=== PATIENT | female | born 1955 | race American Indian/Alaskan Native ===

== ENCOUNTER 2020-10-15 21:09 | Inpatient (IN) | payer MEDICARE ==
[2020-10-15 23:53] LABS: Basophils % (Auto) 0.3 % (0.0-1.8); Eosinophils # (Auto) 0.1 K/mm3 (0.0-0.4); Eosinophils % (Auto) 0.5 % (0.0-4.3); Hematocrit 43.4 % (30.3-42.9); Hemoglobin 13.6 gm/dl (10.1-14.3); Lymphocytes # (Auto) 0.8 K/mm3 (1.2-5.4); Lymphocytes % (Auto) 6.7 % (13.4-35.0); Mean Corpuscular HGB Conc 31 % (30-34); Mean Corpuscular Volume 89 fl (79-97); Monocytes # (Auto) 0.4 K/mm3 (0.0-0.8); Monocytes % (Auto) 3.9 % (0.0-7.3); Platelet Count 312 K/mm3 (140-440); Red Blood Count 4.85 M/mm3 (3.65-5.03); Red Cell Distribution Width 19.4 % (13.2-15.2)
[2020-10-16 00:43] LABS: Albumin 3.9 g/dL (3.9-5); Calcium 10.2 mg/dL (8.4-10.2)
[2020-10-16] MEDS ORDERED: HYDROmorphone 1 MG/1 ML INJ IV ONE ×2 (02:12→14:11)
--- NOTE | 2020-10-16 02:15 | Emergency Department Report ---
HPI - General Chief Complaint: Abdominal Pain Time Seen by Provider: 10/16/20 01:52 - HPI HPI: This is a 65-year-old -Cypriot female who presents to the emergency department with a complaint of generalized abdominal pain, nausea and vomiting, diarrhea, and a loss of smell. Overall the patient says that the abdominal pain has been going on for the past 3 weeks. The nausea, vomiting and diarrhea has been going on for the past few days, and she lost her smell about 2 days ago. Patient says that the abdominal pain is currently 8 out of 10 in intensity. It worsens with any type of movement or palpation. No known alleviating factors. Patient denies any sick contacts at home but says that her has been working with someone recently who came down with KAROLYN. No recent travel. She has not taken anything for symptoms prior to presentation. She has a past medical history of diabetes, hypertension, paroxysmal atrial fibrillation, AICD in situ, and end-stage renal disease on hemodialysis on Friday/Friday/Friday. Patient says that she has not had dialysis for about 1 week secondary to her current symptoms. Her designer is a Dr. Pelaez. ED Past Medical Hx - Past Medical History Hx Hypertension: Yes (ADMITTED WITH HYPERTENSIVE EMERGENCY) Hx Heart Attack/AMI: No Hx Congestive Heart Failure: No Hx Diabetes: Yes Hx Renal Disease: Yes (Dialysis: M-W-F) Hx Asthma: No Hx COPD: No Hx Tuberculosis: Yes Hx HIV: No Additional medical history: Possible atrial fib. Hernia right Inguinal - Surgical History Hx Pacemaker: Yes Hx Internal Defibrillator: Yes Hx Cholecystectomy: Yes Hx Appendectomy: Yes Additional Surgical History: Hysterectomy - Social History Smoking Status: Never Smoker Substance Use Type: None - Medications Home Medications: Home Medications Medication Instructions Recorded Confirmed Last Taken Type Ergocalciferol (Vitamin D2) 50,000 unit PO DAILY 09/25/20 10/16/20 Unknown History [Drisdol] HYDROcodone/APAP 5-325 [[place] 1 each PO Q6HR PRN 09/25/20 10/16/20 Unknown History 5-325 mg TAB] Sevelamer Carbonate [Renvela] 1,600 mg PO TID 09/25/20 10/16/20 Unknown History busPIRone [Buspar] 10 mg PO Q8HR 09/25/20 10/16/20 Unknown History Citalopram [Celexa] 20 mg PO QDAY #30 tab 09/28/20 10/16/20 Unknown Rx Furosemide [Lasix TAB] 80 mg PO QDAY #30 tablet 09/28/20 10/16/20 Unknown Rx carvediloL [Coreg] 25 mg PO BID #60 tablet 09/28/20 10/16/20 Unknown Rx cloNIDine [Catapres] 0.3 mg PO Q8HR #270 tablet 09/28/20 10/16/20 Unknown Rx dilTIAZem CD [Cardizem CD] 360 mg PO QDAY #60 capsule 09/28/20 10/16/20 Unknown Rx ALPRAZolam [Xanax TAB] 0.25 mg PO BID PRN 10/16/20 10/16/20 Unknown History Acetaminophen [Tylenol] 500 mg PO Q6HR 10/16/20 10/16/20 Unknown History Folic Acid/Vit B Complex and C 0.8 mg PO QDAY 10/16/20 10/16/20 Unknown History [Renal Vitamin Tablet] Pantoprazole [Protonix] 40 mg PO QDAY 10/16/20 10/16/20 Unknown History clonazePAM [ Klonopin] 0.5 mg PO BID PRN 10/16/20 10/16/20 Unknown History hydrALAZINE [Apresoline TAB] 25 mg PO QID 10/16/20 10/16/20 Unknown History traMADoL [Ultram] 50 mg PO Q6HR PRN 10/16/20 10/16/20 Unknown History ED Review of Systems ROS: Stated complaint: ABDOMINAL PAIN Other details as noted in HPI Comment: All other systems reviewed and negative Constitutional: denies: chills, fever Eyes: denies: eye pain, vision change ENT: denies: ear pain, throat pain Respiratory: denies: cough, shortness of breath Cardiovascular: denies: chest pain, palpitations Gastrointestinal: abdominal pain, nausea, vomiting, diarrhea Genitourinary: denies: dysuria, discharge Musculoskeletal: denies: back pain, arthralgia Skin: denies: rash, lesions Neurological: denies: headache, weakness Physical Exam - Physical Exam Vital Signs: Vital Signs 10/15/20 23:03 Temperature 98.3 F Pulse Rate 116 H Respiratory 18 Rate Blood Pressure 239/160 O2 Sat by Pulse 96 Oximetry Physical Exam: GENERAL: The patient is well-developed well-nourished. HENT: Normocephalic. Atraumatic. Patient has moist mucous membranes. EYES: Extraocular motions are intact. NECK: Supple. Trachea is midline. CHEST/LUNGS: Clear to auscultation. There is no respiratory distress noted. HEART/CARDIOVASCULAR: Regular. There is mild tachycardia. ABDOMEN: Abdomen is soft. There is generalized abdominal tenderness to palpation. No guarding. Patient has normal bowel sounds. SKIN: Skin is warm and dry. NEURO: The patient is awake, alert, and oriented. The patient is cooperative. Normal speech. MUSCULOSKELETAL: There is no tenderness or deformity. There is no limitation range of motion. ED Course Vital Signs 10/15/20 23:03 Temperature 98.3 F Pulse Rate 116 H Respiratory 18 Rate Blood Pressure 239/160 O2 Sat by Pulse 96 Oximetry - Reevaluation(s) Reevaluation #1: 10/16/20 05:48 Lab Results 10/15/20 10/15/20 Range/Units 23:09 23:09 WBC 11.3 H (4.5-11.0) K/mm3 RBC 4.85 (3.65-5.03) M/mm3 Hgb 13.6 (10.1-14.3) gm/dl Hct 43.4 H (30.3-42.9) % MCV 89 (79-97) fl MCH 28 (28-32) pg MCHC 31 (30-34) % RDW 19.4 H (13.2-15.2) % Plt Count 312 (140-440) K/mm3 Lymph % (Auto) 6.7 L (13.4-35.0) % [place] % (Auto) 3.9 (0.0-7.3) % Eos % (Auto) 0.5 (0.0-4.3) % Baso % (Auto) 0.3 (0.0-1.8) % Lymph # (Auto) 0.8 L (1.2-5.4) K/mm3 [place] # (Auto) 0.4 (0.0-0.8) K/mm3 Eos # (Auto) 0.1 (0.0-0.4) K/mm3 Baso # (Auto) 0.0 (0.0-0.1) K/mm3 Seg Neutrophils % 88.6 H (40.0-70.0) % Seg Neutrophils # 10.0 H (1.8-7.7) K/mm3 Sodium 138 (137-145) mmol/L Potassium 5.7 H (3.6-5.0) mmol/L Chloride 96.1 L (98-107) mmol/L Carbon Dioxide 17 L (22-30) mmol/L Anion Gap 31 mmol/L BUN 72 H (7-17) mg/dL Creatinine 12.5 H (0.6-1.2) mg/dL Estimated GFR 4 ml/min BUN/Creatinine Ratio 6 % Glucose 115 H (65-100) mg/dL Calcium 10.2 (8.4-10.2) mg/dL Total Bilirubin 0.60 (0.1-1.2) mg/dL AST 21 (5-40) units/L ALT 10 (7-56) units/L Alkaline Phosphatase 95 (35-129) units/L Total Protein 6.9 (6.3-8.2) g/dL Albumin 3.9 (3.9-5) g/dL Albumin/Globulin Ratio 1.3 % Reevaluation #2: 10/16/20 05:48 Vital Signs 10/15/20 10/16/20 23:03 04:46 Temperature 98.3 F Pulse Rate 116 H 118 H Respiratory 18 20 Rate Blood Pressure 239/160 227/140 O2 Sat by Pulse 96 Oximetry - Consultations Consultation #1: 10/16/20 05:57 I spoke to the general surgeon on-call, Dr. Portillo, regarding the CT findings of possible internal hernia with mesenteric stranding and "swirl of the central mesenteric vasculature." Dr. Portillo has asked for a lactic acid level and will see the patient as a consult. ED Medical Decision Making - Lab Data Result diagrams: 10/17/20 08:13 10/17/20 08:13 - Radiology Data Radiology results: report reviewed ABDOMEN 2 VIEW(S) with PA chest INDICATION / CLINICAL INFORMATION: Abd pain, HTN, PUI. COMPARISON: Chest radiograph 09/27/[address] abdomen pelvis 09/25/2020 FINDINGS: CHEST: Stable position of left chest AICD. Stable cardiomegaly. The lungs are clear. No pleural effusion. No pneumothorax. TUBES / LINES: Femoral approach central venous catheter with tip terminating over the region of the right atrium. BOWEL GAS PATTERN: No significant abnormality. FREE AIR / EXTRALUMINAL GAS: None seen. ADDITIONAL FINDINGS: A probable endovascular occlusive device is seen in the left midabdomen. There is a 9 mm calcification projecting over the left lower quadrant, not clearly seen on prior CT abdomen pelvis. IMPRESSION: 1. There is a 9 mm calcification projecting over the left lower quadrant, not clearly seen on prior CT abdomen pelvis and indeterminate. No renal or ureteral stone was seen on prior CT, though recommend correlation for left flank pain. Otherwise no acute abnormality identified. CT ABDOMEN AND PELVIS WITHOUT CONTRAST INDICATION / CLINICAL INFORMATION: Abd pain. TECHNIQUE: Axial CT images were obtained through the abdomen and pelvis without IV contrast. All CT scans at this location are performed using CT dose r eduction for ALARA by means of automated exposure control. COMPARISON: CT abdomen pelvis 09/25/2020 and abdominal radiograph same day FINDINGS: LOWER CHEST: Cardiomegaly. Cardiac leads are seen. Small pericardial effusion. LIVER: No significant abnormality. GALLBLADDER: Absent. BILE DUCTS: Prominence of the common bile duct is unchanged and likely secondary to postcholecystectomy state. PANCREAS: No significant abnormality. SPLEEN: No significant abnormality. ADRENALS: No significant abnormality. KIDNEYS AND URETERS: There is a possible 3.4 cm nodular lesion in the right upper pole, incompletely characterized on noncontrast examination. Additional renal cysts. Both kidneys are atrophic. Ther e is no hydronephrosis or nephrolithiasis. Left perinephric stranding/collection is slightly decreased from prior examination, currently measuring up to 5.0 x 4.4 cm, previously 5.6 x 4.9 cm. Embolization coil material in the region of the left renal artery. STOMACH and SMALL BOWEL: There is a swirled appearance of the central mesenteric vasculature which is new compared with the prior examination. There is adjacent mesenteric stranding and a mildly prominent loop of small bowel in the right mid abdomen with associated wall thickening. There is no evidence of bowel obstruction. COLON: No significant abnormality. The previously described left lower quadrant calcification seen on plain radiograph is adjacent to the distal descending/proximal sigmoid colon and indeterminate in etiology. APPENDIX: Not definitively seen. PERITONEUM: Small free fluid. No free air. No fluid collection. LYMPH NODES: No significant adenopathy. AORTA and ARTERIES: No significant abnormality. IVC and VEINS: Right femoral approach central venous catheter with tip terminating in the right atrium. URINARY BLADDER: No significant abnormality. REPRODUCTIVE ORGANS: Prior hysterectomy. ADDITIONAL FINDINGS: None. SKELETAL SYSTEM: No significant abnormality. IMPRESSION: 1. New swirling of the central mesenteric vasculature with associated mesenteric stranding and a prominent loop of small bowel in the right mid abdomen with associated wall thickening. Findings raise concern for an internal hernia. 2. Interval development of small ascites. 3. Left perinephric collection/stranding is slightly decreased in size from prior examination. 4. Possible right upper pole renal mass, incompletely characterized on noncontrast examination. A renal ultrasound could provide further characterization. 5. Additional incidental findings as above. - Medical Decision Making This patient presents with the complaint of abdominal pain, nausea with vomiting, diarrhea, and some recent anosmia. Given the recent anosmia, as well as the fact that we are in a pandemic, the patient has been made a PUI. Chest x-ray does not show any pneumonia, pleural effusions, or any other acute process. Abdominal x-ray shows nonspecific nonobstructive bowel gas. Patient's labs shows hyperkalemia with a potassium of 5.7 and renal insufficiency consistent with her end-stage renal disease. The patient presents with extremely elevated blood pressure. So far she has been given 2 doses of IV labetalol, IV analgesia, and the blood pressure has come down to about 204/109. The patient will receive a dose of hydralazine to try to get it down further. CT scan of the abdomen and and pelvis without contrast shows concerns for an internal hernia regarding the central mesentery. No signs of SBO. I spoke with general surgery who has requested a lactic acid level and will see the patient as a consult. The patient has been given some Kayexalate for the hyperkalemia with a potassium of 5.7. The designer on-call has been consulted to evaluate the patient for dialysis. The overnight hospitalist has been contacted and has accepted the patient for admission and to bridge admission orders under his name, but he may pass this admission off to the incoming hospitalist team this morning. The patient was placed in patient isolation and droplet precautions immediately upon arrival to the main emergency department. I wore full PPE gear including a surgical hat, goggles, N95 mask, surgical mask, gown, and double gloves for every encounter. Critical Care Time: Yes Critical care time in (mins) excluding proc time.: 35 Critical care attestation.: If time is entered above; I have spent that time in minutes in the direct care of this critically ill patient, excluding procedure time. Critical care time was spent on this patient in doing her initial evaluation, multiple reevaluations, ordering interpretation of labs and imaging, IV antihypertensive medication given for her hypertensive emergency, IV analgesia, discussion with the general surgeon on-call, and discussion with the hospital service. Critical Care Time: 35 minutes ED Disposition Clinical Impression: Internal hernia, Hypertensive emergency, ESRD needing dialysis, Non-compliance, Hyperkalemia Abdominal pain Qualifiers: Abdominal location: generalized Qualified Code(s): R10.84 - Generalized abdomin al pain Disposition: OP ADMIT IP TO THIS HOSP Is pt being admited?: Yes Condition: Serious Time of Disposition: 05:47
--- NOTE | 2020-10-16 03:22 | XRay Report ---
ABDOMEN 2 VIEW(S) with PA chest INDICATION / CLINICAL INFORMATION: Abd pain, HTN, PUI. COMPARISON: Chest radiograph 09/27/[address] abdomen pelvis 09/25/2020 FINDINGS: CHEST: Stable position of left chest AICD. Stable cardiomegaly. The lungs are clear. No pleural effus ion. No pneumothorax. TUBES / LINES: Femoral approach central venous catheter with tip terminating over the region of the r ight atrium. BOWEL GAS PATTERN: No significant abnormality. FREE AIR / EXTRALUMINAL GAS: None seen. ADDITIONAL FINDINGS: A probable endovascular occlusive device is seen in the left midabdomen. There i s a 9 mm calcification projecting over the left lower quadrant, not clearly seen on prior CT abdomen pelvis. IMPRESSION: 1. There is a 9 mm calcification projecting over the left lower quadrant, not clearly seen on prior C T abdomen pelvis and indeterminate. No renal or ureteral stone was seen on prior CT, though recommend correlation for left flank pain. Otherwise no acute abnormality identified. Signer Name: Lina Hernandez MD Signed: 10/16/2020 3:18 AM Workstation Name: [id number]
[2020-10-16] MEDS ORDERED: HYDROmorphone 1 MG/1 ML INJ ONE ×2 (04:15→14:12)
[2020-10-16] MEDS ORDERED: hydrALAZINE 20 MG/1 ML INJ IV ONE (05:22)
--- NOTE | 2020-10-16 05:35 | Cat Scan Report ---
CT ABDOMEN AND PELVIS WITHOUT CONTRAST INDICATION / CLINICAL INFORMATION: Abd pain. TECHNIQUE: Axial CT images were obtained through the abdomen and pelvis without IV contrast. All CT scans at [facility] location are performed using CT dose reduction for ALARA by means of automated exposure control. COMPARISON: CT abdomen pelvis 09/25/2020 and abdominal radiograph same day FINDINGS: LOWER CHEST: Cardiomegaly. Cardiac leads are seen. Small pericardial effusion. LIVER: No significant abnormality. GALLBLADDER: Absent. BILE DUCTS: Prominence of the common bile duct is unchanged and likely secondary to postcholecystecto my state. PANCREAS: No significant abnormality. SPLEEN: No significant abnormality. ADRENALS: No significant abnormality. KIDNEYS AND URETERS: There is a possible 3.4 cm nodular lesion in the right upper pole, incompletely characterized on noncontrast examination. Additional renal cysts. Both kidneys are atrophic. There is no hydronephrosis or nephrolithiasis. Left perinephric stranding/collection is slightly decreased fr om prior examination, currently measuring up to 5.0 x 4.4 cm, previously 5.6 x 4.9 cm. Embolization c oil material in the region of the left renal artery. STOMACH and SMALL BOWEL: There is a swirled appearance of the central mesenteric vasculature which is new compared with the prior examination. There is adjacent mesenteric stranding and a mildly promine nt loop of small bowel in the right mid abdomen with associated wall thickening. There is no evidence of bowel obstruction. COLON: No significant abnormality. The previously described left lower quadrant calcification seen on plain radiograph is adjacent to the distal descending/proximal sigmoid colon and indeterminate in et iology. APPENDIX: Not definitively seen. PERITONEUM: Small free fluid. No free air. No fluid collection. LYMPH NODES: No significant adenopathy. AORTA and ARTERIES: No significant abnormality. IVC and VEINS: Right femoral approach central venous catheter with tip terminating in the right atriu m. URINARY BLADDER: No significant abnormality. REPRODUCTIVE ORGANS: Prior hysterectomy. ADDITIONAL FINDINGS: None. SKELETAL SYSTEM: No significant abnormality. IMPRESSION: 1. New swirling of the central mesenteric vasculature with associated mesenteric stranding and a prom inent loop of small bowel in the right mid abdomen with associated wall thickening. Findings raise co ncern for an internal hernia. 2. Interval development of small ascites. 3. Left perinephric collection/stranding is slightly decreased in size from prior examination. 4. Possible right upper pole renal mass, incompletely characterized on noncontrast examination. A gilma al ultrasound could provide further characterization. 5. Additional incidental findings as above. Signer Name: Lina Hernandez MD Signed: 10/16/2020 5:31 AM Workstation Name: [id number]
[2020-10-16] MEDS ORDERED: SODIUM POLYSTYRENE 15 GM/60 ML ORAL LIQD PO ONE (05:44)
[2020-10-16] MEDS ORDERED: clonazePAM 0.5 MG TAB PO PRN (08:24)
[2020-10-16] MEDS ORDERED: ACETAMINOPHEN 325 MG TAB PO PRN (08:32)
[2020-10-16] MEDS ORDERED: ONDANSETRON 4 MG/2 ML INJ IV PRN ×2 (08:32→18:17)
[2020-10-16] MEDS ORDERED: D5W/0.45% NACL 1,000 ML IV SCH (09:00)
[2020-10-16] MEDS: carvediloL 25 MG TAB PO SCH ×2 (09:07→21:31)
[2020-10-16] MEDS: cloNIDine 0.1 MG TAB PO SCH ×3 (09:07→21:31)
[2020-10-16] MEDS: hydrALAZINE 25 MG TAB PO SCH ×3 (09:08→21:30)
[2020-10-16] MEDS ORDERED: SODIUM CHLORIDE 0.9% 100 ML IV PRN (09:10)
[2020-10-16] MEDS: dilTIAZem CD 180 MG CAP PO SCH (09:25)
[2020-10-16] MEDS ORDERED: PANTOPRAZOLE 40 MG TAB PO SCH (10:00)
[2020-10-16] MEDS ORDERED: FOLIC ACID PO SCH (10:00)
[2020-10-16] MEDS ORDERED: VIT B COMPLEX AND C PO SCH (10:00)
[2020-10-16] MEDS: CITALOPRAM 20 MG TAB PO SCH (10:19)
[2020-10-16] MEDS: FOLIC ACID/VIT B COMP W-C 1 MG (RENAL CAPS) PO SCH (10:19)
[2020-10-16] MEDS: FUROSEMIDE 40 MG TAB PO SCH (10:19)
--- NOTE | 2020-10-16 11:01 | History and Physical Report ---
History of Present Illness Date of examination: 10/16/20 Date of admission: 10/16/20 06:04 Chief complaint: Diffuse abdominal pain for 3 weeks Nausea vomiting and diarrhea for few days Loss of smell , fever and chills and body aches for the past 2 to 3 days History of present illness: Patient is a 65-year-old -[place] female with history of end-stage renal disease on hemodialysis Friday and Friday, hypertension, paroxysmal atrial fibrillation, type 2 diabetes and status post AICD placement, presents to the ED with complaints of generalized abdominal pain for the past 3 weeks. Pain is constant and progressive. Also complains of nausea, vomiting and diarrhea for the past few days and for the past couple of days she has lost smell and has been having fever and chills and associated with body aches and generalized weakness. She denies any chest pain or shortness of breath or cough. CT of the abdomen and pelvis showed internal hernia with mesenteric stranding and questionable right upper pole renal mass. General surgery was consulted. Patient is being admitted for further evaluation of her abdominal pain. Apparently patient's was exposed to someone who was positive for Covid 19 virus Past History Past Medical History: atrial fib, diabetes, GERD, hypertension Past Surgical History: appendectomy, cholecystectomy, hysterectomy Social history: no significant social history Family history: hypertension (And her mother who is and her brother also has hypertension) Medications and Allergies Allergies Allergy/AdvReac Type Severity Reaction Status Date / Time No Known Allergies Allergy Unverified 09/04/13 07:18 Home Medications Medication Instructions Recorded Confirmed Last Taken Type Ergocalciferol (Vitamin D2) 50,000 unit PO DAILY 09/25/20 10/16/20 Unknown History [Drisdol] HYDROcodone/APAP 5-325 [[place] 1 each PO Q6HR PRN 09/25/20 10/16/20 Unknown History 5-325 mg TAB] Sevelamer Carbonate [Renvela] 1,600 mg PO TID 09/25/20 10/16/20 Unknown History busPIRone [Buspar] 10 mg PO Q8HR 09/25/20 10/16/20 Unknown History Citalopram [Celexa] 20 mg PO QDAY #30 tab 09/28/20 10/16/20 Unknown Rx Furosemide [Lasix TAB] 80 mg PO QDAY #30 tablet 09/28/20 10/16/20 Unknown Rx carvediloL [Coreg] 25 mg PO BID #60 tablet 09/28/20 10/16/20 Unknown Rx cloNIDine [Catapres] 0.3 mg PO Q8HR #270 tablet 09/28/20 10/16/20 Unknown Rx dilTIAZem CD [Cardizem CD] 360 mg PO QDAY #60 capsule 09/28/20 10/16/20 Unknown Rx ALPRAZolam [Xanax TAB] 0.25 mg PO BID PRN 10/16/20 10/16/20 Unknown History Acetaminophen [Tylenol] 500 mg PO Q6HR 10/16/20 10/16/20 Unknown History Folic Acid/Vit B Complex and C 0.8 mg PO QDAY 10/16/20 10/16/20 Unknown History [Renal Vitamin Tablet] Pantoprazole [Protonix] 40 mg PO QDAY 10/16/20 10/16/20 Unknown History clonazePAM [ Klonopin] 0.5 mg PO BID PRN 10/16/20 10/16/20 Unknown History hydrALAZINE [Apresoline TAB] 25 mg PO QID 10/16/20 10/16/20 Unknown History traMADoL [Ultram] 50 mg PO Q6HR PRN 10/16/20 10/16/20 Unknown History Active Meds: Active Medications Acetaminophen (Tylenol) 650 mg PO Q4H PRN PRN Reason: Pain MILD(1-3)/Fever >100.5/SAUCEDO Alprazolam (Xanax) 0.25 mg PO BID PRN PRN Reason: Anxiety Buspirone HCl (Buspar) 10 mg PO Q8HR [facility] Carvedilol (Coreg) 25 mg PO BID [facility] Last Admin: 10/16/20 09:07 Dose: 25 mg Documented by: Citalopram Hydrobromide (Celexa) 20 mg PO QDAY [facility] Last Admin: 10/16/20 10:19 Dose: 20 mg Documented by: Clonazepam (Klonopin) 0.5 mg PO BID PRN PRN Reason: Anxiety UNRELIEVED XANAX Clonidine HCl (Catapres) 0.3 mg PO Q8HR [facility] Last Admin: 10/16/20 09:07 Dose: 0.3 mg Documented by: Diltiazem HCl (Cardizem Cd) 360 mg PO QDAY [facility] Last Admin: 10/16/20 09:25 Dose: 360 mg Documented by: Ergocalciferol (Vitamin D2) 50,000 unit PO Mo@1000 [facility] Furosemide (Lasix) 80 mg PO QDAY [facility] Last Admin: 10/16/20 10:19 Dose: Not Given Documented by: Hydralazine HCl (Apresoline) 25 mg PO QID [facility] Last Admin: 10/16/20 09:08 Dose: 25 mg Documented by: Dextrose/Sodium Chloride (D5/0.45ns) 1,000 mls @ 50 mls/hr IV DIRECT [facility] Last Admin: 10/16/20 10:22 Dose: 50 mls/hr Documented by: Sodium Chloride (Nacl 0.9%) 100 mls @ 999 mls/hr IV BRENNA PRN PRN Reason: Hypotension Morphine Sulfate (Morphine) 2 mg IV Q4H PRN PRN Reason: Pain, Moderate (4-6) Multivit/Ca Carb/B Cmplx/FA/Prenat (Renal Caps) 1 cap PO QDAY [facility] Last Admin: 10/16/20 10:19 Dose: 1 cap Documented by: Ondansetron HCl (Zofran) 4 mg IV Q8H PRN PRN Reason: Nausea And Vomiting Pantoprazole Sodium (Protonix) 40 mg PO QDAY [facility] Last Admin: 10/16/20 10:19 Dose: 40 mg Documented by: Sevelamer Carbonate (Renvela) 1,600 mg PO TIDWM [facility] Sodium Chloride (Sodium Chloride Flush Syringe 10 Ml) 10 ml IV BID [facility] Last Admin: 10/16/20 10:21 Dose: 10 ml Documented by: Sodium Chloride (Sodium Chloride Flush Syringe 10 Ml) 10 ml IV PRN PRN PRN Reason: LINE FLUSH Review of Systems Constitutional: fever, chills, weakness, malaise, no weight loss Ears, nose, mouth and throat: no ear pain, no nasal congestion, no dysphagia, no sore throat, no headache Breasts: deferred Cardiovascular: high blood pressure, no chest pain, no palpitations, no edema, no syncope, no shortness of breath Respiratory: no cough, no shortness of breath Gastrointestinal: abdominal pain, nausea, vomiting, diarrhea, no BRBPR, no [place] Menstruation: postmenopausal Rectal: no pain Musculoskeletal: no neck stiffness, no low back pain Integumentary: no rash Neurological: no seizures, no syncope, no vertigo, no headaches Psychiatric: no anxiety, no depression Endocrine: no excessive thirst, no polydipsia Exam - Constitutional Vitals: Temp Pulse Resp BP Pulse Ox 98.9 F 107 H 20 222/147 100 10/16/20 09:00 10/16/20 09:25 10/16/20 09:00 10/16/20 09:25 10/16/20 09:00 General appearance: Present: mild distress, well-nourished - EENT Eyes: Present: PERRL, EOM intact ENT: hearing intact, clear oral mucosa - Respiratory Respiratory effort: normal Respiratory: bilateral: CTA, negative: rales, rhonchi - Cardiovascular Rhythm: regular Heart Sounds: Present: S1 & S2 - Extremities Extremities: No edema - Abdominal General gastrointestinal: Present: soft, tender (Diffusely tender, no rigidity), non-distended. Absent: hepatomegaly, splenomegaly Female genitourinary: Present: deferred - Rectal Rectal Exam: deferred - Integumentary Integumentary: Present: clear, warm, dry - Musculoskeletal Musculoskeletal: strength equal bilaterally - Psychiatric Psychiatric: appropriate mood/affect - Neurologic Neurologic: no focal deficits, moves all extremities HEART Score - HEART Score History: Moderately suspicious EKG: Normal Age: 45-65 Risk factors: 1-2 risk factors - Critical Actions Critical Actions: 0-3 pts:0.9-1.7%risk of adverse cardiac event.Candidate for discharge Results - Labs CBC & Chem 7: 10/15/20 23:09 10/15/20 23:09 Labs: Abnormal lab results 10/15/20 10/15/20 Range/Units 23:09 23:09 WBC 11.3 H (4.5-11.0) K/mm3 Hct 43.4 H (30.3-42.9) % RDW 19.4 H (13.2-15.2) % Lymph % (Auto) 6.7 L (13.4-35.0) % Lymph # (Auto) 0.8 L (1.2-5.4) K/mm3 Seg Neutrophils % 88.6 H (40.0-70.0) % Seg Neutrophils # 10.0 H (1.8-7.7) K/mm3 Potassium 5.7 H (3.6-5.0) mmol/L Chloride 96.1 L (98-107) mmol/L Carbon Dioxide 17 L (22-30) mmol/L BUN 72 H (7-17) mg/dL Creatinine 12.5 H (0.6-1.2) mg/dL Glucose 115 H (65-100) mg/dL Assessment and Plan - Patient Problems (1) Abdominal pain Current Visit: Yes Status: Acute Qualifiers: Abdominal location: generalized Qualified Code(s): R10.84 - Generalized abdominal pain Plan to address problem: Patient is in mild distress from abdominal pain Diffusely tender but no guarding or rigidity CT of the abdomen and pelvis results reviewed General surgery has been consulted N.p.o. IV fluids Pain control (2) Hypertensive emergency Current Visit: Yes Status: Acute Plan to address problem: Patient was severely hypertensive with a BP systolic of 222/147 Likely secondary to volume overload Patient is on multiple medications We will add IV Lopressor as needed Discussed with nephrology Dr. Carlin and patient will be taken to hemodialysis as soon as possible (3) Hyperkalemia Current Visit: Yes Status: Acute Plan to address problem: Secondary to patient not having had dialysis for the past 1 week Patient to undergo hemodialysis as soon as possible (4) Internal hernia Current Visit: Yes Status: Acute Plan to address problem: CT of the abdomen and pelvis results reviewed which shows internal hernia of the small bowel with mesenteric stranding General surgery consulted Evaluation pending N.p.o. Pain control with IV morphine Consider renal ultrasound when the patient is more stable as CT of the abdomen shows questionable mass in the right upper pole of the kidney (5) ESRD needing dialysis Current Visit: Yes Status: Chronic Plan to address problem: Nephrology consulted Continue management per nephrology recommendations Patient states that she missed hemodialysis for the past 1 week
[2020-10-16] MEDS ORDERED: METOPROLOL TARTRATE 5 MG/5 ML INJ IV PRN (11:22)
[2020-10-16] MEDS ORDERED: cloNIDine TTS 0.3 MG/24 HR PATCH TD SCH (11:29)
[2020-10-16] MEDS ORDERED: ACETAMINOPHEN 500 MG TAB PO SCH (12:00)
--- NOTE | 2020-10-16 12:32 | Consultation ---
History of Present Illness - Reason for Consult Consult date: 10/16/20 end stage renal disease - History of Present Illness This is a 65 year-old woman with ESRD who presents for abdominal pain. Patient usually dialyzes MWF at [facility], follows with Dr. Pelaez. Last HD one week ago, has been unable to get to HD due to abdominal pain. Denies any recent issues with HD itself, including dizziness, lightheadedness, cramping, chest pain on HD. Currently, patient denies any issues including dyspnea, edema, access issues, headaches. Does continue to complain of severe abdominal pain, nausea/vomiting, diarrhea. Also with generalized weakness. Past History Past Medical History: atrial fib, diabetes, GERD, hypertension Past Surgical History: appendectomy, cholecystectomy, hysterectomy Social history: no significant social history Family history: hypertension (And her mother who is and her brother also has hypertension) Medications and Allergies Allergies Allergy/AdvReac Type Severity Reaction Status Date / Time No Known Allergies Allergy Unverified 09/04/13 07:18 Home Medications Medication Instructions Recorded Confirmed Last Taken Type Ergocalciferol (Vitamin D2) 50,000 unit PO DAILY 09/25/20 10/16/20 Unknown History [Drisdol] HYDROcodone/APAP 5-325 [[place] 1 each PO Q6HR PRN 09/25/20 10/16/20 Unknown History 5-325 mg TAB] Sevelamer Carbonate [Renvela] 1,600 mg PO TID 09/25/20 10/16/20 Unknown History busPIRone [Buspar] 10 mg PO Q8HR 09/25/20 10/16/20 Unknown History Citalopram [Celexa] 20 mg PO QDAY #30 tab 09/28/20 10/16/20 Unknown Rx Furosemide [Lasix TAB] 80 mg PO QDAY #30 tablet 09/28/20 10/16/20 Unknown Rx carvediloL [Coreg] 25 mg PO BID #60 tablet 09/28/20 10/16/20 Unknown Rx cloNIDine [Catapres] 0.3 mg PO Q8HR #270 tablet 09/28/20 10/16/20 Unknown Rx dilTIAZem CD [Cardizem CD] 360 mg PO QDAY #60 capsule 09/28/20 10/16/20 Unknown Rx ALPRAZolam [Xanax TAB] 0.25 mg PO BID PRN 10/16/20 10/16/20 Unknown History Acetaminophen [Tylenol] 500 mg PO Q6HR 10/16/20 10/16/20 Unknown History Folic Acid/Vit B Complex and C 0.8 mg PO QDAY 10/16/20 10/16/20 Unknown History [Renal Vitamin Tablet] Pantoprazole [Protonix] 40 mg PO QDAY 10/16/20 10/16/20 Unknown History clonazePAM [ Klonopin] 0.5 mg PO BID PRN 10/16/20 10/16/20 Unknown History hydrALAZINE [Apresoline TAB] 25 mg PO QID 10/16/20 10/16/20 Unknown History traMADoL [Ultram] 50 mg PO Q6HR PRN 10/16/20 10/16/20 Unknown History Active Meds: Active Medications Acetaminophen (Tylenol) 650 mg PO Q4H PRN PRN Reason: Pain MILD(1-3)/Fever >100.5/SAUCEDO Alprazolam (Xanax) 0.25 mg PO BID PRN PRN Reason: Anxiety Buspirone HCl (Buspar) 10 mg PO Q8HR [facility] Carvedilol (Coreg) 25 mg PO BID [facility] Last Admin: 10/16/20 09:07 Dose: 25 mg Documented by: Citalopram Hydrobromide (Celexa) 20 mg PO QDAY [facility] Last Admin: 10/16/20 10:19 Dose: 20 mg Documented by: Clonazepam (Klonopin) 0.5 mg PO BID PRN PRN Reason: Anxiety UNRELIEVED XANAX Clonidine HCl (Catapres) 0.3 mg PO Q8HR [facility] Last Admin: 10/16/20 09:07 Dose: 0.3 mg Documented by: Diltiazem HCl (Cardizem Cd) 360 mg PO QDAY [facility] Last Admin: 10/16/20 09:25 Dose: 360 mg Documented by: Ergocalciferol (Vitamin D2) 50,000 unit PO Mo@1000 [facility] Furosemide (Lasix) 80 mg PO QDAY [facility] Last Admin: 10/16/20 10:19 Dose: Not Given Documented by: Hydralazine HCl (Apresoline) 25 mg PO QID [facility] Last Admin: 10/16/20 09:08 Dose: 25 mg Documented by: Dextrose/Sodium Chloride (D5/0.45ns) 1,000 mls @ 50 mls/hr IV DIRECT [facility] Last Admin: 10/16/20 10:22 Dose: 50 mls/hr Documented by: Sodium Chloride (Nacl 0.9%) 100 mls @ 999 mls/hr IV BRENNA PRN PRN Reason: Hypotension Metoprolol Tartrate (Metoprolol) 5 mg IV Q6HR PRN PRN Reason: Hypertension Morphine Sulfate (Morphine) 2 mg IV Q4H PRN PRN Reason: Pain, Moderate (4-6) Multivit/Ca Carb/B Cmplx/FA/Prenat (Renal Caps) 1 cap PO QDAY [facility] Last Admin: 10/16/20 10:19 Dose: 1 cap Documented by: Ondansetron HCl (Zofran) 4 mg IV Q8H PRN PRN Reason: Nausea And Vomiting Pantoprazole Sodium (Protonix) 40 mg PO QDAY [facility] Last Admin: 10/16/20 10:19 Dose: 40 mg Documented by: Sevelamer Carbonate (Renvela) 1,600 mg PO TIDWM [facility] Sodium Chloride (Sodium Chloride Flush Syringe 10 Ml) 10 ml IV BID [facility] Last Admin: 10/16/20 10:21 Dose: 10 ml Documented by: Sodium Chloride (Sodium Chloride Flush Syringe 10 Ml) 10 ml IV PRN PRN PRN Reason: LINE FLUSH Review of Systems All systems: negative (as per HPI) Exam - Vital Signs Vital signs: Vital Signs Temp Pulse Resp BP Pulse Ox 98.3 F 116 H 18 239/160 96 10/15/20 23:03 10/15/20 23:03 10/15/20 23:03 10/15/20 23:03 10/15/20 23:03 - Physical Exam Narrative exam: Constitutional: mild acute distress due to pain Head: NC/AT Neck: supple Lungs: clear to auscultation CV: RRR, no M/R/G Abdomen: soft, non-tender, bowel sounds present Back: nontender Extremities: no edema, pulses WNL Skin: intact Neuro: no focal deficits, alert and oriented x4 Results - Lab Results 10/15/20 23:09 10/15/20 23:09 Most recent lab results Calcium 10.2 mg/dL (8.4-10.2) 10/15/20 23:09 Assessment and Plan This is a 65 year old woman who presents with abdominal pain. # ESRD: HD today for hyperkalemia, acidosis, volume, continue HD MWF or prn thereafter - daily labs - renally dose meds - avoid nephrotoxins - renal diet # Anemia: last hemoglobin 13.6, no indication for ESAs with HD # Hyperkalemia: K 5.7, HD today # Acidosis # HTN: UF as tolerated. BP high since admission, HD today with UF, titrate meds thereafter # Secondary Hyperparathyroidism: continue home binders as needed # Abdominal Pain: reviewed CT abd/pelvis, awaiting surgery input, pain control per primary. Agree with further imaging for concern of mass on right upper kidney, consider urology input
[2020-10-16] MEDS: ERGOCALCIFEROL (VIT D2) 50,000 UNIT CAP PO SCH (16:34)
[2020-10-16] MEDS: SEVELAMER CARBONATE 800 MG TAB PO SCH (16:35)
[2020-10-16] MEDS: busPIRone 5 MG TAB PO SCH ×2 (16:35→21:30)
--- NOTE | 2020-10-16 16:42 | Consultation ---
History of Present Illness Consult date: 10/16/20 Reason for consult: abdominal pain Chief complaint: Abdominal pain - History of present illness History of present illness: Patient seen x2 today and examined. Patient is a 65-year-old female with past medical history of end-stage renal disease, hypertension who presented to the emergency room with complaints of severe worsening abdominal pain. The patient is an extremely poor historian. The first time I saw her today was during dialysis which she was receiving in her room. Prior to my arrival, per the patient's nurse and the audiovisual aids technician, the patient was calm and cooperative. At the time of my interview, the patient was combative, uncooperative. Patient was fighting to get out of bed and elope. Yanet suarez was called. Return to patient's room after dialysis after which she had gotten pain medication. The patient continued to be uncooperative and did not provide any history. She complained of abdominal pain in the epigastric and mid abdominal area that radiated to bilateral quadrants. She stated that she was not hungry. No nausea or vomiting. She gave me permission to talk to her . I spoke with the patient's spouse Mr. Puckett who explained that the patient has had i ntermittent upper abdominal pain for many years. The patient was told that she had a hiatal hernia which they felt was the cause of her pain. He states that she has a poor appetite and does not eat very much. Because of this, she often does not take her medications and can become altered, combative. Patient has been afebrile. No nausea or vomiting noted by nursing. She completed all but 9 minutes of her dialysis treatment today. Past History Past Medical History: atrial fib, diabetes, GERD, hypertension Past Surgical History: appendectomy, cholecystectomy, hysterectomy, Other (AICD, dialysis catheter) Social history: no significant social history Family history: hypertension (And her mother who is and her brother also has hypertension) Medications and Allergies Allergies Allergy/AdvReac Type Severity Reaction Status Date / Time No Known Allergies Allergy Unverified 09/04/13 07:18 Home Medications Medication Instructions Recorded Confirmed Last Taken Type Ergocalciferol (Vitamin D2) 50,000 unit PO DAILY 09/25/20 10/16/20 Unknown History [Drisdol] HYDROcodone/APAP 5-325 [Allen 1 each PO Q6HR PRN 09/25/20 10/16/20 Unknown History 5-325 mg TAB] Sevelamer Carbonate [Renvela] 1,600 mg PO TID 09/25/20 10/16/20 Unknown History busPIRone [Buspar] 10 mg PO Q8HR 09/25/20 10/16/20 Unknown History Citalopram [Celexa] 20 mg PO QDAY #30 tab 09/28/20 10/16/20 Unknown Rx Furosemide [Lasix TAB] 80 mg PO QDAY #30 tablet 09/28/20 10/16/20 Unknown Rx carvediloL [Coreg] 25 mg PO BID #60 tablet 09/28/20 10/16/20 Unknown Rx cloNIDine [Catapres] 0.3 mg PO Q8HR #270 tablet 09/28/20 10/16/20 Unknown Rx dilTIAZem CD [Cardizem CD] 360 mg PO QDAY #60 capsule 09/28/20 10/16/20 Unknown Rx ALPRAZolam [Xanax TAB] 0.25 mg PO BID PRN 10/16/20 10/16/20 Unknown History Acetaminophen [Tylenol] 500 mg PO Q6HR 10/16/20 10/16/20 Unknown History Folic Acid/Vit B Complex and C 0.8 mg PO QDAY 10/16/20 10/16/20 Unknown History [Renal Vitamin Tablet] Pantoprazole [Protonix] 40 mg PO QDAY 10/16/20 10/16/20 Unknown History clonazePAM [ Klonopin] 0.5 mg PO BID PRN 10/16/20 10/16/20 Unknown History hydrALAZINE [Apresoline TAB] 25 mg PO QID 10/16/20 10/16/20 Unknown History traMADoL [Ultram] 50 mg PO Q6HR PRN 10/16/20 10/16/20 Unknown History Active Meds: Active Medications Acetaminophen (Tylenol) 650 mg PO Q4H PRN PRN Reason: Pain MILD(1-3)/Fever >100.5/SAUCEDO Alprazolam (Xanax) 0.25 mg PO BID PRN PRN Reason: Anxiety Buspirone HCl (Buspar) 10 mg PO Q8HR [facility] Carvedilol (Coreg) 25 mg PO BID [facility] Last Admin: 10/16/20 09:07 Dose: 25 mg Documented by: Citalopram Hydrobromide (Celexa) 20 mg PO QDAY [facility] Last Admin: 10/16/20 10:19 Dose: 20 mg Documented by: Clonazepam (Klonopin) 0.5 mg PO BID PRN PRN Reason: Anxiety UNRELIEVED XANAX Clonidine HCl (Catapres) 0.3 mg PO Q8HR [facility] Last Admin: 10/16/20 09:07 Dose: 0.3 mg Documented by: Diltiazem HCl (Cardizem Cd) 360 mg PO QDAY [facility] Last Admin: 10/16/20 09:25 Dose: 360 mg Documented by: Ergocalciferol (Vitamin D2) 50,000 unit PO Mo@1000 SUSU Furosemide (Lasix) 80 mg PO QDAY [facility] Last Admin: 10/16/20 10:19 Dose: Not Given Documented by: Hydralazine HCl (Apresoline) 25 mg PO QID [facility] Last Admin: 10/16/20 09:08 Dose: 25 mg Documented by: Dextrose/Sodium Chloride (D5/0.45ns) 1,000 mls @ 50 mls/hr IV DIRECT [facility] Last Admin: 10/16/20 10:22 Dose: 50 mls/hr Documented by: Sodium Chloride (Nacl 0.9%) 100 mls @ 999 mls/hr IV BRENNA PRN PRN Reason: Hypotension Metoprolol Tartrate (Metoprolol) 5 mg IV Q6HR PRN PRN Reason: Hypertension Morphine Sulfate (Morphine) 2 mg IV Q4H PRN PRN Reason: Pain, Moderate (4-6) Multivit/Ca Carb/B Cmplx/FA/Prenat (Renal Caps) 1 cap PO QDAY [facility] Last Admin: 10/16/20 10:19 Dose: 1 cap Documented by: Ondansetron HCl (Zofran) 4 mg IV Q8H PRN PRN Reason: Nausea And Vomiting Pantoprazole Sodium (Protonix) 40 mg PO QDAY [facility] Last Admin: 10/16/20 10:19 Dose: 40 mg Documented by: Sevelamer Carbonate (Renvela) 1,600 mg PO TIDWM [facility] Sodium Chloride (Sodium Chloride Flush Syringe 10 Ml) 10 ml IV BID [facility] Last Admin: 10/16/20 10:21 Dose: 10 ml Documented by: Sodium Chloride (Sodium Chloride Flush Syringe 10 Ml) 10 ml IV PRN PRN PRN Reason: LINE FLUSH Exam Vital Signs Temp Pulse Resp BP Pulse Ox 98.3 F 116 H 18 239/160 96 10/15/20 23:03 10/15/20 23:03 10/15/20 23:03 10/15/20 23:03 10/15/20 23:03 Narrative exam: Gen.: Awake, alert, oriented to person and place. Appears confused. Extremely combative and uncooperative with exam. In distress due to pain. ENT: Trachea midline. No lymphadenopathy. No scleral icterus or conjunctival pallor CV: S1, S2 present Respiratory: No audible wheezes Abdomen: Soft, nondistended, tender in the epigastrium but unable to get an adequate exam due to the patient's combativeness. Extremities: No clubbing, cyanosis, edema Results - Labs 10/15/20 23:09 10/15/20 23:09 Abnormal lab results 10/15/20 10/15/20 Range/Units 23:09 23:09 WBC 11.3 H (4.5-11.0) K/mm3 Hct 43.4 H (30.3-42.9) % RDW 19.4 H (13.2-15.2) % Lymph % (Auto) 6.7 L (13.4-35.0) % Lymph # (Auto) 0.8 L (1.2-5.4) K/mm3 Seg Neutrophils % 88.6 H (40.0-70.0) % Seg Neutrophils # 10.0 H (1.8-7.7) K/mm3 Potassium 5.7 H (3.6-5.0) mmol/L Chloride 96.1 L (98-107) mmol/L Carbon Dioxide 17 L (22-30) mmol/L BUN 72 H (7-17) mg/dL Creatinine 12.5 H (0.6-1.2) mg/dL Glucose 115 H (65-100) mg/dL Diabetes panel 10/15/20 Range/Units 23:09 Sodium 138 (137-145) mmol/L Potassium 5.7 H (3.6-5.0) mmol/L Chloride 96.1 L (98-107) mmol/L Carbon Dioxide 17 L (22-30) mmol/L BUN 72 H (7-17) mg/dL Creatinine 12.5 H (0.6-1.2) mg/dL Glucose 115 H (65-100) mg/dL Calcium 10.2 (8.4-10.2) mg/dL AST 21 (5-40) units/L ALT 10 (7-56) units/L Alkaline Phosphatase 95 (35-129) units/L Total Protein 6.9 (6.3-8.2) g/dL Albumin 3.9 (3.9-5) g/dL Calcium panel 10/15/20 Range/Units 23:09 Calcium 10.2 (8.4-10.2) mg/dL Albumin 3.9 (3.9-5) g/dL Pituitary panel 10/15/20 Range/Units 23:09 Sodium 138 (137-145) mmol/L Potassium 5.7 H (3.6-5.0) mmol/L Chloride 96.1 L (98-107) mmol/L Carbon Dioxide 17 L (22-30) mmol/L BUN 72 H (7-17) mg/dL Creatinine 12.5 H (0.6-1.2) mg/dL Glucose 115 H (65-100) mg/dL Calcium 10.2 (8.4-10.2) mg/dL Adrenal panel 10/15/20 Range/Units 23:09 Sodium 138 (137-145) mmol/L Potassium 5.7 H (3.6-5.0) mmol/L Chloride 96.1 L (98-107) mmol/L Carbon Dioxide 17 L (22-30) mmol/L BUN 72 H (7-17) mg/dL Creatinine 12.5 H (0.6-1.2) mg/dL Glucose 115 H (65-100) mg/dL Calcium 10.2 (8.4-10.2) mg/dL Total Bilirubin 0.60 (0.1-1.2) mg/dL AST 21 (5-40) units/L ALT 10 (7-56) units/L Alkaline Phosphatase 95 (35-129) units/L Total Protein 6.9 (6.3-8.2) g/dL Albumin 3.9 (3.9-5) g/dL - Imaging Abdominal x-ray: report reviewed, image reviewed CT scan - abdomen: report reviewed, image reviewed CT scan - pelvis: report reviewed, image reviewed Assessment and Plan 65 yo F with 1. severe abdominal pain, possible internal hernia 2. ESRD on HD 3. Hypertensive urgency Plan: 1. NPO 2. IVF - gentle 3. abx 4. sp HD today 5. Patient is an extremely poor historian and not cooperative with exam. Ct scan A/P findings concerning for internal hernia, mesenteric stranding, and thickening of bowel loop involved. She is unable to sit still in the bed and complains of severe abdominal pain, concerning for peritonitis. Recommend OR for diagnostic laparoscopy, possible exlap, possible bowel resection. Pt unable to give consent due to altered mental status. I discussed all risks, benefits, alternatives to surgery with patient's spouse Mr. Puckett and indication for surgery explained. All questions answered and consent obtained. Thank you for this consultation. Please call with any questions or concerns. Evaluation and treatment of this patient was during the time of the national and state emergency arising from COVID19 coronavirus pandemic. Treatment and procedures performed meet the current and available best practice and guidelines for patient during the COVID pandemic.
[2020-10-16] MEDS ORDERED: propofoL 200 MG/20 ML VIAL IV ONE (16:54)
[2020-10-16] MEDS ORDERED: ROCURONIUM 50 MG/5 ML INJ IV ONE (16:54)
[2020-10-16] MEDS ORDERED: ONDANSETRON 4 MG/2 ML INJ ONE (16:54)
[2020-10-16] MEDS ORDERED: LIDOCAINE MPF (2%) 20 MG/1 ML VIAL 5 ML ONE (16:54)
[2020-10-16] MEDS ORDERED: fentaNYL 100 MCG/2 ML INJ ONE (16:54)
[2020-10-16] MEDS ORDERED: MIDAZOLAM 2 MG/2 ML INJ ONE (16:55)
[2020-10-16] MEDS ORDERED: BUPIVACAINE/PF (0.25%) 2.5 MG/ML 30 ML VIAL INFILTRATI ONE (17:02)
[2020-10-16] MEDS ORDERED: LIDOCAINE (1%) 10 MG/1 ML VIAL 20 ML MDV ONE (17:02)
[2020-10-16] MEDS ORDERED: SUCCINYLCHOLINE CHLORIDE 200 MG/10 ML INJ MDV ONE (17:04)
[2020-10-16] MEDS ORDERED: ceFAZolin 1 GM VIAL ONE (17:47)
[2020-10-16] MEDS ORDERED: SODIUM CHLORIDE 0.9% 100 ML ONE (17:51)
[2020-10-16] MEDS ORDERED: PHENYLEPHRINE 10 MG/1 ML INJ SDV ONE (17:51)
[2020-10-16] MEDS ORDERED: NEOSTIGMINE 10MG/10 ML INJ MDV ONE (18:00)
[2020-10-16] MEDS ORDERED: GLYCOPYRROLATE 0.4 MG/2 ML INJ ONE (18:00)
[2020-10-16] MEDS ORDERED: SODIUM CHLORIDE 0.9% IRR 1,500 ML BOTTLE IR ONE ×2 (18:00→18:19)
--- NOTE | 2020-10-16 18:15 | Anesthesia Consultation ---
Anesthesia Consult and Med Hx Date of service: 10/16/20 - Airway Anesthetic Teeth Evaluation: Poor (lower), Edentulous (lower) ROM Head & Neck: Adequate Mental/Hyoid Distance: Adequate Mallampati Class: Class III Intubation Access Assessment: Possibly Difficult - Pulmonary Exam CTA: Yes - Cardiac Exam Cardiac Exam: RRR - Pre-Operative Health Status ASA Pre-Surgery Classification: ASA4, Emergency Proposed Anesthetic Plan: General - Pulmonary Hx Respiratory Symptoms: No (COVID neg this admission) - Cardiovascular System Hx Hypertension: Yes (hypertensive emergency on admission; BP remains poorly controlled) Hx Pacemaker: Yes (indication unclear) Hx Internal Defibrillator: Yes (indication unclear) 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 Now scheduled for diagnostic laparoscopy. Received HD today as well as multiple PO antihypertensives. BP remains elevated. Patient uncooperative on floor and required soft restraints. She is alert and oriented but does not provide details of medical history. Her was contacted and was also unable to provide additional details. gave anesthesia consent.
[2020-10-16] MEDS ORDERED: HYDROmorphone 1 MG/1 ML INJ IV PRN (18:17)
[2020-10-16] MEDS ORDERED: BUPIVACAINE-EPINEPHRINE/PF 0.5%-1:200,000 (30 ML) VIAL INFILTRATI ONE (18:17)
--- NOTE | 2020-10-16 18:17 | Anesthesia Day of Surgery ---
Anesthesia Day of Surgery - Day of Surgery Patient Examined: Yes Patient H&P Reviewed: Yes Patient is NPO: Yes Beta Blockers: Yes (carvedilol given today)
[2020-10-16] MEDS ORDERED: LIDOCAINE (1%) 10 MG/1 ML VIAL 20 ML MDV IR ONE (18:19)
--- NOTE | 2020-10-16 19:04 | Post Operative Note ---
Pre-op diagnosis: abdominal pain, possible internal hernia Post-op diagnosis: other (abdominal pain, adhesions) Findings: 1. Diffuse adhesions from the omentum, small bowel, stomach, and liver to the anterior abominal wall. 2. Tiny umbilical hernia containing fat 3. Small bowel nondistended 4. No internal hernia Procedure: Diagnostic laparoscopy, lysis of adhesions Anesthesia: MORRIS Surgeon: TENZIN CONRAD Toll Ticket Clerk: SERGE KHAN Estimated blood loss: minimal Pathology: none Condition: stable Disposition: PACU
[2020-10-16] MEDS ORDERED: SODIUM CHLORIDE 0.9% 1000 ML 1,000 ML ONE (19:10)
--- NOTE | 2020-10-16 19:36 | Operative Report ---
Operative Report Operative Report: Pre-op diagnosis: abdominal pain, possible internal hernia Post-op diagnosis: other (abdominal pain, adhesions) Findings: 1. Diffuse adhesions from the omentum, small bowel, stomach, and liver to the anterior abdominal wall. 2. Tiny umbilical hernia containing fat 3. Small bowel nondistended 4. No internal hernia Procedure: Diagnostic laparoscopy, lysis of adhesions Anesthesia: MORRIS Surgeon: TENZIN CONRAD Finance Controller: ESRGE KHAN Estimated blood loss: minimal Pathology: none Condition: stable Disposition: PACU HPI and indication: 65-year-old female presented to the emergency room with epigastric abdominal pain, nausea, vomiting, diarrhea. Work-up in the emergency room showed a slight leukocytosis of 11. CT scan abdomen and pelvis without contrast showed swirling of the mesentery in the upper abdomen with associated thickened bowel loops concerning for internal hernia. The patient was extremely agitated and complained of severe pain. Due to her mental status, a accurate physical exam could not be performed. Therefore it was recommended that the patient undergo a diagnostic laparoscopy to further evaluate the small bowel. All risk, benefits, alternatives to surgery were discussed with the patient's Mr. Puckett over the telephone and questions answered. Consent obtained for diagnostic laparoscopy, possible exploratory laparotomy, possible small bowel resection. Procedure in detail: The patient was identified in the preoperative area, taken back to operating room and placed on operating room table in supine position. After anesthesia was induced the abdomen was prepped and draped in usual sterile fashion a timeout performed. Local anesthetic was infiltrated to skin at the intended incision site. A judie incision was made in the left upper quadrant at Scott's point through which a Veress needle was inserted. The Veress needle position was confirmed using saline drop test and the abdomen insufflated to 15 mmHg without incident. This judie incision was then slightly extended and the Veress needle removed. A 5 mm Optiview trocar was placed through this incision under direct visualization. The abdomen is inspected there was no underlying injury to any of the abdominal structures. Upon examination there were diffuse adhesions from the omentum, small bowel, stomach and liver to the anterior abdominal wall. This is consistent with the patient's previous surgical history of open cholecystectomy, open appendectomy and open hysterectomy. An additional left lower quadrant 5 mm trocar was placed under direct visualization. Lysis of adhesions was undertaken using a combination of blunt dissection, sharp dissection with EndoShears, and harmonic scalpel. There was a small loop of bowel that was adhesed directly to the anterior abdominal wall in the midline at the umbilicus which was very carefully dissected using EndoShears. Once this loop of bowel was freed, it was inspected and no injury was seen. A tiny umbilical hernia containing fat was encountered. An additional 5 mm supraumbilical trocar was then placed under direct visualization. Once lysis of adhesions was complete, the small bowel was ran from the terminal ileum to the ligament of Treitz. There were some interloop adhesions but no evidence of small bowel obstruction, bowel thickening or edema, or internal hernia. There was no free fluid in the abdomen. Mesentery was not twisted. At this point it was decided to end the operation. The abdomen was desufflated and all trocars removed under direct visualization. The skin was once again anesthetized with local anesthetic and the incisions closed using 4-0 Monocryl subcuticular stitches and skin glue. At the end of the case, all sponge, instrument, sharp counts were correct x2. The patient was awoken from anesthesia extubated and taken to PACU in stable condition.
--- NOTE | 2020-10-16 20:01 | Post Anesthesia Evaluation ---
- Post Anesthesia Evaluation Patient Participated: Yes Airway Patent: Yes Stable Respiratory Function: Yes Nausea/Vomiting: No Temp > 96.8F: Yes Pain Manageable: Yes Adequeate Hydration: Yes Anesthesia Complications: No Other Comments: Remained hypertensive in PACU though somewhat improved compared to preop. Mentation at baseline. OK for transfer back to floor.
[2020-10-16] MEDS: PANTOPRAZOLE 40 MG INJ IV SCH (21:30)
[2020-10-17] MEDS: ALPRAZolam 0.25 MG TAB PO PRN ×2 (01:00→14:15)
[2020-10-17] MEDS: busPIRone 5 MG TAB PO SCH ×3 (06:35→22:12)
[2020-10-17] MEDS: cloNIDine 0.1 MG TAB PO SCH ×3 (06:35→22:13)
[2020-10-17] MEDS: MORPHINE 2 MG/1 ML INJ IV PRN ×2 (08:16→19:50)
[2020-10-17 09:01] LABS: Hemoglobin 10.2 gm/dl (10.1-14.3); Mean Corpuscular HGB Conc 33 % (30-34); Mean Corpuscular Volume 88 fl (79-97); Red Blood Count 3.54 M/mm3 (3.65-5.03)
[2020-10-17 09:05] LABS: Albumin 2.8 g/dL (3.9-5); Calcium 9.1 mg/dL (8.4-10.2)
--- NOTE | 2020-10-17 09:22 | Progress Note ---
Assessment and Plan 65 yo F s/p Diagnostic laparoscopy, lysis of adhesions, POD 1 Pt stable. Plan: 1. adv diet as lance 2. prn pain control 3. Obtain duplex ultrasound of the abdominal aorta to evaluate mesenteric vessels -patient's postprandial mid abdominal pain may be secondary to intermittent mesenteric ischemia. If abnormal, recommend consultation to vascular surgery. 4. Findings of diagnostic laparoscopy discussed with patient. No obvious bowel obstruction or bowel ischemia identified. 5. Recommend follow-up with primary care physician after discharge No further surgical intervention at this time. Thank you for this consultation. Please call with any questions or concerns. Evaluation and treatment of this patient was during the time of the national and state emergency arising from COVID19 coronavirus pandemic. Treatment and procedures performed meet the current and available best practice and guidelines for patient during the COVID pandemic. Subjective Date of service: 10/17/20 Narrative: Patient seen and examined. She states that she is still having mid abdominal pain near her umbilicus which is moderately improved since yesterday. She states that the pain is different than her presurgical pain. She is feeling hungry without nausea or vomiting. She is afebrile. She has tolerated clear liquids. Patient states that she has been having ongoing mid abdominal pain for some time. She has been in and out of different hospitals for this pain. Most recently she was admitted to [facility] in August and states that she un derwent a work-up and was not given any follow-up information. She states that her pain is most severe after eating. She states that she has avoided eating for 1 to 2 weeks at a time secondary to the pain. Objective Vital Signs - 12hr 10/16/20 10/16/20 10/17/20 21:36 22:17 00:03 Temperature 98 F Pulse Rate 92 H 101 H Pulse Rate [ Right Brachial] Respiratory 24 Rate Blood Pressure 203/126 191/113 O2 Sat by Pulse 95 98 100 Oximetry 10/17/20 10/17/20 10/17/20 00:48 03:45 04:55 Temperature 98.6 F Pulse Rate 101 H 87 Pulse Rate [ 101 H Right Brachial] Respiratory 24 21 Rate Blood Pressure 191/113 O2 Sat by Pulse 100 100 Oximetry 10/17/20 06:35 Temperature Pulse Rate 87 Pulse Rate [ Right Brachial] Respiratory Rate Blood Pressure 184/106 O2 Sat by Pulse Oximetry - General physical appearance Narrative Exam: Gen.: Awake, alert, oriented 3. No apparent distress ENT: Trachea midline. No lymphadenopathy. No scleral icterus or conjunctival pallor CV: S1, S2 present Respiratory: No audible wheezes Abdomen: Soft, nondistended, nontender. Incisions clean, dry, intact. Left lower quadrant incision with gauze in place, dressing is clean and dry. No rebound, rigidity, guarding Extremities: No clubbing, cyanosis, edema - Labs 10/17/20 08:13 10/17/20 08:13 Diabetes panel 10/17/20 Range/Units 08:13 Sodium 139 (137-145) mmol/L Potassium 5.1 H (3.6-5.0) mmol/L Chloride 99.5 (98-107) mmol/L Carbon Dioxide 24 D (22-30) mmol/L BUN 42 H (7-17) mg/dL Creatinine 8.6 H (0.6-1.2) mg/dL Glucose 90 (65-100) mg/dL Calcium 9.1 (8.4-10.2) mg/dL AST 24 (5-40) units/L ALT 5 L (7-56) units/L Alkaline Phosphatase 65 (35-129) units/L Total Protein 5.8 L (6.3-8.2) g/dL Albumin 2.8 L (3.9-5) g/dL Calcium panel 10/17/20 Range/Units 08:13 Calcium 9.1 (8.4-10.2) mg/dL Albumin 2.8 L (3.9-5) g/dL Pituitary panel 10/17/20 Range/Units 08:13 Sodium 139 (137-145) mmol/L Potassium 5.1 H (3.6-5.0) mmol/L Chloride 99.5 (98-107) mmol/L Carbon Dioxide 24 D (22-30) mmol/L BUN 42 H (7-17) mg/dL Creatinine 8.6 H (0.6-1.2) mg/dL Glucose 90 (65-100) mg/dL Calcium 9.1 (8.4-10.2) mg/dL Adrenal panel 10/17/20 Range/Units 08:13 Sodium 139 (137-145) mmol/L Potassium 5.1 H (3.6-5.0) mmol/L Chloride 99.5 (98-107) mmol/L Carbon Dioxide 24 D (22-30) mmol/L BUN 42 H (7-17) mg/dL Creatinine 8.6 H (0.6-1.2) mg/dL Glucose 90 (65-100) mg/dL Calcium 9.1 (8.4-10.2) mg/dL Total Bilirubin 0.50 (0.1-1.2) mg/dL AST 24 (5-40) units/L ALT 5 L (7-56) units/L Alkaline Phosphatase 65 (35-129) units/L Total Protein 5.8 L (6.3-8.2) g/dL Albumin 2.8 L (3.9-5) g/dL
[2020-10-17] MEDS ORDERED: hydrALAZINE 20 MG/1 ML INJ IV PRN (09:32)
[2020-10-17 09:55] LABS: Platelet Count 187 K/mm3 (140-440)
[2020-10-17 09:56] LABS: Basophils % (Auto) 0.5 % (0.0-1.8); Eosinophils % (Auto) 0.6 % (0.0-4.3); Lymphocytes # (Auto) 0.8 K/mm3 (1.2-5.4); Lymphocytes % (Auto) 8.1 % (13.4-35.0); Monocytes % (Auto) 9.1 % (0.0-7.3)
[2020-10-17 09:57] LABS: Basophils # (Auto) 0.1 K/mm3 (0.0-0.1); Eosinophils # (Auto) 0.1 K/mm3 (0.0-0.4); Monocytes # (Auto) 0.9 K/mm3 (0.0-0.8)
[2020-10-17] MEDS: CITALOPRAM 20 MG TAB PO SCH (10:46)
[2020-10-17] MEDS: SEVELAMER CARBONATE 800 MG TAB PO SCH ×4 (10:46→17:01)
[2020-10-17] MEDS: carvediloL 25 MG TAB PO SCH ×2 (10:46→22:13)
[2020-10-17] MEDS: PANTOPRAZOLE 40 MG INJ IV SCH ×2 (10:46→22:12)
[2020-10-17] MEDS: FUROSEMIDE 40 MG TAB PO SCH (10:46)
[2020-10-17] MEDS: FOLIC ACID/VIT B COMP W-C 1 MG (RENAL CAPS) PO SCH (10:46)
[2020-10-17] MEDS: hydrALAZINE 25 MG TAB PO SCH ×4 (10:47→22:12)
[2020-10-17] MEDS: HYDROcodone/ACETAMINOPHEN 5-325 MG TAB PO PRN (10:57)
--- NOTE | 2020-10-17 15:14 | Progress Note ---
Assessment and Plan Assessment and plan: Patient is a 65-year-old -[place]ish female with history of end-stage renal disease on hemodialysis Friday and Friday, hypertension, paroxysmal atrial fibrillation, type 2 diabetes and status post AICD placement, presents to the ED with complaints of generalized abdominal pain for the past 3 weeks. Pain is constant and progressive. Also complains of nausea, vomiting and diarrhea for the past few days and for the past couple of days she has lost smell and has been having fever and chills and associated with body aches and generalized weakness. She denies any chest pain or shortness of breath or cough. CT of the abdomen and pelvis showed internal hernia with mesenteric stranding and questionable right upper pole renal mass. General surgery was consulted. Patient is being admitted for further evaluation of her abdominal pain. Apparently patient's was exposed to someone who was positive for Covid 19 virus Diffuse abdominal pain for 3 weeks Nausea vomiting and diarrhea for few days Loss of smell , fever and chills and body aches for the past 2 to 3 days History of present illness: Etiology of patient's pain was not an internal hernia as suggested by CT scan A /P. Pain possibly from adhesions vs other etiology such as mesenteric ischemia. There are calcifications at the takeoff of the celiac artery and SMA on CT without contrast. Recommend CTA abd/pelvis if ok with nephro to evaluate abdominal vasculature. Patient is s/p Diagnostic laparoscopy, lysis of adhesions, POD 1 1. Diffuse adhesions from the omentum, small bowel, stomach, and liver to the anterior abominal wall. 2. Tiny umbilical hernia containing fat 3. Small bowel nondistended 4. No internal hernia (1) Abdominal pain Current Visit: Yes Status: Acute Qualifiers: Abdominal location: generalized Qualified Code(s): R10.84 - Generalized abdominal pain Plan to address problem: Continue supportive care. Status post Laparscopy lysis of adhesion (2) Hypertensive emergency Current Visit: Yes Status: Acute Plan to address problem: Patient was severely hypertensive with a BP systolic of 222/147 Likely secondary to volume overload Patient is on multiple medications We will add IV Lopressor as needed Discussed with nephrology Dr. Carlin and patient will be taken to hemodialysis as soon as possible (3) Hyperkalemia Current Visit: Yes Status: Acute Plan to address problem: Secondary to patient not having had dialysis for the past 1 week Patient to undergo hemodialysis as soon as possible (4) Internal hernia Current Visit: Yes Status: Acute Plan to address problem: CT of the abdomen and pelvis results reviewed which shows internal hernia of the small bowel with mesenteric stranding General surgery consulted Evaluation pending N.p.o. Pain control with IV morphine Consider renal ultrasound when the patient is more stable as CT of the abdomen shows questionable mass in the right upper pole of the kidney (5) ESRD needing dialysis Current Visit: Yes Status: Chronic Plan to address problem: Nephrology consulted Continue management per nephrology recommendations Patient states that she missed hemodialysis for the past 1 week History Interval history: Patient seen and examined, no new complaints, no BM yet. Hospitalist Physical - Physical exam Narrative exam: General appearance: Present: calm well-nourished - EENT Eyes: Present: PERRL, EOM intact ENT: hearing intact, clear oral mucosa - Respiratory Respiratory effort: normal Respiratory: bilateral: CTA, negative: rales, rhonchi - Cardiovascular Rhythm: regular Heart Sounds: Present: S1 & S2 - Extremities Extremities: No edema - Abdominal General gastrointestinal: Present: soft, tender AT SURGICAL SITE,OTHERWISE CLEAN AND INTACT non-distended. Absent: hepatomegaly, splenomegaly Female genitourinary: Present: deferred - Rectal Rectal Exam: deferred - Integumentary Integumentary: Present: clear, warm, dry - Musculoskeletal Musculoskeletal: strength equal bilaterally - Psychiatric Psychiatric: appropriate mood/affect - Neurologic Neurologic: no focal deficits, moves all extremities - Constitutional Vitals: Temp Pulse Resp BP Pulse Ox 98.6 F 79 21 158/87 97 10/17/20 04:55 10/17/20 14:14 10/17/20 04:55 10/17/20 14:14 10/17/20 10:00 General appearance: Present: mild distress, well-nourished HEART Score - HEART Score EKG: Normal Age: 45-65 Risk factors: 1-2 risk factors - Critical Actions Critical Actions: 0-3 pts:0.9-1.7%risk of adverse cardiac event.Candidate for discharge Results - Labs CBC & Chem 7: 10/17/20 08:13 10/17/20 08:13 Labs: Laboratory Last Values WBC 10.4 K/mm3 (4.5-11.0) 10/17/20 08:13 RBC 3.54 M/mm3 (3.65-5.03) L 12/08/20 08:13 Hgb 10.2 gm/dl (10.1-14.3) D 10/17/20 08:13 Hct 31.0 % (30.3-42.9) D 10/17/20 08:13 MCV 88 fl (79-97) 10/17/20 08:13 MCH 29 pg (28-32) 10/17/20 08:13 MCHC 33 % (30-34) 10/17/20 08:13 RDW 19.0 % (13.2-15.2) H 10/17/20 08:13 Plt Count 187 K/mm3 (140-440) 10/17/20 08:13 Lymph % (Auto) 8.1 % (13.4-35.0) L 10/17/20 08:13 [place] % (Auto) 9.1 % (0.0-7.3) H 10/17/20 08:13 Eos % (Auto) 0.6 % (0.0-4.3) 10/17/20 08:13 Baso % (Auto) 0.5 % (0.0-1.8) 10/17/20 08:13 Lymph # (Auto) 0.8 K/mm3 (1.2-5.4) L 10/17/20 08:13 [place] # (Auto) 0.9 K/mm3 (0.0-0.8) H 10/17/20 08:13 Eos # (Auto) 0.1 K/mm3 (0.0-0.4) 10/17/20 08:13 Baso # (Auto) 0.1 K/mm3 (0.0-0.1) 10/17/20 08:13 Seg Neutrophils % 81.7 % (40.0-70.0) H 10/17/20 08:13 Seg Neutrophils # 8.5 K/mm3 (1.8-7.7) H 10/17/20 08:13 Sodium 139 mmol/L (137-145) 10/17/20 08:13 Potassium 5.1 mmol/L (3.6-5.0) H 10/17/20 08:13 Chloride 99.5 mmol/L (98-107) 10/17/20 08:13 Carbon Dioxide 24 mmol/L (22-30) D 10/17/20 08:13 Anion Gap 21 mmol/L 10/17/20 08:13 BUN 42 mg/dL (7-17) H 10/17/20 08:13 Creatinine 8.6 mg/dL (0.6-1.2) H 10/17/20 08:13 Estimated GFR 6 ml/min 10/17/20 08:13 BUN/Creatinine Ratio 5 % 10/17/20 08:13 Glucose 90 mg/dL (65-100) 10/17/20 08:13 POC Glucose 103 mg/dL (70-105) 10/16/20 19:26 Lactic Acid 1.70 mmol/L (0.7-2.0) 10/16/20 08:09 Calcium 9.1 mg/dL (8.4-10.2) 10/17/20 08:13 Total Bilirubin 0.50 mg/dL (0.1-1.2) 10/17/20 08:13 AST 24 units/L (5-40) 10/17/20 08:13 ALT 5 units/L (7-56) L 10/17/20 08:13 Alkaline Phosphatase 65 units/L (35-129) 10/17/20 08:13 Total Protein 5.8 g/dL (6.3-8.2) L 10/17/20 08:13 Albumin 2.8 g/dL (3.9-5) L 10/17/20 08:13 Albumin/Globulin Ratio 0.9 % 10/17/20 08:13 Coronavirus (PCR) Negative (Negative) 10/16/20 Unknown Moran/IV: IV Catheter Type [Left INT / Saline Lock External Jugular] Active Medications - Current Medications Current Medications: Generic Name Dose Route Start Last Admin Trade Name Freq PRN Reason Stop Dose Admin Acetaminophen 650 mg 10/16/20 08:32 Tylenol PO Q4H PRN Pain MILD(1-3)/Fever >100.5/SAUCEDO Hydrocodone Bitart/Acetaminophen 1 each 10/17/20 09:23 10/17/20 10:57 [place] 5/325 PO 1 each Q4H PRN Administration Pain, Moderate (4-6) Alprazolam 0.25 mg 10/16/20 08:24 10/17/20 14:15 Xanax PO 0.25 mg BID PRN Administration Anxiety Buspirone HCl 10 mg 10/16/20 14:00 10/17/20 14:15 Buspar PO 10 mg Q8HR SUSU Administration Carvedilol 25 mg 10/16/20 10:00 10/17/20 10:46 Coreg PO 25 mg BID SUSU Administration Citalopram Hydrobromide 20 mg 10/16/20 10:00 10/17/20 10:46 Celexa PO 20 mg QDAY SUSU Administration Clonazepam 0.5 mg 10/16/20 08:24 Klonopin PO BID PRN Anxiety UNRELIEVED XANAX Clonidine HCl 0.3 mg 10/16/20 09:00 10/17/20 14:14 Catapres PO 0.3 mg Q8HR SUSU Administration Diltiazem HCl 360 mg 10/16/20 10:00 10/16/20 09:25 Cardizem Cd PO 360 mg QDAY SUSU Administration Ergocalciferol 50,000 unit 10/16/20 10:00 10/16/20 16:34 Vitamin D2 PO Not Given Mo@1000 SUSU Furosemide 80 mg 10/16/20 10:00 10/17/20 10:46 Lasix PO 80 mg QDAY SUSU Administration Hydralazine HCl 10 mg 10/17/20 09:32 Apresoline IV Q4HR PRN Hypertension Hydralazine HCl 50 mg 10/17/20 10:00 10/17/20 14:15 Apresoline PO 50 mg QID SUSU Administration Sodium Chloride 100 mls @ 999 mls/hr 10/16/20 09:10 Nacl 0.9% IV BRENNA PRN Hypotension Metoprolol Tartrate 5 mg 10/16/20 11:22 10/17/20 00:48 Metoprolol IV 5 mg Q6HR PRN Administration Hypertension Morphine Sulfate 2 mg 10/16/20 08:23 10/17/20 08:16 Morphine IV 2 mg Q4H PRN Administration Pain , Severe (7-10) Multivit/Ca Carb/B Cmplx/FA/Prenat 1 cap 10/16/20 10:00 10/17/20 10:46 Renal Caps PO 1 cap QDAY SUSU Administration Ondansetron HCl 4 mg 10/16/20 08:32 Zofran IV Q8H PRN Nausea And Vomiting Pantoprazole Sodium 40 mg 10/16/20 22:00 10/17/20 10:46 Protonix IV 40 mg BID SUSU Administration Sevelamer Carbonate 1,600 mg 10/16/20 12:00 10/17/20 14:15 Renvela PO 1,600 mg TIDWM SUSU Administration Sodium Chloride 10 ml 10/16/20 10:00 10/17/20 10:46 Sodium Chloride Flush Syringe 10 Ml IV 10 ml BID SUSU Administration Sodium Chloride 10 ml 10/16/20 08:32 Sodium Chloride Flush Syringe 10 Ml IV PRN PRN LINE FLUSH Nutrition/Malnutrition Assess - Dietary Evaluation Nutrition/Malnutrition Findings: Nutrition Notes Start: 10/17/20 12:06 Freq: Status: Active Protocol: Document 10/17/20 14:49 AT (Rec: 10/17/20 14:51 AT [id number]) Co-Sign 10/17/20 14:49 LP Nutrition Notes Initial or Follow up Brief Note Current Diagnosis CKD (stage V CKD),Diabetes, Hypertension Other Pertinent Diagnosis Anemia, on HD, GERD Current Diet Renal Subjective/Other Information Consult for MST Score 3. Unable to reach patient. RN states that pt was NPO. Nutrition Intervention Follow-Up By: 10/18/20 Additional Comments F/U for assessment
--- NOTE | 2020-10-17 15:52 | Progress Note ---
Assessment and Plan This is a 65 year old woman who presents with abdominal pain. # ESRD: HD yesterday for hyperkalemia, acidosis, volume, will continue HD MWF or prn thereafter, no indication for HD today based on labs, volume - daily labs - renally dose meds - avoid nephrotoxins - renal diet # Anemia: last hemoglobin 10.2, no indication for ESAs with HD # Hyperkalemia: K 5.1, s/p HD # Acidosis: HD as above # HTN: UF as tolerated. BP improved since admission # Secondary Hyperparathyroidism: continue home binders as needed # Abdominal Pain: reviewed CT abd/pelvis, surgery input and s/p procedure Subjective Date of service: 10/17/20 Interval history: Had diagnostic laparotomy yesterday per surgery. No issues with HD per patient. Continues to have mild abdominal pain. Objective - Exam Narrative Exam: Constitutional: mild acute distress Head: NC/AT Neck: supple Lungs: clear to auscultation CV: RRR, no M/R/G Abdomen: soft, non-tender, bowel sounds present Back: nontender Extremities: no edema, pulses WNL Skin: intact Neuro: no focal deficits, alert and oriented x4 but tangential conversations - Vital Signs Vital signs: Vital Signs - 12hr 10/17/20 10/17/20 10/17/20 04:55 06:35 10:00 Temperature 98.6 F Pulse Rate 87 87 Respiratory 21 Rate Blood Pressure 184/106 O2 Sat by Pulse 100 97 Oximetry 10/17/20 10/17/20 10:47 14:14 Temperature Pulse Rate 92 H 79 Respiratory Rate Blood Pressure 104/55 158/87 O2 Sat by Pulse Oximetry - Lab 10/17/20 08:13 10/17/20 08:13 Most recent lab results Calcium 9.1 mg/dL (8.4-10.2) 10/17/20 08:13 Medications & Allergies - Medications Allergies/Adverse Reactions: Allergies No Known Allergies Allergy (Unverified 09/04/13 07:18) Home Medications: Home Medications Medication Instructions Recorded Confirmed Last Taken Type Ergocalciferol (Vitamin D2) 50,000 unit PO DAILY 09/25/20 10/16/20 Unknown H istory [Drisdol] HYDROcodone/APAP 5-325 [[place] 1 each PO Q6HR PRN 09/25/20 10/16/20 Unknown History 5-325 mg TAB] Sevelamer Carbonate [Renvela] 1,600 mg PO TID 09/25/20 10/16/20 Unknown History busPIRone [Buspar] 10 mg PO Q8HR 09/25/20 10/16/20 Unknown History Citalopram [Celexa] 20 mg PO QDAY #30 tab 09/28/20 10/16/20 Unknown Rx Furosemide [Lasix TAB] 80 mg PO QDAY #30 tablet 09/28/20 10/16/20 Unknown Rx carvediloL [Coreg] 25 mg PO BID #60 tablet 09/28/20 10/16/20 Unknown Rx cloNIDine [Catapres] 0.3 mg PO Q8HR #270 tablet 09/28/20 10/16/20 Unknown Rx dilTIAZem CD [Cardizem CD] 360 mg PO QDAY #60 capsule 09/28/20 10/16/20 Unknown Rx ALPRAZolam [Xanax TAB] 0.25 mg PO BID PRN 10/16/20 10/16/20 Unknown History Acetaminophen [Tylenol] 500 mg PO Q6HR 10/16/20 10/16/20 Unknown History Folic Acid/Vit B Complex and C 0.8 mg PO QDAY 10/16/20 10/16/20 Unknown History [Renal Vitamin Tablet] Pantoprazole [Protonix] 40 mg PO QDAY 10/16/20 10/16/20 Unknown History clonazePAM [ Klonopin] 0.5 mg PO BID PRN 10/16/20 10/16/20 Unknown History hydrALAZINE [Apresoline TAB] 25 mg PO QID 10/16/20 10/16/20 Unknown History traMADoL [Ultram] 50 mg PO Q6HR PRN 10/16/20 10/16/20 Unknown History Active Medications: Generic Name Dose Route Start Last Admin Trade Name Freq PRN Reason Stop Dose Admin Acetaminophen 650 mg 10/16/20 08:32 Tylenol PO Q4H PRN Pain MILD(1-3)/Fever >100.5/SAUCEDO Hydrocodone Bitart/Acetaminophen 1 each 10/17/20 09:23 10/17/20 10:57 [place] 5/325 PO 1 each Q4H PRN Administration Pain, Moderate (4-6) Alprazolam 0.25 mg 10/16/20 08:24 10/17/20 14:15 Xanax PO 0.25 mg BID PRN Administration Anxiety Buspirone HCl 10 mg 10/16/20 14:00 10/17/20 14:15 Buspar PO 10 mg Q8HR SUSU Administration Carvedilol 25 mg 10/16/20 10:00 10/17/20 10:46 Coreg PO 25 mg BID SUSU Administration Citalopram Hydrobromide 20 mg 10/16/20 10:00 10/17/20 10:46 Celexa PO 20 mg QDAY SUSU Administration Clonazepam 0.5 mg 10/16/20 08:24 Klonopin PO BID PRN Anxiety UNRELIEVED XANAX Clonidine HCl 0.3 mg 10/16/20 09:00 10/17/20 14:14 Catapres PO 0.3 mg Q8HR SUSU Administration Diltiazem HCl 360 mg 10/16/20 10:00 10/16/20 09:25 Cardizem Cd PO 360 mg QDAY SUSU Administration Ergocalciferol 50,000 unit 10/16/20 10:00 10/16/20 16:34 Vitamin D2 PO Not Given Mo@1000 SUSU Furosemide 80 mg 10/16/20 10:00 10/17/20 10:46 Lasix PO 80 mg QDAY SUSU Administration Hydralazine HCl 10 mg 10/17/20 09:32 Apresoline IV Q4HR PRN Hypertension Hydralazine HCl 50 mg 10/17/20 10:00 10/17/20 14:15 Apresoline PO 50 mg QID SUSU Administration Sodium Chloride 100 mls @ 999 mls/hr 10/16/20 09:10 Nacl 0.9% IV BRENNA PRN Hypotension Metoprolol Tartrate 5 mg 10/16/20 11:22 10/17/20 00:48 Metoprolol IV 5 mg Q6HR PRN Administration Hypertension Morphine Sulfate 2 mg 10/16/20 08:23 10/17/20 08:16 Morphine IV 2 mg Q4H PRN Administration Pain , Severe (7-10) Multivit/Ca Carb/B Cmplx/FA/Prenat 1 cap 10/16/20 10:00 10/17/20 10:46 Renal Caps PO 1 cap QDAY SUSU Administration Ondansetron HCl 4 mg 10/16/20 08:32 Zofran IV Q8H PRN Nausea And Vomiting Pantoprazole Sodium 40 mg 10/16/20 22:00 10/17/20 10:46 Protonix IV 40 mg BID SUSU Administration Sevelamer Carbonate 1,600 mg 10/16/20 12:00 10/17/20 14:15 Renvela PO 1,600 mg TIDWM SUSU Administration Sodium Chloride 10 ml 10/16/20 10:00 10/17/20 10:46 Sodium Chloride Flush Syringe 10 Ml IV 10 ml BID SUSU Administration Sodium Chloride 10 ml 10/16/20 08:32 Sodium Chloride Flush Syringe 10 Ml IV PRN PRN LINE FLUSH
[2020-10-17] MEDS: dilTIAZem CD 180 MG CAP PO SCH (17:29)
[2020-10-18] MEDS: MORPHINE 2 MG/1 ML INJ IV PRN ×4 (03:57→21:50)
[2020-10-18] MEDS: cloNIDine 0.1 MG TAB PO SCH ×3 (05:28→21:49)
[2020-10-18] MEDS: busPIRone 5 MG TAB PO SCH ×3 (05:28→22:11)
[2020-10-18] MEDS: SEVELAMER CARBONATE 800 MG TAB PO SCH ×3 (08:19→17:55)
--- NOTE | 2020-10-18 11:47 | Progress Note ---
Assessment and Plan This is a 65 year old woman who presents with abdominal pain. # ESRD: HD 10/16 for hyperkalemia, acidosis, volume, will continue HD MWF or prn thereafter, due for HD today - daily labs - renally dose meds - avoid nephrotoxins - renal diet # Anemia: last hemoglobin 10.2, no indication for ESAs with HD # Hyperkalemia: K 5.1 last, improved from admission # Acidosis: HD as above # HTN: UF as tolerated. BP now stable # Secondary Hyperparathyroidism: continue home binders as needed # Abdominal Pain: reviewed CT abd/pelvis, surgery input and s/p procedure Subjective Date of service: 10/18/20 Interval history: Seen upon starting HD. No issues with HD per patient. Continues to have mild abdominal pain. Objective - Exam Narrative Exam: Constitutional: mild acute distress Head: NC/AT Neck: supple Lungs: clear to auscultation CV: RRR, no M/R/G Abdomen: soft, non-tender, bowel sounds present Back: nontender Extremities: no edema, pulses WNL Skin: intact Neuro: no focal deficits, alert and oriented x4 but tangential conversations - Vital Signs Vital signs: Vital Signs - 12hr 10/18/20 10/18/20 10/18/20 02:34 03:44 09:20 Temperature 98.6 F 98.6 F Pulse Rate 81 69 Pulse Rate [ 87 Right Brachial] Respiratory 20 18 18 Rate Blood Pressure 147/87 145/91 O2 Sat by Pulse 98 95 Oximetry 10/18/20 10/18/20 10/18/20 09:23 09:30 09:45 Temperature Pulse Rate 68 68 68 Pulse Rate [ Right Brachial] Respiratory Rate Blood Pressure 140/90 142/87 141/87 O2 Sat by Pulse Oximetry 10/18/20 10/18/20 10/18/20 10:00 10:15 10:30 Temperature Pulse Rate 76 68 74 Pulse Rate [ Right Brachial] Respiratory Rate Blood Pressure 116/75 131/71 121/80 O2 Sat by Pulse Oximetry 10/18/20 10:45 Temperature Pulse Rate 75 Pulse Rate [ Right Brachial] Respiratory Rate Blood Pressure 130/86 O2 Sat by Pulse Oximetry - Lab 10/17/20 08:13 10/17/20 08:13 Most recent lab results Calcium 9.1 mg/dL (8.4-10.2) 10/17/20 08:13 Medications & Allergies - Medications Allergies/Adverse Reactions: Allergies No Known Allergies Allergy (Unverified 09/04/13 07:18) Home Medications: Home Medications Medication Instructions Recorded Confirmed Last Taken Type Ergocalciferol (Vitamin D2) 50,000 unit PO DAILY 09/25/20 10/16/20 Unknown History [Drisdol] HYDROcodone/APAP 5-325 [[place] 1 each PO Q6HR PRN 09/25/20 10/16/20 Unknown History 5-325 mg TAB] Sevelamer Carbonate [Renvela] 1,600 mg PO TID 09/25/20 10/16/20 Unknown History busPIRone [Buspar] 10 mg PO Q8HR 09/25/20 10/16/20 Unknown History Citalopram [Celexa] 20 mg PO QDAY #30 tab 09/28/20 10/16/20 Unknown Rx Furosemide [Lasix TAB] 80 mg PO QDAY #30 tablet 09/28/20 10/16/20 Unknown Rx carvediloL [Coreg] 25 mg PO BID #60 tablet 09/28/20 10/16/20 Unknown Rx cloNIDine [Catapres] 0.3 mg PO Q8HR #270 tablet 09/28/20 10/16/20 Unknown Rx dilTIAZem CD [Cardizem CD] 360 mg PO QDAY #60 capsule 09/28/20 10/16/20 Unknown Rx ALPRAZolam [Xanax TAB] 0.25 mg PO BID PRN 10/16/20 10/16/20 Unknown History Acetaminophen [Tylenol] 500 mg PO Q6HR 10/16/20 10/16/20 Unknown History Folic Acid/Vit B Complex and C 0.8 mg PO QDAY 10/16/20 10/16/20 Unknown History [Renal Vitamin Tablet] Pantoprazole [Protonix] 40 mg PO QDAY 10/16/20 10/16/20 Unknown History clonazePAM [ Klonopin] 0.5 mg PO BID PRN 10/16/20 10/16/20 Unknown History hydrALAZINE [Apresoline TAB] 25 mg PO QID 10/16/20 10/16/20 Unknown History traMADoL [Ultram] 50 mg PO Q6HR PRN 10/16/20 10/16/20 Unknown History Active Medications: Generic Name Dose Route Start Last Admin Trade Name Freq PRN Reason Stop Dose Admin Acetaminophen 650 mg 10/16/20 08:32 Tylenol PO Q4H PRN Pain MILD(1-3)/Fever >100.5/SAUCEDO Hydrocodone Bitart/Acetaminophen 1 each 10/17/20 09:23 10/17/20 10:57 [place] 5/325 PO 1 each Q4H PRN Administration Pain, Moderate (4-6) Alprazolam 0.25 mg 10/16/20 08:24 10/17/20 14:15 Xanax PO 0.25 mg BID PRN Administration Anxiety Buspirone HCl 10 mg 10/16/20 14:00 10/18/20 05:28 Buspar PO 10 mg Q8HR SUSU Administration Carvedilol 25 mg 10/16/20 10:00 10/17/20 22:13 Coreg PO 25 mg BID SUSU Administration Citalopram Hydrobromide 20 mg 10/16/20 10:00 10/17/20 10:46 Celexa PO 20 mg QDAY SUSU Administration Clonazepam 0.5 mg 10/16/20 08:24 Klonopin PO BID PRN Anxiety UNRELIEVED XANAX Clonidine HCl 0.3 mg 10/16/20 09:00 10/18/20 05:28 Catapres PO 0.3 mg Q8HR SUSU Administration Diltiazem HCl 360 mg 10/16/20 10:00 10/17/20 17:29 Cardizem Cd PO 360 mg QDAY SUSU Administration Ergocalciferol 50,000 unit 10/16/20 10:00 10/16/20 16:34 Vitamin D2 PO Not Given Mo@1000 SUSU Furosemide 80 mg 10/16/20 10:00 10/17/20 10:46 Lasix PO 80 mg QDAY SUSU Administration Hydralazine HCl 10 mg 10/17/20 09:32 Apresoline IV Q4HR PRN Hypertension Hydralazine HCl 50 mg 10/17/20 10:00 10/17/20 22:12 Apresoline PO 50 mg QID SUSU Administration Sodium Chloride 100 mls @ 999 mls/hr 10/16/20 09:10 Nacl 0.9% IV BRENNA PRN Hypotension Metoprolol Tartrate 5 mg 10/16/20 11:22 10/17/20 00:48 Metoprolol IV 5 mg Q6HR PRN Administration Hypertension Morphine Sulfate 2 mg 10/16/20 08:23 10/18/20 08:19 Morphine IV 2 mg Q4H PRN Administration Pain , Severe (7-10) Multivit/Ca Carb/B Cmplx/FA/Prenat 1 cap 10/16/20 10:00 10/17/20 10:46 Renal Caps PO 1 cap QDAY SUSU Administration Ondansetron HCl 4 mg 10/16/20 08:32 Zofran IV Q8H PRN Nausea And Vomiting Pantoprazole Sodium 40 mg 10/16/20 22:00 10/17/20 22:12 Protonix IV 10/18/20 12:00 40 mg BID SUSU Administration Pantoprazole Sodium 40 mg 10/18/20 16:30 Protonix PO BIDAC SUSU Sevelamer Carbonate 1,600 mg 10/16/20 12:00 10/18/20 08:19 Renvela PO 1,600 mg TIDWM SUSU Administration Sodium Chloride 10 ml 10/16/20 10:00 10/17/20 22:12 Sodium Chloride Flush Syringe 10 Ml IV 10 ml BID SUSU Administration Sodium Chloride 10 ml 10/16/20 08:32 Sodium Chloride Flush Syringe 10 Ml IV PRN PRN LINE FLUSH
[2020-10-18] MEDS: dilTIAZem CD 180 MG CAP PO SCH (12:37)
[2020-10-18] MEDS: hydrALAZINE 25 MG TAB PO SCH ×4 (12:37→21:49)
[2020-10-18] MEDS: CITALOPRAM 20 MG TAB PO SCH (12:38)
[2020-10-18] MEDS: carvediloL 25 MG TAB PO SCH ×2 (12:38→21:49)
[2020-10-18] MEDS: FUROSEMIDE 40 MG TAB PO SCH (12:38)
[2020-10-18] MEDS: FOLIC ACID/VIT B COMP W-C 1 MG (RENAL CAPS) PO SCH (12:39)
[2020-10-18] MEDS: PANTOPRAZOLE 40 MG INJ IV SCH (12:39)
--- NOTE | 2020-10-18 15:28 | Progress Note ---
Assessment and Plan Assessment and plan: Patient is a 65-year-old -[place] female with history of end-stage renal disease on hemodialysis Friday and Friday, hypertension, paroxysmal atrial fibrillation, type 2 diabetes and status post AICD placement, presents to the ED with complaints of generalized abdominal pain for the past 3 weeks. Pain is constant and progressive. Also complains of nausea, vomiting and diarrhea for the past few days and for the past couple of days she has lost smell and has been having fever and chills and associated with body aches and generalized weakness. She denies any chest pain or shortness of breath or cough. CT of the abdomen and pelvis showed internal hernia with mesenteric stranding and questionable right upper pole renal mass. General surgery was consulted. Patient is being admitted for further evaluation of her abdominal pain. Apparently patient's was exposed to someone who was positive for Covid 19 virus Diffuse abdominal pain for 3 weeks Nausea vomiting and diarrhea for few days Loss of smell , fever and chills and body aches for the past 2 to 3 days History of present illness: Etiology of patient's pain was not an internal hernia as suggested by CT scan A /P. Pain possibly from adhesions vs other etiology such as mesenteric ischemia. There are calcifications at the takeoff of the celiac artery and SMA on CT without contrast. Recommend CTA abd/pelvis if ok with nephro to evaluate abdominal vasculature. Patient is s/p Diagnostic laparoscopy, lysis of adhesions, POD 1 1. Diffuse adhesions from the omentum, small bowel, stomach, and liver to the anterior abominal wall. 2. Tiny umbilical hernia containing fat 3. Small bowel nondistended 4. No internal hernia 10/18: Patient continues to have abdominal pain. Awaiting Doppler of the abdomen. Will obtain vascular consultation to evaluate for any ischemic mesentery. We will also continue to monitor and evaluate pain. Anticipate discharge in a.m. if no further intervention if pain is improving. Kayexalate given for hyperkalemia (1) Abdominal pain Current Visit: Yes Status: Acute Qualifiers: Abdominal location: generalized Qualified Code(s): R10.84 - Generalized abdominal pain Plan to address problem: Continue supportive care. Status post Laparscopy lysis of adhesion (2) Hypertensive emergency Current Visit: Yes Status: Acute Plan to address problem: Patient was severely hypertensive with a BP systolic of 222/147 Likely secondary to volume overload Patient is on multiple medications We will add IV Lopressor as needed Discussed with nephrology Dr. Carlni and patient will be taken to hemodialysis as soon as possible (3) Hyperkalemia Current Visit: Yes Status: Acute Plan to address problem: Secondary to patient not having had dialysis for the past 1 week Patient to undergo hemodialysis as soon as possible (4) Internal hernia Current Visit: Yes Status: Acute Plan to address problem: CT of the abdomen and pelvis results reviewed which shows internal hernia of the small bowel with mesenteric stranding General surgery consulted Evaluation pending N.p.o. Pain control with IV morphine Consider renal ultrasound when the patient is more stable as CT of the abdomen shows questionable mass in the right upper pole of the kidney (5) ESRD needing dialysis Current Visit: Yes Status: Chronic Plan to address problem: Nephrology consulted Continue management per nephrology recommendations Patient states that she missed hemodialysis for the past 1 week History Interval history: Patient seen and examined, still complains of a 7 out of 10 abdominal pain that is constant. Hospitalist Physical - Physical exam Narrative exam: General appearance: Present: calm well-nourished - EENT Eyes: Present: PERRL, EOM intact ENT: hearing intact, clear oral mucosa - Respiratory Respiratory effort: normal Respiratory: bilateral: CTA, negative: rales, rhonchi - Cardiovascular Rhythm: regular Heart Sounds: Present: S1 & S2 - Extremities Extremities: No edema - Abdominal General gastrointestinal: Present: soft, tender AT SURGICAL SITE,OTHERWISE CLEAN AND INTACT non-distended. Absent: hepatomegaly, splenomegaly Female genitourinary: Present: deferred - Rectal Rectal Exam: deferred - Integumentary Integumentary: Present: clear, warm, dry - Musculoskeletal Musculoskeletal: strength equal bilaterally - Psychiatric Psychiatric: appropriate mood/affect - Neurologic Neurologic: no focal deficits, moves all extremities - Constitutional Vitals: Temp Pulse Resp BP Pulse Ox 98.2 F 76 20 145/90 97 10/18/20 12:05 10/18/20 14:54 10/18/20 12:05 10/18/20 14:54 10/18/20 10:00 General appearance: Present: mild distress, well-nourished HEART Score - HEART Score EKG: Normal Age: 45-65 Risk factors: 1-2 risk factors - Critical Actions Critical Actions: 0-3 pts:0.9-1.7%risk of adverse cardiac event.Candidate for discharge Results - Labs CBC & Chem 7: 10/17/20 08:13 10/17/20 08:13 Labs: Laboratory Last Values WBC 10.4 K/mm3 (4.5-11.0) 10/17/20 08:13 RBC 3.54 M/mm3 (3.65-5.03) L 10/17/20 08:13 Hgb 10.2 gm/dl (10.1-14.3) D 10/17/20 08:13 Hct 31.0 % (30.3-42.9) D 10/17/20 08:13 MCV 88 fl (79-97) 10/17/20 08:13 MCH 29 pg (28-32) 10/17/20 08:13 MCHC 33 % (30-34) 10/17/20 08:13 RDW 19.0 % (13.2-15.2) H 10/17/20 08:13 Plt Count 187 K/mm3 (140-440) 10/17/20 08:13 Lymph % (Auto) 8.1 % (13.4-35.0) L 10/17/20 08:13 [place] % (Auto) 9.1 % (0.0-7.3) H 10/17/20 08:13 Eos % (Auto) 0.6 % (0.0-4.3) 10/17/20 08:13 Baso % (Auto) 0.5 % (0.0-1.8) 10/17/20 08:13 Lymph # (Auto) 0.8 K/mm3 (1.2-5.4) L 10/17/20 08:13 [place] # (Auto) 0.9 K/mm3 (0.0-0.8) H 10/17/20 08:13 Eos # (Auto) 0.1 K/mm3 (0.0-0.4) 10/17/20 08:13 Baso # (Auto) 0.1 K/mm3 (0.0-0.1) 10/17/20 08:13 Seg Neutrophils % 81.7 % (40.0-70.0) H 10/17/20 08:13 Seg Neutrophils # 8.5 K/mm3 (1.8-7.7) H 10/17/20 08:13 Sodium 139 mmol/L (137-145) 10/17/20 08:13 Potassium 5.1 mmol/L (3.6-5.0) H 10/17/20 08:13 Chloride 99.5 mmol/L (98-107) 10/17/20 08:13 Carbon Dioxide 24 mmol/L (22-30) D 10/17/20 08:13 Anion Gap 21 mmol/L 10/17/20 08:13 BUN 42 mg/dL (7-17) H 10/17/20 08:13 Creatinine 8.6 mg/dL (0.6-1.2) H 10/17/20 08:13 Estimated GFR 6 ml/min 10/17/20 08:13 BUN/Creatinine Ratio 5 % 10/17/20 08:13 Glucose 90 mg/dL (65-100) 10/17/20 08:13 POC Glucose 103 mg/dL (70-105) 10/16/20 19:26 Lactic Acid 1.70 mmol/L (0.7-2.0) 10/16/20 08:09 Calcium 9.1 mg/dL (8.4-10.2) 10/17/20 08:13 Total Bilirubin 0.50 mg/dL (0.1-1.2) 10/17/20 08:13 AST 24 units/L (5-40) 10/17/20 08:13 ALT 5 units/L (7-56) L 10/17/20 08:13 Alkaline Phosphatase 65 units/L (35-129) 10/17/20 08:13 Total Protein 5.8 g/dL (6.3-8.2) L 10/17/20 08:13 Albumin 2.8 g/dL (3.9-5) L 10/17/20 08:13 Albumin/Globulin Ratio 0.9 % 10/17/20 08:13 Coronavirus (PCR) Negative (Negative) 10/16/20 Unknown [place]/IV: Voiding Method Toilet IV Catheter Type [Left INT / Saline Lock External Jugular] Active Medications - Current Medications Current Medications: Generic Name Dose Route Start Last Admin Trade Name Freq PRN Reason Stop Dose Admin Acetaminophen 650 mg 10/16/20 08:32 Tylenol PO Q4H PRN Pain MILD(1-3)/Fever >100.5/SAUCEDO Hydrocodone Bitart/Acetaminophen 1 each 10/17/20 09:23 10/17/20 10:57 [place] 5/325 PO 1 each Q4H PRN Administration Pain, Moderate (4-6) Alprazolam 0.25 mg 10/16/20 08:24 10/17/20 14:15 Xanax PO 0.25 mg BID PRN Administration Anxiety Buspirone HCl 10 mg 10/16/20 14:00 10/18/20 14:51 Buspar PO 10 mg Q8HR SUSU Administration Carvedilol 25 mg 10/16/20 10:00 10/18/20 12:38 Coreg PO Not Given BID SUSU Citalopram Hydrobromide 20 mg 10/16/20 10:00 10/18/20 12:38 Celexa PO 20 mg QDAY SUSU Administration Clonazepam 0.5 mg 10/16/20 08:24 Klonopin PO BID PRN Anxiety UNRELIEVED XANAX Clonidine HCl 0.3 mg 10/16/20 09:00 10/18/20 14:52 Catapres PO 0.3 mg Q8HR SUSU Administration Diltiazem HCl 360 mg 10/16/20 10:00 10/18/20 12:37 Cardizem Cd PO Not Given QDAY SUSU Ergocalciferol 50,000 unit 10/16/20 10:00 10/16/20 16:34 Vitamin D2 PO Not Given Mo@1000 [facility] Furosemide 80 mg 10/16/20 10:00 10/18/20 12:38 Lasix PO Not Given QDAY SUSU Hydralazine HCl 10 mg 10/17/20 09:32 Apresoline IV Q4HR PRN Hypertension Hydralazine HCl 50 mg 10/17/20 10:00 10/18/20 14:54 Apresoline PO 50 mg QID SUSU Administration Sodium Chloride 100 mls @ 999 mls/hr 10/16/20 09:10 Nacl 0.9% IV BRENNA PRN Hypotension Metoprolol Tartrate 5 mg 10/16/20 11:22 10/17/20 00:48 Metoprolol IV 5 mg Q6HR PRN Administration Hypertension Morphine Sulfate 2 mg 10/16/20 08:23 10/18/20 12:19 Morphine IV 2 mg Q4H PRN Administration Pain , Severe (7-10) Multivit/Ca Carb/B Cmplx/FA/Prenat 1 cap 10/16/20 10:00 10/18/20 12:39 Renal Caps PO Not Given QDAY SUSU Ondansetron HCl 4 mg 10/16/20 08:32 Zofran IV Q8H PRN Nausea And Vomiting Pantoprazole Sodium 40 mg 10/18/20 16:30 Protonix PO BIDAC SUSU Sevelamer Carbonate 1,600 mg 10/16/20 12:00 10/18/20 12:39 Renvela PO 1,600 mg TIDWM SUSU Administration Sodium Chloride 10 ml 10/16/20 10:00 10/18/20 12:40 Sodium Chloride Flush Syringe 10 Ml IV 10 ml BID SUSU Administration Sodium Chloride 10 ml 10/16/20 08:32 Sodium Chloride Flush Syringe 10 Ml IV PRN PRN LINE FLUSH Nutrition/Malnutrition Assess - Dietary Evaluation Nutrition/Malnutrition Findings: Nutrition Notes Start: 10/17/20 12:06 Freq: Status: Active Protocol: Document 10/18/20 12:03 AT (Rec: 10/18/20 12:11 AT [id number]) Co-Sign 10/18/20 12:03 LM Nutrition Notes Initial or Follow up Assessment Current Diagnosis CKD (stage V CKD),Diabetes, Hypertension Other Pertinent Diagnosis Anemia, on HD, GERD Current Diet Renal Labs/Tests K 5.1 BUN 42 Cr 8.6 Pertinent Medications Lasix Coreg Vit D2 MVM: Folic Acid/B complex Protonix NS at 100 mL/hr Height 5 ft 9 in Weight 76.2 kg [place] Body Weight (kg) 65.90 BMI 24.7 Subjective/Other Information Follow-up for assessment. Pt at HD. Spoke with RN, pt is changing to Renal at lunch but has been on Clear Liquids s/p laparoscopy. RN unsure of intakes. Burn Absent Trauma Absent Current % PO Negligible Minimum of two criteria No #1 Nutrition Diagnosis Inadequate energy intake Etiology s/p laparoscopy As Evidenced by Signs and Symptoms NPO then advanced to Clear Liquids Is patient on ventilator? No Is Patient Ambulatory and/or Out of Bed Yes REE-([facility]-ambulatory/OOB) [ 1789.294 [id number]] Calculation Used for Recommendations [facility] Additional Notes PRO needs: >91g (>1.2g/kg) Fluid needs: 1 mL/kcal Nutrition Intervention Change Diet Order: Continue Renal Goal #1 Meet at least 75% of estimated energy and protein needs Anticipated Discharge Needs: Renal Follow-Up By: 10/20/20 Additional Comments F/U for PO intakes and labs
[2020-10-18] MEDS: PANTOPRAZOLE 40 MG TAB PO SCH (17:55)
--- NOTE | 2020-10-18 18:07 | Vascular Lab Report ---
Ultrasound of the aorta and the celiac artery/SMA. INDICATION: Abdominal pain. FINDINGS: The abdominal aorta contains mild atherosclerotic calcification but is grossly patent measu ring 2.7 x 2.3 cm. The mid abdominal aorta measures 2.2 cm in diameter. The infrarenal abdominal aort a was not well identified from overlying bowel gas. Both the celiac and SMA are patent. Proximal celiac artery velocity measures about 159 cm/s (peak sys tolic velocity) in the SMA artery peak systolic velocity is borderline elevated at 183 cm/s. IMPRESSION: Mild atherosclerotic disease of the abdominal aorta, as above. Grossly patent celiac bret ry and SMA intra-abdominal vessels.. Signer Name: Panda Rangel MD Signed: 10/18/2020 6:03 PM Workstation Name: [id number]
[2020-10-19] MEDS: ALPRAZolam 0.25 MG TAB PO PRN (00:46)
[2020-10-19] MEDS: HYDROcodone/ACETAMINOPHEN 5-325 MG TAB PO PRN ×2 (00:46→23:15)
[2020-10-19] MEDS: MORPHINE 2 MG/1 ML INJ IV PRN ×4 (06:00→19:13)
[2020-10-19] MEDS: cloNIDine 0.1 MG TAB PO SCH ×3 (06:45→23:40)
[2020-10-19] MEDS: busPIRone 5 MG TAB PO SCH ×3 (06:45→23:15)
[2020-10-19] MEDS: SEVELAMER CARBONATE 800 MG TAB PO SCH ×3 (08:07→17:03)
[2020-10-19] MEDS: PANTOPRAZOLE 40 MG TAB PO SCH ×2 (08:07→17:02)
[2020-10-19] MEDS: hydrALAZINE 25 MG TAB PO SCH ×4 (10:22→23:41)
[2020-10-19] MEDS: FOLIC ACID/VIT B COMP W-C 1 MG (RENAL CAPS) PO SCH (10:22)
[2020-10-19] MEDS: FUROSEMIDE 40 MG TAB PO SCH (10:22)
[2020-10-19] MEDS: carvediloL 25 MG TAB PO SCH ×2 (10:22→23:41)
[2020-10-19] MEDS: CITALOPRAM 20 MG TAB PO SCH (10:23)
[2020-10-19] MEDS: dilTIAZem CD 180 MG CAP PO SCH (10:24)
[2020-10-19 10:40] LABS: Basophils % (Auto) 0.3 % (0.0-1.8); Eosinophils # (Auto) 0.2 K/mm3 (0.0-0.4); Eosinophils % (Auto) 4.9 % (0.0-4.3); Hematocrit 28.9 % (30.3-42.9); Hemoglobin 9.2 gm/dl (10.1-14.3); Lymphocytes # (Auto) 0.6 K/mm3 (1.2-5.4); Lymphocytes % (Auto) 13.3 % (13.4-35.0); Mean Corpuscular HGB Conc 32 % (30-34); Mean Corpuscular Volume 89 fl (79-97); Monocytes # (Auto) 0.6 K/mm3 (0.0-0.8); Monocytes % (Auto) 13.8 % (0.0-7.3); Platelet Count 215 K/mm3 (140-440); Red Blood Count 3.25 M/mm3 (3.65-5.03); Red Cell Distribution Width 18.2 % (13.2-15.2)
[2020-10-19 10:56] LABS: Calcium 8.8 mg/dL (8.4-10.2)
--- NOTE | 2020-10-19 11:02 | Progress Note ---
Assessment and Plan Patient with history of abdominal pain. CT scan of her abdomen and pelvis without contrast and her aortoiliac ultrasound were reviewed. Her mesenteric vessels appear to be patent to the extent that they were imaged however, the patient needs a CTA of her abdomen and pelvis for evaluation of her vasculature. This was ordered stat yesterday however, has not yet been performed. Subjective Date of service: 10/19/20 Principal diagnosis: Abdominal pain Interval history: Patient seen and examined. Patient initially presented complaining of mid abdominal pain. She states that overnight last night, this pain has moved to her left flank only and is remained there. Patient has a prior history of lower back pain radiating to the abdomen predominantly on the right side. Patient is n.p.o. awaiting a CTA of the abdomen and pelvis. Objective - Constitutional Vitals: Vital Signs - 12hr 10/19/20 10/19/20 10/19/20 02:00 06:04 08:29 Temperature 98.7 F Pulse Rate 82 Pulse Rate [ 86 Right Brachial] Respiratory 18 20 Rate Blood Pressure 143/77 O2 Sat by Pulse 98 96 95 Oximetry 10/19/20 10/19/20 10:22 10:24 Temperature Pulse Rate 82 82 Pulse Rate [ Right Brachial] Respiratory Rate Blood Pressure 143/77 143/77 O2 Sat by Pulse Oximetry General appearance: Present: no acute distress - EENT Eyes: EOM intact ENT: hearing intact - Neck Neck: supple, normal ROM - Respiratory Respiratory effort: normal - Breasts Breasts: deferred - Gastrointestinal General gastrointestinal: Present: non-tender, non-distended Rectal Exam: deferred - Psychiatric Psychiatric: appropriate mood/affect, cooperative - Labs CBC & Chem 7: 10/19/20 10:10 10/19/20 10:10 Labs: Abnormal lab results 10/19/20 10/19/20 Range/Units 10:10 10:10 RBC 3.25 L (3.65-5.03) M/mm3 Hgb 9.2 L (10.1-14.3) gm/dl Hct 28.9 L (30.3-42.9) % RDW 18.2 H (13.2-15.2) % Lymph % (Auto) 13.3 L (13.4-35.0) % [place] % (Auto) 13.8 H (0.0-7.3) % Eos % (Auto) 4.9 H (0.0-4.3) % Lymph # (Auto) 0.6 L (1.2-5.4) K/mm3 Sodium 136 L (137-145) mmol/L BUN 39 H (7-17) mg/dL Medications & Allergies - Medications Allergies/Adverse Reactions: Allergies No Known Allergies Allergy (Unverified 09/04/13 07:18) Home Medications: Home Medications Medication Instructions Recorded Confirmed Last Taken Type Ergocalciferol (Vitamin D2) 50,000 unit PO DAILY 09/25/20 10/16/20 Unknown History [Drisdol] HYDROcodone/APAP 5-325 [[place] 1 each PO Q6HR PRN 09/25/20 10/16/20 Unknown History 5-325 mg TAB] Sevelamer Carbonate [Renvela] 1,600 mg PO TID 09/25/20 10/16/20 Unknown History busPIRone [Buspar] 10 mg PO Q8HR 09/25/20 10/16/20 Unknown History Citalopram [Celexa] 20 mg PO QDAY #30 tab 09/28/20 10/16/20 Unknown Rx Furosemide [Lasix TAB] 80 mg PO QDAY #30 tablet 09/28/20 10/16/20 Unknown Rx carvediloL [Coreg] 25 mg PO BID #60 tablet 09/28/20 10/16/20 Unknown Rx cloNIDine [Catapres] 0.3 mg PO Q8HR #270 tablet 09/28/20 10/16/20 Unknown Rx dilTIAZem CD [Cardizem CD] 360 mg PO QDAY #60 capsule 09/28/20 10/16/20 Unknown Rx ALPRAZolam [Xanax TAB] 0.25 mg PO BID PRN 10/16/20 10/16/20 Unknown History Acetaminophen [Tylenol] 500 mg PO Q6HR 10/16/20 10/16/20 Unknown History Folic Acid/Vit B Complex and C 0.8 mg PO QDAY 10/16/20 10/16/20 Unknown History [Renal Vitamin Tablet] Pantoprazole [Protonix] 40 mg PO QDAY 10/16/20 10/16/20 Unknown History clonazePAM [ Klonopin] 0.5 mg PO BID PRN 10/16/20 10/16/20 Unknown History hydrALAZINE [Apresoline TAB] 25 mg PO QID 10/16/20 10/16/20 Unknown History traMADoL [Ultram] 50 mg PO Q6HR PRN 10/16/20 10/16/20 Unknown History Active Medications: Generic Name Dose Route Start Last Admin Trade Name Freq PRN Reason Stop Dose Admin Acetaminophen 650 mg 10/16/20 08:32 Tylenol PO Q4H PRN Pain MILD(1-3)/Fever >100.5/SAUCEDO Hydrocodone Bitart/Acetaminophen 1 each 10/17/20 09:23 10/19/20 00:46 [place] 5/325 PO 1 each Q4H PRN Administration Pain, Moderate (4-6) Alprazolam 0.25 mg 10/16/20 08:24 10/19/20 00:46 Xanax PO 0.25 mg BID PRN Administration Anxiety Buspirone HCl 10 mg 10/16/20 14:00 10/19/20 06:45 Buspar PO 10 mg Q8HR SUSU Administration Carvedilol 25 mg 10/16/20 10:00 10/19/20 10:22 Coreg PO 25 mg BID SUSU Administration Citalopram Hydrobromide 20 mg 10/16/20 10:00 10/19/20 10:23 Celexa PO 20 mg QDAY SUSU Administration Clonazepam 0.5 mg 10/16/20 08:24 Klonopin PO BID PRN Anxiety UNRELIEVED XANAX Clonidine HCl 0.3 mg 10/16/20 09:00 10/19/20 06:45 Catapres PO 0.3 mg Q8HR SUSU Administration Diltiazem HCl 360 mg 10/16/20 10:00 10/19/20 10:24 Cardizem Cd PO 360 mg QDAY SUSU Administration Ergocalciferol 50,000 unit 10/16/20 10:00 10/16/20 16:34 Vitamin D2 PO Not Given Mo@1000 SUSU Furosemide 80 mg 10/16/20 10:00 10/19/20 10:22 Lasix PO 80 mg QDAY SUSU Administration Hydralazine HCl 10 mg 10/17/20 09:32 Apresoline IV Q4HR PRN Hypertension Hydralazine HCl 50 mg 10/17/20 10:00 10/19/20 10:22 Apresoline PO 50 mg QID SUSU Administration Sodium Chloride 100 mls @ 999 mls/hr 10/16/20 09:10 Nacl 0.9% IV BRENNA PRN Hypotension Metoprolol Tartrate 5 mg 10/16/20 11:22 10/17/20 00:48 Metoprolol IV 5 mg Q6HR PRN Administration Hypertension Morphine Sulfate 2 mg 10/16/20 08:23 10/19/20 10:31 Morphine IV 2 mg Q4H PRN Administration Pain , Severe (7-10) Multivit/Ca Carb/B Cmplx/FA/Prenat 1 cap 10/16/20 10:00 10/19/20 10:22 Renal Caps PO 1 cap QDAY USSU Administration Ondansetron HCl 4 mg 10/16/20 08:32 Zofran IV Q8H PRN Nausea And Vomiting Pantoprazole Sodium 40 mg 10/18/20 16:30 10/19/20 08:07 Protonix PO 40 mg BIDAC SUSU Administration Sevelamer Carbonate 1,600 mg 10/16/20 12:00 10/19/20 08:07 Renvela PO 1,600 mg TIDWM SUSU Administration Sodium Chloride 10 ml 10/16/20 10:00 10/18/20 22:13 Sodium Chloride Flush Syringe 10 Ml IV 10 ml BID SUSU Administration Sodium Chloride 10 ml 10/16/20 08:32 Sodium Chloride Flush Syringe 10 Ml IV PRN PRN LINE FLUSH HEART Score - HEART Score EKG: Normal Age: 45-65 Risk factors: 1-2 risk factors - Critical Actions Critical Actions: 0-3 pts:0.9-1.7%risk of adverse cardiac event.Candidate for discharge
--- NOTE | 2020-10-19 12:13 | Progress Note ---
Assessment and Plan This is a 65 year old woman who presents with abdominal pain. # ESRD: urgent HD 10/16 for hyperkalemia, acidosis, volume, will continue HD MWF or prn thereafter, due for HD tomorrow, no issues with last treatment, no indication for HD today - daily labs - renally dose meds - avoid nephrotoxins - renal diet # Anemia: last hemoglobin 10.2->9.2, restart ESAs with HD prn # Hyperkalemia: improved # Acidosis: improved # HTN: UF as tolerated. BP now stable # Secondary Hyperparathyroidism: continue home binders as needed # Abdominal Pain: reviewed CT abd/pelvis, surgery input and s/p procedure; appreciate vascular recs, awaiting CT angio Subjective Date of service: 10/19/20 Principal diagnosis: Abdominal pain Interval history: Continues to have mild abdominal pain. No issues with HD yesterday, did not worsen abdominal pain Objective - Exam Narrative Exam: Constitutional: mild acute distress Head: NC/AT Neck: supple Lungs: clear to auscultation CV: RRR, no M/R/G Abdomen: soft, non-tender, bowel sounds present Back: nontender Extremities: no edema, pulses WNL Skin: intact Neuro: no focal deficits, alert and oriented x4 but tangential conversations - Vital Signs Vital signs: Vital Signs - 12hr 10/19/20 10/19/20 10/19/20 02:00 06:04 08:29 Temperature 98.7 F Pulse Rate 82 Pulse Rate [ 86 Right Brachial] Respiratory 18 20 Rate Blood Pressure 143/77 O2 Sat by Pulse 98 96 95 Oximetry 10/19/20 10/19/20 10:22 10:24 Temperature Pulse Rate 82 82 Pulse Rate [ Right Brachial] Respiratory Rate Blood Pressure 143/77 143/77 O2 Sat by Pulse Oximetry - Lab 10/19/20 10:10 10/19/20 10:10 Most recent lab results Calcium 8.8 mg/dL (8.4-10.2) 10/19/20 10:10 Medications & Allergies - Medications Allergies/Adverse Reactions: Allergies No Known Allergies Allergy (Unverified 09/04/13 07:18) Home Medications: Home Medications Medication Instructions Recorded Confirmed Last Taken Type Ergocalciferol (Vitamin D2) 50,000 unit PO DAILY 09/25/20 10/16/20 Unknown History [Drisdol] HYDROcodone/APAP 5-325 [[place] 1 each PO Q6HR PRN 09/25/20 10/16/20 Unknown History 5-325 mg TAB] Sevelamer Carbonate [Renvela] 1,600 mg PO TID 09/25/20 10/16/20 Unknown History busPIRone [Buspar] 10 mg PO Q8HR 09/25/20 10/16/20 Unknown History Citalopram [Celexa] 20 mg PO QDAY #30 tab 09/28/20 10/16/20 Unknown Rx Furosemide [Lasix TAB] 80 mg PO QDAY #30 tablet 09/28/20 10/16/20 Unknown Rx carvediloL [Coreg] 25 mg PO BID #60 tablet 09/28/20 10/16/20 Unknown Rx cloNIDine [Catapres] 0.3 mg PO Q8HR #270 tablet 09/28/20 10/16/20 Unknown Rx dilTIAZem CD [Cardizem CD] 360 mg PO QDAY #60 capsule 09/28/20 10/16/20 Unknown Rx ALPRAZolam [Xanax TAB] 0.25 mg PO BID PRN 10/16/20 10/16/20 Unknown History Acetaminophen [Tylenol] 500 mg PO Q6HR 10/16/20 10/16/20 Unknown History Folic Acid/Vit B Complex and C 0.8 mg PO QDAY 10/16/20 10/16/20 Unknown History [Renal Vitamin Tablet] Pantoprazole [Protonix] 40 mg PO QDAY 10/16/20 10/16/20 Unknown History clonazePAM [ Klonopin] 0.5 mg PO BID PRN 10/16/20 10/16/20 Unknown History hydrALAZINE [Apresoline TAB] 25 mg PO QID 10/16/20 10/16/20 Unknown History traMADoL [Ultram] 50 mg PO Q6HR PRN 10/16/20 10/16/20 Unknown History Active Medications: Generic Name Dose Route Start Last Admin Trade Name Freq PRN Reason Stop Dose Admin Acetaminophen 650 mg 10/16/20 08:32 Tylenol PO Q4H PRN Pain MILD(1-3)/Fever >100.5/SAUCEDO Hydrocodone Bitart/Acetaminophen 1 each 10/17/20 09:23 10/19/20 00:46 [place] 5/325 PO 1 each Q4H PRN Administration Pain, Moderate (4-6) Alprazolam 0.25 mg 10/16/20 08:24 10/19/20 00:46 Xanax PO 0.25 mg BID PRN Administration Anxiety Buspirone HCl 10 mg 10/16/20 14:00 10/19/20 06:45 Buspar PO 10 mg Q8HR SUSU Administration Carvedilol 25 mg 10/16/20 10:00 10/19/20 10:22 Coreg PO 25 mg BID SUSU Administration Citalopram Hydrobromide 20 mg 10/16/20 10:00 10/19/20 10:23 Celexa PO 20 mg QDAY SUSU Administration Clonazepam 0.5 mg 10/16/20 08:24 Klonopin PO BID PRN Anxiety UNRELIEVED XANAX Clonidine HCl 0.3 mg 10/16/20 09:00 10/19/20 06:45 Catapres PO 0.3 mg Q8HR SUSU Administration Diltiazem HCl 360 mg 10/16/20 10:00 10/19/20 10:24 Cardizem Cd PO 360 mg QDAY SUSU Administration Ergocalciferol 50,000 unit 10/16/20 10:00 10/16/20 16:34 Vitamin D2 PO Not Given Mo@1000 SUSU Furosemide 80 mg 10/16/20 10:00 10/19/20 10:22 Lasix PO 80 mg QDAY SUSU Administration Hydralazine HCl 10 mg 10/17/20 09:32 Apresoline IV Q4HR PRN Hypertension Hydralazine HCl 50 mg 10/17/20 10:00 10/19/20 10:22 Apresoline PO 50 mg QID SUSU Administration Sodium Chloride 100 mls @ 999 mls/hr 10/16/20 09:10 Nacl 0.9% IV BRENNA PRN Hypotension Metoprolol Tartrate 5 mg 10/16/20 11:22 10/17/20 00:48 Metoprolol IV 5 mg Q6HR PRN Administration Hypertension Morphine Sulfate 2 mg 10/16/20 08:23 10/19/20 10:31 Morphine IV 2 mg Q4H PRN Administration Pain , Severe (7-10) Multivit/Ca Carb/B Cmplx/FA/Prenat 1 cap 10/16/20 10:00 10/19/20 10:22 Renal Caps PO 1 cap QDAY SUSU Administration Ondansetron HCl 4 mg 10/16/20 08:32 Zofran IV Q8H PRN Nausea And Vomiting Pantoprazole Sodium 40 mg 10/18/20 16:30 10/19/20 08:07 Protonix PO 40 mg BIDAC SUSU Administration Sevelamer Carbonate 1,600 mg 10/16/20 12:00 10/19/20 08:07 Renvela PO 1,600 mg TIDWM SUSU Administration Sodium Chloride 10 ml 10/16/20 10:00 10/18/20 22:13 Sodium Chloride Flush Syringe 10 Ml IV 10 ml BID SUSU Administration Sodium Chloride 10 ml 10/16/20 08:32 Sodium Chloride Flush Syringe 10 Ml IV PRN PRN LINE FLUSH
--- NOTE | 2020-10-19 13:50 | Progress Note ---
Assessment and Plan Assessment and plan: Patient is a 65-year-old -Romanian female with history of end-stage renal disease on hemodialysis Friday and Friday, hypertension, paroxysmal atrial fibrillation, type 2 diabetes and status post AICD placement, presents to the ED with complaints of generalized abdominal pain for the past 3 weeks. Pain is constant and progressive. Also complains of nausea, vomiting and diarrhea for the past few days and for the past couple of days she has lost smell and has been having fever and chills and associated with body aches and generalized weakness. She denies any chest pain or shortness of breath or cough. CT of the abdomen and pelvis showed internal hernia with mesenteric stranding and questionable right upper pole renal mass. General surgery was consulted. Patient is being admitted for further evaluation of her abdominal pain. Apparently patient's was exposed to someone who was positive for Covid 19 virus Diffuse abdominal pain for 3 weeks Nausea vomiting and diarrhea for few days Loss of smell , fever and chills and body aches for the past 2 to 3 days History of present illness: Etiology of patient's pain was not an internal hernia as suggested by CT scan A /P. Pain possibly from adhesions vs other etiology such as mesenteric ischemia. There are calcifications at the takeoff of the celiac artery and SMA on CT without contrast. Recommend CTA abd/pelvis if ok with nephro to evaluate abdominal vasculature. Patient is s/p Diagnostic laparoscopy, lysis of adhesions, POD 1 1. Diffuse adhesions from the omentum, small bowel, stomach, and liver to the anterior abominal wall. 2. Tiny umbilical hernia containing fat 3. Small bowel nondistended 4. No internal hernia 10/18: Patient continues to have abdominal pain. Awaiting Doppler of the abdomen. Will obtain vascular consultation to evaluate for any ischemic mesentery. We will also continue to monitor and evaluate pain. Anticipate discharge in a.m. if no further intervention if pain is improving. Kayexalate given for hyperkalemia 10/19: AWAITING CT abd, US shows no significant thrombosis, Vascular input noted. R-evaluate in am, still on pain control (1) Abdominal pain Current Visit: Yes Status: Acute Qualifiers: Abdominal location: generalized Qualified Code(s): R10.84 - Generalized abdominal pain Plan to address problem: Continue supportive care. Status post Laparscopy lysis of adhesion (2) Hypertensive emergency Current Visit: Yes Status: Acute Plan to address problem: Patient was severely hypertensive with a BP systolic of 222/147 Likely secondary to volume overload Patient is on multiple medications We will add IV Lopressor as needed Discussed with nephrology Dr. Carlin and patient will be taken to hemodialysis as soon as possible (3) Hyperkalemia Current Visit: Yes Status: Acute Plan to address problem: Secondary to patient not having had dialysis for the past 1 week Patient to undergo hemodialysis as soon as possible (4) Internal hernia Current Visit: Yes Status: Acute Plan to address problem: CT of the abdomen and pelvis results reviewed which shows internal hernia of the small bowel with mesenteric stranding General surgery consulted Evaluation pending N.p.o. Pain control with IV morphine Consider renal ultrasound when the patient is more stable as CT of the abdomen shows questionable mass in the right upper pole of the kidney (5) ESRD needing dialysis Current Visit: Yes Status: Chronic Plan to address problem: Nephrology consulted Continue management per nephrology recommendations Patient states that she missed hemodialysis for the past 1 week History Interval history: Patient seen and examined, still complains of a 6 out of 10 abdominal pain that is constant. Hospitalist Physical - Physical exam Narrative exam: General appearance: Present: calm well-nourished - EENT Eyes: Present: PERRL, EOM intact ENT: hearing intact, clear oral mucosa - Respiratory Respiratory effort: normal Respiratory: bilateral: CTA, negative: rales, rhonchi - Cardiovascular Rhythm: regular Heart Sounds: Present: S1 & S2 - Extremities Extremities: No edema - Abdominal General gastrointestinal: Present: soft, tender AT SURGICAL SITE,OTHERWISE CLEAN AND INTACT non-distended. Absent: hepatomegaly, splenomegaly Female genitourinary: Present: deferred - Rectal Rectal Exam: deferred - Integumentary Integumentary: Present: clear, warm, dry - Musculoskeletal Musculoskeletal: strength equal bilaterally - Psychiatric Psychiatric: appropriate mood/affect - Neurologic Neurologic: no focal deficits, moves all extremities - Constitutional Vitals: Temp Pulse Resp BP Pulse Ox 98.7 F 82 20 143/77 95 10/19/20 06:04 10/19/20 10:24 10/19/20 06:04 10/19/20 10:24 10/19/20 08:29 General appearance: Present: no acute distress HEART Score - HEART Score EKG: Normal Age: 45-65 Risk factors: 1-2 risk factors - Critical Actions Critical Actions: 0-3 pts:0.9-1.7%risk of adverse cardiac event.Candidate for discharge Results - Labs CBC & Chem 7: 10/19/20 10:10 10/19/20 10:10 Labs: Laboratory Last Values WBC 4.7 K/mm3 (4.5-11.0) 10/19/20 10:10 RBC 3.25 M/mm3 (3.65-5.03) L 10/19/20 10:10 Hgb 9.2 gm/dl (10.1-14.3) L 10/19/20 10:10 Hct 28.9 % (30.3-42.9) L 10/19/20 10:10 MCV 89 fl (79-97) 10/19/20 10:10 MCH 28 pg (28-32) 10/19/20 10:10 MCHC 32 % (30-34) 10/19/20 10:10 RDW 18.2 % (13.2-15.2) H 10/19/20 10:10 Plt Count 215 K/mm3 (140-440) 10/19/20 10:10 Lymph % (Auto) 13.3 % (13.4-35.0) L 10/19/20 10:10 [place] % (Auto) 13.8 % (0.0-7.3) H 10/19/20 10:10 Eos % (Auto) 4.9 % (0.0-4.3) H 10/19/20 10:10 Baso % (Auto) 0.3 % (0.0-1.8) 10/19/20 10:10 Lymph # (Auto) 0.6 K/mm3 (1.2-5.4) L 10/19/20 10:10 [place] # (Auto) 0.6 K/mm3 (0.0-0.8) 10/19/20 10:10 Eos # (Auto) 0.2 K/mm3 (0.0-0.4) 10/19/20 10:10 Baso # (Auto) 0.0 K/mm3 (0.0-0.1) 10/19/20 10:10 Seg Neutrophils % 67.7 % (40.0-70.0) 10/19/20 10:10 Seg Neutrophils # 3.2 K/mm3 (1.8-7.7) 10/19/20 10:10 Sodium 136 mmol/L (137-145) L 10/19/20 10:10 Potassium 4.3 mmol/L (3.6-5.0) 10/19/20 10:10 Chloride 98.7 mmol/L (98-107) 10/19/20 10:10 Carbon Dioxide 25 mmol/L (22-30) 10/19/20 10:10 Anion Gap 17 mmol/L 10/19/20 10:10 BUN 39 mg/dL (7-17) H 10/19/20 10:10 Creatinine 8.4 mg/dL (0.6-1.2) H 10/19/20 10:10 Estimated GFR 6 ml/min 10/19/20 10:10 BUN/Creatinine Ratio 5 % 10/19/20 10:10 Glucose 88 mg/dL (65-100) 10/19/20 10:10 POC Glucose 103 mg/dL (70-105) 10/16/20 19:26 Lactic Acid 1.70 mmol/L (0.7-2.0) 10/16/20 08:09 Calcium 8.8 mg/dL (8.4-10.2) 10/19/20 10:10 Total Bilirubin 0.50 mg/dL (0.1-1.2) 10/17/20 08:13 AST 24 units/L (5-40) 10/17/20 08:13 ALT 5 units/L (7-56) L 10/17/20 08:13 Alkaline Phosphatase 65 units/L (35-129) 10/17/20 08:13 Total Protein 5.8 g/dL (6.3-8.2) L 10/17/20 08:13 Albumin 2.8 g/dL (3.9-5) L 10/17/20 08:13 Albumin/Globulin Ratio 0.9 % 10/17/20 08:13 Coronavirus (PCR) Negative (Negative) 10/16/20 Unknown Moran/IV: Voiding Method Toilet IV Catheter Type [Left INT / Saline Lock External Jugular] Active Medications - Current Medications Current Medications: Generic Name Dose Route Start Last Admin Trade Name Freq PRN Reason Stop Dose Admin Acetaminophen 650 mg 10/16/20 08:32 Tylenol PO Q4H PRN Pain MILD(1-3)/Fever >100.5/SAUCEDO Hydrocodone Bitart/Acetaminophen 1 each 10/17/20 09:23 10/19/20 00:46 [place] 5/325 PO 1 each Q4H PRN Administration Pain, Moderate (4-6) Alprazolam 0.25 mg 10/16/20 08:24 10/19/20 00:46 Xanax PO 0.25 mg BID PRN Administration Anxiety Buspirone HCl 10 mg 10/16/20 14:00 10/19/20 06:45 Buspar PO 10 mg Q8HR SUSU Administration Carvedilol 25 mg 10/16/20 10:00 10/19/20 10:22 Coreg PO 25 mg BID SUSU Administration Citalopram Hydrobromide 20 mg 10/16/20 10:00 10/19/20 10:23 Celexa PO 20 mg QDAY SUSU Administration Clonazepam 0.5 mg 10/16/20 08:24 Klonopin PO BID PRN Anxiety UNRELIEVED XANAX Clonidine HCl 0.3 mg 10/16/20 09:00 10/19/20 06:45 Catapres PO 0.3 mg Q8HR SUSU Administration Diltiazem HCl 360 mg 10/16/20 10:00 10/19/20 10:24 Cardizem Cd PO 360 mg QDAY SUSU Administration Ergocalciferol 50,000 unit 10/16/20 10:00 10/16/20 16:34 Vitamin D2 PO Not Given Mo@1000 SUSU Furosemide 80 mg 10/16/20 10:00 10/19/20 10:22 Lasix PO 80 mg QDAY SUSU Administration Hydralazine HCl 10 mg 10/17/20 09:32 Apresoline IV Q4HR PRN Hypertension Hydralazine HCl 50 mg 10/17/20 10:00 10/19/20 10:22 Apresoline PO 50 mg QID SUSU Administration Sodium Chloride 100 mls @ 999 mls/hr 10/16/20 09:10 Nacl 0.9% IV BRENNA PRN Hypotension Metoprolol Tartrate 5 mg 10/16/20 11:22 10/17/20 00:48 Metoprolol IV 5 mg Q6HR PRN Administration Hypertension Morphine Sulfate 2 mg 10/16/20 08:23 10/19/20 10:31 Morphine IV 2 mg Q4H PRN Administration Pain , Severe (7-10) Multivit/Ca Carb/B Cmplx/FA/Prenat 1 cap 10/16/20 10:00 10/19/20 10:22 Renal Caps PO 1 cap QDAY SUSU Administration Ondansetron HCl 4 mg 10/16/20 08:32 Zofran IV Q8H PRN Nausea And Vomiting Pantoprazole Sodium 40 mg 10/18/20 16:30 10/19/20 08:07 Protonix PO 40 mg BIDAC SUSU Administration Sevelamer Carbonate 1,600 mg 10/16/20 12:00 10/19/20 08:07 Renvela PO 1,600 mg TIDWM SUSU Administration Sodium Chloride 10 ml 10/16/20 10:00 10/18/20 22:13 Sodium Chloride Flush Syringe 10 Ml IV 10 ml BID SUSU Administration Sodium Chloride 10 ml 10/16/20 08:32 Sodium Chloride Flush Syringe 10 Ml IV PRN PRN LINE FLUSH Nutrition/Malnutrition Assess - Dietary Evaluation Nutrition/Malnutrition Findings: Nutrition Notes Start: 10/17/20 12:06 Freq: Status: Active Protocol: Document 10/18/20 12:03 AT (Rec: 10/18/20 12:11 AT [id number]) Co-Sign 10/18/20 12:03 LM Nutrition Notes Initial or Follow up Assessment Current Diagnosis CKD (stage V CKD),Diabetes, Hypertension Other Pertinent Diagnosis Anemia, on HD, GERD Current Diet Renal Labs/Tests K 5.1 BUN 42 Cr 8.6 Pertinent Medications Lasix Coreg Vit D2 MVM: Folic Acid/B complex Protonix NS at 100 mL/hr Height 5 ft 9 in Weight 76.2 kg [place] Body Weight (kg) 65.90 BMI 24.7 Subjective/Other Information Follow-up for assessment. Pt at HD. Spoke with RN, pt is changing to Renal at lunch but has been on Clear Liquids s/p laparoscopy. RN unsure of intakes. Burn Absent Trauma Absent Current % PO Negligible Minimum of two criteria No #1 Nutrition Diagnosis Inadequate energy intake Etiology s/p laparoscopy As Evidenced by Signs and Symptoms NPO then advanced to Clear Liquids Is patient on ventilator? No Is Patient Ambulatory and/or Out of Bed Yes REE-([place] or-ambulatory/OOB) [ 1789.294 NUTR.MSJOOB] Calculation Used for Recommendations Alanna Patrick Additional Notes PRO needs: >91g (>1.2g/kg) Fluid needs: 1 mL/kcal Nutrition Intervention Change Diet Order: Continue Renal Goal #1 Meet at least 75% of estimated energy and protein needs Anticipated Discharge Needs: Renal Follow-Up By: 10/20/20 Additional Comments F/U for PO intakes and labs
[2020-10-20] MEDS: cloNIDine 0.1 MG TAB PO SCH ×3 (06:10→22:22)
[2020-10-20] MEDS: HYDROcodone/ACETAMINOPHEN 5-325 MG TAB PO PRN ×4 (06:15→22:23)
[2020-10-20] MEDS: busPIRone 5 MG TAB PO SCH ×3 (06:15→22:21)
[2020-10-20] MEDS: carvediloL 25 MG TAB PO SCH ×2 (09:33→22:22)
[2020-10-20] MEDS: SEVELAMER CARBONATE 800 MG TAB PO SCH ×3 (09:33→16:56)
[2020-10-20] MEDS: hydrALAZINE 25 MG TAB PO SCH ×4 (09:33→22:21)
[2020-10-20] MEDS: PANTOPRAZOLE 40 MG TAB PO SCH ×2 (10:09→16:56)
--- NOTE | 2020-10-20 13:26 | Progress Note ---
Assessment and Plan Assessment and plan: Patient is a 65-year-old -Welsh female with history of end-stage renal disease on hemodialysis Friday and Friday, hypertension, paroxysmal atrial fibrillation, type 2 diabetes and status post AICD placement, presents to the ED with complaints of generalized abdominal pain for the past 3 weeks. Pain is constant and progressive. Also complains of nausea, vomiting and diarrhea for the past few days and for the past couple of days she has lost smell and has been having fever and chills and associated with body aches and generalized weakness. She denies any chest pain or shortness of breath or cough. CT of the abdomen and pelvis showed internal hernia with mesenteric stranding and questionable right upper pole renal mass. General surgery was consulted. Patient is being admitted for further evaluation of her abdominal pain. Apparently patient's was exposed to someone who was positive for Covid 19 virus Diffuse abdominal pain for 3 weeks Nausea vomiting and diarrhea for few days Loss of smell , fever and chills and body aches for the past 2 to 3 days History of present illness: Etiology of patient's pain was not an internal hernia as suggested by CT scan A /P. Pain possibly from adhesions vs other etiology such as mesenteric ischemia. There are calcifications at the takeoff of the celiac artery and SMA on CT without contrast. Recommend CTA abd/pelvis if ok with nephro to evaluate abdominal vasculature. Patient is s/p Diagnostic laparoscopy, lysis of adhesions, POD 1 1. Diffuse adhesions from the omentum, small bowel, stomach, and liver to the anterior abominal wall. 2. Tiny umbilical hernia containing fat 3. Small bowel nondistended 4. No internal hernia 10/18: Patient continues to have abdominal pain. Awaiting Doppler of the abdomen. Will obtain vascular consultation to evaluate for any ischemic mesentery. We will also continue to monitor and evaluate pain. Anticipate discharge in a.m. if no further intervention if pain is improving. Kayexalate given for hyperkalemia 10/19: AWAITING CT abd, US shows no significant thrombosis, Vascular input noted. R-evaluate in am, still on pain control 10/20: Patient clinically stable, still awaiting imaging study to further evaluate abdominal pain that has persisted despite lysis adhesion. Unfortunately unable to obtain prior to dialysis today and will plan for Friday. continue judicious pain control (1) Abdominal pain Current Visit: Yes Status: Acute Qualifiers: Abdominal location: generalized Qualified Code(s): R10.84 - Generalized abdominal pain Plan to address problem: Continue supportive care. Status post Laparscopy lysis of adhesion (2) Hypertensive emergency Current Visit: Yes Status: Acute Plan to address problem: Patient was severely hypertensive with a BP systolic of 222/147 Likely secondary to volume overload Patient is on multiple medications We will add IV Lopressor as needed Discussed with nephrology Dr. Carlin and patient will be taken to hemodialysis as soon as possible (3) Hyperkalemia Current Visit: Yes Status: Acute Plan to address problem: Secondary to patient not having had dialysis for the past 1 week Patient to undergo hemodialysis as soon as possible (4) Internal hernia Current Visit: Yes Status: Acute Plan to address problem: CT of the abdomen and pelvis results reviewed which shows internal hernia of the small bowel with mesenteric stranding General surgery consulted Evaluation pending N.p.o. Pain control with IV morphine Consider renal ultrasound when the patient is more stable as CT of the abdomen shows questionable mass in the right upper pole of the kidney (5) ESRD needing dialysis Current Visit: Yes Status: Chronic Plan to address problem: Nephrology consulted Continue management per nephrology recommendations Patient states that she missed hemodialysis for the past 1 week History Interval history: Patient seen and examined, abdominal pain improving, Hospitalist Physical - Physical exam Narrative exam: General appearance: Present: calm well-nourished - EENT Eyes: Present: PERRL, EOM intact ENT: hearing intact, clear oral mucosa - Respiratory Respiratory effort: normal Respiratory: bilateral: CTA, negative: rales, rhonchi - Cardiovascular Rhythm: regular Heart Sounds: Present: S1 & S2 - Extremities Extremities: No edema - Abdominal General gastrointestinal: Present: soft, tender AT SURGICAL SITE,OTHERWISE CLEAN AND INTACT non-distended. Absent: hepatomegaly, splenomegaly Female genitourinary: Present: deferred - Rectal Rectal Exam: deferred - Integumentary Integumentary: Present: clear, warm, dry - Musculoskeletal Musculoskeletal: strength equal bilaterally - Psychiatric Psychiatric: appropriate mood/affect - Neurologic Neurologic: no focal deficits, moves all extremities - Constitutional Vitals: Temp Pulse Resp BP Pulse Ox 98.2 F 98 H 18 110/63 99 10/20/20 10:00 10/20/20 12:30 10/20/20 10:00 10/20/20 12:30 10/20/20 05:38 General appearance: Present: no acute distress HEART Score - HEART Score EKG: Normal Age: 45-65 Risk factors: 1-2 risk factors - Critical Actions Critical Actions: 0-3 pts:0.9-1.7%risk of adverse cardiac event.Candidate for discharge Results - Labs CBC & Chem 7: 10/19/20 10:10 10/19/20 10:10 Labs: Laboratory Last Values WBC 4.7 K/mm3 (4.5-11.0) 10/19/20 10:10 RBC 3.25 M/mm3 (3.65-5.03) L 10/19/20 10:10 Hgb 9.2 gm/dl (10.1-14.3) L 10/19/20 10:10 Hct 28.9 % (30.3-42.9) L 10/19/20 10:10 MCV 89 fl (79-97) 10/19/20 10:10 MCH 28 pg (28-32) 10/19/20 10:10 MCHC 32 % (30-34) 10/19/20 10:10 RDW 18.2 % (13.2-15.2) H 10/19/20 10:10 Plt Count 215 K/mm3 (140-440) 10/19/20 10:10 Lymph % (Auto) 13.3 % (13.4-35.0) L 10/19/20 10:10 [place] % (Auto) 13.8 % (0.0-7.3) H 10/19/20 10:10 Eos % (Auto) 4.9 % (0.0-4.3) H 10/19/20 10:10 Baso % (Auto) 0.3 % (0.0-1.8) 10/19/20 10:10 Lymph # (Auto) 0.6 K/mm3 (1.2-5.4) L 10/19/20 10:10 [place] # (Auto) 0.6 K/mm3 (0.0-0.8) 10/19/20 10:10 Eos # (Auto) 0.2 K/mm3 (0.0-0.4) 10/19/20 10:10 Baso # (Auto) 0.0 K/mm3 (0.0-0.1) 10/19/20 10:10 Seg Neutrophils % 67.7 % (40.0-70.0) 10/19/20 10:10 Seg Neutrophils # 3.2 K/mm3 (1.8-7.7) 10/19/20 10:10 Sodium 136 mmol/L (137-145) L 10/19/20 10:10 Potassium 4.3 mmol/L (3.6-5.0) 10/19/20 10:10 Chloride 98.7 mmol/L (98-107) 10/19/20 10:10 Carbon Dioxide 25 mmol/L (22-30) 10/19/20 10:10 Anion Gap 17 mmol/L 10/19/20 10:10 BUN 39 mg/dL (7-17) H 10/19/20 10:10 Creatinine 8.4 mg/dL (0.6-1.2) H 10/19/20 10:10 Estimated GFR 6 ml/min 10/19/20 10:10 BUN/Creatinine Ratio 5 % 10/19/20 10:10 Glucose 88 mg/dL (65-100) 10/19/20 10:10 POC Glucose 103 mg/dL (70-105) 10/16/20 19:26 Lactic Acid 1.70 mmol/L (0.7-2.0) 10/16/20 08:09 Calcium 8.8 mg/dL (8.4-10.2) 10/19/20 10:10 Total Bilirubin 0.50 mg/dL (0.1-1.2) 10/17/20 08:13 AST 24 units/L (5-40) 10/17/20 08:13 ALT 5 units/L (7-56) L 10/17/20 08:13 Alkaline Phosphatase 65 units/L (35-129) 10/17/20 08:13 Total Protein 5.8 g/dL (6.3-8.2) L 10/17/20 08:13 Albumin 2.8 g/dL (3.9-5) L 10/17/20 08:13 Albumin/Globulin Ratio 0.9 % 10/17/20 08:13 Coronavirus (PCR) Negative (Negative) 10/16/20 Unknown [place]/IV: Voiding Method Toilet IV Catheter Type [Left INT / Saline Lock External Jugular] Active Medications - Current Medications Current Medications: Generic Name Dose Route Start Last Admin Trade Name Freq PRN Reason Stop Dose Admin Acetaminophen 650 mg 10/16/20 08:32 Tylenol PO Q4H PRN Pain MILD(1-3)/Fever >100.5/SAUCEDO Hydrocodone Bitart/Acetaminophen 1 each 10/17/20 09:23 10/20/20 10:20 [place] 5/325 PO 1 each Q4H PRN Administration Pain, Moderate (4-6) Alprazolam 0.25 mg 10/16/20 08:24 10/19/20 00:46 Xanax PO 0.25 mg BID PRN Administration Anxiety Buspirone HCl 10 mg 10/16/20 14:00 10/20/20 06:15 Buspar PO 10 mg Q8HR SUSU Administration Carvedilol 25 mg 10/16/20 10:00 10/20/20 09:33 Coreg PO Not Given BID SUSU Citalopram Hydrobromide 20 mg 10/16/20 10:00 10/19/20 10:23 Celexa PO 20 mg QDAY SUSU Administration Clonazepam 0.5 mg 10/16/20 08:24 Klonopin PO BID PRN Anxiety UNRELIEVED XANAX Clonidine HCl 0.3 mg 10/16/20 09:00 10/20/20 06:10 Catapres PO 0.3 mg Q8HR SUSU Administration Diltiazem HCl 360 mg 10/16/20 10:00 10/19/20 10:24 Cardizem Cd PO 360 mg QDAY SUSU Administration Ergocalciferol 50,000 unit 10/16/20 10:00 10/16/20 16:34 Vitamin D2 PO Not Given Mo@1000 SUSU Furosemide 80 mg 10/16/20 10:00 10/19/20 10:22 Lasix PO 80 mg QDAY SUSU Administration Hydralazine HCl 10 mg 10/17/20 09:32 Apresoline IV Q4HR PRN Hypertension Hydralazine HCl 50 mg 10/17/20 10:00 10/20/20 09:33 Apresoline PO Not Given QID SUSU Sodium Chloride 100 mls @ 999 mls/hr 10/16/20 09:10 Nacl 0.9% IV BRENNA PRN Hypotension Metoprolol Tartrate 5 mg 10/16/20 11:22 10/17/20 00:48 Metoprolol IV 5 mg Q6HR PRN Administration Hypertension Morphine Sulfate 2 mg 10/16/20 08:23 10/19/20 19:13 Morphine IV 2 mg Q4H PRN Administration Pain , Severe (7-10) Multivit/Ca Carb/B Cmplx/FA/Prenat 1 cap 10/16/20 10:00 10/19/20 10:22 Renal Caps PO 1 cap QDAY SUSU Administration Ondansetron HCl 4 mg 10/16/20 08:32 Zofran IV Q8H PRN Nausea And Vomiting Pantoprazole Sodium 40 mg 10/18/20 16:30 10/20/20 10:09 Protonix PO Not Given BIDAC SUSU Sevelamer Carbonate 1,600 mg 10/16/20 12:00 10/20/20 12:36 Renvela PO Not Given TIDWM SUSU Sodium Chloride 10 ml 10/16/20 10:00 10/20/20 09:33 Sodium Chloride Flush Syringe 10 Ml IV Not Given BID SUSU Sodium Chloride 10 ml 10/16/20 08:32 Sodium Chloride Flush Syringe 10 Ml IV PRN PRN LINE FLUSH Nutrition/Malnutrition Assess - Dietary Evaluation Nutrition/Malnutrition Findings: Nutrition Notes Start: 10/17/20 12:06 Freq: Status: Active Protocol: Document 10/18/20 12:03 AT (Rec: 10/18/20 12:11 AT [email or web address]) Co-Sign 10/18/20 12:03 LM Nutrition Notes Initial or Follow up Assessment Current Diagnosis CKD (stage V CKD),Diabetes, Hypertension Other Pertinent Diagnosis Anemia, on HD, GERD Current Diet Renal Labs/Tests K 5.1 BUN 42 Cr 8.6 Pertinent Medications Lasix Coreg Vit D2 MVM: Folic Acid/B complex Protonix NS at 100 mL/hr Height 5 ft 9 in Weight 76.2 kg [place] Body Weight (kg) 65.90 BMI 24.7 Subjective/Other Information Follow-up for assessment. Pt at HD. Spoke with RN, pt is changing to Renal at lunch but has been on Clear Liquids s/p laparoscopy. RN unsure of intakes. Burn Absent Trauma Absent Current % PO Negligible Minimum of two criteria No #1 Nutrition Diagnosis Inadequate energy intake Etiology s/p laparoscopy As Evidenced by Signs and Symptoms NPO then advanced to Clear Liquids Is patient on ventilator? No Is Patient Ambulatory and/or Out of Bed Yes REE-([facility]-ambulatory/OOB) [ 1789.294 NUTR.MSJOOB] Calculation Used for Recommendations [facility] Additional Notes PRO needs: >91g (>1.2g/kg) Fluid needs: 1 mL/kcal Nutrition Intervention Change Diet Order: Continue Renal Goal #1 Meet at least 75% of estimated energy and protein needs Anticipated Discharge Needs: Renal Follow-Up By: 10/20/20 Additional Comments F/U for PO intakes and labs
--- NOTE | 2020-10-20 13:53 | Progress Note ---
Assessment and Plan Assessment and plan: Patient is a 65-year-old -Filipino female with history of end-stage renal disease on hemodialysis Friday and Friday, hypertension, paroxysmal atrial fibrillation, type 2 diabetes and status post AICD placement, presents to the ED with complaints of generalized abdominal pain for the past 3 weeks. Pain is constant and progressive. Also complains of nausea, vomiting and diarrhea for the past few days and for the past couple of days she has lost smell and has been having fever and chills and associated with body aches and generalized weakness. She denies any chest pain or shortness of breath or cough. CT of the abdomen and pelvis showed internal hernia with mesenteric stranding and questionable right upper pole renal mass. General surgery was consulted. Patient is being admitted for further evaluation of her abdominal pain. Apparently patient's was exposed to someone who was positive for Covid 19 virus Diffuse abdominal pain for 3 weeks Nausea vomiting and diarrhea for few days Loss of smell , fever and chills and body aches for the past 2 to 3 days History of present illness: Etiology of patient's pain was not an internal hernia as suggested by CT scan A /P. Pain possibly from adhesions vs other etiology such as mesenteric ischemia. There are calcifications at the takeoff of the celiac artery and SMA on CT without contrast. Recommend CTA abd/pelvis if ok with nephro to evaluate abdominal vasculature. Patient is s/p Diagnostic laparoscopy, lysis of adhesions, POD 1 1. Diffuse adhesions from the omentum, small bowel, stomach, and liver to the anterior abominal wall. 2. Tiny umbilical hernia containing fat 3. Small bowel nondistended 4. No internal hernia 10/18: Patient continues to have abdominal pain. Awaiting Doppler of the abdomen. Will obtain vascular consultation to evaluate for any ischemic mesentery. We will also continue to monitor and evaluate pain. Anticipate discharge in a.m. if no further intervention if pain is improving. Kayexalate given for hyperkalemia 10/19: AWAITING CT abd, US shows no significant thrombosis, Vascular input noted. R-evaluate in am, still on pain control 10/20: Patient clinically stable, still awaiting imaging study to further evaluate abdominal pain that has persisted despite lysis adhesion. Unfortunately unable to obtain prior to dialysis today and will plan for Friday. continue judicious pain control (1) Abdominal pain PRESUMED SECONDARY TOP ADHESION, STILL SOME RESIDUAL PAIN Current Visit: Yes Status: Acute Qualifiers: Abdominal location: generalized Qualified Code(s): R10.84 - Generalized abdominal pain Plan to address problem: Continue supportive care. Status post Laparscopy lysis of adhesion (2) Hypertensive emergency Current Visit: Yes Status: Acute Plan to address problem: Patient was severely hypertensive with a BP systolic of 222/147 Likely secondary to volume overload Patient is on multiple medications We will add IV Lopressor as needed Discussed with nephrology Dr. Carlin and patient will be taken to hemodialysis as soon as possible (3) Hyperkalemia Current Visit: Yes Status: Acute Plan to address problem: Secondary to patient not having had dialysis for the past 1 week Patient to undergo hemodialysis as soon as possible (4) NO Internal hernia (5) Anemia of chronic disease (6)ESRD needing dialysis Current Visit: Yes Status: Chronic Plan to address problem: Nephrology consulted Continue management per nephrology recommendations Patient states that she missed hemodialysis for the past 1 week History Interval history: Patient seen and examined, abdominal pain improving, Hospitalist Physical - Physical exam Narrative exam: General appearance: Present: calm well-nourished - EENT Eyes: Present: PERRL, EOM intact ENT: hearing intact, clear oral mucosa - Respiratory Respiratory effort: normal Respiratory: bilateral: CTA, negative: rales, rhonchi - Cardiovascular Rhythm: regular Heart Sounds: Present: S1 & S2 - Extremities Extremities: No edema - Abdominal General gastrointestinal: Present: soft, tender AT SURGICAL SITE,OTHERWISE CL SUZY AND INTACT non-distended. Absent: hepatomegaly, splenomegaly Female genitourinary: Present: deferred - Rectal Rectal Exam: deferred - Integumentary Integumentary: Present: clear, warm, dry - Musculoskeletal Musculoskeletal: strength equal bilaterally - Psychiatric Psychiatric: appropriate mood/affect - Neurologic Neurologic: no focal deficits, moves all extremities - Constitutional Vitals: Temp Pulse Resp BP Pulse Ox 98.2 F 98 H 18 110/63 99 10/20/20 10:00 10/20/20 12:30 10/20/20 10:00 10/20/20 12:30 10/20/20 05:38 General appearance: Present: no acute distress HEART Score - HEART Score EKG: Normal Age: 45-65 Risk factors: 1-2 risk factors - Critical Actions Critical Actions: 0-3 pts:0.9-1.7%risk of adverse cardiac event.Candidate for discharge Results - Labs CBC & Chem 7: 10/19/20 10:10 10/19/20 10:10 Labs: Laboratory Last Values WBC 4.7 K/mm3 (4.5-11.0) 10/19/20 10:10 RBC 3.25 M/mm3 (3.65-5.03) L 10/19/20 10:10 Hgb 9.2 gm/dl (10.1-14.3) L 10/19/20 10:10 Hct 28.9 % (30.3-42.9) L 10/19/20 10:10 MCV 89 fl (79-97) 10/19/20 10:10 MCH 28 pg (28-32) 10/19/20 10:10 MCHC 32 % (30-34) 10/19/20 10:10 RDW 18.2 % (13.2-15.2) H 10/19/20 10:10 Plt Count 215 K/mm3 (140-440) 10/19/20 10:10 Lymph % (Auto) 13.3 % (13.4-35.0) L 10/19/20 10:10 [place] % (Auto) 13.8 % (0.0-7.3) H 10/19/20 10:10 Eos % (Auto) 4.9 % (0.0-4.3) H 10/19/20 10:10 Baso % (Auto) 0.3 % (0.0-1.8) 10/19/20 10:10 Lymph # (Auto) 0.6 K/mm3 (1.2-5.4) L 10/19/20 10:10 [place] # (Auto) 0.6 K/mm3 (0.0-0.8) 10/19/20 10:10 Eos # (Auto) 0.2 K/mm3 (0.0-0.4) 10/19/20 10:10 Baso # (Auto) 0.0 K/mm3 (0.0-0.1) 10/19/20 10:10 Seg Neutrophils % 67.7 % (40.0-70.0) 10/19/20 10:10 Seg Neutrophils # 3.2 K/mm3 (1.8-7.7) 10/19/20 10:10 Sodium 136 mmol/L (137-145) L 10/19/20 10:10 Potassium 4.3 mmol/L (3.6-5.0) 10/19/20 10:10 Chloride 98.7 mmol/L (98-107) 10/19/20 10:10 Carbon Dioxide 25 mmol/L (22-30) 10/19/20 10:10 Anion Gap 17 mmol/L 10/19/20 10:10 BUN 39 mg/dL (7-17) H 10/19/20 10:10 Creatinine 8.4 mg/dL (0.6-1.2) H 10/19/20 10:10 Estimated GFR 6 ml/min 10/19/20 10:10 BUN/Creatinine Ratio 5 % 10/19/20 10:10 Glucose 88 mg/dL (65-100) 10/19/20 10:10 POC Glucose 103 mg/dL (70-105) 10/16/20 19:26 Lactic Acid 1.70 mmol/L (0.7-2.0) 10/16/20 08:09 Calcium 8.8 mg/dL (8.4-10.2) 10/19/20 10:10 Total Bilirubin 0.50 mg/dL (0.1-1.2) 10/17/20 08:13 AST 24 units/L (5-40) 10/17/20 08:13 ALT 5 units/L (7-56) L 10/17/20 08:13 Alkaline Phosphatase 65 units/L (35-129) 10/17/20 08:13 Total Protein 5.8 g/dL (6.3-8.2) L 10/17/20 08:13 Albumin 2.8 g/dL (3.9-5) L 10/17/20 08:13 Albumin/Globulin Ratio 0.9 % 10/17/20 08:13 Coronavirus (PCR) Negative (Negative) 10/16/20 Unknown Moran/IV: Voiding Method Toilet IV Catheter Type [Left INT / Saline Lock External Jugular] Active Medications - Current Medications Current Medications: Generic Name Dose Route Start Last Admin Trade Name Freq PRN Reason Stop Dose Admin Acetaminophen 650 mg 10/16/20 08:32 Tylenol PO Q4H PRN Pain MILD(1-3)/Fever >100.5/SAUCEDO Hydrocodone Bitart/Acetaminophen 1 each 10/17/20 09:23 10/20/20 10:20 [place] 5/325 PO 1 each Q4H PRN Administration Pain, Moderate (4-6) Alprazolam 0.25 mg 10/16/20 08:24 10/19/20 00:46 Xanax PO 0.25 mg BID PRN Administration Anxiety Buspirone HCl 10 mg 10/16/20 14:00 10/20/20 06:15 Buspar PO 10 mg Q8HR SUSU Administration Carvedilol 25 mg 10/16/20 10:00 10/20/20 09:33 Coreg PO Not Given BID SUSU Citalopram Hydrobromide 20 mg 10/16/20 10:00 10/19/20 10:23 Celexa PO 20 mg QDAY SUSU Administration Clonazepam 0.5 mg 10/16/20 08:24 Klonopin PO BID PRN Anxiety UNRELIEVED XANAX Clonidine HCl 0.3 mg 10/16/20 09:00 10/20/20 06:10 Catapres PO 0.3 mg Q8HR SUSU Administration Diltiazem HCl 360 mg 10/16/20 10:00 10/19/20 10:24 Cardizem Cd PO 360 mg QDAY SUSU Administration Ergocalciferol 50,000 unit 10/16/20 10:00 10/16/20 16:34 Vitamin D2 PO Not Given Mo@1000 SUSU Furosemide 80 mg 10/16/20 10:00 10/19/20 10:22 Lasix PO 80 mg QDAY SUSU Administration Hydralazine HCl 10 mg 10/17/20 09:32 Apresoline IV Q4HR PRN Hypertension Hydralazine HCl 50 mg 10/17/20 10:00 10/20/20 09:33 Apresoline PO Not Given QID SUSU Sodium Chloride 100 mls @ 999 mls/hr 10/16/20 09:10 Nacl 0.9% IV BRENNA PRN Hypotension Metoprolol Tartrate 5 mg 10/16/20 11:22 10/17/20 00:48 Metoprolol IV 5 mg Q6HR PRN Administration Hypertension Morphine Sulfate 2 mg 10/16/20 08:23 10/19/20 19:13 Morphine IV 2 mg Q4H PRN Administration Pain , Severe (7-10) Multivit/Ca Carb/B Cmplx/FA/Prenat 1 cap 10/16/20 10:00 10/19/20 10:22 Renal Caps PO 1 cap QDAY SUSU Administration Ondansetron HCl 4 mg 10/16/20 08:32 Zofran IV Q8H PRN Nausea And Vomiting Pantoprazole Sodium 40 mg 10/18/20 16:30 10/20/20 10:09 Protonix PO Not Given BIDAC SUSU Sevelamer Carbonate 1,600 mg 10/16/20 12:00 10/20/20 12:36 Renvela PO Not Given TIDWM SUSU Sodium Chloride 10 ml 10/16/20 10:00 10/20/20 09:33 Sodium Chloride Flush Syringe 10 Ml IV Not Given BID SUSU Sodium Chloride 10 ml 10/16/20 08:32 Sodium Chloride Flush Syringe 10 Ml IV PRN PRN LINE FLUSH Nutrition/Malnutrition Assess - Dietary Evaluation Nutrition/Malnutrition Findings: Nutrition Notes Start: 10/17/20 12:06 Freq: Status: Active Protocol: Document 10/18/20 12:03 AT (Rec: 10/18/20 12:11 AT [id number]) Co-Sign 10/18/20 12:03 LM Nutrition Notes Initial or Follow up Assessment Current Diagnosis CKD (stage V CKD),Diabetes, Hypertension Other Pertinent Diagnosis Anemia, on HD, GERD Current Diet Renal Labs/Tests K 5.1 BUN 42 Cr 8.6 Pertinent Medications Lasix Coreg Vit D2 MVM: Folic Acid/B complex Protonix NS at 100 mL/hr Height 5 ft 9 in Weight 76.2 kg [place] Body Weight (kg) 65.90 BMI 24.7 Subjective/Other Information Follow-up for assessment. Pt at HD. Spoke with RN, pt is changing to Renal at lunch but has been on Clear Liquids s/p laparoscopy. RN unsure of intakes. Burn Absent Trauma Absent Current % PO Negligible Minimum of two criteria No #1 Nutrition Diagnosis Inadequate energy intake Etiology s/p laparoscopy As Evidenced by Signs and Symptoms NPO then advanced to Clear Liquids Is patient on ventilator? No Is Patient Ambulatory and/or Out of Bed Yes REE-([facility]. [facility]-ambulatory/OOB) [ 1789.294 [id number]] Calculation Used for Recommendations [facility] Additional Notes PRO needs: >91g (>1.2g/kg) Fluid needs: 1 mL/kcal Nutrition Intervention Change Diet Order: Continue Renal Goal #1 Meet at least 75% of estimated energy and protein needs Anticipated Discharge Needs: Renal Follow-Up By: 10/20/20 Additional Comments F/U for PO intakes and labs
[2020-10-20] MEDS: dilTIAZem CD 180 MG CAP PO SCH (14:17)
[2020-10-20] MEDS: FOLIC ACID/VIT B COMP W-C 1 MG (RENAL CAPS) PO SCH (14:17)
--- NOTE | 2020-10-20 14:17 | Progress Note ---
Assessment and Plan This is a 65 year old woman who presents with abdominal pain. # ESRD: urgent HD 10/16 for hyperkalemia, acidosis, volume, will continue HD MWF or prn thereafter, due for HD today, seen upon finishing HD with no issues - daily labs - renally dose meds - avoid nephrotoxins - renal diet # Anemia: last hemoglobin 10.2->9.2, restart ESAs with HD prn # Hyperkalemia: improved # Acidosis: improved # HTN: UF as tolerated. BP now stable # Secondary Hyperparathyroidism: continue home binders as needed # Abdominal Pain: reviewed CT abd/pelvis, surgery input and s/p procedure; appreciate vascular recs, awaiting CT angio. From renal perspective, limited benefit to immediate HD post-contrast in ESRD patient; defer to primar y/radiology but ok to have CT angio done earlier Subjective Date of service: 10/20/20 Principal diagnosis: Abdominal pain Interval history: Continues to have abdominal pain. No issues with HD today, did stop one hour early. Denies cramping, dizziness. Seen upon finishing HD. Objective - Exam Narrative Exam: Constitutional: mild acute distress Head: NC/AT Neck: supple Lungs: clear to auscultation CV: RRR, no M/R/G Abdomen: soft, non-tender, bowel sounds present Back: nontender Extremities: no edema, pulses WNL Skin: intact Neuro: no focal deficits, alert and oriented x4 but tangential conversations - Vital Signs Vital signs: Vital Signs - 12hr 10/20/20 10/20/20 10/20/20 05:38 06:10 10:00 Temperature 98.3 F 98.2 F Pulse Rate 66 66 67 Respiratory 20 18 Rate Blood Pressure 139/74 139/74 135/85 O2 Sat by Pulse 99 Oximetry 10/20/20 10/20/20 10/20/20 10:20 10:30 10:45 Temperature Pulse Rate 67 66 68 Respiratory Rate Blood Pressure 135/85 114/88 124/84 O2 Sat by Pulse Oximetry 10/20/20 10/20/20 10/20/20 11:00 11:15 11:30 Temperature Pulse Rate 69 69 71 Respiratory Rate Blood Pressure 124/81 127/87 123/84 O2 Sat by Pulse Oximetry 10/20/20 10/20/20 10/20/20 11:45 12:00 12:15 Temperature Pulse Rate 71 73 100 H Respiratory Rate Blood Pressure 137/87 144/86 115/66 O2 Sat by Pulse Oximetry 10/20/20 10/20/20 10/20/20 12:30 12:45 13:00 Temperature Pulse Rate 98 H 82 79 Respiratory Rate Blood Pressure 110/63 140/92 154/96 O2 Sat by Pulse Oximetry 10/20/20 13:06 Temperature Pulse Rate 78 Respiratory Rate Blood Pressure 160/99 O2 Sat by Pulse Oximetry - Lab 10/19/20 10:10 10/19/20 10:10 Most recent lab results Calcium 8.8 mg/dL (8.4-10.2) 10/19/20 10:10 Medications & Allergies - Medications Allergies/Adverse Reactions: Allergies No Known Allergies Allergy (Unverified 09/04/13 07:18) Home Medications: Home Medications Medication Instructions Recorded Confirmed Last Taken Type Ergocalciferol (Vitamin D2) 50,000 unit PO DAILY 09/25/20 10/16/20 Unknown History [Drisdol] HYDROcodone/APAP 5-325 [[place] 1 each PO Q6HR PRN 09/25/20 10/16/20 Unknown History 5-325 mg TAB] Sevelamer Carbonate [Renvela] 1,600 mg PO TID 09/25/20 10/16/20 Unknown History busPIRone [Buspar] 10 mg PO Q8HR 09/25/20 10/16/20 Unknown History Citalopram [Celexa] 20 mg PO QDAY #30 tab 09/28/20 10/16/20 Unknown Rx Furosemide [Lasix TAB] 80 mg PO QDAY #30 tablet 09/28/20 10/16/20 Unknown Rx carvediloL [Coreg] 25 mg PO BID #60 tablet 09/28/20 10/16/20 Unknown Rx cloNIDine [Catapres] 0.3 mg PO Q8HR #270 tablet 09/28/20 10/16/20 Unknown Rx dilTIAZem CD [Cardizem CD] 360 mg PO QDAY #60 capsule 09/28/20 10/16/20 Unknown Rx ALPRAZolam [Xanax TAB] 0.25 mg PO BID PRN 10/16/20 10/16/20 Unknown History Acetaminophen [Tylenol] 500 mg PO Q6HR 10/16/20 10/16/20 Unknown History Folic Acid/Vit B Complex and C 0.8 mg PO QDAY 10/16/20 10/16/20 Unknown History [Renal Vitamin Tablet] Pantoprazole [Protonix] 40 mg PO QDAY 10/16/20 10/16/20 Unknown History clonazePAM [ Klonopin] 0.5 mg PO BID PRN 10/16/20 10/16/20 Unknown History hydrALAZINE [Apresoline TAB] 25 mg PO QID 10/16/20 10/16/20 Unknown History traMADoL [Ultram] 50 mg PO Q6HR PRN 10/16/20 10/16/20 Unknown History Active Medications: Generic Name Dose Route Start Last Admin Trade Name Freq PRN Reason Stop Dose Admin Acetaminophen 650 mg 10/16/20 08:32 Tylenol PO Q4H PRN Pain MILD(1-3)/Fever >100.5/SAUCEDO Hydrocodone Bitart/Acetaminophen 1 each 10/17/20 09:23 10/20/20 10:20 [place] 5/325 PO 1 each Q4H PRN Administration Pain, Moderate (4-6) Alprazolam 0.25 mg 10/16/20 08:24 10/19/20 00:46 Xanax PO 0.25 mg BID PRN Administration Anxiety Buspirone HCl 10 mg 10/16/20 14:00 10/20/20 06:15 Buspar PO 10 mg Q8HR SUSU Administration Carvedilol 25 mg 10/16/20 10:00 10/20/20 09:33 Coreg PO Not Given BID SUSU Citalopram Hydrobromide 20 mg 10/16/20 10:00 10/19/20 10:23 Celexa PO 20 mg QDAY SUSU Administration Clonazepam 0.5 mg 10/16/20 08:24 Klonopin PO BID PRN Anxiety UNRELIEVED XANAX Clonidine HCl 0.3 mg 10/16/20 09:00 10/20/20 06:10 Catapres PO 0.3 mg Q8HR SUSU Administration Diltiazem HCl 360 mg 10/16/20 10:00 10/19/20 10:24 Cardizem Cd PO 360 mg QDAY SUSU Administration Ergocalciferol 50,000 unit 10/16/20 10:00 10/16/20 16:34 Vitamin D2 PO Not Given Mo@1000 SUSU Furosemide 80 mg 10/16/20 10:00 10/19/20 10:22 Lasix PO 80 mg QDAY SUSU Administration Hydralazine HCl 10 mg 10/17/20 09:32 Apresoline IV Q4HR PRN Hypertension Hydralazine HCl 50 mg 10/17/20 10:00 10/20/20 09:33 Apresoline PO Not Given QID SUSU Sodium Chloride 100 mls @ 999 mls/hr 10/16/20 09:10 Nacl 0.9% IV BRENNA PRN Hypotension Metoprolol Tartrate 5 mg 10/16/20 11:22 10/17/20 00:48 Metoprolol IV 5 mg Q6HR PRN Administration Hypertension Morphine Sulfate 2 mg 10/16/20 08:23 10/19/20 19:13 Morphine IV 2 mg Q4H PRN Administration Pain , Severe (7-10) Multivit/Ca Carb/B Cmplx/FA/Prenat 1 cap 10/16/20 10:00 10/19/20 10:22 Renal Caps PO 1 cap QDAY SUSU Administration Ondansetron HCl 4 mg 10/16/20 08:32 Zofran IV Q8H PRN Nausea And Vomiting Pantoprazole Sodium 40 mg 10/18/20 16:30 10/20/20 10:09 Protonix PO Not Given BIDAC SUSU Sevelamer Carbonate 1,600 mg 10/16/20 12:00 10/20/20 12:36 Renvela PO Not Given TIDWM SUSU Sodium Chloride 10 ml 10/16/20 10:00 10/20/20 09:33 Sodium Chloride Flush Syringe 10 Ml IV Not Given BID SUSU Sodium Chloride 10 ml 10/16/20 08:32 Sodium Chloride Flush Syringe 10 Ml IV PRN PRN LINE FLUSH
[2020-10-20] MEDS: FUROSEMIDE 40 MG TAB PO SCH (14:18)
[2020-10-20] MEDS: CITALOPRAM 20 MG TAB PO SCH (14:18)
[2020-10-20] MEDS: MORPHINE 2 MG/1 ML INJ IV PRN (18:14)
[2020-10-20] MEDS: ALPRAZolam 0.25 MG TAB PO PRN (22:27)
[2020-10-21] MEDS: cloNIDine 0.1 MG TAB PO SCH ×3 (06:18→22:20)
[2020-10-21] MEDS: busPIRone 5 MG TAB PO SCH ×3 (06:18→22:20)
[2020-10-21] MEDS: dilTIAZem CD 180 MG CAP PO SCH (10:11)
[2020-10-21] MEDS: carvediloL 25 MG TAB PO SCH ×2 (10:11→22:20)
[2020-10-21] MEDS: FOLIC ACID/VIT B COMP W-C 1 MG (RENAL CAPS) PO SCH (10:11)
[2020-10-21] MEDS: SEVELAMER CARBONATE 800 MG TAB PO SCH ×3 (10:11→17:07)
[2020-10-21] MEDS: CITALOPRAM 20 MG TAB PO SCH (10:12)
[2020-10-21] MEDS: PANTOPRAZOLE 40 MG TAB PO SCH ×2 (10:12→17:07)
[2020-10-21] MEDS: FUROSEMIDE 40 MG TAB PO SCH (10:12)
[2020-10-21] MEDS: hydrALAZINE 25 MG TAB PO SCH ×4 (10:12→22:20)
[2020-10-21] MEDS: ALPRAZolam 0.25 MG TAB PO PRN ×2 (10:15→22:20)
--- NOTE | 2020-10-21 12:02 | Progress Note ---
Assessment and Plan Assessment and plan: Patient is a 65-year-old -[place] female with history of end-stage renal disease on hemodialysis Friday and Friday, hypertension, paroxysmal atrial fibrillation, type 2 diabetes and status post AICD placement, presents to the ED with complaints of generalized abdominal pain for the past 3 weeks. Pain is constant and progressive. Also complains of nausea, vomiting and diarrhea for the past few days and for the past couple of days she has lost smell and has been having fever and chills and associated with body aches and generalized weakness. She denies any chest pain or shortness of breath or cough. CT of the abdomen and pelvis showed internal hernia with mesenteric stranding and questionable right upper pole renal mass. General surgery was consulted. Patient is being admitted for further evaluation of her abdominal pain. Apparently patient's was exposed to someone who was positive for Covid 19 virus Diffuse abdominal pain for 3 weeks Nausea vomiting and diarrhea for few days Loss of smell , fever and chills and body aches for the past 2 to 3 days History of present illness: Etiology of patient's pain was not an internal hernia as suggested by CT scan A /P. Pain possibly from adhesions vs other etiology such as mesenteric ischemia. There are calcifications at the takeoff of the celiac artery and SMA on CT without contrast. Recommend CTA abd/pelvis if ok with nephro to evaluate abdominal vasculature. Patient is s/p Diagnostic laparoscopy, lysis of adhesions, POD 1 1. Diffuse adhesions from the omentum, small bowel, stomach, and liver to the anterior abominal wall. 2. Tiny umbilical hernia containing fat 3. Small bowel nondistended 4. No internal hernia 10/18: Patient continues to have abdominal pain. Awaiting Doppler of the abdomen. Will obtain vascular consultation to evaluate for any ischemic mesentery. We will also continue to monitor and evaluate pain. Anticipate discharge in a.m. if no further intervention if pain is improving. Kayexalate given for hyperkalemia 10/19: AWAITING CT abd, US shows no significant thrombosis, Vascular input noted. R-evaluate in am, still on pain control 10/20: Patient clinically stable, still awaiting imaging study to further evaluate abdominal pain that has persisted despite lysis adhesion. Unfortunately unable to obtain prior to dialysis today and will plan for Friday. continue judicious pain control 10/21: Continue supportive care. Disposition based on Imaging study from am and pain control (1) Abdominal pain PRESUMED SECONDARY TOP ADHESION, STILL SOME RESIDUAL PAIN Current Visit: Yes Status: Acute Qualifiers: Abdominal location: generalized Qualified Code(s): R10.84 - Generalized abdominal pain Plan to address problem: Continue supportive care. Status post Laparscopy lysis of adhesion (2) Hypertensive emergency Current Visit: Yes Status: Acute Plan to address problem: Patient was severely hypertensive with a BP systolic of 222/147 Likely secondary to volume overload Patient is on multiple medications We will add IV Lopressor as needed Discussed with nephrology Dr. Carlin and patient will be taken to hemodialysis as soon as possible (3) Hyperkalemia Current Visit: Yes Status: Acute Plan to address problem: Secondary to patient not having had dialysis for the past 1 week Patient to undergo hemodialysis as soon as possible (4) NO Internal hernia (5) Anemia of chronic disease (6)ESRD needing dialysis Current Visit: Yes Status: Chronic Plan to address problem: Nephrology consulted Continue management per nephrology recommendations Patient states that she missed hemodialysis for the past 1 week History Interval history: Patient seen and examined, abdominal pain improving, NOW with left flank. Hospitalist Physical - Physical exam Narrative exam: General appearance: Present: calm well-nourished - EENT Eyes: Present: PERRL, EOM intact ENT: hearing intact, clear oral mucosa - Respiratory Respiratory effort: normal Respiratory: bilateral: CTA, negative: rales, rhonchi - Cardiovascular Rhythm: regular Heart Sounds: Present: S1 & S2 - Extremities Extremities: No edema - Abdominal General gastrointestinal: Present: soft, tender AT SURGICAL SITE,OTHERWISE CLEAN AND INTACT non-distended. Absent: hepatomegaly, splenomegaly Female genitourinary: Present: deferred - Rectal Rectal Exam: deferred - Integumentary Integumentary: Present: clear, warm, dry - Musculoskeletal Musculoskeletal: strength equal bilaterally - Psychiatric Psychiatric: appropriate mood/affect - Neurologic Neurologic: no focal deficits, moves all extremities - Constitutional Vitals: Temp Pulse Resp BP Pulse Ox 98.9 F 77 20 157/89 100 10/21/20 06:19 10/21/20 06:19 10/21/20 06:19 10/21/20 06:19 10/21/20 08:52 General appearance: Present: no acute distress HEART Score - HEART Score EKG: Normal Age: 45-65 Risk factors: 1-2 risk factors - Critical Actions Critical Actions: 0-3 pts:0.9-1.7%risk of adverse cardiac event.Candidate for discharge Results - Labs CBC & Chem 7: 10/19/20 10:10 10/19/20 10:10 Labs: Laboratory Last Values WBC 4.7 K/mm3 (4.5-11.0) 10/19/20 10:10 RBC 3.25 M/mm3 (3.65-5.03) L 10/19/20 10:10 Hgb 9.2 gm/dl (10.1-14.3) L 10/19/20 10:10 Hct 28.9 % (30.3-42.9) L 10/19/20 10:10 MCV 89 fl (79-97) 10/19/20 10:10 MCH 28 pg (28-32) 10/19/20 10:10 MCHC 32 % (30-34) 10/19/20 10:10 RDW 18.2 % (13.2-15.2) H 10/19/20 10:10 Plt Count 215 K/mm3 (140-440) 10/19/20 10:10 Lymph % (Auto) 13.3 % (13.4-35.0) L 10/19/20 10:10 [place] % (Auto) 13.8 % (0.0-7.3) H 10/19/20 10:10 Eos % (Auto) 4.9 % (0.0-4.3) H 10/19/20 10:10 Baso % (Auto) 0.3 % (0.0-1.8) 10/19/20 10:10 Lymph # (Auto) 0.6 K/mm3 (1.2-5.4) L 10/19/20 10:10 [place] # (Auto) 0.6 K/mm3 (0.0-0.8) 10/19/20 10:10 Eos # (Auto) 0.2 K/mm3 (0.0-0.4) 10/19/20 10:10 Baso # (Auto) 0.0 K/mm3 (0.0-0.1) 10/19/20 10:10 Seg Neutrophils % 67.7 % (40.0-70.0) 10/19/20 10:10 Seg Neutrophils # 3.2 K/mm3 (1.8-7.7) 10/19/20 10:10 Sodium 136 mmol/L (137-145) L 10/19/20 10:10 Potassium 4.3 mmol/L (3.6-5.0) 10/19/20 10:10 Chloride 98.7 mmol/L (98-107) 10/19/20 10:10 Carbon Dioxide 25 mmol/L (22-30) 10/19/20 10:10 Anion Gap 17 mmol/L 10/19/20 10:10 BUN 39 mg/dL (7-17) H 10/19/20 10:10 Creatinine 8.4 mg/dL (0.6-1.2) H 10/19/20 10:10 Estimated GFR 6 ml/min 10/19/20 10:10 BUN/Creatinine Ratio 5 % 10/19/20 10:10 Glucose 88 mg/dL (65-100) 10/19/20 10:10 POC Glucose 103 mg/dL (70-105) 10/16/20 19:26 Lactic Acid 1.70 mmol/L (0.7-2.0) 10/16/20 08:09 Calcium 8.8 mg/dL (8.4-10.2) 10/19/20 10:10 Total Bilirubin 0.50 mg/dL (0.1-1.2) 10/17/20 08:13 AST 24 units/L (5-40) 10/17/20 08:13 ALT 5 units/L (7-56) L 10/17/20 08:13 Alkaline Phosphatase 65 units/L (35-129) 10/17/20 08:13 Total Protein 5.8 g/dL (6.3-8.2) L 10/17/20 08:13 Albumin 2.8 g/dL (3.9-5) L 10/17/20 08:13 Albumin/Globulin Ratio 0.9 % 10/17/20 08:13 Coronavirus (PCR) Negative (Negative) 10/16/20 Unknown Moran/IV: Voiding Method Toilet IV Catheter Type [Left Upper INT / Saline Lock arm] IV Catheter Type [Left INT / Saline Lock External Jugular] Active Medications - Current Medications Current Medications: Generic Name Dose Route Start Last Admin Trade Name Freq PRN Reason Stop Dose Admin Acetaminophen 650 mg 10/16/20 08:32 Tylenol PO Q4H PRN Pain MILD(1-3)/Fever >100.5/SAUCEDO Hydrocodone Bitart/Acetaminophen 1 each 10/17/20 09:23 10/20/20 22:23 [place] 5/325 PO 1 each Q4H PRN Administration Pain, Moderate (4-6) Alprazolam 0.25 mg 10/16/20 08:24 10/21/20 10:15 Xanax PO 0.25 mg BID PRN Administration Anxiety Buspirone HCl 10 mg 10/16/20 14:00 10/21/20 06:18 Buspar PO 10 mg Q8HR SUSU Administration Carvedilol 25 mg 10/16/20 10:00 10/21/20 10:11 Coreg PO 25 mg BID SUSU Administration Citalopram Hydrobromide 20 mg 10/16/20 10:00 10/21/20 10:12 Celexa PO 20 mg QDAY SUSU Administration Clonazepam 0.5 mg 10/16/20 08:24 Klonopin PO BID PRN Anxiety UNRELIEVED XANAX Clonidine HCl 0.3 mg 10/16/20 09:00 10/21/20 06:18 Catapres PO 0.3 mg Q8HR SUSU Administration Diltiazem HCl 360 mg 10/16/20 10:00 10/21/20 10:11 Cardizem Cd PO 360 mg QDAY SUSU Administration Ergocalciferol 50,000 unit 10/16/20 10:00 10/16/20 16:34 Vitamin D2 PO Not Given Mo@1000 SUSU Furosemide 80 mg 10/16/20 10:00 10/21/20 10:12 Lasix PO 80 mg QDAY SUSU Administration Hydralazine HCl 10 mg 10/17/20 09:32 Apresoline IV Q4HR PRN Hypertension Hydralazine HCl 50 mg 10/17/20 10:00 10/21/20 10:12 Apresoline PO 50 mg QID SUSU Administration Sodium Chloride 100 mls @ 999 mls/hr 10/16/20 09:10 Nacl 0.9% IV BRENNA PRN Hypotension Metoprolol Tartrate 5 mg 10/16/20 11:22 10/17/20 00:48 Metoprolol IV 5 mg Q6HR PRN Administration Hypertension Morphine Sulfate 2 mg 10/16/20 08:23 10/20/20 18:14 Morphine IV 2 mg Q4H PRN Administration Pain , Severe (7-10) Multivit/Ca Carb/B Cmplx/FA/Prenat 1 cap 10/16/20 10:00 10/21/20 10:11 Renal Caps PO 1 cap QDAY SUSU Administration Ondansetron HCl 4 mg 10/16/20 08:32 Zofran IV Q8H PRN Nausea And Vomiting Pantoprazole Sodium 40 mg 10/18/20 16:30 10/21/20 10:12 Protonix PO 40 mg BIDAC SUSU Administration Sevelamer Carbonate 1,600 mg 10/16/20 12:00 10/21/20 10:11 Renvela PO 1,600 mg TIDWM SUSU Administration Sodium Chloride 10 ml 10/16/20 10:00 10/21/20 10:12 Sodium Chloride Flush Syringe 10 Ml IV 10 ml BID SUSU Administration Sodium Chloride 10 ml 10/16/20 08:32 Sodium Chloride Flush Syringe 10 Ml IV PRN PRN LINE FLUSH Nutrition/Malnutrition Assess - Dietary Evaluation Nutrition/Malnutrition Findings: Nutrition Notes Start: 10/17/20 12:06 Freq: Status: Active Protocol: Document 10/20/20 13:49 CW (Rec: 10/20/20 13:54 CW [email or web address]) Co-Sign 10/20/20 13:49 Nutrition Notes Initial or Follow up Assessment Current Diagnosis CKD (stage V CKD),Diabetes, Hypertension Other Pertinent Diagnosis Anemia, on HD, GERD Current Diet Renal Labs/Tests reviewed Pertinent Medications reviewed Height 5 ft 9 in Weight 75.5 kg [place] Body Weight (kg) 65.90 BMI 24.5 Weight Status Appropriate Subjective/Other Information FU for intakes. Pt out of the room for HD. Per RN, pt consuming at least 75% of all meals and has no hx of wt loss . Percent of energy/protein needs met: 87%/63% Burn Absent Trauma Absent Current % PO Negligible Minimum of two criteria No #1 Nutrition Diagnosis Inadequate energy intake As Evidenced by Signs and Symptoms Pt consuming at least 75% renal diet Diagnosis Progress(for reassessment Improved documentation) Is patient on ventilator? No Is Patient Ambulatory and/or Out of Bed Yes REE-(Wise-St. Jeor-ambulatory/OOB) [ 1780.194 [id number]] Calculation Used for Recommendations Alanna Patrick Additional Notes PRO needs: >91g (>1.2g/kg) Fluid needs: 1 mL/kcal Nutrition Intervention Change Diet Order: Continue Renal Add Supplement/Snack (indicate name/kcal [place] daily /protein ) Provides kCal: 425 Provides Protein (gm) 19 Goal #1 Meet at least 75% of estimated energy and protein needs via PO/ONS Anticipated Discharge Needs: Renal Follow-Up By: 10/24/20 Additional Comments FU for PO intakes
[2020-10-21] MEDS: HYDROcodone/ACETAMINOPHEN 5-325 MG TAB PO PRN (12:59)
--- NOTE | 2020-10-21 13:38 | Progress Note ---
Assessment and Plan This is a 65 year old woman who presents with abdominal pain. # ESRD: urgent HD 10/16 for hyperkalemia, acidosis, volume, will continue HD MWF or prn thereafter, had HD yesterday, due next 10/23 or prn - daily labs - renally dose meds - avoid nephrotoxins - renal diet # Anemia: last hemoglobin 10.2->9.2, restart ESAs with HD prn # Hyperkalemia: improved # Acidosis: improved # HTN: UF as tolerated. BP now stable # Secondary Hyperparathyroidism: continue home binders as needed # Abdominal Pain: reviewed CT abd/pelvis, surgery input and s/p procedure; appreciate vascular recs, awaiting CT angio. From renal perspective, limited benefit to immediate HD post-contrast in ESRD patient; defer to primary/radiology but ok to have CT angio done earlier Subjective Date of service: 10/21/20 Principal diagnosis: Abdominal pain Interval history: no acute changes noted, resting Objective - Exam Narrative Exam: Constitutional: mild acute distress Head: NC/AT Neck: supple Lungs: clear to auscultation CV: RRR, no M/R/G Abdomen: soft, non-tender, bowel sounds present Back: nontender Extremities: no edema, pulses WNL Skin: intact Neuro: no focal deficits, alert and oriented x4 but tangential conversations - Vital Signs Vital signs: Vital Signs - 12hr 10/21/20 10/21/20 10/21/20 01:43 06:18 06:19 Temperature 98.9 F Pulse Rate 77 77 Pulse Rate [ 79 Apical] Respiratory 20 20 Rate Blood Pressure 157/89 157/89 O2 Sat by Pulse 98 Oximetry 10/21/20 10/21/20 08:52 11:27 Temperature 99.5 F Pulse Rate 73 Pulse Rate [ Apical] Respiratory 16 Rate Blood Pressure 135/81 O2 Sat by Pulse 100 97 Oximetry - Lab 10/19/20 10:10 10/19/20 10:10 Most recent lab results Calcium 8.8 mg/dL (8.4-10.2) 10/19/20 10:10 Medications & Allergies - Medications Allergies/Adverse Reactions: Allergies No Known Allergies Allergy (Unverified 09/04/13 07:18) Home Medications: Home Medications Medication Instructions Recorded Confirmed Last Taken Type Ergocalciferol (Vitamin D2) 50,000 unit PO DAILY 09/25/20 10/16/20 Unknown History [Drisdol] HYDROcodone/APAP 5-325 [Redig 1 each PO Q6HR PRN 09/25/20 10/16/20 Unknown History 5-325 mg TAB] Sevelamer Carbonate [Renvela] 1,600 mg PO TID 09/25/20 10/16/20 Unknown History busPIRone [Buspar] 10 mg PO Q8HR 09/25/20 10/16/20 Unknown History Citalopram [Celexa] 20 mg PO QDAY #30 tab 09/28/20 10/16/20 Unknown Rx Furosemide [Lasix TAB] 80 mg PO QDAY #30 tablet 09/28/20 10/16/20 Unknown Rx carvediloL [Coreg] 25 mg PO BID #60 tablet 09/28/20 10/16/20 Unknown Rx cloNIDine [Catapres] 0.3 mg PO Q8HR #270 tablet 09/28/20 10/16/20 Unknown Rx dilTIAZem CD [Cardizem CD] 360 mg PO QDAY #60 capsule 09/28/20 10/16/20 Unknown Rx ALPRAZolam [Xanax TAB] 0.25 mg PO BID PRN 10/16/20 10/16/20 Unknown History Acetaminophen [Tylenol] 500 mg PO Q6HR 10/16/20 10/16/20 Unknown History Folic Acid/Vit B Complex and C 0.8 mg PO QDAY 10/16/20 10/16/20 Unknown History [Renal Vitamin Tablet] Pantoprazole [Protonix] 40 mg PO QDAY 10/16/20 10/16/20 Unknown History clonazePAM [ Klonopin] 0.5 mg PO BID PRN 10/16/20 10/16/20 Unknown History hydrALAZINE [Apresoline TAB] 25 mg PO QID 10/16/20 10/16/20 Unknown History traMADoL [Ultram] 50 mg PO Q6HR PRN 10/16/20 10/16/20 Unknown History Active Medications: Generic Name Dose Route Start Last Admin Trade Name Freq PRN Reason Stop Dose Admin Acetaminophen 650 mg 10/16/20 08:32 Tylenol PO Q4H PRN Pain MILD(1-3)/Fever >100.5/SAUCEDO Hydrocodone Bitart/Acetaminophen 1 each 10/17/20 09:23 10/21/20 12:59 Redig 5/325 PO 1 each Q4H PRN Administration Pain, Moderate (4-6) Alprazolam 0.25 mg 10/16/20 08:24 10/21/20 10:15 Xanax PO 0.25 mg BID PRN Administration Anxiety Buspirone HCl 10 mg 10/16/20 14:00 10/21/20 13:00 Buspar PO Not Given Q8HR SUSU Carvedilol 25 mg 10/16/20 10:00 10/21/20 10:11 Coreg PO 25 mg BID SUSU Administration Citalopram Hydrobromide 20 mg 10/16/20 10:00 10/21/20 10:12 Celexa PO 20 mg QDAY SUSU Administration Clonazepam 0.5 mg 10/16/20 08:24 Klonopin PO BID PRN Anxiety UNRELIEVED XANAX Clonidine HCl 0.3 mg 10/16/20 09:00 10/21/20 12:59 Catapres PO 0.3 mg Q8HR SUSU Administration Diltiazem HCl 360 mg 10/16/20 10:00 10/21/20 10:11 Cardizem Cd PO 360 mg QDAY SUSU Administration Ergocalciferol 50,000 unit 10/16/20 10:00 10/16/20 16:34 Vitamin D2 PO Not Given Mo@1000 SUSU Furosemide 80 mg 10/16/20 10:00 10/21/20 10:12 Lasix PO 80 mg QDAY SUSU Administration Hydralazine HCl 10 mg 10/17/20 09:32 Apresoline IV Q4HR PRN Hypertension Hydralazine HCl 50 mg 10/17/20 10:00 10/21/20 13:00 Apresoline PO 50 mg QID SUSU Administration Sodium Chloride 100 mls @ 999 mls/hr 10/16/20 09:10 Nacl 0.9% IV BRENNA PRN Hypotension Metoprolol Tartrate 5 mg 10/16/20 11:22 10/17/20 00:48 Metoprolol IV 5 mg Q6HR PRN Administration Hypertension Morphine Sulfate 2 mg 10/16/20 08:23 10/20/20 18:14 Morphine IV 2 mg Q4H PRN Administration Pain , Severe (7-10) Multivit/Ca Carb/B Cmplx/FA/Prenat 1 cap 12/07/20 10:00 10/21/20 10:11 Renal Caps PO 1 cap QDAY SUSU Administration Ondansetron HCl 4 mg 10/16/20 08:32 Zofran IV Q8H PRN Nausea And Vomiting Pantoprazole Sodium 40 mg 10/18/20 16:30 10/21/20 10:12 Protonix PO 40 mg BIDAC SUSU Administration Sevelamer Carbonate 1,600 mg 10/16/20 12:00 10/21/20 13:00 Renvela PO 1,600 mg TIDWM SUSU Administration Sodium Chloride 10 ml 10/16/20 10:00 10/21/20 10:12 Sodium Chloride Flush Syringe 10 Ml IV 10 ml BID SUSU Administration Sodium Chloride 10 ml 10/16/20 08:32 Sodium Chloride Flush Syringe 10 Ml IV PRN PRN LINE FLUSH
[2020-10-21] MEDS: MORPHINE 2 MG/1 ML INJ IV PRN (19:44)
[2020-10-22] MEDS: busPIRone 5 MG TAB PO SCH ×3 (06:02→21:01)
[2020-10-22] MEDS: cloNIDine 0.1 MG TAB PO SCH ×3 (06:02→21:00)
[2020-10-22] MEDS: SEVELAMER CARBONATE 800 MG TAB PO SCH ×3 (09:29→17:21)
[2020-10-22] MEDS: FOLIC ACID/VIT B COMP W-C 1 MG (RENAL CAPS) PO SCH (09:29)
[2020-10-22] MEDS: hydrALAZINE 25 MG TAB PO SCH ×4 (09:29→21:01)
[2020-10-22] MEDS: CITALOPRAM 20 MG TAB PO SCH (09:30)
[2020-10-22] MEDS: FUROSEMIDE 40 MG TAB PO SCH (09:30)
[2020-10-22] MEDS: carvediloL 25 MG TAB PO SCH ×2 (09:30→21:01)
[2020-10-22] MEDS: PANTOPRAZOLE 40 MG TAB PO SCH ×2 (09:30→17:21)
[2020-10-22] MEDS: ALPRAZolam 0.25 MG TAB PO PRN ×2 (09:35→21:00)
[2020-10-22] MEDS: dilTIAZem CD 180 MG CAP PO SCH (09:35)
--- NOTE | 2020-10-22 12:09 | Progress Note ---
Assessment and Plan Assessment and plan: Patient is a 65-year-old -[place] female with history of end-stage renal disease on hemodialysis Friday and Friday, hypertension, paroxysmal atrial fibrillation, type 2 diabetes and status post AICD placement, presents to the ED with complaints of generalized abdominal pain for the past 3 weeks. Pain is constant and progressive. Also complains of nausea, vomiting and diarrhea for the past few days and for the past couple of days she has lost smell and has been having fever and chills and associated with body aches and generalized weakness. She denies any chest pain or shortness of breath or cough. CT of the abdomen and pelvis showed internal hernia with mesenteric stranding and questionable right upper pole renal mass. General surgery was consulted. Patient is being admitted for further evaluation of her abdominal pain. Apparently patient's was exposed to someone who was positive for Covid 19 virus Diffuse abdominal pain for 3 weeks Nausea vomiting and diarrhea for few days Loss of smell , fever and chills and body aches for the past 2 to 3 days History of present illness: Etiology of patient's pain was not an internal hernia as suggested by CT scan A /P. Pain possibly from adhesions vs other etiology such as mesenteric ischemia. There are calcifications at the takeoff of the celiac artery and SMA on CT without contrast. Recommend CTA abd/pelvis if ok with nephro to evaluate abdominal vasculature. Patient is s/p Diagnostic laparoscopy, lysis of adhesions, POD 1 1. Diffuse adhesions from the omentum, small bowel, stomach, and liver to the anterior abominal wall. 2. Tiny umbilical hernia containing fat 3. Small bowel nondistended 4. No internal hernia 10/18: Patient continues to have abdominal pain. Awaiting Doppler of the abdomen. Will obtain vascular consultation to evaluate for any ischemic mesentery. We will also continue to monitor and evaluate pain. Anticipate discharge in a.m. if no further intervention if pain is improving. Kayexalate given for hyperkalemia 10/19: AWAITING CT abd, US shows no significant thrombosis, Vascular input noted. R-evaluate in am, still on pain control 10/20: Patient clinically stable, still awaiting imaging study to further evaluate abdominal pain that has persisted despite lysis adhesion. Unfortunately unable to obtain prior to dialysis today and will plan for Friday. continue judicious pain control 10/21: Continue supportive care. Disposition based on Imaging study from am and pain control 10/22: Awaiting CT abdomen and pelvis to make further assumptions. Continue current med managment, if no further intervention, will discharge in am. (1) Abdominal pain PRESUMED SECONDARY TOP ADHESION, STILL SOME RESIDUAL PAIN Current Visit: Yes Status: Acute Qualifiers: Abdominal location: generalized Qualified Code(s): R10.84 - Generalized abdominal pain Plan to address problem: Continue supportive care. Status post Laparscopy lysis of adhesion (2) Hypertensive emergency Current Visit: Yes Status: Acute Plan to address problem: Patient was severely hypertensive with a BP systolic of 222/147 Likely secondary to volume overload Patient is on multiple medications We will add IV Lopressor as needed Discussed with nephrology Dr. Carlin and patient will be taken to hemodialysis as soon as possible (3) Hyperkalemia Current Visit: Yes Status: Acute Plan to address problem: Secondary to patient not having had dialysis for the past 1 week Patient to undergo hemodialysis as soon as possible (4) NO Internal hernia (5) Anemia of chronic disease (6)ESRD needing dialysis Current Visit: Yes Status: Chronic Plan to address problem: Nephrology consulted Continue management per nephrology recommendations Patient states that she missed hemodialysis for the past 1 week History Interval history: Patient seen and examined, abdominal pain improving. Hospitalist Physical - Physical exam Narrative exam: General appearance: Present: calm well-nourished - EENT Eyes: Present: PERRL, EOM intact ENT: hearing intact, clear oral mucosa - Respiratory Respiratory effort: normal Respiratory: bilateral: CTA, negative: rales, rhonchi - Cardiovascular Rhythm: regular Heart Sounds: Present: S1 & S2 - Extremities Extremities: No edema - Abdominal General gastrointestinal: Present: soft, tender AT SURGICAL SITE,OTHERWISE CLEAN AND INTACT non-distended. Absent: hepatomegaly, splenomegaly Female genitourinary: Present: deferred - Rectal Rectal Exam: deferred - Integumentary Integumentary: Present: clear, warm, dry - Musculoskeletal Musculoskeletal: strength equal bilaterally - Psychiatric Psychiatric: appropriate mood/affect - Neurologic Neurologic: no focal deficits, moves all extremities - Constitutional Vitals: Temp Pulse Resp BP Pulse Ox 98.8 F 76 18 154/88 100 10/22/20 05:16 10/22/20 05:16 10/22/20 05:16 10/22/20 05:16 10/22/20 08:55 General appearance: Present: no acute distress HEART Score - HEART Score EKG: Normal Age: 45-65 Risk factors: 1-2 risk factors - Critical Actions Critical Actions: 0-3 pts:0.9-1.7%risk of adverse cardiac event.Candidate for discharge Results - Labs CBC & Chem 7: 10/19/20 10:10 10/19/20 10:10 Labs: Laboratory Last Values WBC 4.7 K/mm3 (4.5-11.0) 10/19/20 10:10 RBC 3.25 M/mm3 (3.65-5.03) L 10/19/20 10:10 Hgb 9.2 gm/dl (10.1-14.3) L 10/19/20 10:10 Hct 28.9 % (30.3-42.9) L 10/19/20 10:10 MCV 89 fl (79-97) 10/19/20 10:10 MCH 28 pg (28-32) 10/19/20 10:10 MCHC 32 % (30-34) 10/19/20 10:10 RDW 18.2 % (13.2-15.2) H 10/19/20 10:10 Plt Count 215 K/mm3 (140-440) 10/19/20 10:10 Lymph % (Auto) 13.3 % (13.4-35.0) L 10/19/20 10:10 Hardin % (Auto) 13.8 % (0.0-7.3) H 10/19/20 10:10 Eos % (Auto) 4.9 % (0.0-4.3) H 10/19/20 10:10 Baso % (Auto) 0.3 % (0.0-1.8) 10/19/20 10:10 Lymph # (Auto) 0.6 K/mm3 (1.2-5.4) L 10/19/20 10:10 Hardin # (Auto) 0.6 K/mm3 (0.0-0.8) 10/19/20 10:10 Eos # (Auto) 0.2 K/mm3 (0.0-0.4) 10/19/20 10:10 Baso # (Auto) 0.0 K/mm3 (0.0-0.1) 10/19/20 10:10 Seg Neutrophils % 67.7 % (40.0-70.0) 10/19/20 10:10 Seg Neutrophils # 3.2 K/mm3 (1.8-7.7) 10/19/20 10:10 Sodium 136 mmol/L (137-145) L 10/19/20 10:10 Potassium 4.3 mmol/L (3.6-5.0) 10/19/20 10:10 Chloride 98.7 mmol/L (98-107) 10/19/20 10:10 Carbon Dioxide 25 mmol/L (22-30) 10/19/20 10:10 Anion Gap 17 mmol/L 10/19/20 10:10 BUN 39 mg/dL (7-17) H 10/19/20 10:10 Creatinine 8.4 mg/dL (0.6-1.2) H 10/19/20 10:10 Estimated GFR 6 ml/min 10/19/20 10:10 BUN/Creatinine Ratio 5 % 10/19/20 10:10 Glucose 88 mg/dL (65-100) 10/19/20 10:10 POC Glucose 89 mg/dL (70-105) 10/21/20 20:59 Lactic Acid 1.70 mmol/L (0.7-2.0) 10/16/20 08:09 Calcium 8.8 mg/dL (8.4-10.2) 10/19/20 10:10 Total Bilirubin 0.50 mg/dL (0.1-1.2) 10/17/20 08:13 AST 24 units/L (5-40) 10/17/20 08:13 ALT 5 units/L (7-56) L 10/17/20 08:13 Alkaline Phosphatase 65 units/L (35-129) 10/17/20 08:13 Total Protein 5.8 g/dL (6.3-8.2) L 10/17/20 08:13 Albumin 2.8 g/dL (3.9-5) L 10/17/20 08:13 Albumin/Globulin Ratio 0.9 % 10/17/20 08:13 Coronavirus (PCR) Negative (Negative) 10/16/20 Unknown Moran/IV: Voiding Method Toilet IV Catheter Type [Left Upper INT / Saline Lock arm] IV Catheter Type [Left INT / Saline Lock External Jugular] Active Medications - Current Medications Current Medications: Generic Name Dose Route Start Last Admin Trade Name Freq PRN Reason Stop Dose Admin Acetaminophen 650 mg 10/16/20 08:32 Tylenol PO Q4H PRN Pain MILD(1-3)/Fever >100.5/SAUCEDO Hydrocodone Bitart/Acetaminophen 1 each 10/17/20 09:23 10/21/20 12:59 Roland 5/325 PO 1 each Q4H PRN Administration Pain, Moderate (4-6) Alprazolam 0.25 mg 10/16/20 08:24 10/22/20 09:35 Xanax PO 0.25 mg BID PRN Administration Anxiety Buspirone HCl 10 mg 10/16/20 14:00 10/22/20 06:02 Buspar PO 10 mg Q8HR SUSU Administration Carvedilol 25 mg 10/16/20 10:00 10/22/20 09:30 Coreg PO 25 mg BID SUSU Administration Citalopram Hydrobromide 20 mg 10/16/20 10:00 10/22/20 09:30 Celexa PO 20 mg QDAY SUSU Administration Clonazepam 0.5 mg 10/16/20 08:24 Klonopin PO BID PRN Anxiety UNRELIEVED XANAX Clonidine HCl 0.3 mg 10/16/20 09:00 10/22/20 06:02 Catapres PO 0.3 mg Q8HR SUSU Administration Diltiazem HCl 360 mg 10/16/20 10:00 10/22/20 09:35 Cardizem Cd PO 360 mg QDAY SUSU Administration Ergocalciferol 50,000 unit 10/16/20 10:00 10/16/20 16:34 Vitamin D2 PO Not Given Mo@1000 SUSU Furosemide 80 mg 10/16/20 10:00 10/22/20 09:30 Lasix PO 80 mg QDAY SUSU Administration Hydralazine HCl 10 mg 10/17/20 09:32 Apresoline IV Q4HR PRN Hypertension Hydralazine HCl 50 mg 10/17/20 10:00 10/22/20 09:29 Apresoline PO 50 mg QID SUSU Administration Sodium Chloride 100 mls @ 999 mls/hr 10/16/20 09:10 Nacl 0.9% IV BRENNA PRN Hypotension Metoprolol Tartrate 5 mg 10/16/20 11:22 10/17/20 00:48 Metoprolol IV 5 mg Q6HR PRN Administration Hypertension Morphine Sulfate 2 mg 10/16/20 08:23 10/21/20 19:44 Morphine IV 2 mg Q4H PRN Administration Pain , Severe (7-10) Multivit/Ca Carb/B Cmplx/FA/Prenat 1 cap 10/16/20 10:00 10/22/20 09:29 Renal Caps PO 1 cap QDAY SUSU Administration Ondansetron HCl 4 mg 10/16/20 08:32 Zofran IV Q8H PRN Nausea And Vomiting Pantoprazole Sodium 40 mg 10/18/20 16:30 10/22/20 09:30 Protonix PO 40 mg BIDAC SUSU Administration Sevelamer Carbonate 1,600 mg 10/16/20 12:00 10/22/20 09:29 Renvela PO 1,600 mg TIDWM SUSU Administration Sodium Chloride 10 ml 10/16/20 10:00 10/22/20 09:30 Sodium Chloride Flush Syringe 10 Ml IV 10 ml BID SUSU Administration Sodium Chloride 10 ml 10/16/20 08:32 Sodium Chloride Flush Syringe 10 Ml IV PRN PRN LINE FLUSH Nutrition/Malnutrition Assess - Dietary Evaluation Nutrition/Malnutrition Findings: Nutrition Notes Start: 10/17/20 12:06 Freq: Status: Active Protocol: Document 10/20/20 13:49 CW (Rec: 10/20/20 13:54 CW [email or web address]) Co-Sign 10/20/20 13:49 Nutrition Notes Initial or Follow up Assessment Current Diagnosis CKD (stage V CKD),Diabetes, Hypertension Other Pertinent Diagnosis Anemia, on HD, GERD Current Diet Renal Labs/Tests reviewed Pertinent Medications reviewed Height 5 ft 9 in Weight 75.5 kg Anselmo Body Weight (kg) 65.90 BMI 24.5 Weight Status Appropriate Subjective/Other Information FU for intakes. Pt out of the room for HD. Per RN, pt consuming at least 75% of all meals and has no hx of wt loss . Percent of energy/protein needs met: 87%/63% Burn Absent Trauma Absent Current % PO Negligible Minimum of two criteria No #1 Nutrition Diagnosis Inadequate energy intake As Evidenced by Signs and Symptoms Pt consuming at least 75% renal diet Diagnosis Progress(for reassessment Improved documentation) Is patient on ventilator? No Is Patient Ambulatory and/or Out of Bed Yes REE-([place]-. Jeor-ambulatory/OOB) [ 1780.194 [id number]] Calculation Used for Recommendations [place] Additional Notes PRO needs: >91g (>1.2g/kg) Fluid needs: 1 mL/kcal Nutrition Intervention Change Diet Order: Continue Renal Add Supplement/Snack (indicate name/kcal Nepro daily /protein ) Provides kCal: 425 Provides Protein (gm) 19 Goal #1 Meet at least 75% of estimated energy and protein needs via PO/ONS Anticipated Discharge Needs: Renal Follow-Up By: 10/24/20 Additional Comments FU for PO intakes
--- NOTE | 2020-10-22 16:48 | Cat Scan Report ---
CTA ABDOMEN AND PELVIS WITH IV CONTRAST INDICATION / CLINICAL INFORMATION: Pt complains of abdominal pain; CT Angio CT Portal Venous Phase. TECHNIQUE: Axial CT images were obtained through the abdomen and pelvis after injection of 100 MLO Omnipaque 350 IV contrast. 3 plane MIP / 3D reconstructions were produced. All CT scans at this location are perfo rmed using CT dose reduction for ALARA by means of automated exposure control. COMPARISON: CT dated 10/16/20, 09/25/20, and 01/07/16 FINDINGS: Aorta: Mild atherosclerotic disease, unchanged. No acute abnormality. Renal arteries: Right renal artery shows no acute abnormality. Embolization coils in thrombosis of th e left renal artery are unchanged since the [address] scans. Both kidneys are atrophic. There is minimal enhancement of the left kidney. Lesion on the lower pole of the left kidney likely represe nts angiomyolipoma with subacute hemorrhage. Slight improvement since 09/25/20. Celiac artery: No significant abnormality. Superior Mesenteric Artery: No significant abnormality. Inferior mesenteric artery: No significant abnormality. Right Iliac Arteries: No significant abnormality.. Left Iliac Arteries: No significant abnormality.. Additional Findings: Right femoral central venous line is unchanged in the tip in the right atrium. T here is a small amount of nonocclusive thrombus along the catheter in the inferior vena cava at the l evel of the louisa hepatis best seen on axial series 5 image 48. Swirling of mesenteric vessels documented on the previous study is less prominent on the current stud y. Skeletal Structures: No significant abnormality. IMPRESSION: 1. Small amount of nonocclusive thrombus along the right femoral central venous catheter in the infer ior vena cava. 2. Decreased swirling of mesenteric vessels in the abdomen. 3. 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 Signer Name: Arnie Ray MD Signed: 10/22/2020 4:44 PM Workstation Name: [id number]
[2020-10-22] MEDS: MORPHINE 2 MG/1 ML INJ IV PRN (21:01)
[2020-10-23] MEDS: cloNIDine 0.1 MG TAB PO SCH ×3 (05:53→21:53)
[2020-10-23] MEDS: busPIRone 5 MG TAB PO SCH ×3 (05:53→21:53)
[2020-10-23] MEDS: MORPHINE 2 MG/1 ML INJ IV PRN ×4 (08:56→21:53)
[2020-10-23] MEDS: PANTOPRAZOLE 40 MG TAB PO SCH ×2 (08:56→17:24)
[2020-10-23] MEDS: SEVELAMER CARBONATE 800 MG TAB PO SCH ×3 (08:56→17:24)
--- NOTE | 2020-10-23 11:37 | Progress Note ---
Assessment and Plan Assessment and plan: Patient is a 65-year-old -[place] female with history of end-stage renal disease on hemodialysis Friday and Friday, hypertension, paroxysmal atrial fibrillation, type 2 diabetes and status post AICD placement, presents to the ED with complaints of generalized abdominal pain for the past 3 weeks. Pain is constant and progressive. Also complains of nausea, vomiting and diarrhea for the past few days and for the past couple of days she has lost smell and has been having fever and chills and associated with body aches and generalized weakness. She denies any chest pain or shortness of breath or cough. CT of the abdomen and pelvis showed internal hernia with mesenteric stranding and questionable right upper pole renal mass. General surgery was consulted. Patient is being admitted for further evaluation of her abdominal pain. Apparently patient's was exposed to someone who was positive for Covid 19 virus Diffuse abdominal pain for 3 weeks Nausea vomiting and diarrhea for few days Loss of smell , fever and chills and body aches for the past 2 to 3 days History of present illness: Etiology of patient's pain was not an internal hernia as suggested by CT scan A /P. Pain possibly from adhesions vs other etiology such as mesenteric ischemia. There are calcifications at the takeoff of the celiac artery and SMA on CT without contrast. Recommend CTA abd/pelvis if ok with nephro to evaluate abdominal vasculature. Patient is s/p Diagnostic laparoscopy, lysis of adhesions, POD 1 1. Diffuse adhesions from the omentum, small bowel, stomach, and liver to the anterior abominal wall. 2. Tiny umbilical hernia containing fat 3. Small bowel nondistended 4. No internal hernia 10/18: Patient continues to have abdominal pain. Awaiting Doppler of the abdomen. Will obtain vascular consultation to evaluate for any ischemic mesentery. We will also continue to monitor and evaluate pain. Anticipate discharge in a.m. if no further intervention if pain is improving. Kayexalate given for hyperkalemia 10/19: AWAITING CT abd, US shows no significant thrombosis, Vascular input noted. R-evaluate in am, still on pain control 10/20: Patient clinically stable, still awaiting imaging study to further evaluate abdominal pain that has persisted despite lysis adhesion. Unfortunately unable to obtain prior to dialysis today and will plan for Friday. continue judicious pain control 10/21: Continue supportive care. Disposition based on Imaging study from am and pain control 10/22: Awaiting CT abdomen and pelvis to make further assumptions. Continue current med management, if no further intervention, will discharge in am. 10/23: Imaging studies today revealed an angiolipoma with retroperitoneal hemorrhage. Which although is read as decreasing. But on nevertheless there is also a nonocclusive thrombus which poses a management dilemma. Will consult hematology. Have already discussed with vascular and based on hematology recommendation will anticipate if this patient can be discharged today with the recommended management and follow-up outpatient. (1) Abdominal pain PRESUMED SECONDARY TOP ADHESION, STILL SOME RESIDUAL PAIN Current Visit: Yes Status: Acute Qualifiers: Abdominal location: generalized Qualified Code(s): R10.84 - Generalized abdominal pain Plan to address problem: Continue supportive care. Status post Laparscopy lysis of adhesion (2) Hypertensive emergency Current Visit: Yes Status: Acute Plan to address problem: Patient was severely hypertensive with a BP systolic of 222/147 Likely secondary to volume overload Patient is on multiple medications We will add IV Lopressor as needed Discussed with nephrology Dr. Carlin and patient will be taken to hemodialysis as soon as possible (3) Hyperkalemia Current Visit: Yes Status: Acute Plan to address problem: Secondary to patient not having had dialysis for the past 1 week Patient to undergo hemodialysis as soon as possible (4) NO Internal hernia (5) Anemia of chronic disease (6)ESRD needing dialysis Current Visit: Yes Status: Chronic Plan to address problem: Nephrology consulted Continue management per nephrology recommendations Patient states that she missed hemodialysis for the past 1 week History Interval history: Patient seen and examined, abdominal pain improving. Hospitalist Physical - Physical exam Narrative exam: General appearance: Present: calm well-nourished - EENT Eyes: Present: PERRL, EOM intact ENT: hearing intact, clear oral mucosa - Respiratory Respiratory effort: normal Respiratory: bilateral: CTA, negative: rales, rhonchi - Cardiovascular Rhythm: regular Heart Sounds: Present: S1 & S2 - Extremities Extremities: No edema - Abdominal General gastrointestinal: Present: soft, tender AT SURGICAL SITE,OTHERWISE CLEAN AND INTACT non-distended. Absent: hepatomegaly, splenomegaly Female genitourinary: Present: deferred - Rectal Rectal Exam: deferred - Integumentary Integumentary: Present: clear, warm, dry - Musculoskeletal Musculoskeletal: strength equal bilaterally - Psychiatric Psychiatric: appropriate mood/affect - Neurologic Neurologic: no focal deficits, moves all extremities - Constitutional Vitals: Temp Pulse Resp BP Pulse Ox 98.7 F 75 18 139/93 92 10/23/20 09:30 10/23/20 09:30 10/23/20 09:30 10/23/20 09:30 10/23/20 05:58 General appearance: Present: no acute distress HEART Score - HEART Score EKG: Normal Age: 45-65 Risk factors: 1-2 risk factors - Critical Actions Critical Actions: 0-3 pts:0.9-1.7%risk of adverse cardiac event.Candidate for discharge Results - Labs CBC & Chem 7: 10/19/20 10:10 10/19/20 10:10 Labs: Laboratory Last Values WBC 4.7 K/mm3 (4.5-11.0) 10/19/20 10:10 RBC 3.25 M/mm3 (3.65-5.03) L 10/19/20 10:10 Hgb 9.2 gm/dl (10.1-14.3) L 10/19/20 10:10 Hct 28.9 % (30.3-42.9) L 10/19/20 10:10 MCV 89 fl (79-97) 10/19/20 10:10 MCH 28 pg (28-32) 10/19/20 10:10 MCHC 32 % (30-34) 10/19/20 10:10 RDW 18.2 % (13.2-15.2) H 10/19/20 10:10 Plt Count 215 K/mm3 (140-440) 10/19/20 10:10 Lymph % (Auto) 13.3 % (13.4-35.0) L 10/19/20 10:10 Graves % (Auto) 13.8 % (0.0-7.3) H 10/19/20 10:10 Eos % (Auto) 4.9 % (0.0-4.3) H 10/19/20 10:10 Baso % (Auto) 0.3 % (0.0-1.8) 10/19/20 10:10 Lymph # (Auto) 0.6 K/mm3 (1.2-5.4) L 10/19/20 10:10 Graves # (Auto) 0.6 K/mm3 (0.0-0.8) 10/19/20 10:10 Eos # (Auto) 0.2 K/mm3 (0.0-0.4) 10/19/20 10:10 Baso # (Auto) 0.0 K/mm3 (0.0-0.1) 10/19/20 10:10 Seg Neutrophils % 67.7 % (40.0-70.0) 10/19/20 10:10 Seg Neutrophils # 3.2 K/mm3 (1.8-7.7) 10/19/20 10:10 Sodium 136 mmol/L (137-145) L 10/19/20 10:10 Potassium 4.3 mmol/L (3.6-5.0) 10/19/20 10:10 Chloride 98.7 mmol/L (98-107) 10/19/20 10:10 Carbon Dioxide 25 mmol/L (22-30) 10/19/20 10:10 Anion Gap 17 mmol/L 10/19/20 10:10 BUN 39 mg/dL (7-17) H 10/19/20 10:10 Creatinine 8.4 mg/dL (0.6-1.2) H 10/19/20 10:10 Estimated GFR 6 ml/min 10/19/20 10:10 BUN/Creatinine Ratio 5 % 10/19/20 10:10 Glucose 88 mg/dL (65-100) 10/19/20 10:10 POC Glucose 89 mg/dL (70-105) 10/21/20 20:59 Lactic Acid 1.70 mmol/L (0.7-2.0) 10/16/20 08:09 Calcium 8.8 mg/dL (8.4-10.2) 10/19/20 10:10 Total Bilirubin 0.50 mg/dL (0.1-1.2) 10/17/20 08:13 AST 24 units/L (5-40) 10/17/20 08:13 ALT 5 units/L (7-56) L 10/17/20 08:13 Alkaline Phosphatase 65 units/L (35-129) 10/17/20 08:13 Total Protein 5.8 g/dL (6.3-8.2) L 10/17/20 08:13 Albumin 2.8 g/dL (3.9-5) L 10/17/20 08:13 Albumin/Globulin Ratio 0.9 % 10/17/20 08:13 Coronavirus (PCR) Negative (Negative) 10/16/20 Unknown Moran/IV: Voiding Method Toilet IV Catheter Type [Right INT / Saline Lock Antecubital] IV Catheter Type [Left Upper INT / Saline Lock arm] IV Catheter Type [Left INT / Saline Lock External Jugular] Active Medications - Current Medications Current Medications: Generic Name Dose Route Start Last Admin Trade Name Freq PRN Reason Stop Dose Admin Acetaminophen 650 mg 10/16/20 08:32 Tylenol PO Q4H PRN Pain MILD(1-3)/Fever >100.5/SAUCEDO Hydrocodone Bitart/Acetaminophen 1 each 10/17/20 09:23 10/21/20 12:59 Mineral 5/325 PO 1 each Q4H PRN Administration Pain, Moderate (4-6) Alprazolam 0.25 mg 10/16/20 08:24 10/22/20 21:00 Xanax PO 0.25 mg BID PRN Administration Anxiety Buspirone HCl 10 mg 10/16/20 14:00 10/23/20 05:53 Buspar PO 10 mg Q8HR SUSU Administration Carvedilol 25 mg 10/16/20 10:00 10/22/20 21:01 Coreg PO 25 mg BID SUSU Administration Citalopram Hydrobromide 20 mg 10/16/20 10:00 10/22/20 09:30 Celexa PO 20 mg QDAY SUSU Administration Clonazepam 0.5 mg 10/16/20 08:24 Klonopin PO BID PRN Anxiety UNRELIEVED XANAX Clonidine HCl 0.3 mg 10/16/20 09:00 10/23/20 05:53 Catapres PO 0.3 mg Q8HR SUSU Administration Diltiazem HCl 360 mg 10/16/20 10:00 10/22/20 09:35 Cardizem Cd PO 360 mg QDAY SUSU Administration Ergocalciferol 50,000 unit 10/16/20 10:00 10/16/20 16:34 Vitamin D2 PO Not Given Mo@1000 SUSU Furosemide 80 mg 10/16/20 10:00 10/22/20 09:30 Lasix PO 80 mg QDAY SUSU Administration Hydralazine HCl 10 mg 12/08/20 09:32 Apresoline IV Q4HR PRN Hypertension Hydralazine HCl 50 mg 10/17/20 10:00 10/22/20 21:01 Apresoline PO 50 mg QID SUSU Administration Sodium Chloride 100 mls @ 999 mls/hr 10/16/20 09:10 Nacl 0.9% IV BRENNA PRN Hypotension Metoprolol Tartrate 5 mg 10/16/20 11:22 10/17/20 00:48 Metoprolol IV 5 mg Q6HR PRN Administration Hypertension Morphine Sulfate 2 mg 10/16/20 08:23 10/23/20 08:56 Morphine IV 2 mg Q4H PRN Administration Pain , Severe (7-10) Multivit/Ca Carb/B Cmplx/FA/Prenat 1 cap 10/16/20 10:00 10/22/20 09:29 Renal Caps PO 1 cap QDAY SUSU Administration Ondansetron HCl 4 mg 10/16/20 08:32 Zofran IV Q8H PRN Nausea And Vomiting Pantoprazole Sodium 40 mg 10/18/20 16:30 10/23/20 08:56 Protonix PO 40 mg BIDAC SUSU Administration Sevelamer Carbonate 1,600 mg 10/16/20 12:00 10/23/20 08:56 Renvela PO 1,600 mg TIDWM SUSU Administration Sodium Chloride 10 ml 10/16/20 10:00 10/22/20 21:06 Sodium Chloride Flush Syringe 10 Ml IV 10 ml BID SUSU Administration Sodium Chloride 10 ml 10/16/20 08:32 Sodium Chloride Flush Syringe 10 Ml IV PRN PRN LINE FLUSH Nutrition/Malnutrition Assess - Dietary Evaluation Nutrition/Malnutrition Findings: Nutrition Notes Start: 10/17/20 12:06 Freq: Status: Active Protocol: Document 10/20/20 13:49 CW (Rec: 10/20/20 13:54 CW [email or web address]) Co-Sign 10/20/20 13:49 MK Nutrition Notes Initial or Follow up Assessment Current Diagnosis CKD (stage V CKD),Diabetes, Hypertension Other Pertinent Diagnosis Anemia, on HD, GERD Current Diet Renal Labs/Tests reviewed Pertinent Medications reviewed Height 5 ft 9 in Weight 75.5 kg Hiram Body Weight (kg) 65.90 BMI 24.5 Weight Status Appropriate Subjective/Other Information FU for intakes. Pt out of the room for HD. Per RN, pt consuming at least 75% of all meals and has no hx of wt loss . Percent of energy/protein needs met: 87%/63% Burn Absent Trauma Absent Current % PO Negligible Minimum of two criteria No #1 Nutrition Diagnosis Inadequate energy intake As Evidenced by Signs and Symptoms Pt consuming at least 75% renal diet Diagnosis Progress(for reassessment Improved documentation) Is patient on ventilator? No Is Patient Ambulatory and/or Out of Bed Yes REE-([facility]-ambulatory/OOB) [ 1780.194 [id number]] Calculation Used for Recommendations [facility] Additional Notes PRO needs: >91g (>1.2g/kg) Fluid needs: 1 mL/kcal Nutrition Intervention Change Diet Order: Continue Renal Add Supplement/Snack (indicate name/kcal Nepro daily /protein ) Provides kCal: 425 Provides Protein (gm) 19 Goal #1 Meet at least 75% of estimated energy and protein needs via PO/ONS Anticipated Discharge Needs: Renal Follow-Up By: 10/24/20 Additional Comments FU for PO intakes
[2020-10-23] MEDS: dilTIAZem CD 180 MG CAP PO SCH (14:26)
[2020-10-23] MEDS: hydrALAZINE 25 MG TAB PO SCH ×4 (14:26→21:53)
[2020-10-23] MEDS: FOLIC ACID/VIT B COMP W-C 1 MG (RENAL CAPS) PO SCH (14:35)
[2020-10-23] MEDS: ERGOCALCIFEROL (VIT D2) 50,000 UNIT CAP PO SCH (14:35)
[2020-10-23] MEDS: FUROSEMIDE 40 MG TAB PO SCH (14:36)
[2020-10-23] MEDS: carvediloL 25 MG TAB PO SCH ×2 (14:37→21:53)
[2020-10-23] MEDS: CITALOPRAM 20 MG TAB PO SCH (14:37)
--- NOTE | 2020-10-23 15:18 | Progress Note ---
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 CT angiogram demonstrates no mesenteric infarct. CT scan demonstrates occlusion of the left renal artery with Amplatzer plug in the mid renal artery, which is not the appropriate treatment for left renal AML embolization. Patient is complaining of pain of her left flank which intermittently worsens, and has stopped her from having dialysis today. Her CT scan demonstrates findings associated with subacute bleeding of this region. 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 Patient would benefit from anticoagulation for her IVC thrombus, but also has a bleeding left renal AML. Discussed options of care with patient, and I believe that doing a diagnostic angiogram of the abdomen and left renal artery as well as possibly lumbar arteries to attempt to find the left renal AML arterial source and subsequently treat this, would simplify her care as this would allow us to anticoagulate her, to some extent, afterwards. If this cannot be performed, patient should be evaluated for left nephrectomy which may require tertiary care evaluation as patient has end-stage renal di sease and multiple other comorbidities. Overall complicated patient. Risks, benefits, and alternatives of angiogram with possible left renal AML embolization discussed with patient. Patient agreed with procedure. N.p.o. after midnight. Subjective Date of service: 10/23/20 Principal diagnosis: Abdominal pain Interval history: I had a long discussion with the patient. The patient told me that for the last 6 months she has been having left flank pain that was associated with bleeding of her left kidney (large AML). This is consistent with her CT which demonstrates stranding around the AML consistent with low-grade bleeding. She has had 2 procedures done at [facility] to attempt to treat the left renal AML. Her left renal artery has been occluded by an Amplatzer plug which is not the appropriate treatment for a left renal AML. She also has a thrombus in the midportion of her IVC associated with the right femoral PermCath. Objective - Constitutional Vitals: Vital Signs - 12hr 10/23/20 10/23/20 10/23/20 05:58 09:30 09:45 Temperature 98.7 F 98.7 F Pulse Rate 88 75 75 Respiratory 16 18 Rate Blood Pressure 118/93 155/95 145/99 O2 Sat by Pulse 92 Oximetry 10/23/20 10/23/20 10/23/20 10:00 10:15 10:30 Temperature Pulse Rate 79 83 85 Respiratory Rate Blood Pressure 142/90 122/83 145/97 O2 Sat by Pulse Oximetry 10/23/20 10/23/20 10/23/20 10:45 11:00 11:15 Temperature Pulse Rate 85 86 91 H Respiratory Rate Blood Pressure 145/90 168/104 152/106 O2 Sat by Pulse Oximetry 10/23/20 10/23/20 10/23/20 11:30 11:45 12:00 Temperature Pulse Rate 87 92 H 94 H Respiratory Rate Blood Pressure 143/96 146/106 148/105 O2 Sat by Pulse Oximetry 10/23/20 10/23/20 10/23/20 12:15 12:30 12:45 Temperature Pulse Rate 92 H 94 H 107 H Respiratory Rate Blood Pressure 160/105 141/104 149/109 O2 Sat by Pulse Oximetry 10/23/20 10/23/20 10/23/20 13:00 13:15 14:00 Temperature 98.6 F 98.4 F Pulse Rate 101 H 100 H 98 H Respiratory 18 19 Rate Blood Pressure 167/109 168/108 168/99 O2 Sat by Pulse 99 Oximetry General appearance: Present: no acute distress - EENT Eyes: EOM intact ENT: hearing intact - Respiratory Respiratory effort: normal Extremities: normal temperature, normal color - Gastrointestinal General gastrointestinal: Present: other (Left back pain, abdominal pain has significantly improved, no rebound or rigidity) - Psychiatric Psychiatric: appropriate mood/affect, cooperative - Labs CBC & Chem 7: 10/19/20 10:10 10/19/20 10:10 Medications & Allergies - Medications Allergies/Adverse Reactions: Allergies No Known Allergies Allergy (Unverified 09/04/13 07:18) Home Medications: Home Medications Medication Instructions Recorded Confirmed Last Taken Type Ergocalciferol (Vitamin D2) 50,000 unit PO DAILY 09/25/20 10/16/20 Unknown History [Drisdol] HYDROcodone/APAP 5-325 [Ava 1 each PO Q6HR PRN 09/25/20 10/16/20 Unknown History 5-325 mg TAB] Sevelamer Carbonate [Renvela] 1,600 mg PO TID 09/25/20 10/16/20 Unknown History busPIRone [Buspar] 10 mg PO Q8HR 09/25/20 10/16/20 Unknown History Citalopram [Celexa] 20 mg PO QDAY #30 tab 09/28/20 10/16/20 Unknown Rx Furosemide [Lasix TAB] 80 mg PO QDAY #30 tablet 09/28/20 10/16/20 Unknown Rx carvediloL [Coreg] 25 mg PO BID #60 tablet 09/28/20 10/16/20 Unknown Rx cloNIDine [Catapres] 0.3 mg PO Q8HR #270 tablet 09/28/20 10/16/20 Unknown Rx dilTIAZem CD [Cardizem CD] 360 mg PO QDAY #60 capsule 09/28/20 10/16/20 Unknown Rx ALPRAZolam [Xanax TAB] 0.25 mg PO BID PRN 10/16/20 10/16/20 Unknown History Acetaminophen [Tylenol] 500 mg PO Q6HR 10/16/20 10/16/20 Unknown History Folic Acid/Vit B Complex and C 0.8 mg PO QDAY 10/16/20 10/16/20 Unknown History [Renal Vitamin Tablet] Pantoprazole [Protonix] 40 mg PO QDAY 10/16/20 10/16/20 Unknown History clonazePAM [ Klonopin] 0.5 mg PO BID PRN 10/16/20 10/16/20 Unknown History hydrALAZINE [Apresoline TAB] 25 mg PO QID 10/16/20 10/16/20 Unknown History traMADoL [Ultram] 50 mg PO Q6HR PRN 10/16/20 10/16/20 Unknown History Active Medications: Generic Name Dose Route Start Last Admin Trade Name Freq PRN Reason Stop Dose Admin Acetaminophen 650 mg 10/16/20 08:32 10/23/20 14:37 Tylenol PO 650 mg Q4H PRN Administration Pain MILD(1-3)/Fever >100.5/SAUCEDO Hydrocodone Bitart/Acetaminophen 1 each 10/17/20 09:23 10/21/20 12:59 Ava 5/325 PO 1 each Q4H PRN Administration Pain, Moderate (4-6) Alprazolam 0.25 mg 10/16/20 08:24 10/22/20 21:00 Xanax PO 0.25 mg BID PRN Administration Anxiety Buspirone HCl 10 mg 10/16/20 14:00 10/23/20 14:36 Buspar PO 10 mg Q8HR SUSU Administration Carvedilol 25 mg 10/16/20 10:00 10/23/20 14:37 Coreg PO Not Given BID SUSU Citalopram Hydrobromide 20 mg 10/16/20 10:00 10/23/20 14:37 Celexa PO 20 mg QDAY SUSU Administration Clonazepam 0.5 mg 10/16/20 08:24 Klonopin PO BID PRN Anxiety UNRELIEVED XANAX Clonidine HCl 0.3 mg 10/16/20 09:00 10/23/20 14:36 Catapres PO 0.3 mg Q8HR SUSU Administration Diltiazem HCl 360 mg 10/16/20 10:00 10/23/20 14:26 Cardizem Cd PO Not Given QDAY SUSU Ergocalciferol 50,000 unit 10/16/20 10:00 10/23/20 14:35 Vitamin D2 PO 50,000 unit Mo@1000 SUSU Administration Furosemide 80 mg 10/16/20 10:00 10/23/20 14:36 Lasix PO 80 mg QDAY SUSU Administration Hydralazine HCl 10 mg 10/17/20 09:32 Apresoline IV Q4HR PRN Hypertension Hydralazine HCl 50 mg 10/17/20 10:00 10/23/20 14:36 Apresoline PO 50 mg QID SUSU Administration Sodium Chloride 100 mls @ 999 mls/hr 10/16/20 09:10 Nacl 0.9% IV BRENNA PRN Hypotension Metoprolol Tartrate 5 mg 10/16/20 11:22 10/17/20 00:48 Metoprolol IV 5 mg Q6HR PRN Administration Hypertension Morphine Sulfate 2 mg 10/16/20 08:23 10/23/20 13:00 Morphine IV 2 mg Q4H PRN Administration Pain , Severe (7-10) Multivit/Ca Carb/B Cmplx/FA/Prenat 1 cap 10/16/20 10:00 10/23/20 14:35 Renal Caps PO 1 cap QDAY SUSU Administration Ondansetron HCl 4 mg 10/16/20 08:32 Zofran IV Q8H PRN Nausea And Vomiting Pantoprazole Sodium 40 mg 10/18/20 16:30 10/23/20 08:56 Protonix PO 40 mg BIDAC SUSU Administration Sevelamer Carbonate 1,600 mg 10/16/20 12:00 10/23/20 14:36 Renvela PO 1,600 mg TIDWM SUSU Administration Sodium Chloride 10 ml 10/16/20 10:00 10/23/20 14:37 Sodium Chloride Flush Syringe 10 Ml IV 10 ml BID SUSU Administration Sodium Chloride 10 ml 10/16/20 08:32 Sodium Chloride Flush Syringe 10 Ml IV PRN PRN LINE FLUSH HEART Score - HEART Score EKG: Normal Age: 45-65 Risk factors: 1-2 risk factors - Critical Actions Critical Actions: 0-3 pts:0.9-1.7%risk of adverse cardiac event.Candidate for discharge
--- NOTE | 2020-10-23 17:10 | Progress Note ---
Assessment and Plan This is a 65 year old woman with ESRD who presented with abdominal pain. # ESRD: urgent HD 10/16 for hyperkalemia, acidosis, volume, now with controlled electrolytes and volume status. - Continue HD MWF or prn thereafter, had HD yesterday, due next 10/23 or prn - daily labs - renally dose meds - avoid nephrotoxins - renal diet # Anemia: ESAs with HD prn # Hyperkalemia: Controlled with HD. Low potassium diet. # Acidosis: controlled with HD. # HTN: UF as tolerated. BP now stable # Secondary Hyperparathyroidism: continue home binders as needed # Left renal AML with bleed : Vascular following. Diagnostic angiogram planned. # IVC thrombus, associated with femoral catheter. Due to bleeding AML currently cannot get anticoagulation therapy. Vascular surgery is following. Subjective Date of service: 10/23/20 Principal diagnosis: Abdominal pain Interval history: Seen on dialysis. Tolerating without any complications. Objective - Exam Narrative Exam: Constitutional: No acute distress Head: Normocephalic/atraumatic Neck: Supple Lungs: Clear to auscultation bilaterally Cardiovascular: RRR, no M/R/G Abdomen: Soft, nontender, NABS Back, nontender Extremities: No edema, pulses within normal limits Skin: Intact, no rash Neuro: Alert and oriented 3, no focal deficits Access: right femoral catheter - Vital Signs Vital signs: Vital Signs - 12hr 10/23/20 10/23/20 10/23/20 05:58 09:30 09:45 Temperature 98.7 F 98.7 F Pulse Rate 88 75 75 Respiratory 16 18 Rate Blood Pressure 118/93 155/95 145/99 O2 Sat by Pulse 92 Oximetry 10/23/20 10/23/20 10/23/20 10:00 10:15 10:30 Temperature Pulse Rate 79 83 85 Respiratory Rate Blood Pressure 142/90 122/83 145/97 O2 Sat by Pulse Oximetry 10/23/20 10/23/20 10/23/20 10:45 11:00 11:15 Temperature Pulse Rate 85 86 91 H Respiratory Rate Blood Pressure 145/90 168/104 152/106 O2 Sat by Pulse Oximetry 10/23/20 10/23/20 10/23/20 11:30 11:45 12:00 Temperature Pulse Rate 87 92 H 94 H Respiratory Rate Blood Pressure 143/96 146/106 148/105 O2 Sat by Pulse Oximetry 10/23/20 10/23/20 10/23/20 12:15 12:30 12:45 Temperature Pulse Rate 92 H 94 H 107 H Respiratory Rate Blood Pressure 160/105 141/104 149/109 O2 Sat by Pulse Oximetry 10/23/20 10/23/20 10/23/20 13:00 13:15 14:00 Temperature 98.6 F 98.4 F Pulse Rate 101 H 100 H 98 H Respiratory 18 19 Rate Blood Pressure 167/109 168/108 168/99 O2 Sat by Pulse 99 Oximetry - Lab 10/19/20 10:10 10/19/20 10:10 Most recent lab results Calcium 8.8 mg/dL (8.4-10.2) 10/19/20 10:10 Medications & Allergies - Medications Allergies/Adverse Reactions: Allergies No Known Allergies Allergy (Unverified 09/04/13 07:18) Home Medications: Home Medications Medication Instructions Recorded Confirmed Last Taken Type Ergocalciferol (Vitamin D2) 50,000 unit PO DAILY 09/25/20 10/16/20 Unknown History [Drisdol] HYDROcodone/APAP 5-325 [[place] 1 each PO Q6HR PRN 09/25/20 10/16/20 Unknown History 5-325 mg TAB] Sevelamer Carbonate [Renvela] 1,600 mg PO TID 09/25/20 10/16/20 Unknown History busPIRone [Buspar] 10 mg PO Q8HR 09/25/20 10/16/20 Unknown History Citalopram [Celexa] 20 mg PO QDAY #30 tab 09/28/20 10/16/20 Unknown Rx Furosemide [Lasix TAB] 80 mg PO QDAY #30 tablet 09/28/20 10/16/20 Unknown Rx carvediloL [Coreg] 25 mg PO BID #60 tablet 09/28/20 10/16/20 Unknown Rx cloNIDine [Catapres] 0.3 mg PO Q8HR #270 tablet 09/28/20 10/16/20 Unknown Rx dilTIAZem CD [Cardizem CD] 360 mg PO QDAY #60 capsule 09/28/20 10/16/20 Unknown Rx ALPRAZolam [Xanax TAB] 0.25 mg PO BID PRN 10/16/20 10/16/20 Unknown History Acetaminophen [Tylenol] 500 mg PO Q6HR 10/16/20 10/16/20 Unknown History Folic Acid/Vit B Complex and C 0.8 mg PO QDAY 10/16/20 10/16/20 Unknown History [Renal Vitamin Tablet] Pantoprazole [Protonix] 40 mg PO QDAY 10/16/20 10/16/20 Unknown History clonazePAM [ Klonopin] 0.5 mg PO BID PRN 10/16/20 10/16/20 Unknown History hydrALAZINE [Apresoline TAB] 25 mg PO QID 10/16/20 10/16/20 Unknown History traMADoL [Ultram] 50 mg PO Q6HR PRN 10/16/20 10/16/20 Unknown History Active Medications: Generic Name Dose Route Start Last Admin Trade Name Freq PRN Reason Stop Dose Admin Acetaminophen 650 mg 10/16/20 08:32 10/23/20 14:37 Tylenol PO 650 mg Q4H PRN Administration Pain MILD(1-3)/Fever >100.5/SAUCEDO Hydrocodone Bitart/Acetaminophen 1 each 10/17/20 09:23 10/21/20 12:59 [place] 5/325 PO 1 each Q4H PRN Administration Pain, Moderate (4-6) Alprazolam 0.25 mg 10/16/20 08:24 10/22/20 21:00 Xanax PO 0.25 mg BID PRN Administration Anxiety Buspirone HCl 10 mg 10/16/20 14:00 10/23/20 14:36 Buspar PO 10 mg Q8HR SUSU Administration Carvedilol 25 mg 10/16/20 10:00 10/23/20 14:37 Coreg PO Not Given BID SUSU Citalopram Hydrobromide 20 mg 10/16/20 10:00 10/23/20 14:37 Celexa PO 20 mg QDAY SUSU Administration Clonazepam 0.5 mg 10/16/20 08:24 Klonopin PO BID PRN Anxiety UNRELIEVED XANAX Clonidine HCl 0.3 mg 10/16/20 09:00 10/23/20 14:36 Catapres PO 0.3 mg Q8HR SUSU Administration Diltiazem HCl 360 mg 10/16/20 10:00 10/23/20 14:26 Cardizem Cd PO Not Given QDAY SUSU Ergocalciferol 50,000 unit 10/16/20 10:00 10/23/20 14:35 Vitamin D2 PO 50,000 unit Mo@1000 SUSU Administration Furosemide 80 mg 10/16/20 10:00 10/23/20 14:36 Lasix PO 80 mg QDAY SUSU Administration Hydralazine HCl 10 mg 10/17/20 09:32 Apresoline IV Q4HR PRN Hypertension Hydralazine HCl 50 mg 10/17/20 10:00 10/23/20 14:36 Apresoline PO 50 mg QID SUSU Administration Sodium Chloride 100 mls @ 999 mls/hr 10/16/20 09:10 Nacl 0.9% IV BRENNA PRN Hypotension Metoprolol Tartrate 5 mg 10/16/20 11:22 10/17/20 00:48 Metoprolol IV 5 mg Q6HR PRN Administration Hypertension Morphine Sulfate 2 mg 10/16/20 08:23 10/23/20 13:00 Morphine IV 2 mg Q4H PRN Administration Pain , Severe (7-10) Multivit/Ca Carb/B Cmplx/FA/Prenat 1 cap 10/16/20 10:00 10/23/20 14:35 Renal Caps PO 1 cap QDAY SUSU Administration Ondansetron HCl 4 mg 10/16/20 08:32 Zofran IV Q8H PRN Nausea And Vomiting Pantoprazole Sodium 40 mg 10/18/20 16:30 10/23/20 08:56 Protonix PO 40 mg BIDAC SUSU Administration Sevelamer Carbonate 1,600 mg 10/16/20 12:00 10/23/20 14:36 Renvela PO 1,600 mg TIDWM SUSU Administration Sodium Chloride 10 ml 10/16/20 10:00 10/23/20 14:37 Sodium Chloride Flush Syringe 10 Ml IV 10 ml BID SUSU Administration Sodium Chloride 10 ml 10/16/20 08:32 Sodium Chloride Flush Syringe 10 Ml IV PRN PRN LINE FLUSH
[2020-10-23 17:36] LABS: Hemoglobin 10.1 gm/dl (10.1-14.3); Mean Corpuscular HGB Conc 32 % (30-34); Mean Corpuscular Volume 89 fl (79-97); Platelet Count 377 K/mm3 (140-440); Red Cell Distribution Width 17.9 % (13.2-15.2)
[2020-10-23 17:59] LABS: Albumin 2.9 g/dL (3.9-5); Blood Urea Nitrogen 18 mg/dL (7-17); Calcium 9.1 mg/dL (8.4-10.2); Hemolysis Index 8
[2020-10-23 18:07] LABS: Alanine Aminotransferase < 5 units/L (7-56); BUN/Creatinine Ratio 3
[2020-10-23] MEDS: ALPRAZolam 0.25 MG TAB PO PRN (21:53)
[2020-10-24] MEDS: cloNIDine 0.1 MG TAB PO SCH ×3 (05:42→21:01)
[2020-10-24] MEDS: busPIRone 5 MG TAB PO SCH ×3 (05:43→21:00)
[2020-10-24] MEDS: SEVELAMER CARBONATE 800 MG TAB PO SCH ×2 (08:19→18:48)
[2020-10-24] MEDS: PANTOPRAZOLE 40 MG TAB PO SCH ×2 (08:19→18:50)
--- NOTE | 2020-10-24 10:07 | Hem/Onc Consultation ---
History of Present Illness - History of Present Illness heme data review 65yo disabled AA woman with ESRD requiring HD, per notes (per Dr. Blackwood's review) left flank pain that was associated with bleeding of her left kidney (large AML). She has had 2 procedures done at [place] to attempt to treat the left renal AML. 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 DATA REVIEWED BELOW IMPRESSION: Bleeding L kidney tumor (presumed to be AML, could also be RCC) ESRD requiring HD nonocclusive IVC clot is not significant enough to "require" anticoag in my opinion risk>benefit for any anticoag in my opinion RECOMMEND: conference with her primary nephrology team-->consider L nephrectomy avoid any anticoag for now labs to include coags and fibrinogen, PF4 Ab if she has pain-->needs more urgent intervention (consider inpatient transfer or intervention) if her pain is easily controlled or if she has no pain-->outpatient Active Medications Acetaminophen (Tylenol) 650 mg PO Q4H PRN PRN Reason: Pain MILD(1-3)/Fever >100.5/SAUCEDO Last Admin: 10/23/20 14:37 Dose: 650 mg Documented by: Hydrocodone Bitart/Acetaminophen ([place] 5/325) 1 each PO Q4H PRN PRN Reason: Pain, Moderate (4-6) Last Admin: 10/21/20 12:59 Dose: 1 each Documented by: Alprazolam (Xanax) 0.25 mg PO BID PRN PRN Reason: Anxiety Last Admin: 10/23/20 21:53 Dose: 0.25 mg Documented by: Buspirone HCl (Buspar) 10 mg PO Q8HR SUSU Last Admin: 10/24/20 05:43 Dose: 10 mg Documented by: Carvedilol (Coreg) 25 mg PO BID [facility] Last Admin: 10/24/20 10:08 Dose: Not Given Documented by: Citalopram Hydrobromide (Celexa) 20 mg PO QDAY [facility] Last Admin: 10/24/20 10:08 Dose: Not Given Documented by: Clonazepam (Klonopin) 0.5 mg PO BID PRN PRN Reason: Anxiety UNRELIEVED XANAX Last Admin: 10/23/20 15:15 Dose: 0.5 mg Documented by: Clonidine HCl (Catapres) 0.3 mg PO Q8HR [facility] Last Admin: 10/24/20 05:42 Dose: 0.3 mg Documented by: Diltiazem HCl (Cardizem Cd) 360 mg PO QDAY [facility] Last Admin: 10/24/20 10:08 Dose: Not Given Documented by: Ergocalciferol (Vitamin D2) 50,000 unit PO Mo@1000 [facility] Last Admin: 10/23/20 14:35 Dose: 50,000 unit Documented by: Furosemide (Lasix) 80 mg PO QDAY [facility] Last Admin: 10/24/20 10:09 Dose: Not Given Documented by: Hydralazine HCl (Apresoline) 10 mg IV Q4HR PRN PRN Reason: Hypertension Hydralazine HCl (Apresoline) 50 mg PO QID [facility] Last Admin: 10/24/20 10:08 Dose: Not Given Documented by: Sodium Chloride (Nacl 0.9%) 100 mls @ 999 mls/hr IV BRENNA PRN PRN Reason: Hypotension Metoprolol Tartrate (Metoprolol) 5 mg IV Q6HR PRN PRN Reason: Hypertension Last Admin: 10/17/20 00:48 Dose: 5 mg Documented by: Morphine Sulfate (Morphine) 2 mg IV Q4H PRN PRN Reason: Pain , Severe (7-10) Last Admin: 10/23/20 21:53 Dose: 2 mg Documented by: Multivit/Ca Carb/B Cmplx/FA/Prenat (Renal Caps) 1 cap PO QDAY [facility] Last Admin: 10/24/20 10:09 Dose: Not Given Documented by: Ondansetron HCl (Zofran) 4 mg IV Q8H PRN PRN Reason: Nausea And Vomiting Pantoprazole Sodium (Protonix) 40 mg PO BIDAC [facility] Last Admin: 10/24/20 08:19 Dose: Not Given Documented by: Sevelamer Carbonate (Renvela) 1,600 mg PO TIDWM [facility] Last Admin: 10/24/20 08:19 Dose: Not Given Documented by: Sodium Chloride (Sodium Chloride Flush Syringe 10 Ml) 10 ml IV BID [facility] Last Admin: 10/24/20 10:09 Dose: Not Given Documented by: Sodium Chloride (Sodium Chloride Flush Syringe 10 Ml) 10 ml IV PRN PRN PRN Reason: LINE FLUSH Laboratory Last Values WBC 4.5 K/mm3 (4.5-11.0) 10/23/20 17:12 Hgb 10.1 gm/dl (10.1-14.3) 10/23/20 17:12 Hct 32.0 % (30.3-42.9) 10/23/20 17:12 Plt Count 377 K/mm3 (140-440) 10/23/20 17:12 Coronavirus (PCR) Negative (Negative) 10/16/20 Unknown Past History Past Medical History: atrial fib, diabetes, GERD, hypertension Past Surgical History: appendectomy, cholecystectomy, hysterectomy, Other (AICD, dialysis catheter) Social history: no significant social history Family history: hypertension (And her mother who is and her brother also has hypertension) Medications and Allergies Allergies Allergy/AdvReac Type Severity Reaction Status Date / Time No Known Allergies Allergy Unverified 09/04/13 07:18 Home Medications Medication Instructions Recorded Confirmed Last Taken Type Ergocalciferol (Vitamin D2) 50,000 unit PO DAILY 09/25/20 10/16/20 Unknown History [Drisdol] HYDROcodone/APAP 5-325 [[place] 1 each PO Q6HR PRN 09/25/20 10/16/20 Unknown History 5-325 mg TAB] Sevelamer Carbonate [Renvela] 1,600 mg PO TID 09/25/20 10/16/20 Unknown History busPIRone [Buspar] 10 mg PO Q8HR 09/25/20 10/16/20 Unknown History Citalopram [Celexa] 20 mg PO QDAY #30 tab 09/28/20 10/16/20 Unknown Rx Furosemide [Lasix TAB] 80 mg PO QDAY #30 tablet 09/28/20 10/16/20 Unknown Rx carvediloL [Coreg] 25 mg PO BID #60 tablet 09/28/20 10/16/20 Unknown Rx cloNIDine [Catapres] 0.3 mg PO Q8HR #270 tablet 09/28/20 10/16/20 Unknown Rx dilTIAZem CD [Cardizem CD] 360 mg PO QDAY #60 capsule 09/28/20 10/16/20 Unknown Rx ALPRAZolam [Xanax TAB] 0.25 mg PO BID PRN 10/16/20 10/16/20 Unknown History Acetaminophen [Tylenol] 500 mg PO Q6HR 10/16/20 10/16/20 Unknown History Folic Acid/Vit B Complex and C 0.8 mg PO QDAY 10/16/20 10/16/20 Unknown History [Renal Vitamin Tablet] Pantoprazole [Protonix] 40 mg PO QDAY 10/16/20 10/16/20 Unknown History clonazePAM [ Klonopin] 0.5 mg PO BID PRN 10/16/20 10/16/20 Unknown History hydrALAZINE [Apresoline TAB] 25 mg PO QID 10/16/20 10/16/20 Unknown History traMADoL [Ultram] 50 mg PO Q6HR PRN 10/16/20 10/16/20 Unknown History Active Meds: Active Medications Acetaminophen (Tylenol) 650 mg PO Q4H PRN PRN Reason: Pain MILD(1-3)/Fever >100.5/SAUCEDO Last Admin: 10/23/20 14:37 Dose: 650 mg Documented by: Hydrocodone Bitart/Acetaminophen ([place] 5/325) 1 each PO Q4H PRN PRN Reason: Pain, Moderate (4-6) Last Admin: 10/21/20 12:59 Dose: 1 each Documented by: Alprazolam (Xanax) 0.25 mg PO BID PRN PRN Reason: Anxiety Last Admin: 10/23/20 21:53 Dose: 0.25 mg Documented by: Buspirone HCl (Buspar) 10 mg PO Q8HR [facility] Last Admin: 10/24/20 05:43 Dose: 10 mg Documented by: Carvedilol (Coreg) 25 mg PO BID [facility] Last Admin: 10/23/20 21:53 Dose: 25 mg Documented by: Citalopram Hydrobromide (Celexa) 20 mg PO QDAY [facility] Last Admin: 10/23/20 14:37 Dose: 20 mg Documented by: Clonazepam (Klonopin) 0.5 mg PO BID PRN PRN Reason: Anxiety UNRELIEVED XANAX Last Admin: 10/23/20 15:15 Dose: 0.5 mg Documented by: Clonidine HCl (Catapres) 0.3 mg PO Q8HR [facility] Last Admin: 10/24/20 05:42 Dose: 0.3 mg Documented by: Diltiazem HCl (Cardizem Cd) 360 mg PO QDAY [facility] Last Admin: 10/23/20 14:26 Dose: Not Given Documented by: Ergocalciferol (Vitamin D2) 50,000 unit PO Mo@1000 [facility] Last Admin: 10/23/20 14:35 Dose: 50,000 unit Documented by: Furosemide (Lasix) 80 mg PO QDAY [facility] Last Admin: 10/23/20 14:36 Dose: 80 mg Documented by: Hydralazine HCl (Apresoline) 10 mg IV Q4HR PRN PRN Reason: Hypertension Hydralazine HCl (Apresoline) 50 mg PO QID [facility] Last Admin: 10/23/20 21:53 Dose: 50 mg Documented by: Sodium Chloride (Nacl 0.9%) 100 mls @ 999 mls/hr IV BRENNA PRN PRN Reason: Hypotension Metoprolol Tartrate (Metoprolol) 5 mg IV Q6HR PRN PRN Reason: Hypertension Last Admin: 10/17/20 00:48 Dose: 5 mg Documented by: Morphine Sulfate (Morphine) 2 mg IV Q4H PRN PRN Reason: Pain , Severe (7-10) Last Admin: 10/23/20 21:53 Dose: 2 mg Documented by: Multivit/Ca Carb/B Cmplx/FA/Prenat (Renal Caps) 1 cap PO QDAY [facility] Last Admin: 10/23/20 14:35 Dose: 1 cap Documented by: Ondansetron HCl (Zofran) 4 mg IV Q8H PRN PRN Reason: Nausea And Vomiting Pantoprazole Sodium (Protonix) 40 mg PO BIDAC [facility] Last Admin: 10/24/20 08:19 Dose: Not Given Documented by: Sevelamer Carbonate (Renvela) 1,600 mg PO TIDWM [facility] Last Admin: 10/24/20 08:19 Dose: Not Given Documented by: Sodium Chloride (Sodium Chloride Flush Syringe 10 Ml) 10 ml IV BID [facility] Last Admin: 10/23/20 21:54 Dose: 10 ml Documented by: Sodium Chloride (Sodium Chloride Flush Syringe 10 Ml) 10 ml IV PRN PRN PRN Reason: LINE FLUSH Exam - Constitutional Vitals: Last Vital Signs Temp 97.3 F L 10/24/20 04:20 Pulse 82 10/24/20 04:20 Resp 17 10/24/20 04:20 BP 125/80 10/24/20 04:20 Pulse Ox 98 10/24/20 04:20 Results - Labs lab Results: Laboratory Results - last 24 hr 10/23/20 10/23/20 17:12 17:12 WBC 4.5 RBC 3.60 L Hgb 10.1 Hct 32.0 MCV 89 MCH 28 MCHC 32 RDW 17.9 H Plt Count 377 Sodium 133 L Potassium 3.6 Chloride 94.2 L Carbon Dioxide 29 Anion Gap 13 BUN 18 H Creatinine 6.0 H Estimated GFR 9 BUN/Creatinine Ratio 3 Glucose 93 Calcium 9.1 Total Bilirubin 0.40 AST 11 ALT < 5 L Alkaline Phosphatase 78 Total Protein 6.3 Albumin 2.9 L Albumin/Globulin Ratio 0.9
[2020-10-24] MEDS: hydrALAZINE 25 MG TAB PO SCH ×3 (10:08→21:01)
[2020-10-24] MEDS: dilTIAZem CD 180 MG CAP PO SCH (10:08)
[2020-10-24] MEDS: CITALOPRAM 20 MG TAB PO SCH (10:08)
[2020-10-24] MEDS: carvediloL 25 MG TAB PO SCH ×2 (10:08→21:01)
[2020-10-24] MEDS: FOLIC ACID/VIT B COMP W-C 1 MG (RENAL CAPS) PO SCH (10:09)
[2020-10-24] MEDS: FUROSEMIDE 40 MG TAB PO SCH (10:09)
[2020-10-24] MEDS ORDERED: HEPARIN 10,000 UNITS/10 ML VIAL ONE (10:55)
[2020-10-24] MEDS ORDERED: HEPARIN/NS 5000 UNIT/500ML 1,000 ML IR ONE (10:55)
[2020-10-24] MEDS ORDERED: SODIUM CHLORIDE 0.9% 500 ML 500 ML ONE (10:56)
[2020-10-24] MEDS: fentaNYL 100 MCG/2 ML INJ ONE ×3 (11:35→12:34)
[2020-10-24] MEDS: MIDAZOLAM 2 MG/2 ML INJ ONE ×3 (11:35→12:34)
[2020-10-24] MEDS: LIDOCAINE 1%/EPINEPHRINE 1:100,000 VIAL (20 ML) INFILTRATI ONE ×2 (11:38→11:41)
--- NOTE | 2020-10-24 12:11 | Progress Note ---
Assessment and Plan - Patient Problems (1) Abdominal pain Current Visit: Yes Status: Acute Qualifiers: Abdominal location: generalized Qualified Code(s): R10.84 - Generalized abdominal pain (2) Hypertensive emergency Current Visit: Yes Status: Acute (3) Hyperkalemia Current Visit: Yes Status: Acute (4) Internal hernia Current Visit: Yes Status: Acute (5) ESRD needing dialysis Current Visit: Yes Status: Chronic Subjective Date of service: 10/24/20 Principal diagnosis: Abdominal pain Interval history: Patient is a 65-year-old -[place] female with history of end-stage renal disease on hemodialysis Friday and Friday, hypertension, paroxysmal atrial fibrillation, type 2 diabetes and status post AICD placement, presents to the ED with complaints of generalized abdominal pain for the past 3 weeks. Pain is constant and progressive. Also complains of nausea, vomiting and diarrhea for the past few days and for the past couple of days she has lost smell and has been having fever and chills and associated with body aches and generalized weakness. She denies any chest pain or shortness of breath or cough. CT of the abdomen and pelvis showed internal hernia with mesenteric stranding and questionable right upper pole renal mass. General surgery was consulted. Patient is being admitted for further evaluation of her abdominal pain. Apparently patient's was exposed to someone who was positive for Covid 19 virus Diffuse abdominal pain for 3 weeks Nausea vomiting and diarrhea for few days Loss of smell , fever and chills and body aches for the past 2 to 3 days History of present illness: Etiology of patient's pain was not an internal hernia as suggested by CT scan A/P. Pain possibly from adhesions vs other etiology such as mesenteric ischemia. There are calcifications at the takeoff of the celiac artery and SMA on CT without contrast. Recommend CTA abd/pelvis if ok with nephro to evaluate abdominal vasculature. Patient is s/p Diagnostic laparoscopy, lysis of adhesions, POD 1 1. Diffuse adhesions from the omentum, small bowel, stomach, and liver to the anterior abominal wall. 2. Tiny umbilical hernia containing fat 3. Small bowel nondistended 4. No internal hernia 10/18: Patient continues to have abdominal pain. Awaiting Doppler of the abd omen. Will obtain vascular consultation to evaluate for any ischemic mesentery. We will also continue to monitor and evaluate pain. Anticipate discharge in a.m. if no further intervention if pain is improving. Kayexalate given for hyperkalemia 10/19: AWAITING CT abd, US shows no significant thrombosis, Vascular input noted. R-evaluate in am, still on pain control 10/20: Patient clinically stable, still awaiting imaging study to further evaluate abdominal pain that has persisted despite lysis adhesion. Unfortunately unable to obtain prior to dialysis today and will plan for Friday. continue judicious pain control 10/21: Continue supportive care. Disposition based on Imaging study from am and pain control 10/22: Awaiting CT abdomen and pelvis to make further assumptions. Continue cur rent med management, if no further intervention, will discharge in am. 10/23: Imaging studies today revealed an angiolipoma with retroperitoneal hemorrhage. Which although is read as decreasing. But on nevertheless there is also a nonocclusive thrombus which poses a management dilemma. Will consult hematology. Have already discussed with vascular and based on hematology recommendation will anticipate if this patient can be discharged today with the recommended management and follow-up outpatient. patient is alert and oriented, complains of left mid abdominal and flank pain and lower back pain. She denies any fever or chills. Denies chest pain or shortness of breath. All interdisciplinary notes reviewed. 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 Hematology note reviewed and recommends left nephrectomy. At this time patient is not on any a ntiplatelet or anticoagulation Lab results reviewed (1) Abdominal pain PRESUMED SECONDARY to bleeding into the left kidney from angiomyolipoma Current Visit: Yes Status: Acute Qualifiers: Abdominal location: generalized Qualified Code(s): R10.84 - Generalized abdominal pain Plan to address problem: Continue supportive care. Status post Laparscopy lysis of adhesion Scheduled for embolization of the left kidney by Dr. Blackwood (2) Hypertensive emergency Current Visit: Yes Status: Acute Plan to address problem: Resolved and well controlled at this time Patient was severely hypertensive with a BP systolic of 222/147 Likely secondary to volume overload Patient is on multiple medications (3) Hyperkalemia Current Visit: Yes Status: Acute Plan to address problem: Improved Secondary to patient not having had dialysis for 1 week (4) Anemia of chronic disease H&H stable (5)ESRD needing dialysis Current Visit: Yes Status: Chronic Plan to address problem: Nephrology following Continue management per nephrology recommendations 6. AML left kidney For possibly elective left nephrectomy per recommendations of hematology oncology Objective - Constitutional Vitals: Vital Signs - 12hr 10/24/20 04:20 Temperature 97.3 F L Pulse Rate 82 Respiratory 17 Rate Blood Pressure 125/80 O2 Sat by Pulse 98 Oximetry General appearance: Present: no acute distress - EENT Eyes: PERRL, EOM intact ENT: hearing intact, clear oral mucosa - Neck Neck: supple, normal ROM, other (Has a left IJ line) - Respiratory Respiratory effort: normal Respiratory: bilateral: CTA - Breasts Breasts: deferred - Cardiovascular Rhythm: regular Heart Sounds: Present: S1 & S2 Extremities: No edema - Gastrointestinal General gastrointestinal: Present: soft, tender (In the left mid abdomen), other (Has a permacath in the left groin) Rectal Exam: deferred - Integumentary Integumentary: clear - Musculoskeletal Musculoskeletal: strength equal bilaterally - Neurologic Neurologic: no focal deficits - Psychiatric Psychiatric: appropriate mood/affect - Labs CBC & Chem 7: 10/23/20 17:12 10/23/20 17:12 Labs: Abnormal lab results 10/23/20 10/23/20 Range/Units 17:12 17:12 RBC 3.60 L (3.65-5.03) M/mm3 RDW 17.9 H (13.2-15.2) % Sodium 133 L (137-145) mmol/L Chloride 94.2 L (98-107) mmol/L BUN 18 H (7-17) mg/dL Creatinine 6.0 H (0.6-1.2) mg/dL ALT < 5 L (7-56) units/L Albumin 2.9 L (3.9-5) g/dL HEART Score - HEART Score EKG: Normal Age: 45-65 Risk factors: 1-2 risk factors - Critical Actions Critical Actions: 0-3 pts:0.9-1.7%risk of adverse cardiac event.Candidate for discharge
[2020-10-24] MEDS ORDERED: NITROGLYCERIN SYRINGE 6 ML ONE (12:24)
[2020-10-24] MEDS ORDERED: fentaNYL 100 MCG/2 ML INJ ONE (12:32)
[2020-10-24] MEDS ORDERED: MIDAZOLAM 2 MG/2 ML INJ ONE (12:32)
[2020-10-24] MEDS ORDERED: hydrALAZINE 20 MG/1 ML INJ ONE (13:16)
[2020-10-24] MEDS: HYDROcodone/ACETAMINOPHEN 5-325 MG TAB PO PRN ×2 (13:23→23:10)
--- NOTE | 2020-10-24 13:27 | Post Operative Note ---
Date of procedure: 10/24/20 Pre-op diagnosis: Left renal angiomyolipoma, bleeding Post-op diagnosis: same Findings: Embolization of the left superior to mid branch of the angiomyolipoma with 1/2 a vial of 300-500 embospheres, but the vessel became friable after multiple injections and required embolization with 3 mm x 12 cm x 2 interlock coils and 3 mm x 6 cm interlock coil No other feeding vessel noted on the angiogram. Procedure: 1. Ultrasound guided access of the left femoral artery 2. Angiography of the left lower extremity 3. Selection of the abdominal aorta with angiography 4. Selection of the left renal artery with angiography 5. Selection of a hypertrophic cortical branch arising from the adrenal artery supplying the left renal angiomyolipoma 6. Injection of 1/2 a vial of 300-500 embospheres 7. Coil embolization of the hypertrophical cortical branch arising from the left adrenal gland (3rd order selection) with 3 mm x 12 cm interlock coil (x 2) and 3 mm x 6 cm interlock coil x 1. 8. Selection of the left L1, and L2 lumbar artery with angiography 9. Selection of the SMA and ROGER with angiography 11. Closure of the left femoral artery with a 6 Fr proglide Anesthesia: local (w/ conscious sedation) Surgeon: RYLIE BARBA Estimated blood loss: minimal Condition: stable Disposition: floor
--- NOTE | 2020-10-24 13:34 | Operative Report ---
Operative Report Operative Report: EXAM: 1. Ultrasound guided access of the left femoral artery 2. Angiography of the left lower extremity 3. Selection of the abdominal aorta with angiography 4. Selection of the left renal artery with angiography 5. Selection of a hypertrophic cortical branch arising from the adrenal artery supplying the left renal angiomyolipoma 6. Injection of 1/2 a vial of 300-500 embospheres into the hyertrophic cortical branch arising from the left adrenal gland feeding the left AML 7. Coil embolization of the hypertrophical cortical branch arising from the left adrenal gland (3rd order selection) with 3 mm x 12 cm interlock coil (x 2) and 3 mm x 6 cm interlock coil x 1. 8. Selection of the left L1, and L2 lumbar artery with angiography 9. Selection of the SMA and ROGER with angiography 11. Closure of the left femoral artery with a 6 Fr proglide DATE: 10/24/2020 [employer] OPERATOR: RYLIE BARBA MD INDICATION: Left renal angiomyolipoma, left renal hemorrhage MEDICATIONS: Please see nursing report for full details. DEVICES: 3 mm x 12 cm interlock coil x2 3 mm x 6 cm interlock coil x1 CONTRAST: Please see Bacteriology Teacher report for full details PROCEDURE: The risks, benefits, and alternatives were discussed with the patient; written informed consent was obtained. FINDINGS: [ ] IMPRESSION: [ ]
--- NOTE | 2020-10-24 13:36 | Event Note ---
Date: 10/24/20 Successful left renal AML embolization. Recommend control of nausea/vomiting, back pain, and possible low grade fever for next 24 hrs with zofran, norco/percocet, and tylenol. This is expected. Patient can followup with me in 2 weeks at [facility]. Ordered vein mapping.
[2020-10-24 16:13] LABS: INR 1.1 (0.87-1.13)
[2020-10-24 16:14] LABS: Partial Thromboplastin Time 27.5 Sec. (24.2-36.6)
[2020-10-24] MEDS: MORPHINE 2 MG/1 ML INJ IV PRN ×2 (17:25→20:52)
--- NOTE | 2020-10-24 19:05 | Vascular Lab Report ---
DOPPLER ULTRASOUND UPPER EXTREMITY VENOUS MAPPING, BILATERAL INDICATION / CLINICAL INFORMATION: vein mapping, ESRD TECHNIQUE: Grayscale, color and spectral Doppler imaging of the venous system of the right and left upper extrem ities was performed. COMPARISON: None available. FINDINGS: RIGHT UPPER EXTREMITY: Brachial Artery (Diameter, in cm): Not measured Radial Artery (Diameter, in cm): 0.3 Basilic Vein (Diameter, in cm): - Upper Arm: 0.3 - Mid Arm: 0.2 - Lower Arm: 0.1 - Antecubital: 0.1 - Upper Forearm: 0.1 - Mid Forearm: 0.1 - Distal Forearm: 0.1 Cephalic Vein (Diameter, in cm): - Upper Arm: 0.3 - Mid Arm: 0.2 - Lower Arm: 0.1 - Antecubital: 0.1 - Upper Forearm: 0.1 - Mid Forearm: 0.1 - Distal Forearm: 0.1 LEFT UPPER EXTREMITY: Brachial Artery (Diameter, in cm): Not measured Radial Artery (Diameter, in cm): 0.2 Basilic Vein (Diameter, in cm): - Upper Arm: 0.2 - Mid Arm: 0.2 - Lower Arm: 0.2 - Antecubital: 0.2 - Upper Forearm: 0.2 - Mid Forearm: 0.1 - Distal Forearm: 0.1 Cephalic Vein (Diameter, in cm): - Upper Arm: 0.1 - Mid Arm: 0.1 - Lower Arm: 0.1 - Antecubital: 0.1 - Upper Forearm: 0.1 - Mid Forearm: 0.1 - Distal Forearm: 0.1 Additional Findings: None. IMPRESSION: 1. Upper extremity venous mapping as above. Signer Name: Kris Llanes MD Signed: 10/24/2020 7:00 PM Workstation Name: [id number]
[2020-10-24] MEDS: ALPRAZolam 0.25 MG TAB PO PRN (23:10)
[2020-10-25] MEDS: HYDROcodone/ACETAMINOPHEN 5-325 MG TAB PO PRN ×2 (05:31→13:07)
[2020-10-25] MEDS: cloNIDine 0.1 MG TAB PO SCH ×3 (05:31→22:27)
[2020-10-25] MEDS: busPIRone 5 MG TAB PO SCH ×3 (05:33→22:27)
[2020-10-25 06:44] LABS: Hematocrit 30.5 % (30.3-42.9); Hemoglobin 9.7 gm/dl (10.1-14.3); Mean Corpuscular HGB Conc 32 % (30-34); Mean Corpuscular Volume 88 fl (79-97); Platelet Count 374 K/mm3 (140-440); Red Blood Count 3.48 M/mm3 (3.65-5.03); Red Cell Distribution Width 17.8 % (13.2-15.2)
[2020-10-25] MEDS: SEVELAMER CARBONATE 800 MG TAB PO SCH ×3 (09:02→18:47)
[2020-10-25] MEDS: PANTOPRAZOLE 40 MG TAB PO SCH ×2 (09:04→18:47)
[2020-10-25] MEDS: ALPRAZolam 0.25 MG TAB PO PRN (09:36)
[2020-10-25] MEDS: FOLIC ACID/VIT B COMP W-C 1 MG (RENAL CAPS) PO SCH (09:37)
[2020-10-25] MEDS: FUROSEMIDE 40 MG TAB PO SCH (09:37)
[2020-10-25] MEDS: CITALOPRAM 20 MG TAB PO SCH (09:37)
[2020-10-25] MEDS: carvediloL 25 MG TAB PO SCH ×2 (09:38→22:28)
[2020-10-25] MEDS: dilTIAZem CD 180 MG CAP PO SCH (09:38)
[2020-10-25] MEDS: hydrALAZINE 25 MG TAB PO SCH ×4 (09:38→22:28)
[2020-10-25] MEDS: MORPHINE 2 MG/1 ML INJ IV PRN ×2 (11:09→22:29)
--- NOTE | 2020-10-25 16:11 | Progress Note ---
Assessment and Plan - Patient Problems (1) Abdominal pain Current Visit: Yes Status: Acute Qualifiers: Abdominal location: generalized Qualified Code(s): R10.84 - Generalized abdominal pain (2) Hypertensive emergency Current Visit: Yes Status: Acute (3) Hyperkalemia Current Visit: Yes Status: Acute (4) Internal hernia Current Visit: Yes Status: Acute (5) ESRD needing dialysis Current Visit: Yes Status: Chronic Subjective Date of service: 10/25/20 Principal diagnosis: Abdominal pain Interval history: Patient is a 65-year-old -[place] female with history of end-stage renal disease on hemodialysis Friday and Friday, hypertension, paroxysmal atrial fibrillation, type 2 diabetes and status post AICD placement, presents to the ED with complaints of generalized abdominal pain for the past 3 weeks. Pain is constant and progressive. Also complains of nausea, vomiting and diarrhea for the past few days and for the past couple of days she has lost smell and has been having fever and chills and associated with body aches and generalized weakness. She denies any chest pain or shortness of breath or cough. CT of the abdomen and pelvis showed internal hernia with mesenteric stranding and questionable right upper pole renal mass. General surgery was consulted. Patient is being admitted for further evaluation of her abdominal pain. Apparently patient's was exposed to someone who was positive for Covid 19 virus Diffuse abdominal pain for 3 weeks Nausea vomiting and diarrhea for few days Loss of smell , fever and chills and body aches for the past 2 to 3 days History of present illness: Etiology of patient's pain was not an internal hernia as suggested by CT scan A/P. Pain possibly from adhesions vs other etiology such as mesenteric ischemia. There are calcifications at the takeoff of the celiac artery and SMA on CT without contrast. Recommend CTA abd/pelvis if ok with nephro to evaluate abdominal vasculature. Patient is s/p Diagnostic laparoscopy, lysis of adhesions, POD 1 1. Diffuse adhesions from the omentum, small bowel, stomach, and liver to the anterior abominal wall. 2. Tiny umbilical hernia containing fat 3. Small bowel nondistended 4. No internal hernia 10/18: Patient continues to have abdominal pain. Awaiting Doppler of the abdomen. Will obtain vascular consultation to evaluate for any ischemic mesentery. We will also continue to monitor and evaluate pain. Anticipate disc harge in a.m. if no further intervention if pain is improving. Kayexalate given for hyperkalemia 10/19: AWAITING CT abd, US shows no significant thrombosis, Vascular input noted. R-evaluate in am, still on pain control 10/20: Patient clinically stable, still awaiting imaging study to further eval uate abdominal pain that has persisted despite lysis adhesion. Unfortunately unable to obtain prior to dialysis today and will plan for Friday. continue judicious pain control 10/21: Continue supportive care. Disposition based on Imaging study from am and pain control 10/22: Awaiting CT abdomen and pelvis to make further assumptions. Continue current med management, if no further intervention, will discharge in am. 10/23: Imaging studies today revealed an angiolipoma with retroperitoneal hem orrhage. Which although is read as decreasing. But on nevertheless there is also a nonocclusive thrombus which poses a management dilemma. Will consult hematology. Have already discussed with vascular and based on hematology recommendation will anticipate if this patient can be discharged today with the recommended management and follow-up outpatient. patient is alert and oriented, complains of left mid abdominal and flank pain and lower back pain. She denies any fever or chills. Denies chest pain or shortness of breath. All interdisciplinary notes reviewed. Patient is schedule d for embolization of the left kidney angiomyolipoma. Hematology note reviewed and recommends left nephrectomy. At this time patient is not on any antiplatelet or anticoagulation Lab results reviewed (1) Abdominal pain PRESUMED SECONDARY to bleeding into the left kidney from angiomyolipoma Current Visit: Yes Status: Acute Qualifiers: Abdominal location: generalized Qualified Code(s): R10.84 - Generalized abdominal pain Plan to address problem: Continue supportive care. Status post Laparscopy lysis of adhesion S/p embolization of the left kidney by Dr. Blackwood (2) Hypertensive emergency Current Visit: Yes Status: Acute Plan to address problem: Resolved and well controlled at this time Patient was severely hypertensive with a BP systolic of 222/147 Likely secondary to volume overload Patient is on multiple medications (3) Hyperkalemia Current Visit: Yes Status: Acute Plan to address problem: Improved Secondary to patient not having had dialysis for 1 week (4) Anemia of chronic disease H&H stable (5)ESRD needing dialysis Current Visit: Yes Status: Chronic Plan to address problem: Nephrology following Continue management per nephrology recommendations 6. AML left kidney For possibly elective left nephrectomy per recommendations of hematology oncology Discussed with patient and she needs outpatient follow-up with urology Patient can be discharged tomorrow if she remains afebrile Objective - Constitutional Vitals: Vital Signs - 12hr 10/25/20 10/25/20 10/25/20 04:11 05:31 09:07 Temperature 98.0 F Pulse Rate 92 H Respiratory 18 18 Rate Blood Pressure 134/83 140/89 O2 Sat by Pulse 96 Oximetry 10/25/20 10/25/20 09:38 12:53 Temperature 98.7 F Pulse Rate 79 Respiratory Rate Blood Pressure 140/89 116/75 O2 Sat by Pulse 96 Oximetry General appearance: Present: no acute distress - EENT Eyes: PERRL, EOM intact ENT: hearing intact, clear oral mucosa - Neck Neck: supple, normal ROM - Respiratory Respiratory effort: normal Respiratory: bilateral: CTA - Cardiovascular Rhythm: regular Heart Sounds: Present: S1 & S2 Extremities: No edema - Gastrointestinal General gastrointestinal: Present: soft, tender (In the left mid abdomen) - Integumentary Integumentary: clear - Musculoskeletal Musculoskeletal: strength equal bilaterally - Psychiatric Psychiatric: appropriate mood/affect - Labs CBC & Chem 7: 10/25/20 04:47 10/23/20 17:12 Labs: Abnormal lab results 10/24/20 10/25/20 Range/Units 14:49 04:47 RBC 3.48 L (3.65-5.03) M/mm3 Hgb 9.7 L (10.1-14.3) gm/dl RDW 17.8 H (13.2-15.2) % Fibrinogen 555 H (211-480) mg/dl HEART Score - HEART Score EKG: Normal Age: 45-65 Risk factors: 1-2 risk factors - Critical Actions Critical Actions: 0-3 pts:0.9-1.7%risk of adverse cardiac event.Candidate for discharge
--- NOTE | 2020-10-25 19:05 | Progress Note ---
Assessment and Plan This is a 65 year old woman with ESRD who presented with abdominal pain. # ESRD: urgent HD 10/16 for hyperkalemia, acidosis, volume, now with controlled electrolytes and volume status. - Continue HD MWF or prn thereafter, had HD yesterday, due next 10/23 or prn - daily labs - renally dose meds - avoid nephrotoxins - renal diet # Anemia: ESAs with HD prn # Hyperkalemia: Controlled with HD. Low potassium diet. # Acidosis: controlled with HD. # HTN: UF as tolerated. BP now stable # Secondary Hyperparathyroidism: continue home binders as needed # Left renal AML with bleed : S/p embolization yesterday. Hematology recommending nephrectomy. F/u with urology. # Small non-occlusive IVC thrombus, associated with femoral catheter. Hematology following. Vein mapping pending for access placement. Subjective Date of service: 10/25/20 Principal diagnosis: Abdominal pain Interval history: Reviewed vitals, input and output and interdisciplinary notes Status post embolization yesterday Objective - Exam Narrative Exam: Constitutional: No acute distress Head: Normocephalic/atraumatic Neck: Supple Lungs: Clear to auscultation bilaterally Cardiovascular: RRR, no M/R/G Abdomen: Soft, nontender, NABS Back, nontender Extremities: No edema, pulses within normal limits Skin: Intact, no rash Neuro: Alert and oriented 3, no focal deficits Access: right femoral catheter - Vital Signs Vital signs: Vital Signs - 12hr 10/25/20 10/25/20 10/25/20 09:07 09:38 12:53 Temperature 98.7 F Pulse Rate 79 Respiratory Rate Blood Pressure 140/89 140/89 116/75 O2 Sat by Pulse 96 Oximetry 10/25/20 10/25/20 10/25/20 13:15 13:30 13:45 Temperature 98.2 F Pulse Rate 78 73 75 Respiratory 18 Rate Blood Pressure 138/85 131/82 128/88 O2 Sat by Pulse Oximetry 10/25/20 10/25/20 10/25/20 14:00 14:15 14:30 Temperature Pulse Rate 77 81 75 Respiratory Rate Blood Pressure 141/86 133/92 140/84 O2 Sat by Pulse Oximetry 10/25/20 10/25/20 10/25/20 14:45 15:00 16:29 Temperature 98.2 F 98.3 F Pulse Rate 80 79 72 Respiratory 18 20 Rate Blood Pressure 136/78 138/79 109/61 O2 Sat by Pulse 100 Oximetry - Lab 10/25/20 04:47 10/23/20 17:12 Most recent lab results Calcium 9.1 mg/dL (8.4-10.2) 10/23/20 17:12 Medications & Allergies - Medications Allergies/Adverse Reactions: Allergies No Known Allergies Allergy (Unverified 09/04/13 07:18) Home Medications: Home Medications Medication Instructions Recorded Confirmed Last Taken Type Ergocalciferol (Vitamin D2) 50,000 unit PO DAILY 09/25/20 10/16/20 Unknown History [Drisdol] HYDROcodone/APAP 5-325 [[place] 1 each PO Q6HR PRN 09/25/20 10/16/20 Unknown History 5-325 mg TAB] Sevelamer Carbonate [Renvela] 1,600 mg PO TID 09/25/20 10/16/20 Unknown History busPIRone [Buspar] 10 mg PO Q8HR 09/25/20 10/16/20 Unknown History Citalopram [Celexa] 20 mg PO QDAY #30 tab 09/28/20 10/16/20 Unknown Rx Furosemide [Lasix TAB] 80 mg PO QDAY #30 tablet 09/28/20 10/16/20 Unknown Rx carvediloL [Coreg] 25 mg PO BID #60 tablet 09/28/20 10/16/20 Unknown Rx cloNIDine [Catapres] 0.3 mg PO Q8HR #270 tablet 09/28/20 10/16/20 Unknown Rx dilTIAZem CD [Cardizem CD] 360 mg PO QDAY #60 capsule 09/28/20 10/16/20 Unknown Rx ALPRAZolam [Xanax TAB] 0.25 mg PO BID PRN 10/16/20 10/16/20 Unknown History Acetaminophen [Tylenol] 500 mg PO Q6HR 10/16/20 10/16/20 Unknown History Folic Acid/Vit B Complex and C 0.8 mg PO QDAY 10/16/20 10/16/20 Unknown History [Renal Vitamin Tablet] Pantoprazole [Protonix] 40 mg PO QDAY 10/16/20 10/16/20 Unknown History clonazePAM [ Klonopin] 0.5 mg PO BID PRN 10/16/20 10/16/20 Unknown History hydrALAZINE [Apresoline TAB] 25 mg PO QID 10/16/20 10/16/20 Unknown History traMADoL [Ultram] 50 mg PO Q6HR PRN 10/16/20 10/16/20 Unknown History Active Medications: Generic Name Dose Route Start Last Admin Trade Name Freq PRN Reason Stop Dose Admin Acetaminophen 650 mg 10/16/20 08:32 10/23/20 14:37 Tylenol PO 650 mg Q4H PRN Administration Pain MILD(1-3)/Fever >100.5/SAUCEDO Hydrocodone Bitart/Acetaminophen 1 each 10/17/20 09:23 10/25/20 13:07 [place] 5/325 PO 1 each Q4H PRN Administration Pain, Moderate (4-6) Alprazolam 0.25 mg 10/16/20 08:24 10/25/20 09:36 Xanax PO 0.25 mg BID PRN Administration Anxiety Buspirone HCl 10 mg 10/16/20 14:00 10/25/20 15:12 Buspar PO Not Given Q8HR SUSU Carvedilol 25 mg 10/16/20 10:00 10/25/20 09:38 Coreg PO 25 mg BID SUSU Administration Citalopram Hydrobromide 20 mg 10/16/20 10:00 10/25/20 09:37 Celexa PO 20 mg QDAY SUSU Administration Clonazepam 0.5 mg 10/16/20 08:24 10/23/20 15:15 Klonopin PO 0.5 mg BID PRN Administration Anxiety UNRELIEVED XANAX Clonidine HCl 0.3 mg 10/16/20 09:00 10/25/20 15:12 Catapres PO Not Given Q8HR SUSU Diltiazem HCl 360 mg 10/16/20 10:00 10/25/20 09:38 Cardizem Cd PO 360 mg QDAY SUSU Administration Ergocalciferol 50,000 unit 10/16/20 10:00 10/23/20 14:35 Vitamin D2 PO 50,000 unit Mo@1000 SUSU Administration Furosemide 80 mg 10/16/20 10:00 10/25/20 09:37 Lasix PO 80 mg QDAY SUSU Administration Hydralazine HCl 10 mg 12/08/20 09:32 Apresoline IV Q4HR PRN Hypertension Hydralazine HCl 50 mg 10/17/20 10:00 10/25/20 18:43 Apresoline PO Not Given QID SUSU Sodium Chloride 100 mls @ 999 mls/hr 10/16/20 09:10 Nacl 0.9% IV BRENNA PRN Hypotension Metoprolol Tartrate 5 mg 10/16/20 11:22 10/17/20 00:48 Metoprolol IV 5 mg Q6HR PRN Administration Hypertension Morphine Sulfate 2 mg 10/16/20 08:23 10/25/20 11:09 Morphine IV 2 mg Q4H PRN Administration Pain , Severe (7-10) Multivit/Ca Carb/B Cmplx/FA/Prenat 1 cap 10/16/20 10:00 10/25/20 09:37 Renal Caps PO 1 cap QDAY SUSU Administration Ondansetron HCl 4 mg 10/16/20 08:32 Zofran IV Q8H PRN Nausea And Vomiting Pantoprazole Sodium 40 mg 10/18/20 16:30 10/25/20 18:47 Protonix PO 40 mg BIDAC SUSU Administration Sevelamer Carbonate 1,600 mg 10/16/20 12:00 10/25/20 18:47 Renvela PO Not Given TIDWM SUSU Sodium Chloride 10 ml 10/16/20 10:00 10/25/20 15:14 Sodium Chloride Flush Syringe 10 Ml IV Not Given BID SUSU Sodium Chloride 10 ml 10/16/20 08:32 Sodium Chloride Flush Syringe 10 Ml IV PRN PRN LINE FLUSH
[2020-10-26] MEDS: ALPRAZolam 0.25 MG TAB PO PRN (00:27)
[2020-10-26] MEDS: busPIRone 5 MG TAB PO SCH ×2 (06:38→13:28)
[2020-10-26] MEDS: HYDROcodone/ACETAMINOPHEN 5-325 MG TAB PO PRN ×2 (06:39→14:55)
[2020-10-26] MEDS: cloNIDine 0.1 MG TAB PO SCH ×2 (06:40→13:29)
--- NOTE | 2020-10-26 08:55 | Progress Note ---
Assessment and Plan Once patient's pain is controlled, the patient may be discharged home from an interventional radiology standpoint. She will need to follow-up in our office in 2 weeks. Subjective Date of service: 10/26/20 Principal diagnosis: Abdominal pain Interval history: Patient is doing well following embolization of her AML. Expected postprocedural flank pain. Objective - Constitutional Vitals: Vital Signs - 12hr 10/25/20 10/25/20 10/25/20 22:00 22:23 22:29 Temperature 99.1 F Pulse Rate 89 Respiratory 20 20 18 Rate Respiratory 18 Rate [Bilateral Lower Abdomen] Blood Pressure 167/95 O2 Sat by Pulse 95 Oximetry 10/25/20 10/25/20 10/26/20 22:59 23:38 06:39 Temperature 99.1 F Pulse Rate 79 Respiratory 18 20 18 Rate Respiratory Rate [Bilateral Lower Abdomen] Blood Pressure 124/77 O2 Sat by Pulse 97 Oximetry General appearance: Present: no acute distress - EENT Eyes: EOM intact ENT: hearing intact - Neck Neck: supple - Respiratory Respiratory effort: normal - Breasts Breasts: deferred - Gastrointestinal General gastrointestinal: Present: non-tender, non-distended - Genitourinary Female genitourinary: deferred - Psychiatric Psychiatric: appropriate mood/affect, cooperative - Labs CBC & Chem 7: 10/25/20 04:47 10/23/20 17:12 Medications & Allergies - Medications Allergies/Adverse Reactions: Allergies No Known Allergies Allergy (Unverified 09/04/13 07:18) Home Medications: Home Medications Medication Instructions Recorded Confirmed Last Taken Type Ergocalciferol (Vitamin D2) 50,000 unit PO DAILY 09/25/20 10/16/20 Unknown History [Drisdol] HYDROcodone/APAP 5-325 [[place] 1 each PO Q6HR PRN 09/25/20 10/16/20 Unknown History 5-325 mg TAB] Sevelamer Carbonate [Renvela] 1,600 mg PO TID 09/25/20 10/16/20 Unknown History busPIRone [Buspar] 10 mg PO Q8HR 09/25/20 10/16/20 Unknown History Citalopram [Celexa] 20 mg PO QDAY #30 tab 09/28/20 10/16/20 Unknown Rx Furosemide [Lasix TAB] 80 mg PO QDAY #30 tablet 09/28/20 10/16/20 Unknown Rx carvediloL [Coreg] 25 mg PO BID #60 tablet 09/28/20 10/16/20 Unknown Rx cloNIDine [Catapres] 0.3 mg PO Q8HR #270 tablet 09/28/20 10/16/20 Unknown Rx dilTIAZem CD [Cardizem CD] 360 mg PO QDAY #60 capsule 09/28/20 10/16/20 Unknown Rx ALPRAZolam [Xanax TAB] 0.25 mg PO BID PRN 10/16/20 10/16/20 Unknown History Acetaminophen [Tylenol] 500 mg PO Q6HR 10/16/20 10/16/20 Unknown History Folic Acid/Vit B Complex and C 0.8 mg PO QDAY 10/16/20 10/16/20 Unknown History [Renal Vitamin Tablet] Pantoprazole [Protonix] 40 mg PO QDAY 10/16/20 10/16/20 Unknown History clonazePAM [ Klonopin] 0.5 mg PO BID PRN 10/16/20 10/16/20 Unknown History hydrALAZINE [Apresoline TAB] 25 mg PO QID 10/16/20 10/16/20 Unknown History traMADoL [Ultram] 50 mg PO Q6HR PRN 10/16/20 10/16/20 Unknown History Active Medications: Generic Name Dose Route Start Last Admin Trade Name Freq PRN Reason Stop Dose Admin Acetaminophen 650 mg 10/16/20 08:32 10/23/20 14:37 Tylenol PO 650 mg Q4H PRN Administration Pain MILD(1-3)/Fever >100.5/SAUCEDO Hydrocodone Bitart/Acetaminophen 1 each 10/17/20 09:23 10/26/20 06:39 [place] 5/325 PO 1 each Q4H PRN Administration Pain, Moderate (4-6) Alprazolam 0.25 mg 10/16/20 08:24 10/26/20 00:27 Xanax PO 0.25 mg BID PRN Administration Anxiety Buspirone HCl 10 mg 10/16/20 14:00 10/26/20 06:38 Buspar PO 10 mg Q8HR SUSU Administration Carvedilol 25 mg 10/16/20 10:00 10/25/20 22:28 Coreg PO 25 mg BID SUSU Administration Citalopram Hydrobromide 20 mg 10/16/20 10:00 10/25/20 09:37 Celexa PO 20 mg QDAY SUSU Administration Clonazepam 0.5 mg 10/16/20 08:24 10/23/20 15:15 Klonopin PO 0.5 mg BID PRN Administration Anxiety UNRELIEVED XANAX Clonidine HCl 0.3 mg 10/16/20 09:00 10/26/20 06:40 Catapres PO 0.3 mg Q8HR SUSU Administration Diltiazem HCl 360 mg 10/16/20 10:00 10/25/20 09:38 Cardizem Cd PO 360 mg QDAY SUSU Administration Ergocalciferol 50,000 unit 10/16/20 10:00 10/23/20 14:35 Vitamin D2 PO 50,000 unit Mo@1000 SUSU Administration Furosemide 80 mg 10/16/20 10:00 10/25/20 09:37 Lasix PO 80 mg QDAY SUSU Administration Hydralazine HCl 10 mg 10/17/20 09:32 Apresoline IV Q4HR PRN Hypertension Hydralazine HCl 50 mg 10/17/20 10:00 10/25/20 22:28 Apresoline PO 50 mg QID SUSU Administration Sodium Chloride 100 mls @ 999 mls/hr 10/16/20 09:10 Nacl 0.9% IV BRENNA PRN Hypotension Metoprolol Tartrate 5 mg 10/16/20 11:22 10/17/20 00:48 Metoprolol IV 5 mg Q6HR PRN Administration Hypertension Morphine Sulfate 2 mg 10/16/20 08:23 10/25/20 22:29 Morphine IV 2 mg Q4H PRN Administration Pain , Severe (7-10) Multivit/Ca Carb/B Cmplx/FA/Prenat 1 cap 10/16/20 10:00 10/25/20 09:37 Renal Caps PO 1 cap QDAY SUSU Administration Ondansetron HCl 4 mg 10/16/20 08:32 Zofran IV Q8H PRN Nausea And Vomiting Pantoprazole Sodium 40 mg 10/18/20 16:30 10/25/20 18:47 Protonix PO 40 mg BIDAC SUSU Administration Sevelamer Carbonate 1,600 mg 10/16/20 12:00 10/25/20 18:47 Renvela PO Not Given TIDWM SUSU Sodium Chloride 10 ml 10/16/20 10:00 10/25/20 22:31 Sodium Chloride Flush Syringe 10 Ml IV 10 ml BID SUSU Administration Sodium Chloride 10 ml 10/16/20 08:32 Sodium Chloride Flush Syringe 10 Ml IV PRN PRN LINE FLUSH HEART Score - HEART Score EKG: Normal Age: 45-65 Risk factors: 1-2 risk factors - Critical Actions Critical Actions: 0-3 pts:0.9-1.7%risk of adverse cardiac event.Candidate for discharge
[2020-10-26] MEDS: hydrALAZINE 25 MG TAB PO SCH ×2 (10:00→13:30)
[2020-10-26] MEDS: CITALOPRAM 20 MG TAB PO SCH (10:01)
[2020-10-26] MEDS: carvediloL 25 MG TAB PO SCH (10:01)
[2020-10-26] MEDS: FUROSEMIDE 40 MG TAB PO SCH (10:02)
[2020-10-26] MEDS: SEVELAMER CARBONATE 800 MG TAB PO SCH ×2 (10:02→13:28)
[2020-10-26] MEDS: FOLIC ACID/VIT B COMP W-C 1 MG (RENAL CAPS) PO SCH (10:02)
[2020-10-26] MEDS: PANTOPRAZOLE 40 MG TAB PO SCH ×2 (10:02→15:44)
[2020-10-26] MEDS: MORPHINE 2 MG/1 ML INJ IV PRN (10:10)
--- NOTE | 2020-10-26 12:59 | Discharge Summary ---
Providers - Providers Date of Admission: 10/18/20 08:06 Attending physician: ESTHER TELLEZ MD 10/16/20 05:45 Consult to Physician [CONS] Routine Comment: Dr. Stein spoke with Dr. Conrad @ 0554 Consulting Provider: TENZIN CONRAD Physician Instructions: Reason For Exam: internal hernia, abdominal pain 10/16/20 05:46 Consult to Physician [CONS] Routine Comment: Consulting Provider: VIOLETTE GERMAN Physician Instructions: Reason For Exam: ESRD needing dialysis 10/18/20 12:52 Consult to Physician [CONS] Routine Comment: Consulting Provider: RYLIE BARBA Physician Instructions: Reason For Exam: ABDOMINAL PAIN- ?ISCHEMIC MESENTRY 10/23/20 11:37 Consult to Physician [CONS] Routine Comment: Consulting Provider: MORENITA MARTIN Physician Instructions: Reason For Exam: Angiomylipoma with some bleed and with small throm Primary care physician: COMPUTERIZED TABLE CUTTER Hospitalization Reason for admission: aml Condition: Stable Hospital course: Patient is a 65-year-old -[place] female with history of end-stage renal disease on hemodialysis Friday and Friday, hypertension, paroxysmal atrial fibrillation, type 2 diabetes and status post AICD placement, presents to the ED with complaints of generalized abdominal pain for the past 3 weeks. Pain is constant and progressive. Also complains of nausea, vomiting and diarrhea for the past few days and for the past couple of days she has lost smell and has been having fever and chills and associated with body aches and generalized weakness. She denies any chest pain or shortness of breath or cough. CT of the abdomen and pelvis showed internal hernia with mesenteric stranding and questionable right upper pole renal mass. General surgery was consulted. Patient is being admitted for further evaluation of her abdominal pain. Apparently patient's was exposed to someone who was positive for Covid 19 virus Diffuse abdominal pain for 3 weeks Nausea vomiting and diarrhea for few days Loss of smell , fever and chills and body aches for the past 2 to 3 days History of present illness: Etiology of patient's pain was not an internal hernia as suggested by CT scan A/P. Pain possibly from adhesions vs other etiology such as mesenteric ischemia. There are calcifications at the takeoff of the celiac artery and SMA on CT without contrast. Recommend CTA abd/pelvis if ok with nephro to evaluate abdominal vasculature. Patient is s/p Diagnostic laparoscopy, lysis of adhesions, POD 1 1. Diffuse adhesions from the omentum, small bowel, stomach, and liver to the anterior abominal wall. 2. Tiny umbilical hernia containing fat 3. Small bowel nondistended 4. No internal hernia 10/18: Patient continues to have abdominal pain. Awaiting Doppler of the abdomen. Will obtain vascular consultation to evaluate for any ischemic mesentery. We will also continue to monitor and evaluate pain. Anticipate discharge in a.m. if no further intervention if pain is improving. Kayexalate given for hyperkalemia 10/19: AWAITING CT abd, US shows no significant thrombosis, Vascular input noted. R-evaluate in am, still on pain control 10/20: Patient clinically stable, still awaiting imaging study to further evaluate abdominal pain that has persisted despite lysis adhesion. Unfortunately unable to obtain prior to dialysis today and will plan for Friday. continue judicious pain control 10/21: Continue supportive care. Disposition based on Imaging study from am and pain control 10/22: Awaiting CT abdomen and pelvis to make further assumptions. Continue current med management, if no further intervention, will discharge in am. 10/23: Imaging studies today revealed an angiolipoma with retroperitoneal hemorrhage. Which although is read as decreasing. But on nevertheless there is also a nonocclusive thrombus which poses a management dilemma. Will consult hematology. Have already discussed with vascular and based on hematology recommendation will anticipate if this patient can be discharged today with the recommended management and follow-up outpatient. 10/24 patient is alert and oriented, complains of left mid abdominal and flank pain and lower back pain. She denies any fever or chills. Denies chest pain or shortness of breath. All interdisciplinary notes reviewed. 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 Hematology note reviewed and recommends left nephrectomy. At this time patient is not on any antiplatelet or anticoagulation Lab results reviewed (1) Abdominal pain PRESUMED SECONDARY to bleeding into the left kidney from angiomyolipoma Current Visit: Yes Status: Acute Qualifiers: Abdominal location: generalized Qualified Code(s): R10.84 - Generalized abdominal pain Continue supportive care. Status post Laparscopy lysis of adhesion S/p embolization of the left kidney by Dr. Barba (2) Hypertensive emergency Current Visit: Yes Status: Acute Resolved and well controlled at this time Patient was severely hypertensive with a BP systolic of 222/147 Likely secondary to volume overload Patient is on multiple medications (3) Hyperkalemia Current Visit: Yes Status: Acute Plan to address problem: Improved Secondary to patient not having had dialysis for 1 week (4) Anemia of chronic disease H&H stable (5)ESRD needing dialysis Current Visit: Yes Status: Chronic Plan to address problem: Nephrology following Continue management per nephrology recommendations 6.AML left kidney For possibly elective left nephrectomy per recommendations of hematology oncology Discussed with patient and she needs outpatient follow-up with urology Patient can be discharged tomorrow if she remains afebrile 10/26: Patient today is clinically stable, Discussed clinical findings and future management, I also sent her referral to Disposition: [id number]/TX-06 HOME UNDER HOME [facility] Time spent for discharge: 35 mins Core Measure Documentation - Palliative Care Palliative Care/ Comfort Measures: Not Applicable - Core Measures Any of the following diagnoses?: none Exam - Physical Exam Narrative exam: General appearance: Present: calm well-nourished - EENT Eyes: Present: PERRL, EOM intact ENT: hearing intact, clear oral mucosa - Respiratory Respiratory effort: normal Respiratory: bilateral: CTA, negative: rales, rhonchi - Cardiovascular Rhythm: regular Heart Sounds: Present: S1 & S2 - Extremities Extremities: No edema - Abdominal General gastrointestinal: Present: soft, tender AT SURGICAL SITE,OTHERWISE CLEAN AND INTACT non-distended. Absent: hepatomegaly, splenomegaly Female genitourinary: Present: deferred - Rectal Rectal Exam: deferred - Integumentary Integumentary: Present: clear, warm, dry - Musculoskeletal Musculoskeletal: strength equal bilaterally - Psychiatric Psychiatric: appropriate mood/affect - Neurologic Neurologic: no focal deficits, moves all extremities - Constitutional Vitals: Temp Pulse Resp BP Pulse Ox 98.7 F 74 16 113/65 99 10/26/20 09:59 10/26/20 09:59 10/26/20 09:59 10/26/20 10:01 10/26/20 09:59 Plan Activity: advance as tolerated, fall precautions Diet: low fat, renal Special Instructions: restrict fluid intake to (1000cc/day), record daily carola ghts, record daily BP diary Follow up with: LADARIUS KURTZ MD [Primary Care Provider] - 3-5 Days SEBAS LOYA MD [Staff Physician] - 7 Days RYLIE BARBA MD [Staff Physician] - 14 Days HAY JALLOH MD [Staff Physician] - 7 Days Prescriptions: hydrALAZINE [Apresoline TAB] 50 mg PO QID #90 tablet HYDROcodone/APAP 5-325 [[place] 5-325 mg TAB] 1 each PO Q6HR PRN #20 tab PRN Reason: Pain Pantoprazole [Protonix TAB] 40 mg PO DAILY #30 tablet Ondansetron [Zofran Odt] 4 mg PO Q8HR #30 tab.lake
--- NOTE | 2020-10-26 13:04 | Progress Note ---
Assessment and Plan This is a 65 year old woman with ESRD who presented with abdominal pain. # ESRD: urgent HD 10/16 for hyperkalemia, acidosis, volume, now with controlled electrolytes and volume status. - Continue HD MWF - daily labs - renally dose meds - avoid nephrotoxins - renal diet # Anemia: Hold SHAWNA in the setting of thrombus. # Hyperkalemia: Controlled with HD. Low potassium diet. # Acidosis: controlled with HD. # HTN: UF as tolerated. BP now stable # Secondary Hyperparathyroidism: continue home binders as needed # Left renal AML with bleed : S/p embolization. Hematology recommending nephrectomy. F/u with urology. # Small non-occlusive IVC thrombus, associated with femoral catheter. Hematology following. Vein mapping pending for access placement. Subjective Date of service: 10/26/20 Principal diagnosis: Abdominal pain Interval history: Reviewed vitals, input and output and interdisciplinary notes She is experiencing some postprocedural abdominal pain Objective - Exam Narrative Exam: Constitutional: No acute distress Head: Normocephalic/atraumatic Neck: Supple Lungs: Clear to auscultation bilaterally Cardiovascular: RRR, no M/R/G Abdomen: Soft, nontender, NABS Back, nontender Extremities: No edema, pulses within normal limits Skin: Intact, no rash Neuro: Alert and oriented 3, no focal deficits Access: right femoral catheter - Vital Signs Vital signs: Vital Signs - 12hr 10/26/20 10/26/20 10/26/20 06:39 09:59 10:00 Temperature 98.7 F Pulse Rate 74 Respiratory 18 16 Rate Blood Pressure 113/65 113/65 O2 Sat by Pulse 99 Oximetry 10/26/20 10:01 Temperature Pulse Rate Respiratory Rate Blood Pressure 113/65 O2 Sat by Pulse Oximetry - Lab 10/25/20 04:47 10/23/20 17:12 Most recent lab results Calcium 9.1 mg/dL (8.4-10.2) 10/23/20 17:12 Medications & Allergies - Medications Allergies/Adverse Reactions: Allergies No Known Allergies Allergy (Unverified 09/04/13 07:18) Home Medications: Home Medications Medication Instructions Recorded Confirmed Last Taken Type Ergocalciferol (Vitamin D2) 50,000 unit PO DAILY 09/25/20 10/16/20 Unknown History [Drisdol] HYDROcodone/APAP 5-325 [[place] 1 each PO Q6HR PRN 09/25/20 10/16/20 Unknown History 5-325 mg TAB] Sevelamer Carbonate [Renvela] 1,600 mg PO TID 09/25/20 10/16/20 Unknown History busPIRone [Buspar] 10 mg PO Q8HR 09/25/20 10/16/20 Unknown History Citalopram [Celexa] 20 mg PO QDAY #30 tab 09/28/20 10/16/20 Unknown Rx Furosemide [Lasix TAB] 80 mg PO QDAY #30 tablet 09/28/20 10/16/20 Unknown Rx carvediloL [Coreg] 25 mg PO BID #60 tablet 09/28/20 10/16/20 Unknown Rx cloNIDine [Catapres] 0.3 mg PO Q8HR #270 tablet 09/28/20 10/16/20 Unknown Rx dilTIAZem CD [Cardizem CD] 360 mg PO QDAY #60 capsule 09/28/20 10/16/20 Unknown Rx ALPRAZolam [Xanax TAB] 0.25 mg PO BID PRN 10/16/20 10/16/20 Unknown History Acetaminophen [Tylenol] 500 mg PO Q6HR 10/16/20 10/16/20 Unknown History Folic Acid/Vit B Complex and C 0.8 mg PO QDAY 10/16/20 10/16/20 Unknown History [Renal Vitamin Tablet] Pantoprazole [Protonix] 40 mg PO QDAY 10/16/20 10/16/20 Unknown History clonazePAM [ Klonopin] 0.5 mg PO BID PRN 10/16/20 10/16/20 Unknown History hydrALAZINE [Apresoline TAB] 25 mg PO QID 10/16/20 10/16/20 Unknown History traMADoL [Ultram] 50 mg PO Q6HR PRN 10/16/20 10/16/20 Unknown History Active Medications: Generic Name Dose Route Start Last Admin Trade Name Freq PRN Reason Stop Dose Admin Acetaminophen 650 mg 10/16/20 08:32 10/23/20 14:37 Tylenol PO 650 mg Q4H PRN Administration Pain MILD(1-3)/Fever >100.5/SAUCEDO Hydrocodone Bitart/Acetaminophen 1 each 10/17/20 09:23 10/26/20 06:39 [place] 5/325 PO 1 each Q4H PRN Administration Pain, Moderate (4-6) Alprazolam 0.25 mg 10/16/20 08:24 10/26/20 00:27 Xanax PO 0.25 mg BID PRN Administration Anxiety Buspirone HCl 10 mg 10/16/20 14:00 10/26/20 06:38 Buspar PO 10 mg Q8HR SUSU Administration Carvedilol 25 mg 10/16/20 10:00 10/26/20 10:01 Coreg PO 25 mg BID SUSU Administration Citalopram Hydrobromide 20 mg 10/16/20 10:00 10/26/20 10:01 Celexa PO 20 mg QDAY SUSU Administration Clonazepam 0.5 mg 10/16/20 08:24 10/23/20 15:15 Klonopin PO 0.5 mg BID PRN Administration Anxiety UNRELIEVED XANAX Clonidine HCl 0.3 mg 10/16/20 09:00 10/26/20 06:40 Catapres PO 0.3 mg Q8HR SUSU Administration Diltiazem HCl 360 mg 10/16/20 10:00 10/25/20 09:38 Cardizem Cd PO 360 mg QDAY SUSU Administration Ergocalciferol 50,000 unit 10/16/20 10:00 10/23/20 14:35 Vitamin D2 PO 50,000 unit Mo@1000 SUSU Administration Furosemide 80 mg 10/16/20 10:00 10/26/20 10:02 Lasix PO 80 mg QDAY SUSU Administration Hydralazine HCl 10 mg 10/17/20 09:32 Apresoline IV Q4HR PRN Hypertension Hydralazine HCl 50 mg 10/17/20 10:00 10/26/20 10:00 Apresoline PO 50 mg QID SUSU Administration Sodium Chloride 100 mls @ 999 mls/hr 10/16/20 09:10 Nacl 0.9% IV BRENNA PRN Hypotension Metoprolol Tartrate 5 mg 10/16/20 11:22 10/17/20 00:48 Metoprolol IV 5 mg Q6HR PRN Administration Hypertension Morphine Sulfate 2 mg 10/16/20 08:23 10/26/20 10:10 Morphine IV 2 mg Q4H PRN Administration Pain , Severe (7-10) Multivit/Ca Carb/B Cmplx/FA/Prenat 1 cap 10/16/20 10:00 10/26/20 10:02 Renal Caps PO 1 cap QDAY SUSU Administration Ondansetron HCl 4 mg 10/16/20 08:32 Zofran IV Q8H PRN Nausea And Vomiting Pantoprazole Sodium 40 mg 10/18/20 16:30 10/26/20 10:02 Protonix PO 40 mg BIDAC SUSU Administration Sevelamer Carbonate 1,600 mg 10/16/20 12:00 10/26/20 10:02 Renvela PO 1,600 mg TIDWM SUSU Administration Sodium Chloride 10 ml 10/16/20 10:00 10/26/20 10:03 Sodium Chloride Flush Syringe 10 Ml IV 10 ml BID SUSU Administration Sodium Chloride 10 ml 10/16/20 08:32 Sodium Chloride Flush Syringe 10 Ml IV PRN PRN LINE FLUSH
[2020-10-26] MEDS: dilTIAZem CD 180 MG CAP PO SCH (13:31)
[2020-10-26 13:33] VITALS: BP 117/71
[2020-10-28 13:09] LABS: Heparin-Induced Platelet Antib Negative (Negative); Unfractionated Heparin Negative (Negative)
== END 2020-10-26 16:30 | disposition home or self-care (01) | DRG 673 ==
LOC: ED 21:09 → 3A 10-16 06:04 → OBSVTOIN 10-18 08:06 → 3A 10-21 18:46
PROVIDERS: ADMIT Internal Medicine Geriatric Medicine; ATTEND Internal Medicine
PROC: 0DNU4ZZ Release Omentum, Percutaneous Endoscopic Approach (ICD-10-PCS; principal; 2020-10-16)
PROC: 0DN84ZZ Release Small Intestine, Percutaneous Endoscopic Approach (ICD-10-PCS; 2020-10-16)
PROC: 0DN64ZZ Release Stomach, Percutaneous Endoscopic Approach (ICD-10-PCS; 2020-10-16)
PROC: 5A1D70Z Performance of Urinary Filtration, Intermittent, Less than 6 Hours Per Day (ICD-10-PCS; 2020-10-20)
PROC: 5A1D70Z Performance of Urinary Filtration, Intermittent, Less than 6 Hours Per Day (ICD-10-PCS; 2020-10-23)
PROC: 04LA3DZ Occlusion of Left Renal Artery with Intraluminal Device, Percutaneous Approach (ICD-10-PCS; 2020-10-24)
PROC: B44GZZZ Ultrasonography of Left Lower Extremity Arteries (ICD-10-PCS; 2020-10-24)
PROC: B4101ZZ Fluoroscopy of Abdominal Aorta using Low Osmolar Contrast (ICD-10-PCS; 2020-10-24)
PROC: B4141ZZ Fluoroscopy of Superior Mesenteric Artery using Low Osmolar Contrast (ICD-10-PCS; 2020-10-24)
PROC: B4171ZZ Fluoroscopy of Left Renal Artery using Low Osmolar Contrast (ICD-10-PCS; 2020-10-24)
PROC: B4191ZZ Fluoroscopy of Lumbar Arteries using Low Osmolar Contrast (ICD-10-PCS; 2020-10-24)
PROC: B41G1ZZ Fluoroscopy of Left Lower Extremity Arteries using Low Osmolar Contrast (ICD-10-PCS; 2020-10-24)
PROC: B4151ZZ Fluoroscopy of Inferior Mesenteric Artery using Low Osmolar Contrast (ICD-10-PCS; 2020-10-24)
PROC: 5A1D70Z Performance of Urinary Filtration, Intermittent, Less than 6 Hours Per Day (ICD-10-PCS; 2020-10-25)
DX: D17.71 Benign lipomatous neoplasm of kidney (principal); N18.6 End stage renal disease; I82.220 Acute embolism and thrombosis of inferior vena cava; I16.1 Hypertensive emergency; I12.0 Hypertensive chronic kidney disease with stage 5 chronic kidney disease or end stage renal disease; N25.81 Secondary hyperparathyroidism of renal origin; E87.2 Acidosis; E87.5 Hyperkalemia; E11.22 Type 2 diabetes mellitus with diabetic chronic kidney disease; Z99.2 Dependence on renal dialysis; Z90.49 Acquired absence of other specified parts of digestive tract; Z90.710 Acquired absence of both cervix and uterus; Z91.19 Patient's noncompliance with other medical treatment and regimen; K42.9 Umbilical hernia without obstruction or gangrene; I48.0 Paroxysmal atrial fibrillation; K21.9 Gastro-esophageal reflux disease without esophagitis; D64.9 Anemia, unspecified; Z20.828 Contact with and (suspected) exposure to other viral communicable diseases
CPT/HCPCS: 36253; 36415; 37243; 74022; 74174; 74176; 75710; 75726; 80048; 80053; 82140; 82962; 85025; 85027; 85384; 85610; 85730; 86022; 93005; 93970; 93979; 94760; 96374; G0378; C1760; C1769; C1887; C9113; J0330; J0360; J0690; J1170; J1644; J2250; J2270; J2370; J2405; J2704; J2710; J3010; J3490; J7030; J7040; Q9967; U0003

== ENCOUNTER 2021-02-19 18:29 | Inpatient (IN) | payer MEDICARE ==
[2021-02-19] MEDS ORDERED: MORPHINE 4 MG/1 ML INJ IV ONE (20:37)
[2021-02-19] MEDS ORDERED: ONDANSETRON 4 MG/2 ML INJ IV ONE (20:37)
--- NOTE | 2021-02-19 20:43 | Emergency Department Report ---
HPI - General Chief Complaint: High BP Time Seen by Provider: 02/19/21 20:25 - HPI HPI: This is a 65-year-old -[place] female presents to the emergency department from a local [place] facility with complaint of headache and elevated/uncontrolled blood pressure. The patient also tells me that she has some generalized chest pain that started just prior to presentation. The reports that the patient has been slightly confused and she does appear slightly confused here as well. She thinks she is at a different hospital and thinks the year is 2024. Patient missed her dialysis today and is on hemodialysis on Friday/Friday/Friday she has a past medical history of diabetes, hypertension, questionable paroxysmal A. fib, and hemodialysis on Friday/Friday/Friday. Her studio potter is a Dr. Pelaez. It is unknown whether the patient took her medications today prior to presentation. The headache is currently 8 out of 10 in intensity and is frontal. She denies any vision change, slurred speech, numbness or paresthesias or any other neurological deficits. Her vascular access is in the right groin. ED Past Medical Hx - Past Medical History Previous Medical History?: Yes Hx Hypertension: Yes (ADMITTED WITH HYPERTENSIVE EMERGENCY) Hx Heart Attack/AMI: No Hx Congestive Heart Failure: No Hx Diabetes: Yes Hx Renal Disease: Yes (Dialysis: M-W-F) Hx Asthma: No Hx COPD: No Hx Tuberculosis: Yes Hx HIV: No Additional medical history: Possible atrial fib. Hernia right Inguinal - Surgical History Past Surgical History?: Yes Hx Pacemaker: Yes Hx Internal Defibrillator: Yes Hx Cholecystectomy: Yes Hx Appendectomy: Yes Additional Surgical History: Hysterectomy - Social History Smoking Status: Never Smoker - Medications Home Medications: Home Medications Medication Instructions Recorded Confirmed Last Taken Type Ergocalciferol (Vitamin D2) 50,000 unit PO DAILY 09/25/20 10/16/20 Unknown History [Drisdol] Sevelamer Carbonate [Renvela] 1,600 mg PO TID 09/25/20 10/16/20 Unknown History busPIRone [Buspar] 10 mg PO Q8HR 09/25/20 10/16/20 Unknown History Citalopram [Celexa] 20 mg PO QDAY #30 tab 09/28/20 10/16/20 Unknown Rx Furosemide [Lasix TAB] 80 mg PO QDAY #30 tablet 09/28/20 10/16/20 Unknown Rx carvediloL [Coreg] 25 mg PO BID #60 tablet 09/28/20 10/16/20 Unknown Rx cloNIDine [Catapres] 0.3 mg PO Q8HR #270 tablet 09/28/20 10/16/20 Unknown Rx dilTIAZem CD [Cardizem CD] 360 mg PO QDAY #60 capsule 09/28/20 10/16/20 Unknown Rx ALPRAZolam [Xanax TAB] 0.25 mg PO BID PRN 10/16/20 10/16/20 Unknown History Acetaminophen [Acetaminophen TAB] 500 mg PO Q6HR 10/16/20 10/16/20 Unknown History Folic Acid/Vit B Complex and C 0.8 mg PO QDAY 10/16/20 10/16/20 Unknown History [Renal Vitamin Tablet] clonazePAM [KlonoPIN] 0.5 mg PO BID PRN 10/16/20 10/16/20 Unknown History HYDROcodone/APAP 5-325 [[place] 1 each PO Q6HR PRN #20 tab 10/26/20 Unknown Rx 5-325 mg TAB] Ondansetron [Zofran Odt] 4 mg PO Q8HR #30 tab.rapdis 10/26/20 Unknown Rx Pantoprazole [Protonix TAB] 40 mg PO DAILY #30 tablet 10/26/20 Unknown Rx hydrALAZINE [Apresoline TAB] 50 mg PO QID #90 tablet 10/26/20 Unknown Rx ED Review of Systems ROS: Stated complaint: HTN Other details as noted in HPI Comment: All other systems reviewed and negative Constitutional: denies: chills, fever Eyes: denies: eye pain, vision change ENT: denies: ear pain, throat pain Respiratory: denies: cough, orthopnea Cardiovascular: chest pain. denies: palpitations Gastrointestinal: denies: abdominal pain, vomiting Genitourinary: denies: dysuria, discharge Musculoskeletal: denies: back pain, arthralgia Skin: denies: rash, lesions Neurological: headache. denies: numbness, paresthesias Physical Exam - Physical Exam Vital Signs: Vital Signs 02/19/21 02/19/21 20:11 20:14 Temperature 98.6 F Pulse Rate 112 H Respiratory 20 20 Rate Blood Pressure 246/161 O2 Sat by Pulse 97 97 Oximetry Physical Exam: GENERAL: The patient is well-developed well-nourished. HENT: Normocephalic. Atraumatic. Patient has moist mucous membranes. EYES: Extraocular motions are intact. Pupils equal reactive to light bilaterally. NECK: Supple. Trachea is midline. CHEST/LUNGS: Coarse breath sounds. Mild tachypnea but no accessory muscle use. HEART/CARDIOVASCULAR: Regular. There is no tachycardia. There is no murmur. ABDOMEN: Abdomen is soft, nontender. Patient has normal bowel sounds. There is no abdominal distention. SKIN: Skin is warm and dry. NEURO: The patient is awake, alert, and cooperative. The patient has no focal n eurologic deficits. Normal speech. No facial asymmetry. Cranial nerves II through XII grossly intact. MUSCULOSKELETAL: There is no tenderness or deformity. There is no limitation range of motion. ED Course Vital Signs 02/19/21 02/19/21 20:11 20:14 Temperature 98.6 F Pulse Rate 112 H Respiratory 20 20 Rate Blood Pressure 246/161 O2 Sat by Pulse 97 97 Oximetry - Consultations Consultation #1: 02/19/21 22:[address] Littlejohn at the [place] emergency hub and we were given permission to keep the patient for admission at our hospital. Consultation #2: 02/19/21 23:02 I spoke to the studio potter on-call, Dr. Hodge, who agrees that the patient does not appear to need emergent dialysis this evening and he is happy to consult on the patient. ED Medical Decision Making - Lab Data Result diagrams: 02/19/21 20:42 02/19/21 20:42 Lab Results 02/19/21 02/19/21 02/19/21 Range/Units 20:42 20:42 20:42 WBC 8.2 (4.5-11.0) K/mm3 RBC 5.03 (3.65-5.03) M/mm3 Hgb 14.7 H (10.1-14.3) gm/dl Hct 45.4 H (30.3-42.9) % MCV 90 (79-97) fl MCH 29 (28-32) pg MCHC 32 (30-34) % RDW 18.5 H (13.2-15.2) % Plt Count 403 (140-440) K/mm3 Lymph % (Auto) 13.5 (13.4-35.0) % [place] % (Auto) 7.1 (0.0-7.3) % Eos % (Auto) 0.4 (0.0-4.3) % Baso % (Auto) 0.7 (0.0-1.8) % Lymph # (Auto) 1.1 L (1.2-5.4) K/mm3 [place] # (Auto) 0.6 (0.0-0.8) K/mm3 Eos # (Auto) 0.0 (0.0-0.4) K/mm3 Baso # (Auto) 0.1 (0.0-0.1) K/mm3 Seg Neutrophils % 78.3 H (40.0-70.0) % Seg Neutrophils # 6.4 (1.8-7.7) K/mm3 PT 14.7 (12.2-14.9) Sec. INR 1.15 H (0.87-1.13) APTT 31.4 (24.2-36.6) Sec. Sodium 143 (137-145) mmol/L Potassium 4.2 (3.6-5.0) mmol/L Chloride 100.8 (98-107) mmol/L Carbon Dioxide 19 L (22-30) mmol/L Anion Gap 27 mmol/L BUN 40 H (7-17) mg/dL Creatinine 9.8 H (0.6-1.2) mg/dL Estimated GFR 5 ml/min BUN/Creatinine Ratio 4 % Glucose 100 (65-100) mg/dL Calcium 9.6 (8.4-10.2) mg/dL Total Bilirubin 0.60 (0.1-1.2) mg/dL AST 32 (5-40) units/L ALT 16 (7-56) units/L Alkaline Phosphatase 125 (35-129) units/L Troponin T 0.184 H* (0.00-0.029) ng/mL NT-Pro-B Natriuret Pep > 68936 H (0-900) pg/mL Total Protein 6.9 (6.3-8.2) g/dL Albumin 4.1 (3.9-5) g/dL Albumin/Globulin Ratio 1.5 % Triglycerides 85 (2-149) mg/dL Cholesterol 149 (50-199) mg/dL LDL Cholesterol Direct 63 (50-130) mg/dL HDL Cholesterol 66 H (40-59) mg/dL Cholesterol/HDL Ratio 2.25 % - EKG Data -: EKG Interpreted by Me EKG shows normal: sinus rhythm (PACs), axis, intervals (Prolonged QTC), QRS complexes (Right bundle branch block), ST-T waves Rate: normal - EKG Data When compared to previous EKG there are: no significant change Interpretation: unchanged when compared t (10/24/20) - Radiology Data Radiology results: image reviewed interpreted by me: Chest x-ray shows moderate to severe cardiomegaly. There is some pulmonary vascular congestion. No pleural effusions or obvious pneumonia. No pneumothorax. Abdominal x-ray shows nonspecific nonobstructive bowel gas - Medical Decision Making This patient came over from a [facility] facility with the complaint of a frontal headache, some generalized chest discomfort and she presents with extremely elevated blood pressure. On examination she does not have any focal, motor or sensory deficits and her cranial nerves are intact. Initially, during triage, the patient said that it was 2024 and there was concern for altered mental status. However, during a reexamination, the patient is able to accurately give the date and answer other orientation questions. She had a CT scan of the head without contrast that did not show any bleed, shift, mass, ischemia, or any other acute process. Chest x-ray shows cardiomegaly and some pulmonary vascular congestion but otherwise no pleural effusions, pneumonia or pneumothorax. The patient also complained of some abdominal pain so an abdominal x-ray was completed that shows nonobstructive nonspecific bowel gas, and no free air. The patient initially had a blood pressure with a systolic of about 260. She was given 20 mg of labetalol and later 10 mg of hydralazine and her blood pressure came down to about a systolic of 210. She was also given some IV jodi lgesia and IV antiemetics. The patient's labs shows renal insufficiency consistent with her end-stage renal disease but there is no hyperkalemia. The patient has an elevated troponin level of 0.161. With her complaint of chest pain this is concerning for possible NSTEMI, but it also might be elevated secondary to her chronic kidney failure. I spoke to a [facility] physician who gave us permission to admit the patient to [facility]. The patient was accepted for admission by the hospitalist, Dr. Garrett. Critical Care Time: Yes Critical care time in (mins) excluding proc time.: 35 Critical care attestation.: If time is entered above; I have spent that time in minutes in the direct care of this critically ill patient, excluding procedure time. Critical care time was spent on this patient in doing her initial evaluation, multiple reevaluations, ordering and interpretation of labs and imaging, multiple IV a ntihypertensive medication for her hypertensive emergency, IV analgesia, discussion with the [facility] physician, multiple discussions with the patient. Critical Care Time: 35 minutes ED Disposition Clinical Impression: ESRD needing dialysis, Acute chest pain, Elevated troponin level, Missed dialysis, Hypertensive emergency Disposition: DC-09 OP ADMIT IP TO THIS HOSP Is pt being admited?: Yes Condition: Serious Time of Disposition: 23:03
[2021-02-19 20:56] LABS: Basophils # (Auto) 0.1 K/mm3 (0.0-0.1); Basophils % (Auto) 0.7 % (0.0-1.8); Eosinophils % (Auto) 0.4 % (0.0-4.3); Hematocrit 45.4 % (30.3-42.9); Hemoglobin 14.7 gm/dl (10.1-14.3); Lymphocytes # (Auto) 1.1 K/mm3 (1.2-5.4); Lymphocytes % (Auto) 13.5 % (13.4-35.0); Mean Corpuscular HGB Conc 32 % (30-34); Mean Corpuscular Volume 90 fl (79-97); Monocytes # (Auto) 0.6 K/mm3 (0.0-0.8); Monocytes % (Auto) 7.1 % (0.0-7.3); Platelet Count 403 K/mm3 (140-440); Red Blood Count 5.03 M/mm3 (3.65-5.03); Red Cell Distribution Width 18.5 % (13.2-15.2)
[2021-02-19 21:11] LABS: INR 1.15 (0.87-1.13)
[2021-02-19 21:12] LABS: Partial Thromboplastin Time 31.4 Sec. (24.2-36.6)
[2021-02-19 21:23] LABS: Alanine Aminotransferase 16 units/L (7-56); Albumin 4.1 g/dL (3.9-5); Blood Urea Nitrogen 40 mg/dL (7-17); Calcium 9.6 mg/dL (8.4-10.2); Hemolysis Index 59
[2021-02-19 21:24] LABS: BUN/Creatinine Ratio 4
--- NOTE | 2021-02-19 21:32 | XRay Report ---
CHEST 1 VIEW 02/19/2021 8:39 PM INDICATION / CLINICAL INFORMATION: CP. COMPARISON: 10/16/2020. FINDINGS: SUPPORT DEVICES: Femoral catheter with lead terminating over the right atrium in stable position. HEART / MEDIASTINUM: Stable. Left chest wall cardiac device with stable lead placement. LUNGS / PLEURA: No significant pulmonary or pleural abnormality. No pneumothorax. ADDITIONAL FINDINGS: Interval placement of embolic coil material in the left upper quadrant abdomen. IMPRESSION: 1. No acute findings. 2. Interval placement of embolic coil material in the left upper quadrant abdomen. 3. Lower extremity vascular catheter in stable position. Signer Name: See Stratton MD Signed: 02/19/2021 9:28 PM Workstation Name: [id number]
[2021-02-19 21:47] LABS: Chol/HDL Ratio 2.25 %; HDL Cholesterol 66 mg/dL (40-59); LDL Cholesterol,Direct 63 mg/dL (50-130)
--- NOTE | 2021-02-19 22:03 | XRay Report ---
ABDOMEN 3 VIEW(S) INDICATION / CLINICAL INFORMATION: Abd pain. COMPARISON: Prior chest radiograph dated 02/19/2021. FINDINGS: TUBES / LINES: Right femoral catheter in stable position with its tip noted over the right atrium. BOWEL GAS PATTERN: No significant abnormality. FREE AIR / EXTRALUMINAL GAS: None seen. ADDITIONAL FINDINGS: Embolic: Material in stable position left upper quadrant abdomen. CHEST: Cardiac enlargement with left chest wall cardiac device is stable since prior exam. No acute f indings of the chest. IMPRESSION: 1. Nonobstructive bowel gas pattern. 2. Right femoral catheter in stable position with its tip noted of the right atrium. Signer Name: See Stratton MD Signed: 02/19/2021 9:58 PM Workstation Name: [id number]
--- NOTE | 2021-02-19 22:06 | Cat Scan Report ---
CT HEAD WITHOUT CONTRAST INDICATION / CLINICAL INFORMATION: Patient complains of a headache. TECHNIQUE: All CT scans at this location are performed using CT dose reduction for ALARA by means of automated e xposure control. COMPARISON: None available. FINDINGS: HEMORRHAGE: No evidence of intracranial hemorrhage or extra-axial fluid collection. EXTRA-AXIAL SPACES: Cortical sulci, sylvian fissures and basilar cisterns have an unremarkable appear ance. VENTRICULAR SYSTEM: The third and lateral ventricles are of normal size and configuration. CEREBRAL PARENCHYMA: Periventricular and deep white matter lucency is noted in both cerebral hemisphe res consistent with moderate vascular ischemic change. A more focal area of decreased attenuation is seen in the region of the head of the caudate nucleus on the right. This likely represents a remote s mall deep infarction. MIDLINE SHIFT OR HERNIATION: There is no mass effect. CEREBELLUM / BRAINSTEM: Brainstem and cerebellum have an unremarkable appearance. MIDLINE STRUCTURES:No abnormalities of the pituitary gland or pineal region are identified. INTRACRANIAL VESSELS: Calcified atherosclerotic plaque is present along the course of the cavernous s egments of both internal carotid arteries. ORBITS: visualized portions of the orbits have an unremarkable appearance. SOFT TISSUES of HEAD: No significant abnormality. CALVARIUM: Evaluation of bone windows reveals no abnormalities. PARANASAL SINUSES / MASTOID AIR CELLS: Visualized portions of the paranasal sinuses are free from inf lammatory mucosal disease. Mastoid air cells are normally pneumatized. IMPRESSION: 1. No acute intracranial abnormality. 2. Moderate microvascular ischemic change. 3. 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 Signer Name: Kevin Wagner MD Signed: 02/19/2021 10:01 PM Workstation Name: [id number]
[2021-02-19] MEDS ORDERED: hydrALAZINE 20 MG/1 ML INJ IV ONE (22:34)
[2021-02-19] MEDS ORDERED: SODIUM CHLORIDE 0.9% 100 ML IV PRN (23:01)
[2021-02-19] MEDS ORDERED: hydrALAZINE 20 MG/1 ML INJ IV PRN (23:25)
[2021-02-19] MEDS ORDERED: ALPRAZolam 0.25 MG TAB PO PRN (23:32)
[2021-02-20] MEDS ORDERED: ALBUTEROL 2.5 MG/3 ML NEBU IH PRN (01:13)
[2021-02-20] MEDS ORDERED: ONDANSETRON 4 MG/2 ML INJ IV PRN (01:13)
[2021-02-20] MEDS ORDERED: ACETAMINOPHEN 325 MG TAB PO PRN (01:13)
[2021-02-20] MEDS ORDERED: DEXTROSE 50% IN WATER (25GM) 50 ML SYRINGE IV PRN (01:13)
--- NOTE | 2021-02-20 01:43 | History and Physical Report ---
History of Present Illness Date of examination: 02/19/21 Date of admission: 02/19/21 23:03 Chief complaint: missed HD History of present illness: 65-year-old -[place] female with history of hypertension, diabetes, end- stage renal disease on HD who presents to [facility] ED with complaints of elevated blood pressure and headache. Patient went to her local [facility] facility with complaints of headache and was found to have significantly elevated blood pressure (SBP in 200s), and was referred to ED for further evaluation and management. She complains of constant 8/10 frontal headache. Additionally, patient complains of substernal nonradiating 4/10 chest pain. Of note patient has AICD, and denies device discharges. Lastly patient complains of nonspecific intermittent 4/10 abdominal pain. Denies taking any pain medicine for her complaints today. admits to not taking her antihypertensive meds this morning. On presentation to our facility patient was found to be in hypertensive urgency with SBP in 240's. Denies slurred speech, alterations in gait, diplopia, nausea, vomiting, fever, shortness of breath, cough, hemoptysis, recent injury/fall, recent sick contacts Past History Past Medical History: diabetes, other (TB, ??A.fib, herina rt inguinal ) Past Surgical History: appendectomy, cholecystectomy, hysterectomy, Other (left renal AML embolization) Social history: , lives with family, full code. denies: smoking, alcohol abuse, prescription drug abuse, IV drug use Family history: no significant family history Medications and Allergies Allergies Allergy/AdvReac Type Severity Reaction Status Date / Time No Known Allergies Allergy Unverified 09/04/13 07:18 Home Medications Medication Instructions Recorded Confirmed Last Taken Type Ergocalciferol (Vitamin D2) 50,000 unit PO DAILY 09/25/20 10/16/20 Unknown History [Drisdol] Sevelamer Carbonate [Renvela] 1,600 mg PO TID 09/25/20 10/16/20 Unknown History busPIRone [Buspar] 10 mg PO Q8HR 09/25/20 10/16/20 Unknown History Citalopram [Celexa] 20 mg PO QDAY #30 tab 09/28/20 10/16/20 Unknown Rx Furosemide [Lasix TAB] 80 mg PO QDAY #30 tablet 09/28/20 10/16/20 Unknown Rx carvediloL [Coreg] 25 mg PO BID #60 tablet 09/28/20 10/16/20 Unknown Rx cloNIDine [Catapres] 0.3 mg PO Q8HR #270 tablet 09/28/20 10/16/20 Unknown Rx dilTIAZem CD [Cardizem CD] 360 mg PO QDAY #60 capsule 09/28/20 10/16/20 Unknown Rx ALPRAZolam [Xanax TAB] 0.25 mg PO BID PRN 10/16/20 10/16/20 Unknown History Acetaminophen [Acetaminophen TAB] 500 mg PO Q6HR 10/16/20 10/16/20 Unknown H istory Folic Acid/Vit B Complex and C 0.8 mg PO QDAY 10/16/20 10/16/20 Unknown History [Renal Vitamin Tablet] clonazePAM [KlonoPIN] 0.5 mg PO BID PRN 10/16/20 10/16/20 Unknown History HYDROcodone/APAP 5-325 [[place] 1 each PO Q6HR PRN #20 tab 10/26/20 Unknown Rx 5-325 mg TAB] Ondansetron [Zofran Odt] 4 mg PO Q8HR #30 tab.rapdis 10/26/20 Unknown Rx Pantoprazole [Protonix TAB] 40 mg PO DAILY #30 tablet 10/26/20 Unknown Rx hydrALAZINE [Apresoline TAB] 50 mg PO QID #90 tablet 10/26/20 Unknown Rx Active Meds: Active Medications Acetaminophen (Acetaminophen 325 Mg Tab) 650 mg PO Q4H PRN PRN Reason: Pain MILD(1-3)/Fever >100.5/SAUCEDO Albuterol (Albuterol 2.5 Mg/3 Ml Nebu) 2.5 mg IH Q4HRT PRN PRN Reason: Shortness Of Breath Alprazolam (Alprazolam 0.25 Mg Tab) 0.25 mg PO BID PRN PRN Reason: Anxiety Bisacodyl (Bisacodyl 10 Mg Rect Supp) 10 mg [place] QDAY PRN PRN Reason: Constipation unrelieved by MOM Buspirone HCl (Buspirone 10 Mg Tab) 10 mg PO Q8HR SUSU Carvedilol (Carvedilol 25 Mg Tab) 25 mg PO BID SUSU Dextrose (Dextrose 50% In Water (25gm) 50 Ml Syringe) 50 ml IV Q30MIN PRN; Protocol PRN Reason: Hypoglycemia Docusate Sodium (Docusate Sodium 100 Mg Cap) 100 mg PO BID SUSU Ergocalciferol (Ergocalciferol (Vit D2) 50,000 Unit Cap) 50,000 unit PO Mo SUSU Hydralazine HCl (Hydralazine 20 Mg/1 Ml Inj) 10 mg IV Q4HR PRN PRN Reason: Blood Pressure Hydralazine HCl (Hydralazine 25 Mg Tab) 50 mg PO QID [facility] Sodium Chloride (Nacl 0.9%) 100 mls @ 999 mls/hr IV BRENNA PRN PRN Reason: Hypotension Insulin Human Lispro (Insulin Lispro 100 Unit/Ml) 0 unit SUB-Q ACHS SUSU; Protocol Multivit/Ca Carb/B Cmplx/FA/Prenat (Folic Acid/Vit B Comp W-C 1 Mg (Renal Caps)) 1 cap PO QDAY [facility] Ondansetron HCl (Ondansetron 4 Mg/2 Ml Inj) 4 mg IV Q6H PRN PRN Reason: Nausea And Vomiting Oxycodone/Acetaminophen (Oxycodone /Acetaminophen 5-325mg Tab) 1 tab PO Q6H PRN PRN Reason: Pain, Moderate (4-6) Pantoprazole Sodium (Pantoprazole 40 Mg Tab) 40 mg PO DAILY [facility] Sevelamer Carbonate (Sevelamer Carbonate 800 Mg Tab) 1,600 mg PO TIDWM [facility] Sodium Chloride (Sodium Chloride 0.9% 10 Ml Flush Syringe) 10 ml IV BID [facility] Sodium Chloride (Sodium Chloride 0.9% 10 Ml Flush Syringe) 10 ml IV PRN PRN PRN Reason: LINE FLUSH Review of Systems All systems: negative (As noted in HPI) Exam - Physical Exam Narrative exam: Physical exam General appearance: Present: No acute distress, alert and oriented 3, - [place] adult female - EENT Eyes: Present: PERRL, EOM intact ENT: hearing intact, normal dentition - Neck Neck: Present: supple, normal ROM - Respiratory Respiratory effort: Non-labored Respiratory: Clear throughout - Cardiovascular Heart rate: 99 (bpm) Rhythm: Sinus Heart Sounds: Present: S1 & S2. Absent: rub, click - Extremities Extremities: no ischemia, pulses intact, - Peripheral Assessment Peripheral Pulses: within normal limits - Abdominal General gastrointestinal: soft, non-tender, normal bowel sounds - Integumentary Integumentary: Present: warm, dry - Musculoskeletal Musculoskeletal: Able to move all extremities -Neurological Neurological: CN II-XII intact - Psychiatric Psychiatric: Appropriate for situation ,cooperative - Constitutional Vitals: Temp Pulse Resp BP Pulse Ox 98.6 F 104 H 20 196/123 97 02/19/21 20:11 02/19/21 23:36 02/19/21 23:36 02/19/21 23:36 02/19/21 23:36 HEART Score - HEART Score Troponin: Troponin T 0.161 ng/mL (0.00-0.029) H* 02/19/21 23:59 Results - Labs CBC & Chem 7: 02/19/21 20:42 02/19/21 20:42 Labs: Laboratory Last Values WBC 8.2 K/mm3 (4.5-11.0) 02/19/21 20:42 RBC 5.03 M/mm3 (3.65-5.03) 02/19/21 20:42 Hgb 14.7 gm/dl (10.1-14.3) H 02/19/21 20:42 Hct 45.4 % (30.3-42.9) H 02/19/21 20:42 MCV 90 fl (79-97) 02/19/21 20:42 MCH 29 pg (28-32) 02/19/21 20:42 MCHC 32 % (30-34) 02/19/21 20:42 RDW 18.5 % (13.2-15.2) H 02/19/21 20:42 Plt Count 403 K/mm3 (140-440) 02/19/21 20:42 Lymph % (Auto) 13.5 % (13.4-35.0) 02/19/21 20:42 [place] % (Auto) 7.1 % (0.0-7.3) 02/19/21 20:42 Eos % (Auto) 0.4 % (0.0-4.3) 02/19/21 20:42 Baso % (Auto) 0.7 % (0.0-1.8) 02/19/21 20:42 Lymph # (Auto) 1.1 K/mm3 (1.2-5.4) L 02/19/21 20:42 [place] # (Auto) 0.6 K/mm3 (0.0-0.8) 02/19/21 20:42 Eos # (Auto) 0.0 K/mm3 (0.0-0.4) 02/19/21 20:42 Baso # (Auto) 0.1 K/mm3 (0.0-0.1) 02/19/21 20:42 Seg Neutrophils % 78.3 % (40.0-70.0) H 02/19/21 20:42 Seg Neutrophils # 6.4 K/mm3 (1.8-7.7) 02/19/21 20:42 PT 14.7 Sec. (12.2-14.9) 02/19/21 20:42 INR 1.15 (0.87-1.13) H 02/19/21 20:42 APTT 31.4 Sec. (24.2-36.6) 02/19/21 20:42 Sodium 143 mmol/L (137-145) 02/19/21 20:42 Potassium 4.2 mmol/L (3.6-5.0) 02/19/21 20:42 Chloride 100.8 mmol/L (98-107) 02/19/21 20:42 Carbon Dioxide 19 mmol/L (22-30) L 02/19/21 20:42 Anion Gap 27 mmol/L 02/19/21 20:42 BUN 40 mg/dL (7-17) H 02/19/21 20:42 Creatinine 9.8 mg/dL (0.6-1.2) H 02/19/21 20:42 Estimated GFR 5 ml/min 02/19/21 20:42 BUN/Creatinine Ratio 4 % 02/19/21 20:42 Glucose 100 mg/dL (65-100) 02/19/21 20:42 Calcium 9.6 mg/dL (8.4-10.2) 02/19/21 20:42 Total Bilirubin 0.60 mg/dL (0.1-1.2) 02/19/21 20:42 AST 32 units/L (5-40) 02/19/21 20:42 ALT 16 units/L (7-56) 02/19/21 20:42 Alkaline Phosphatase 125 units/L (35-129) 02/19/21 20:42 Troponin T 0.161 ng/mL (0.00-0.029) H* 02/19/21 23:59 NT-Pro-B Natriuret Pep > 05784 pg/mL (0-900) H 02/19/21 20:42 Total Protein 6.9 g/dL (6.3-8.2) 02/19/21 20:42 Albumin 4.1 g/dL (3.9-5) 02/19/21 20:42 Albumin/Globulin Ratio 1.5 % 02/19/21 20:42 Triglycerides 85 mg/dL (2-149) 02/19/21 20:42 Cholesterol 149 mg/dL (50-199) 02/19/21 20:42 LDL Cholesterol Direct 63 mg/dL (50-130) 02/19/21 20:42 HDL Cholesterol 66 mg/dL (40-59) H 02/19/21 20:42 Cholesterol/HDL Ratio 2.25 % 02/19/21 20:42 - Diagnostic Impressions Diagnostic Impressions: CXR: IMPRESSION: 1. No acute findings. 2. Interval placement of embolic coil material in the left upper quadrant abd omen. 3. Lower extremity vascular catheter in stable position. Abd: IMPRESSION: 1. Nonobstructive bowel gas pattern. 2. Right femoral catheter in stable position with its tip noted of the right atrium. CT Head; IMPRESSION: 1. No acute intracranial abnormality. 2. Moderate microvascular ischemic change. 3. 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 Assessment and Plan Assessment and plan: Acute atypical chest pain -EKG negative for acute ischemic abnormalities -CXR negative -Troponin now 0.161 (trending down from 0.184 on presentation), will repeat x1 -Denies firing of AICD -We will defer additional cardiac work-up per cardiology recommendations -Cardiology (Dr. Walsh) Elevated troponin -Troponin now trending down, will continue to trend -Likely due to leak -Cardiology consulted ESRD -requiring HD -HD M/W/ -Missed today's HD session due to not feeling well -Last dialyzed on Friday (02/16) -Nephrology (Dr. Hodge) consulted with plans for dialysis in a.m. Hypertensive urgency -BP on admission 246/160 on presentation -Hx Hypertension -Continue to monitor BP -Resume home antihypertensive meds to optimize BP -IV antihypertensive when necessary Headache -CT head negative for acute abnormalities -Likely due to hypertensive urgency -Supportive care Acute abdominal pain -Abdominal x-ray negative -Supportive care DM -POC BG monitoring -SSI coverage prn -HgbA1C pending Advance Directives: No VTE prophylaxis?: Chemical, Mechanical Plan of care discussed with patient/family: Yes
[2021-02-20] MEDS ORDERED: hydrALAZINE 20 MG/1 ML INJ IV ONE (01:54)
[2021-02-20] MEDS ORDERED: dilTIAZem CD 180 MG CAP PO SCH (02:00)
[2021-02-20] MEDS: carvediloL 25 MG TAB PO SCH ×3 (02:25→22:48)
[2021-02-20] MEDS: oxyCODONE /ACETAMINOPHEN 5-325MG TAB PO PRN ×2 (03:00→18:36)
[2021-02-20] MEDS: busPIRone 10 MG TAB PO SCH ×3 (05:44→22:49)
[2021-02-20] MEDS: INSULIN LISPRO 100 UNIT/ML SUB-Q SCH ×4 (08:37→22:49)
[2021-02-20] MEDS: SEVELAMER CARBONATE 800 MG TAB PO SCH ×3 (08:38→16:13)
[2021-02-20] MEDS: PANTOPRAZOLE 40 MG TAB PO SCH ×2 (08:57→12:59)
[2021-02-20] MEDS ORDERED: FOLIC ACID PO SCH (10:00)
[2021-02-20] MEDS ORDERED: [UNRECOGNIZED DRUG - OTHER] PO SCH (10:00)
[2021-02-20] MEDS ORDERED: ERGOCALCIFEROL (VIT D2) 50,000 UNIT CAP PO SCH (10:00)
[2021-02-20] MEDS ORDERED: hydrALAZINE 25 MG TAB PO SCH (10:00)
[2021-02-20] MEDS ORDERED: VIT B COMPLEX AND C PO SCH (10:00)
--- NOTE | 2021-02-20 10:06 | Electrocardiograph Report ---
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
--- NOTE | 2021-02-20 11:11 | Consultation ---
History of Present Illness - Reason for Consult Consult date: 02/20/21 end stage renal disease Requesting physician: ELSY REYNOLDS - History of Present Illness This is a 65 yo F with past medical history of hypertension, diabetes, HFrEF s/p AICD, end-stage renal disease on HD [place] [facility], usually follows up with Dr Pelaez, who presents to [facility] ED with complaints of elevated BP and headaches. At her local [place] facility she was found to have significantly elevated blood pressure (SBP in 200s), and was sent to ED for further evaluation and management. in [facility] pt continued to have elevated SBP > 240s, along with headache and chest tightness. CXR and heat CT showed no acute findings. patient denied slurred speech, alterations in gait, diplopia, nausea, vomiting, fever, shortness of breath, cough, hemoptysis, recent injury/fall, recent sick contacts. labs showed slightly elevated trop at 0.161, 0.143 along with elevated proBNP > 87985. renal consult is requested for management of ESRD/HD. Past History Past Medical History: diabetes, other (TB, ??A.fib, herina rt inguinal ) Past Surgical History: appendectomy, cholecystectomy, hysterectomy, Other (left renal AML embolization) Social history: , lives with family, full code. denies: smoking, alcohol abuse, prescription drug abuse, IV drug use Family history: no significant family history Medications and Allergies Allergies Allergy/AdvReac Type Severity Reaction Status Date / Time No Known Allergies Allergy Unverified 09/04/13 07:18 Home Medications Medication Instructions Recorded Confirmed Last Taken Type Ergocalciferol (Vitamin D2) 50,000 unit PO DAILY 09/25/20 10/16/20 Unknown History [Drisdol] Sevelamer Carbonate [Renvela] 1,600 mg PO TID 09/25/20 10/16/20 Unknown History busPIRone [Buspar] 10 mg PO Q8HR 09/25/20 10/16/20 Unknown History Citalopram [Celexa] 20 mg PO QDAY #30 tab 09/28/20 10/16/20 Unknown Rx Furosemide [Lasix TAB] 80 mg PO QDAY #30 tablet 09/28/20 10/16/20 Unknown Rx carvediloL [Coreg] 25 mg PO BID #60 tablet 09/28/20 10/16/20 Unknown Rx cloNIDine [Catapres] 0.3 mg PO Q8HR #270 tablet 09/28/20 10/16/20 Unknown Rx dilTIAZem CD [Cardizem CD] 360 mg PO QDAY #60 capsule 09/28/20 10/16/20 Unknown Rx ALPRAZolam [Xanax TAB] 0.25 mg PO BID PRN 10/16/20 10/16/20 Unknown History Acetaminophen [Acetaminophen TAB] 500 mg PO Q6HR 10/16/20 10/16/20 Unknown History Folic Acid/Vit B Complex and C 0.8 mg PO QDAY 10/16/20 10/16/20 Unknown History [Renal Vitamin Tablet] clonazePAM [KlonoPIN] 0.5 mg PO BID PRN 10/16/20 10/16/20 Unknown History HYDROcodone/APAP 5-325 [[place] 1 each PO Q6HR PRN #20 tab 10/26/20 Unknown Rx 5-325 mg TAB] Ondansetron [Zofran Odt] 4 mg PO Q8HR #30 tab.rapdis 10/26/20 Unknown Rx Pantoprazole [Protonix TAB] 40 mg PO DAILY #30 tablet 10/26/20 Unknown Rx hydrALAZINE [Apresoline TAB] 50 mg PO QID #90 tablet 10/26/20 Unknown Rx Active Meds: Active Medications Acetaminophen (Acetaminophen 325 Mg Tab) 650 mg PO Q4H PRN PRN Reason: Pain MILD(1-3)/Fever >100.5/SAUCEDO Albuterol (Albuterol 2.5 Mg/3 Ml Nebu) 2.5 mg IH Q4HRT PRN PRN Reason: Shortness Of Breath Alprazolam (Alprazolam 0.25 Mg Tab) 0.25 mg PO BID PRN PRN Reason: Anxiety Bisacodyl (Bisacodyl 10 Mg Rect Supp) 10 mg [place] QDAY PRN PRN Reason: Constipation unrelieved by MOM Buspirone HCl (Buspirone 10 Mg Tab) 10 mg PO Q8HR [facility] Last Admin: 02/20/21 05:44 Dose: 10 mg Documented by: Carvedilol (Carvedilol 25 Mg Tab) 25 mg PO BID [facility] Last Admin: 02/20/21 02:25 Dose: 25 mg Documented by: Dextrose (Dextrose 50% In Water (25gm) 50 Ml Syringe) 50 ml IV Q30MIN PRN; Protocol PRN Reason: Hypoglycemia Diltiazem HCl (Diltiazem Cd 180 Mg Cap) 360 mg PO QDAY@2200 [facility] Last Admin: 02/20/21 02:25 Dose: 360 mg Documented by: Docusate Sodium (Docusate Sodium 100 Mg Cap) 100 mg PO BID [facility] Ergocalciferol (Ergocalciferol (Vit D2) 50,000 Unit Cap) 50,000 unit PO Mo SUSU Hydralazine HCl (Hydralazine 20 Mg/1 Ml Inj) 10 mg IV Q4HR PRN PRN Reason: Blood Pressure Hydralazine HCl (Hydralazine 100 Mg Tab) 100 mg PO Q8HR [facility] Sodium Chloride (Nacl 0.9%) 100 mls @ 999 mls/hr IV BRENAN PRN PRN Reason: Hypotension Insulin Human Lispro (Insulin Lispro 100 Unit/Ml) 0 unit SUB-Q ACHS SUSU; Pro tocol Last Admin: 02/20/21 08:37 Dose: Not Given Documented by: Multivit/Ca Carb/B Cmplx/FA/Prenat (Folic Acid/Vit B Comp W-C 1 Mg (Renal Caps)) 1 cap PO QDAY [facility] Ondansetron HCl (Ondansetron 4 Mg/2 Ml Inj) 4 mg IV Q6H PRN PRN Reason: Nausea And Vomiting Oxycodone/Acetaminophen (Oxycodone /Acetaminophen 5-325mg Tab) 1 tab PO Q6H PRN PRN Reason: Pain, Moderate (4-6) Last Admin: 02/20/21 03:00 Dose: 1 tab Documented by: Pantoprazole Sodium (Pantoprazole 40 Mg Tab) 40 mg PO DAILY [facility] Last Admin: 02/20/21 08:57 Dose: 40 mg Documented by: Sevelamer Carbonate (Sevelamer Carbonate 800 Mg Tab) 1,600 mg PO TIDWM [facility] Last Admin: 02/20/21 08:38 Dose: 1,600 mg Documented by: Sodium Chloride (Sodium Chloride 0.9% 10 Ml Flush Syringe) 10 ml IV BID [facility] Sodium Chloride (Sodium Chloride 0.9% 10 Ml Flush Syringe) 10 ml IV PRN PRN PRN Reason: LINE FLUSH Review of Systems All systems: negative Constitutional: fatigue, weakness, malaise Cardiovascular: chest pain, shortness of breath, dyspnea on exertion Exam - Vital Signs Vital signs: Vital Signs Temp Pulse Resp BP Pulse Ox 98.6 F 112 H 20 246/161 97 02/19/21 20:11 02/19/21 20:11 02/19/21 20:11 02/19/21 20:11 02/19/21 20:11 - General Appearance General appearance: well-developed, well-nourished, appears stated age EENT: ATNC, PERRL, mucous membranes moist Neck: Present: neck supple Respiratory: Clear to Ascultation Heart: regular, S1S2 Gastrointestinal: Present: normoactive bowel sounds Integumentary: no rash Neurologic: no focal deficit, alert and oriented x3, strength 5/5, CN 3-12 intact Psychiatric: mood/affect appropriate, cooperative Results - Lab Results 02/19/21 20:42 02/19/21 20:42 Most recent lab results Calcium 9.6 mg/dL (8.4-10.2) 02/19/21 20:42 Assessment and Plan - Patient Problems (1) ESRD needing dialysis Current Visit: Yes Status: Chronic Plan to address problem: Arranged HD on TTS schedule for volume control/solute clearance (2) Hypertensive emergency Current Visit: Yes Status: Acute Plan to address problem: Monitor BP on current meds, additional volume BP control with HD (3) Metabolic acidosis Current Visit: Yes Status: Acute Plan to address problem: to be corrected with HD
[2021-02-20 11:30] LABS: Hepatitis B Surface Antigen Non-Reactive (Negative); Hepatitis C Virus Antibody Non-Reactive (NonReactive)
--- NOTE | 2021-02-20 11:33 | Progress Note ---
Assessment and Plan Assessment and plan: 65-year-old -[place] female with history of hypertension, diabetes, end- stage renal disease on HD who presents to [facility] ED with complaints of elevated blood pressure and headache. Patient went to her local [place] facility with complaints of headache and was found to have significantly elevated blood pressure (SBP in 200s), and was referred to ED for further evaluation and management. She complains of constant 8/10 frontal headache. Additionally, patient complains of substernal nonradiating 4/10 chest pain. Of note patient has AICD, and denies device discharges. Lastly patient complains of nonspecific intermittent 4/10 abdominal pain. Denies taking any pain medicine for her complaints today. admits to not taking her antihypertensive meds this morning. On presentation to our facility patient was found to be in hypertensive urgency with SBP in 240's. Denies slurred speech, alterations in gait, diplopia, nausea, vomiting, fever, shortness of breath, cough, hemoptysis, recent injury/fall, recent sick contacts General appearance: Present: No acute distress, alert and oriented 3, - [place] adult female CXR: IMPRESSION: 1. No acute findings. 2. Interval placement of embolic coil material in the left upper quadrant abdomen. 3. Lower extremity vascular catheter in stable position. Abd: IMPRESSION: 1. Nonobstructive bowel gas pattern. 2. Right femoral catheter in stable position with its tip noted of the right atrium. CT Head; IMPRESSION: 1. No acute intracranial abnormality. 2. Moderate microvascular ischemic change. 3. 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 02/20: Blood pressure showing some improvement but not yet at baseline. Will adjust hydralazine 100 mg 3 times daily. Await cardiology input. If patient has recurrent abdominal pain will proceed with a CT scan of the abdomen. Acute atypical chest pain -EKG negative for acute ischemic abnormalities -CXR negative -Troponin now 0.161 (trending down from 0.184 on presentation), will repeat x1 -Denies firing of AICD -We will defer additional cardiac work-up per cardiology recommendations -Cardiology (Dr. Walsh) Elevated troponin -Troponin now trending down, will continue to trend -Likely due to leak -Cardiology consulted ESRD -requiring HD -HD M/W/ -Missed today's HD session due to not feeling well -Last dialyzed on Friday (02/16) -Nephrology (Dr. Hodge) consulted with plans for dialysis in a.m. Hypertensive urgency -BP on admission 246/160 on presentation -Hx Hypertension -Continue to monitor BP -Resume home antihypertensive meds to optimize BP -IV antihypertensive when necessary Headache -CT head negative for acute abnormalities -Likely due to hypertensive urgency -Supportive care Acute abdominal pain -Abdominal x-ray negative -Supportive care DM -POC BG monitoring -SSI coverage prn -HgbA1C pending History Interval history: Patient seen and examined resting comfortably at this time. Still had dialysis today. She tells me that yesterday she did have abdominal pain which prompted her to come to the hospital. But states the abdominal pain has dissolved resolved Hospitalist Physical - Physical exam Narrative exam: VITAL SIGNS: Reviewed. GENERAL: The patient appears normally developed, chronically ill-appearing vital signs as documented. HEAD: No signs of head trauma. EYES: Pupils are equal. Extraocular motions intact. EARS: Hearing grossly intact. MOUTH: Oropharynx is normal. NECK: No adenopathy, no JVD. CHEST: Chest with clear breath sounds bilaterally. No wheezes, rales, or r honchi. CARDIAC: Regular rate and rhythm. S1 and S2, without murmurs, gallops, or rubs. VASCULAR: No Edema. Peripheral pulses normal and equal in all extremities. ABDOMEN: Soft, mildly distended but nontender. No rebound or guarding, and no masses palpated. Bowel Sounds normal. MUSCULOSKELETAL: Good range of motion of all major joints. Extremities without clubbing, cyanosis or edema. NEUROLOGIC EXAM: Alert and oriented x 3 No focal sensory or strength deficits. Speech normal. Follows commands. PSYCHIATRIC: Mood normal. SKIN: detail exam as documented in skin assessment - Constitutional Vitals: Temp Pulse Resp BP Pulse Ox 98.2 F 87 20 139/97 96 02/20/21 09:00 02/20/21 11:00 02/20/21 09:00 02/20/21 11:00 02/20/21 08:35 HEART Score - HEART Score Troponin: Troponin T 0.143 ng/mL (0.00-0.029) H* 02/20/21 09:20 Results - Labs CBC & Chem 7: 02/19/21 20:42 02/19/21 20:42 Labs: Laboratory Last Values WBC 8.2 K/mm3 (4.5-11.0) 04/12/21 20:42 RBC 5.03 M/mm3 (3.65-5.03) 02/19/21 20:42 Hgb 14.7 gm/dl (10.1-14.3) H 02/19/21 20:42 Hct 45.4 % (30.3-42.9) H 02/19/21 20:42 MCV 90 fl (79-97) 02/19/21 20:42 MCH 29 pg (28-32) 02/19/21 20:42 MCHC 32 % (30-34) 02/19/21 20:42 RDW 18.5 % (13.2-15.2) H 02/19/21 20:42 Plt Count 403 K/mm3 (140-440) 02/19/21 20:42 Lymph % (Auto) 13.5 % (13.4-35.0) 02/19/21 20:42 Sampson % (Auto) 7.1 % (0.0-7.3) 02/19/21 20:42 Eos % (Auto) 0.4 % (0.0-4.3) 02/19/21 20:42 Baso % (Auto) 0.7 % (0.0-1.8) 02/19/21 20:42 Lymph # (Auto) 1.1 K/mm3 (1.2-5.4) L 02/19/21 20:42 [place]pson # (Auto) 0.6 K/mm3 (0.0-0.8) 02/19/21 20: Eos # (Auto) 0.0 K/mm3 (0.0-0.4) 02/19/21 20:42 Baso # (Auto) 0.1 K/mm3 (0.0-0.1) 02/19/21 20:42 Seg Neutrophils % 78.3 % (40.0-70.0) H 02/19/21 20: Seg Neutrophils # 6.4 K/mm3 (1.8-7.7) 02/19/21 20:42 PT 14.7 Sec. (12.2-14.9) 02/19/21 20:42 INR 1.15 (0.87-1.13) H 02/19/21 20:42 APTT 31.4 Sec. (24.2-36.6) 02/19/21 20:42 Sodium 143 mmol/L (137-145) 02/19/21 20:42 Potassium 4.2 mmol/L (3.6-5.0) 02/19/21 20:42 Chloride 100.8 mmol/L (98-107) 02/19/21 20:42 Carbon Dioxide 19 mmol/L (22-30) L 02/19/21 20:42 Anion Gap 27 mmol/L 02/19/21 20:42 BUN 40 mg/dL (7-17) H 02/19/21 20:42 Creatinine 9.8 mg/dL (0.6-1.2) H 02/19/21 20:42 Estimated GFR 5 ml/min 02/19/21 20:42 BUN/Creatinine Ratio 4 % 02/19/21 20:42 Glucose 100 mg/dL (65-100) 02/19/21 20:42 POC Glucose 127 mg/dL (70-105) H 02/20/21 07:48 Hemoglobin A1c 4.0 % (4-6) 02/20/21 Unknown Calcium 9.6 mg/dL (8.4-10.2) 02/19/21 20:42 Total Bilirubin 0.60 mg/dL (0.1-1.2) 02/19/21 20:42 AST 32 units/L (5-40) 02/19/21 20:42 ALT 16 units/L (7-56) 02/19/21 20:42 Alkaline Phosphatase 125 units/L (35-129) 02/19/21 20:42 Troponin T 0.143 ng/mL (0.00-0.029) H* 02/20/21 09:20 NT-Pro-B Natriuret Pep > 77247 pg/mL (0-900) H 02/19/21 20:42 Total Protein 6.9 g/dL (6.3-8.2) 02/19/21 20:42 Albumin 4.1 g/dL (3.9-5) 02/19/21 20:42 Albumin/Globulin Ratio 1.5 % 02/19/21 20:42 Triglycerides 85 mg/dL (2-149) 02/19/21 20:42 Cholesterol 149 mg/dL (50-199) 02/19/21 20:42 LDL Cholesterol Direct 63 mg/dL (50-130) 02/19/21 20:42 HDL Cholesterol 66 mg/dL (40-59) H 02/19/21 20:42 Cholesterol/HDL Ratio 2.25 % 02/19/21 20:42 Hepatitis A IgM Ab Non-reactive (NonReactive) 02/20/21 09:20 Hep Bs Antigen Non-reactive (Negative) 02/20/21 09:20 Hep B Core IgM Ab Non-reactive (NonReactive) 02/20/21 09:20 Hepatitis C Antibody Non-reactive (NonReactive) 02/20/21 09:20 Moran/IV: Voiding Method Toilet Active Medications - Current Medications Current Medications: Generic Name Dose Route Start Last Admin Trade Name Freq PRN Reason Stop Dose Admin Acetaminophen 650 mg 02/20/21 01:13 Acetaminophen 325 Mg Tab PO Q4H PRN Pain MILD(1-3)/Fever >100.5/SAUCEDO Albuterol 2.5 mg 02/20/21 01:13 Albuterol 2.5 Mg/3 Ml Nebu IH Q4HRT PRN Shortness Of Breath Alprazolam 0.25 mg 02/19/21 23:32 Alprazolam 0.25 Mg Tab PO BID PRN Anxiety Bisacodyl 10 mg 02/20/21 01:13 Bisacodyl 10 Mg Rect Supp OR QDAY PRN Constipation unrelieved by MOM Buspirone HCl 10 mg 02/20/21 06:00 02/20/21 05:44 Buspirone 10 Mg Tab PO 10 mg Q8HR SUSU Administration Carvedilol 25 mg 02/20/21 02:00 02/20/21 02:25 Carvedilol 25 Mg Tab PO 25 mg BID SUSU Administration Dextrose 50 ml 02/20/21 01:13 Dextrose 50% In Water (25gm) 50 Ml Syringe IV Q30MIN PRN Hypoglycemia Protocol Diltiazem HCl 360 mg 02/20/21 02:00 02/20/21 02:25 Diltiazem Cd 180 Mg Cap PO 360 mg QDAY@2200 SUSU Administration Docusate Sodium 100 mg 02/20/21 10:00 Docusate Sodium 100 Mg Cap PO BID SUSU Ergocalciferol 50,000 unit 02/26/21 10:00 Ergocalciferol (Vit D2) 50,000 Unit Cap PO Mo SUSU Hydralazine HCl 10 mg 02/19/21 23:25 Hydralazine 20 Mg/1 Ml Inj IV Q4HR PRN Blood Pressure Hydralazine HCl 100 mg 02/20/21 14:00 Hydralazine 100 Mg Tab PO Q8HR [facility] Sodium Chloride 100 mls @ 999 mls/hr 02/19/21 23:01 Nacl 0.9% IV BRENNA PRN Hypotension Insulin Human Lispro 0 unit 02/20/21 07:30 02/20/21 08:37 Insulin Lispro 100 Unit/Ml SUB-Q Not Given ACHS [facility] Protocol Multivit/Ca Carb/B Cmplx/FA/Prenat 1 cap 02/20/21 10:00 Folic Acid/Vit B Comp W-C 1 Mg (Renal Caps) PO QDAY [facility] Ondansetron HCl 4 mg 02/20/21 01:13 Ondansetron 4 Mg/2 Ml Inj IV Q6H PRN Nausea And Vomiting Oxycodone/Acetaminophen 1 tab 02/20/21 01:13 02/20/21 03:00 Oxycodone /Acetaminophen 5-325mg Tab PO 1 tab Q6H PRN Administration Pain, Moderate (4-6) Pantoprazole Sodium 40 mg 02/20/21 10:00 02/20/21 08:57 Pantoprazole 40 Mg Tab PO 40 mg DAILY SUSU Administration Sevelamer Carbonate 1,600 mg 02/20/21 08:00 02/20/21 08:38 Sevelamer Carbonate 800 Mg Tab PO 1,600 mg TIDWM SUSU Administration Sodium Chloride 10 ml 02/20/21 10:00 Sodium Chloride 0.9% 10 Ml Flush Syringe IV BID SUSU Sodium Chloride 10 ml 02/20/21 01:13 Sodium Chloride 0.9% 10 Ml Flush Syringe IV PRN PRN LINE FLUSH
[2021-02-20] MEDS: FOLIC ACID/VIT B COMP W-C 1 MG (RENAL CAPS) PO SCH (12:57)
[2021-02-20] MEDS: DOCUSATE SODIUM 100 MG CAP PO SCH ×2 (12:58→22:49)
[2021-02-20] MEDS: hydrALAZINE 100 MG TAB PO SCH ×2 (13:00→22:48)
--- NOTE | 2021-02-20 13:56 | Consultation ---
History of Present Illness Consult date: 02/20/21 Requesting physician: GAYATRI HERNANDEZ Consult reason: elevated troponin History of present illness: This pt is a 65 year old female with a significant hx of CMP with AICD, ESRD on HD, HTN, medical noncompliance. She is previously unknown to our practice and is followed by [facility]. Pt presents to [facility] from local [place] facility with a complaint of Headache, CP and HTN after missing several dialysis appointments. Headache is described as 8/10 "frontal" and CP described as 4/10. Cardiology is consulted for elevated Troponins x 2 consistent with NSTEMI. BNP is noted to be elevated on admission.At time of my interview chest pain is currenly resolved She is complaining of low, diffuse abd pain that is tender to palpation. Pt states she is taking her prescribed medications. She missed dialysis because she did not feel well. She denies any alcohol, tobacco, or drug use. On admission her SBP is noted to be 240. She is normally followed by [facility]. She denies any previous hx of AMI, LHC, or cardiac sx , but has had an echocardiogram. Records have been requested. Past History Past Medical History: diabetes, other (See HPI) Past Surgical History: appendectomy, cholecystectomy, hysterectomy, Other (left renal AML embolization) Social history: , lives with family, full code. denies: smoking, alcohol abuse, prescription drug abuse, IV drug use Family history: no significant family history Medications and Allergies Allergies Allergy/AdvReac Type Severity Reaction Status Date / Time No Known Allergies Allergy Unverified 09/04/13 07:18 Home Medications Medication Instructions Recorded Confirmed Last Taken Type Ergocalciferol (Vitamin D2) 50,000 unit PO DAILY 09/25/20 10/16/20 Unknown History [Drisdol] Sevelamer Carbonate [Renvela] 1,600 mg PO TID 09/25/20 10/16/20 Unknown History busPIRone [Buspar] 10 mg PO Q8HR 09/25/20 10/16/20 Unknown History Citalopram [Celexa] 20 mg PO QDAY #30 tab 09/28/20 10/16/20 Unknown Rx Furosemide [Lasix TAB] 80 mg PO QDAY #30 tablet 09/28/20 10/16/20 Unknown Rx carvediloL [Coreg] 25 mg PO BID #60 tablet 09/28/20 10/16/20 Unknown Rx cloNIDine [Catapres] 0.3 mg PO Q8HR #270 tablet 09/28/20 10/16/20 Unknown Rx dilTIAZem CD [Cardizem CD] 360 mg PO QDAY #60 capsule 09/28/20 10/16/20 Unknown Rx ALPRAZolam [Xanax TAB] 0.25 mg PO BID PRN 10/16/20 10/16/20 Unknown History Acetaminophen [Acetaminophen TAB] 500 mg PO Q6HR 10/16/20 10/16/20 Unknown History Folic Acid/Vit B Complex and C 0.8 mg PO QDAY 10/16/20 10/16/20 Unknown History [Renal Vitamin Tablet] clonazePAM [KlonoPIN] 0.5 mg PO BID PRN 10/16/20 10/16/20 Unknown History HYDROcodone/APAP 5-325 [[place] 1 each PO Q6HR PRN #20 tab 10/26/20 Unknown Rx 5-325 mg TAB] Ondansetron [Zofran Odt] 4 mg PO Q8HR #30 tab.rapdis 10/26/20 Unknown Rx Pantoprazole [Protonix TAB] 40 mg PO DAILY #30 tablet 10/26/20 Unknown Rx hydrALAZINE [Apresoline TAB] 50 mg PO QID #90 tablet 10/26/20 Unknown Rx Active Meds: Active Medications Acetaminophen (Acetaminophen 325 Mg Tab) 650 mg PO Q4H PRN PRN Reason: Pain MILD(1-3)/Fever >100.5/SAUCEDO Albuterol (Albuterol 2.5 Mg/3 Ml Nebu) 2.5 mg IH Q4HRT PRN PRN Reason: Shortness Of Breath Alprazolam (Alprazolam 0.25 Mg Tab) 0.25 mg PO BID PRN PRN Reason: Anxiety Bisacodyl (Bisacodyl 10 Mg Rect Supp) 10 mg FL QDAY PRN PRN Reason: Constipation unrelieved by MOM Buspirone HCl (Buspirone 10 Mg Tab) 10 mg PO Q8HR [facility] Last Admin: 02/20/21 13:00 Dose: 10 mg Documented by: Carvedilol (Carvedilol 25 Mg Tab) 25 mg PO BID [facility] Last Admin: 02/20/21 12:59 Dose: 25 mg Documented by: Dextrose (Dextrose 50% In Water (25gm) 50 Ml Syringe) 50 ml IV Q30MIN PRN; Protocol PRN Reason: Hypoglycemia Diltiazem HCl (Diltiazem Cd 180 Mg Cap) 360 mg PO QDAY@2200 [facility] Last Admin: 02/20/21 02:25 Dose: 360 mg Documented by: Docusate Sodium (Docusate Sodium 100 Mg Cap) 100 mg PO BID [facility] Last Admin: 02/20/21 12:58 Dose: 100 mg Documented by: Ergocalciferol (Ergocalciferol (Vit D2) 50,000 Unit Cap) 50,000 unit PO Mo [facility] Hydralazine HCl (Hydralazine 20 Mg/1 Ml Inj) 10 mg IV Q4HR PRN PRN Reason: Blood Pressure Hydralazine HCl (Hydralazine 100 Mg Tab) 100 mg PO Q8HR [facility] Last Admin: 02/20/21 13:00 Dose: 100 mg Documented by: Sodium Chloride (Nacl 0.9%) 100 mls @ 999 mls/hr IV BRENNA PRN PRN Reason: Hypotension Insulin Human Lispro (Insulin Lispro 100 Unit/Ml) 0 unit SUB-Q ACHS [facility]; Protocol Last Admin: 02/20/21 11:58 Dose: Not Given Documented by: Multivit/Ca Carb/B Cmplx/FA/Prenat (Folic Acid/Vit B Comp W-C 1 Mg (Renal Caps)) 1 cap PO QDAY [facility] Last Admin: 02/20/21 12:57 Dose: 1 cap Documented by: Ondansetron HCl (Ondansetron 4 Mg/2 Ml Inj) 4 mg IV Q6H PRN PRN Reason: Nausea And Vomiting Oxycodone/Acetaminophen (Oxycodone /Acetaminophen 5-325mg Tab) 1 tab PO Q6H PRN PRN Reason: Pain, Moderate (4-6) Last Admin: 02/20/21 03:00 Dose: 1 tab Documented by: Pantoprazole Sodium (Pantoprazole 40 Mg Tab) 40 mg PO DAILY [facility] Last Admin: 02/20/21 12:59 Dose: Not Given Documented by: Sevelamer Carbonate (Sevelamer Carbonate 800 Mg Tab) 1,600 mg PO TIDWM [facility] Last Admin: 02/20/21 12:58 Dose: 1,600 mg Documented by: Sodium Chloride (Sodium Chloride 0.9% 10 Ml Flush Syringe) 10 ml IV BID SUSU Last Admin: 02/20/21 12:59 Dose: 10 ml Documented by: Sodium Chloride (Sodium Chloride 0.9% 10 Ml Flush Syringe) 10 ml IV PRN PRN PRN Reason: LINE FLUSH Review of Systems Constitutional: no weight loss, no weight gain, no fever, no chills, no sweats Ears, nose, mouth and throat: no ear pain, no ear discharge, no tinnitis, no nasal congestion, no nasal discharge, no sinus pressure Cardiovascular: no chest pain, no orthopnea, no palpitations, no rapid/irregular heart beat, no edema, no syncope, no lightheadedness, no shortness of breath Respiratory: no cough, no shortness of breath, no dyspnea on exertion Gastrointestinal: abdominal pain, no nausea, no vomiting, no diarrhea, no constipation Musculoskeletal: no neck stiffness, no neck pain, no shooting arm pain, no arm numbness/tingling, no low back pain, no shooting leg pain, no leg numbness/tingling Integumentary: no rash, no pruritis, no redness, no sores, no wounds, no jaundice Neurological: headaches, no head injury, no paralysis, no weakness, no parathesias, no numbness, no tingling, no seizures, no syncope, no tremors Psychiatric: no anxiety Endocrine: no cold intolerance, no heat intolerance Hematologic/Lymphatic: no easy bruising, no easy bleeding Allergic/Immunologic: no urticaria Physical Examination Last Vital Signs Temp 98.7 F 02/20/21 13:00 Pulse 68 02/20/21 13:00 Resp 18 02/20/21 13:00 BP 162/101 02/20/21 13:00 Pulse Ox 99 02/20/21 12:56 General appearance: mild distress HEENT: Positive: PERRL, Normocephaly, Mucus Membranes Moist Neck: Positive: neck supple, trachea midline Cardiac: Positive: Reg Rate and Rhythm, S1/S2 Lungs: Positive: Normal Exam, clear to auscultation, Normal Breath Sounds Neuro: Positive: Grossly Intact Abdomen: Positive: Soft, Tender Skin: Negative: Rash, Wound Musculoskeletal: No Pain Extremities: Present: upper extr. pulses, lower extr. pulses, +1 Edema Results 02/19/21 20:42 02/19/21 20:42 Cardiac Enzymes 02/19/21 Range/Units 20:42 AST 32 (5-40) units/L Coagulation 02/19/21 Range/Units 20:42 PT 14.7 (12.2-14.9) Sec. INR 1.15 H (0.87-1.13) APTT 31.4 (24.2-36.6) Sec. Lipids 02/19/21 Range/Units 20:42 Triglycerides 85 (2-149) mg/dL Cholesterol 149 (50-199) mg/dL HDL Cholesterol 66 H (40-59) mg/dL Cholesterol/HDL Ratio 2.25 % CBC 02/19/21 Range/Units 20:42 WBC 8.2 (4.5-11.0) K/mm3 RBC 5.03 (3.65-5.03) M/mm3 Hgb 14.7 H (10.1-14.3) gm/dl Hct 45.4 H (30.3-42.9) % Plt Count 403 (140-440) K/mm3 Lymph # (Auto) 1.1 L (1.2-5.4) K/mm3 [place] # (Auto) 0.6 (0.0-0.8) K/mm3 Eos # (Auto) 0.0 (0.0-0.4) K/mm3 Baso # (Auto) 0.1 (0.0-0.1) K/mm3 Comprehensive Metabolic Panel 02/19/21 Range/Units 20:42 Sodium 143 (137-145) mmol/L Potassium 4.2 (3.6-5.0) mmol/L Chloride 100.8 (98-107) mmol/L Carbon Dioxide 19 L (22-30) mmol/L BUN 40 H (7-17) mg/dL Creatinine 9.8 H (0.6-1.2) mg/dL Glucose 100 (65-100) mg/dL Calcium 9.6 (8.4-10.2) mg/dL AST 32 (5-40) units/L ALT 16 (7-56) units/L Alkaline Phosphatase 125 (35-129) units/L Total Protein 6.9 (6.3-8.2) g/dL Albumin 4.1 (3.9-5) g/dL - Imaging and Cardiology Echo: pending EKG: report reviewed, image reviewed EKG interpretations - Telemetry EKG Rhythm: Sinus Rhythm AV and intraventricular conduction: right bundle branch block Assessment and Plan This pt is a 65 year old female with a significant hx of CMP with AICD, ESRD on HD, HTN, medical noncompliance. She is previously unknown to our practice and is followed by [facility]. Pt presents to [facility] from local [place] facility with a complaint of Headache, CP and HTN after missing several dialysis appointments. Headache is described as 8/10 "frontal" and CP described as 4/10. Cardiology is consulted for elevated Troponins x 2 consistent with NSTEMI. BNP is noted to be elevated on admission.At time of my interview chest pain is currenly resolved She is complaining of low, diffuse abd pain that is tender to palpation. Pt states she is taking her prescribed medications. She missed dialysis because she did not feel well. She denies any alcohol, tobacco, or drug use. On admission her SBP is noted to be 240. She is normally followed by [facility]. She denies any previous hx of AMI, LHC, or cardiac sx , but has had an echocardiogram. Records have been requested. Echo is pending. Optimize antihypertensive regimen. Troponins are elevated consistent with NSTEMI type II. Troponin is trending downward. Continue to trend Mitch and f/u EKG in am. Continue volume optimization per nephrology. Dialysis per nephrology. Continue to monitor on Telemetry. Will Follow. This pt was seen in conjunction with Dr Bales who agrees with this assessment and plan of care. - Patient Problems (1) ESRD needing dialysis Current Visit: Yes Status: Chronic (2) Hypertensive urgency Current Visit: Yes Status: Acute (3) NSTEMI (non-ST elevated myocardial infarction) Current Visit: Yes Status: Acute Plan to address problem: Suspect Type II (4) Headache Current Visit: Yes Status: Acute Qualifiers: Headache type: unspecified Headache chronicity pattern: acute headache Intractability: not intractable Qualified Code(s): R51.9 - Headache, un specified (5) History of implantable cardioverter-defibrillator (ICD) placement Current Visit: Yes Status: Chronic (6) Non-compliance Current Visit: Yes Status: Chronic
[2021-02-20] MEDS: amLODIPine 10 MG TAB PO SCH (16:12)
[2021-02-20] MEDS: ASPIRIN 81 MG TAB CHEW PO SCH (16:12)
[2021-02-21] MEDS: busPIRone 10 MG TAB PO SCH ×2 (06:08→13:43)
[2021-02-21] MEDS: hydrALAZINE 100 MG TAB PO SCH ×2 (06:08→13:43)
[2021-02-21 08:01] LABS: Calcium 9.3 mg/dL (8.4-10.2)
[2021-02-21] MEDS: INSULIN LISPRO 100 UNIT/ML SUB-Q SCH ×2 (08:22→11:48)
[2021-02-21] MEDS: PANTOPRAZOLE 40 MG TAB PO SCH (09:46)
[2021-02-21] MEDS: DOCUSATE SODIUM 100 MG CAP PO SCH (09:46)
[2021-02-21] MEDS: amLODIPine 10 MG TAB PO SCH (09:46)
[2021-02-21] MEDS: FOLIC ACID/VIT B COMP W-C 1 MG (RENAL CAPS) PO SCH (09:46)
[2021-02-21] MEDS: ASPIRIN 81 MG TAB CHEW PO SCH (09:46)
[2021-02-21] MEDS: carvediloL 25 MG TAB PO SCH (09:46)
[2021-02-21] MEDS: SEVELAMER CARBONATE 800 MG TAB PO SCH ×2 (09:47→12:15)
--- NOTE | 2021-02-21 10:40 | Progress Note ---
Assessment and Plan - Patient Problems (1) ESRD needing dialysis Current Visit: Yes Status: Chronic Plan to address problem: Cont HD on TTS schedule (2) Hypertensive emergency Current Visit: Yes Status: Acute Plan to address problem: BP improved with HD, monitor on current meds (3) Metabolic acidosis Current Visit: Yes Status: Acute Plan to address problem: to be corrected with HD (4) Troponin level elevated Current Visit: Yes Status: Acute Plan to address problem: most likely 2/2 NSTEMI type II. Troponin is trending downward. follow cardiology recommendations Subjective Date of service: 02/21/21 Principal diagnosis: ESRD Interval history: Pt awake, alert, in no acute distress. Objective - Vital Signs Vital signs: Vital Signs - 12hr 02/20/21 02/20/21 02/21/21 22:48 23:33 03:15 Temperature 98.9 F 98.7 F Pulse Rate 169 H 85 90 Respiratory 16 14 Rate Blood Pressure 165/90 169/99 O2 Sat by Pulse 94 93 Oximetry 02/21/21 02/21/21 02/21/21 08:07 09:46 09:47 Temperature 98.5 F Pulse Rate 87 87 87 Respiratory 18 Rate Blood Pressure 164/90 164/90 164/90 O2 Sat by Pulse 96 Oximetry - General Appearance General appearance: well-developed, well-nourished, appears stated age EENT: ATNC, PERRL, mucous membranes moist Neck: no JVD Respiratory: Present: Clear to Ascultation Cardiology: regular, S1S2 Gastrointestinal: normoactive bowel sounds Integumentary: no rash Neurologic: no focal deficit, alert and oriented x3, strength 5/5, CN 3-12 intact Psychiatric: mood/affect appropriate, cooperative - Lab 02/19/21 20:42 02/21/21 06:53 Most recent lab results Calcium 9.3 mg/dL (8.4-10.2) 02/21/21 06:53 Medications & Allergies - Medications Allergies/Adverse Reactions: Allergies No Known Allergies Allergy (Unverified 09/04/13 07:18) Home Medications: Home Medications Medication Instructions Recorded Confirmed Last Taken Type Ergocalciferol (Vitamin D2) 50,000 unit PO DAILY 09/25/20 10/16/20 Unknown History [Drisdol] Sevelamer Carbonate [Renvela] 1,600 mg PO TID 09/25/20 10/16/20 Unknown History busPIRone [Buspar] 10 mg PO Q8HR 09/25/20 10/16/20 Unknown History Citalopram [Celexa] 20 mg PO QDAY #30 tab 09/28/20 10/16/20 Unknown Rx Furosemide [Lasix TAB] 80 mg PO QDAY #30 tablet 09/28/20 10/16/20 Unknown Rx carvediloL [Coreg] 25 mg PO BID #60 tablet 09/28/20 10/16/20 Unknown Rx cloNIDine [Catapres] 0.3 mg PO Q8HR #270 tablet 09/28/20 10/16/20 Unknown Rx dilTIAZem CD [Cardizem CD] 360 mg PO QDAY #60 capsule 09/28/20 10/16/20 Unknown Rx ALPRAZolam [Xanax TAB] 0.25 mg PO BID PRN 10/16/20 10/16/20 Unknown History Acetaminophen [Acetaminophen TAB] 500 mg PO Q6HR 10/16/20 10/16/20 Unknown History Folic Acid/Vit B Complex and C 0.8 mg PO QDAY 10/16/20 10/16/20 Unknown History [Renal Vitamin Tablet] clonazePAM [KlonoPIN] 0.5 mg PO BID PRN 10/16/20 10/16/20 Unknown History HYDROcodone/APAP 5-325 [[place] 1 each PO Q6HR PRN #20 tab 10/26/20 Unknown Rx 5-325 mg TAB] Ondansetron [Zofran Odt] 4 mg PO Q8HR #30 tab.rapdis 10/26/20 Unknown Rx Pantoprazole [Protonix TAB] 40 mg PO DAILY #30 tablet 10/26/20 Unknown Rx hydrALAZINE [Apresoline TAB] 50 mg PO QID #90 tablet 10/26/20 Unknown Rx Active Medications: Generic Name Dose Route Start Last Admin Trade Name Freq PRN Reason Stop Dose Admin Acetaminophen 650 mg 02/20/21 01:13 Acetaminophen 325 Mg Tab PO Q4H PRN Pain MILD(1-3)/Fever >100.5/SAUCEDO Albuterol 2.5 mg 02/20/21 01:13 Albuterol 2.5 Mg/3 Ml Nebu IH Q4HRT PRN Shortness Of Breath Alprazolam 0.25 mg 02/19/21 23:32 Alprazolam 0.25 Mg Tab PO BID PRN Anxiety Amlodipine Besylate 10 mg 02/20/21 16:00 02/21/21 09:46 Amlodipine 10 Mg Tab PO 10 mg QDAY SUSU Administration Aspirin 81 mg 02/20/21 16:00 02/21/21 09:46 Aspirin 81 Mg Tab Chew PO 81 mg QDAY SUSU Administration Bisacodyl 10 mg 02/20/21 01:13 Bisacodyl 10 Mg Rect Supp ME QDAY PRN Constipation unrelieved by MOM Buspirone HCl 10 mg 02/20/21 06:00 02/21/21 06:08 Buspirone 10 Mg Tab PO 10 mg Q8HR SUSU Administration Carvedilol 25 mg 02/20/21 02:00 02/21/21 09:46 Carvedilol 25 Mg Tab PO 25 mg BID SUSU Administration Dextrose 50 ml 02/20/21 01:13 Dextrose 50% In Water (25gm) 50 Ml Syringe IV Q30MIN PRN Hypoglycemia Protocol Docusate Sodium 100 mg 02/20/21 10:00 02/21/21 09:46 Docusate Sodium 100 Mg Cap PO 100 mg BID SUSU Administration Ergocalciferol 50,000 unit 02/26/21 10:00 Ergocalciferol (Vit D2) 50,000 Unit Cap PO Mo SUSU Hydralazine HCl 10 mg 02/19/21 23:25 Hydralazine 20 Mg/1 Ml Inj IV Q4HR PRN Blood Pressure Hydralazine HCl 100 mg 02/20/21 14:00 02/21/21 06:08 Hydralazine 100 Mg Tab PO 100 mg Q8HR SUSU Administration Sodium Chloride 100 mls @ 999 mls/hr 02/19/21 23:01 Nacl 0.9% IV BRENNA PRN Hypotension Insulin Human Lispro 0 unit 02/20/21 07:30 02/21/21 08:22 Insulin Lispro 100 Unit/Ml SUB-Q Not Given [facility] Protocol Isosorbide Mononitrate 60 mg 02/21/21 10:00 02/21/21 09:47 Isosorbide Mononitrate Er 30 Mg Tab PO 60 mg QDAY SUSU Administration Multivit/Ca Carb/B Cmplx/FA/Prenat 1 cap 02/20/21 10:00 02/21/21 09:46 Folic Acid/Vit B Comp W-C 1 Mg (Renal Caps) PO 1 cap QDAY SUSU Administration Ondansetron HCl 4 mg 02/20/21 01:13 Ondansetron 4 Mg/2 Ml Inj IV Q6H PRN Nausea And Vomiting Oxycodone/Acetaminophen 1 tab 02/20/21 01:13 02/20/21 18:36 Oxycodone /Acetaminophen 5-325mg Tab PO 1 tab Q6H PRN Administration Pain, Moderate (4-6) Pantoprazole Sodium 40 mg 02/20/21 10:00 02/21/21 09:46 Pantoprazole 40 Mg Tab PO 40 mg DAILY SUSU Administration Sevelamer Carbonate 1,600 mg 02/20/21 08:00 02/21/21 09:47 Sevelamer Carbonate 800 Mg Tab PO 1,600 mg TIDWM SUSU Administration Sodium Chloride 10 ml 02/20/21 10:00 02/21/21 09:47 Sodium Chloride 0.9% 10 Ml Flush Syringe IV 10 ml BID SUSU Administration Sodium Chloride 10 ml 02/20/21 01:13 Sodium Chloride 0.9% 10 Ml Flush Syringe IV PRN PRN LINE FLUSH
--- NOTE | 2021-02-21 11:31 | Discharge Summary ---
Providers - Providers Date of Admission: 02/19/21 23:03 Attending physician: ESTHER TELLEZ MD 02/19/21 23:00 Consult to Physician [CONS] Routine Comment: Dr. Stein spoke with Dr. Aguilar @ [id number] Consulting Provider: YIN AGUILAR Physician Instructions: Reason For Exam: ESRD needing dialysis 02/19/21 23:31 Consult to Physician [CONS] Routine Comment: Consulting Provider: MIAH NOGUERA Physician Instructions: Reason For Exam: elevated trop, has aicd Primary care physician: [facility] SPECIALIST Hospitalization Reason for admission: UREMIA Condition: Serious Hospital course: 65-year-old -[place] female with history of hypertension, diabetes, end- stage renal disease on HD who presents to [facility] ED with complaints of elevated blood pressure and headache. Patient went to her local [place] facility with complaints of headache and was found to have significantly elevated blood pressure (SBP in 200s), and was referred to ED for further evaluation and management. She complains of constant 8/10 frontal headache. Additionally, patient complains of substernal nonradiating 4/10 chest pain. Of note patient has AICD, and denies device discharges. Lastly patient complains of nonspecific intermittent 4/10 abdominal pain. Denies taking any pain medicine for her complaints today. admits to not taking her antihypertensive meds this morning. On presentation to our facility patient was found to be in hypertensive urgency with SBP in 240's. Denies slurred speech, alterations in gait, diplopia, nausea, vomiting, fever, shortness of breath, cough, hemoptysis, recent injury/fall, recent sick contacts General appearance: Present: No acute distress, alert and oriented 3, - [place] adult female CXR: IMPRESSION: 1. No acute findings. 2. Interval placement of embolic coil material in the left upper quadrant abdomen. 3. Lower extremity vascular catheter in stable position. Abd: IMPRESSION: 1. Nonobstructive bowel gas pattern. 2. Right femoral catheter in stable position with its tip noted of the right atrium. CT Head; IMPRESSION: 1. No acute intracranial abnormality. 2. Moderate microvascular ischemic change. 3. 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 02/20: Blood pressure showing some improvement but not yet at baseline. Will adjust hydralazine 100 mg 3 times daily. Await cardiology input. If patient has recurrent abdominal pain will proceed with a CT scan of the abdomen. 02/21: Patient clinically stable blood pressure improved I did speak with her who states that the noncompliance was secondary to gastroenteritis and her throwing up. This has since resolved. Did discuss with cardiology no further work-up at this time except initiation of isosorbide mono 60 mg daily. Will follow up outpatient with the patient. I will also recommend home health with the patient for PT OT. Acute atypical chest pain -EKG negative for acute ischemic abnormalities -CXR negative -Troponin now 0.161 (trending down from 0.184 on presentation), will repeat x1 -Denies firing of AICD -We will defer additional cardiac work-up per cardiology recommendations -Cardiology (Dr. Noguera) NSTEMI type II elevated troponin -Troponin now trending down, will continue to trend -Likely due to leak -Echo pending ESRD -requiring HD -HD M/W/F -Missed today's HD session due to not feeling well -Last dialyzed on Friday (02/16) -Nephrology (Dr. Aguilar) consulted with plans for dialysis in a.m. Hypertensive urgency -BP on admission 246/160 on presentation -Hx Hypertension -Continue to monitor BP -Resume home antihypertensive meds to optimize BP -IV antihypertensive when necessary Headache -CT head negative for acute abnormalities -Likely due to hypertensive urgency -Supportive care Acute abdominal pain -Abdominal x-ray negative -Supportive care Intractable nausea and vomiting still likely secondary to uremic syndrome DM -POC BG monitoring -SSI coverage prn -HgbA1C pending Disposition: [id number] HOME UNDER HOME [facility] Final Discharge Diagnosis (Prints w/discharge instructions): Acute gastroenteritis secondary to uremic syndrome Time spent for discharge: 35 MINS Core Measure Documentation - Palliative Care Palliative Care/ Comfort Measures: Not Applicable - Core Measures Any of the following diagnoses?: none Exam - Physical Exam Narrative exam: VITAL SIGNS: Reviewed. GENERAL: The patient appears normally developed, chronically ill-appearing, vital signs as documented. HEAD: No signs of head trauma. EYES: Pupils are equal. Extraocular motions intact. EARS: Hearing grossly intact. MOUTH: Oropharynx is normal. NECK: No adenopathy, no JVD. CHEST: Chest with clear breath sounds bilaterally. No wheezes, rales, or rhonchi. CARDIAC: Regular rate and rhythm. S1 and S2, without murmurs, gallops, or rubs. VASCULAR: No Edema. Peripheral pulses normal and equal in all extremities. ABDOMEN: Soft, mildly distended but nontender. No rebound or guarding, and no masses palpated. Bowel Sounds normal. MUSCULOSKELETAL: Good range of motion of all major joints. Extremities without clubbing, cyanosis or edema. NEUROLOGIC EXAM: awake and oriented x 3 No focal sensory or strength deficits. Speech normal. Follows commands. PSYCHIATRIC: Mood normal. SKIN: detail exam as documented in skin assessment - Constitutional Vitals: Temp Pulse Resp BP Pulse Ox 98.5 F 87 18 164/90 96 02/21/21 08:07 02/21/21 09:47 02/21/21 08:07 02/21/21 09:47 02/21/21 08:07 Plan Activity: advance as tolerated, fall precautions Diet: diabetic, renal Special Instructions: physical therapy, occupational therapy, home oxygen via Follow up with: PRIMARY CAREMD [Primary Care Provider] - 3-5 Days DELVIN BOSWELL MD [Staff Physician] - 7 Days YIN AGUILAR MD [Staff Physician] - 7 Days Prescriptions: hydrALAZINE [Apresoline TAB] 50 mg PO QID #90 tablet ISOSORBIDE MONOnitrate [Imdur ER] 60 mg PO QDAY #60 tablet
--- NOTE | 2021-02-21 13:05 | Progress Note ---
Assessment and Plan This pt is a 65 year old female with a significant hx of CMP with AICD, ESRD on HD, HTN, medical noncompliance. She is previously unknown to our practice and is followed by [facility]. [facility] [place] facility with a complaint of Headache, CP and HTN after missing several dialysis appointments. Headache is described as 8/10 "frontal" and CP described as 4/10. Cardiology is consulted for elevated Troponins x 2 consistent with NSTEMI. BNP is noted to be elevated on admission.At time of my interview chest pain is currenly resolved She is complaining of low, diffuse abd pain that is tender to palpation. Pt states she is taking her prescribed medications. She missed dialysis because she did not feel well. She denies any alcohol, tobacco, or drug use. On admission her SBP is noted to be 240. She is normally followed by [facility] cardiology. She denies any previous hx of AMI, LHC, or cardiac sx , but has had an echoca rdiogram. Records have been requested. Echo reviewed (02/20/21): EF 50-55%. Severe LVH. LV mild diastolic dysfunction. Mild TR. Continue current cardiac and antihypertensive regimen: Amlodipine 10mg, Hydralazine 100mg TID, Coreg 25mg, Imdur 60mg and ASA 81mg. Troponins are elevated consistent with NSTEMI type II. Troponins are trending downward. Continue volume optimization, dialysis per nephrology. Currently stable cardiac status. No plans for further inpatient ischemic evaluation planned at this time. Pt may discharge from cardiology standpoint. Pt should f/u with her primary cardiology with [facility] within 1-2 weeks of discharge. This pt was seen in conjunction with Dr Bales who agrees with this assessment and plan of care. - Patient Problems (1) ESRD needing dialysis Current Visit: Yes Status: Chronic (2) Hypertensive urgency Current Visit: Yes Status: Acute (3) NSTEMI (non-ST elevated myocardial infarction) Current Visit: Yes Status: Acute (4) Headache Current Visit: Yes Status: Acute Qualifiers: Headache type: unspecified Headache chronicity pattern: acute headache Intractability: not intractable Qualified Code(s): R51.9 - Headache, unspecified (5) History of implantable cardioverter-defibrillator (ICD) placement Current Visit: Yes Status: Chronic (6) Non-compliance Current Visit: Yes Status: Chronic Subjective Date of service: 02/21/21 Principal diagnosis: ESRD Interval history: Pt resting comfortably in bed. No CCP or SOB overnight. Tele reviewed: SR 87. No events. Objective Last Vital Signs Temp 98.5 F 02/21/21 08:07 Pulse 87 02/21/21 09:47 Resp 18 02/21/21 08:07 BP 164/90 02/21/21 09:47 Pulse Ox 96 02/21/21 08:07 - Physical Examination HEENT: Positive: PERRL, Normocephaly, Mucus Membranes Moist Neck: Positive: neck supple Lungs: Positive: clear to auscultation, Normal Breath Sounds Neuro: Positive: Grossly Intact Abdomen: Positive: Soft, Tender Skin: Negative: Rash, Wound Musculoskeletal: No Pain Extremities: Present: upper extr. pulses, lower extr. pulses, edema (trace BLE) - Labs and Meds Comprehensive Metabolic Panel 02/21/21 Range/Units 06:53 Sodium 140 (137-145) mmol/L Potassium 3.7 (3.6-5.0) mmol/L Chloride 98.4 (98-107) mmol/L Carbon Dioxide 28 D (22-30) mmol/L BUN 24 H (7-17) mg/dL Creatinine 7.6 H (0.6-1.2) mg/dL Glucose 94 (65-100) mg/dL Calcium 9.3 (8.4-10.2) mg/dL - Imaging and Cardiology EKG: report reviewed, image reviewed Echo: report reviewed (Echo reviewed (02/20/21): EF 50-55%. Severe LVH. LV mild diastolic dysfunction. Mild TR.), image reviewed - Telemetry EKG Rhythm: Sinus Rhythm AV and intraventricular conduction: right bundle branch block
[2021-02-21 13:44] VITALS: BP 138/79
--- NOTE | 2021-02-22 11:39 | Electrocardiograph Report ---
[facility] Test Date: 2021-02-21 Test Time: 07:09:38 Pat Name: RADHA DICK Department: Room: A469 1 Gender: F Certified Tumor Registrar: AILIN : [id number] Requested By: SHANAE HILL Order Number: [id number] Reading MD: Deepika Kim Measurements Intervals [place] Rate: 82 P: 36 WA: 181 QRS: 53 QRSD: 172 T: 17 QT: 516 QTc: 601 Interpretive Statements Sinus rhythm Right bundle branch block Compared to ECG 02/19/2021 23:05:17 Electronically Signed On 02-22-2021 11:38:40 EDT by Deepika Kim
[2021-02-26] MEDS ORDERED: ERGOCALCIFEROL (VIT D2) 50,000 UNIT CAP PO SCH (10:00)
== END 2021-02-21 14:13 | disposition home health service (06) | DRG 280 ==
LOC: ED 18:29 → 4A 23:03
PROVIDERS: ADMIT Internal Medicine Geriatric Medicine; ATTEND Internal Medicine
PROC: 5A1D70Z Performance of Urinary Filtration, Intermittent, Less than 6 Hours Per Day (ICD-10-PCS; principal; 2021-02-20)
DX: I16.1 Hypertensive emergency (principal); I21.A1 Myocardial infarction type 2; N18.6 End stage renal disease; I50.20 Unspecified systolic (congestive) heart failure; E87.2 Acidosis; I42.9 Cardiomyopathy, unspecified; I13.2 Hypertensive heart and chronic kidney disease with heart failure and with stage 5 chronic kidney disease, or end stage renal disease; E11.22 Type 2 diabetes mellitus with diabetic chronic kidney disease; K52.9 Noninfective gastroenteritis and colitis, unspecified; Z99.2 Dependence on renal dialysis; Z90.710 Acquired absence of both cervix and uterus; Z95.810 Presence of automatic (implantable) cardiac defibrillator; Z91.14 Patient's other noncompliance with medication regimen
CPT/HCPCS: 36415; 70450; 71045; 74019; 80048; 80053; 80061; 80074; 82962; 83036; 83880; 84484; 85025; 85610; 85730; 87641; 93005; 93306; 96374; 96375; G0378; J0360; J2270; J2405

== ENCOUNTER 2021-04-23 08:33 | Inpatient (IN) | payer MEDICARE ==
--- NOTE | 2021-04-23 08:53 | Emergency Department Report ---
Blank Doc - Documentation Documentation: 66-year-old female that presents with chest pain and shortness of breath. Sta odalis missed dialysis. 1- This is a initial triage assessment/medical screening only. Full assessment and work-up will be completed once the patient is in proper hospital gown, ED bed and in a private room setting. This initial assessment/diagnostic orders/clinical plan/ treatment(s) is/are subject to change based on pt's health status, clinical progression and re-assessment by fellow clinical providers in the ED. Further treatment and workup at subsequent clinical providers discretion. Patient/guardians urged not to elope from ED as their condition may be serious if not clinically assessed and managed. 2-cardiac work-up
--- NOTE | 2021-04-23 09:32 | XRay Report ---
XR chest routine 2V INDICATION / CLINICAL INFORMATION: Chest Pain. COMPARISON: 02/19/2021 FINDINGS: SUPPORT DEVICES: Left AICD again noted. HEART /PULMONARY VASCULATURE: Cardiac enlargement without pulmonary vasculature congestion. LUNGS / PLEURA: No significant pulmonary or pleural abnormality. No pneumothorax. ADDITIONAL FINDINGS: No significant additional findings. IMPRESSION: 1. No acute findings. Signer Name: Chandana Sánchez MD Signed: 04/23/2021 9:27 AM Workstation Name: Jaco Solarsi
[2021-04-23 09:51] LABS: Basophils % (Auto) 1.3 % (0.0-1.8); Eosinophils # (Auto) 0.2 K/mm3 (0.0-0.4); Eosinophils % (Auto) 5.5 % (0.0-4.3); Hematocrit 29.9 % (30.3-42.9); Lymphocytes # (Auto) 0.7 K/mm3 (1.2-5.4); Mean Corpuscular HGB Conc 33 % (30-34); Mean Corpuscular Volume 92 fl (79-97); Monocytes # (Auto) 0.2 K/mm3 (0.0-0.8); Monocytes % (Auto) 6.5 % (0.0-7.3); Platelet Count 277 K/mm3 (140-440); Red Blood Count 3.26 M/mm3 (3.65-5.03); Red Cell Distribution Width 19.3 % (13.2-15.2)
[2021-04-23 10:02] LABS: Albumin 4.5 g/dL (3.9-5); Calcium 10.3 mg/dL (8.4-10.2)
[2021-04-23 10:08] LABS: INR 0.96 (0.87-1.13)
[2021-04-23 10:09] LABS: Partial Thromboplastin Time 32.2 Sec. (24.2-36.6)
[2021-04-23 10:14] LABS: Chol/HDL Ratio 1.95 %
[2021-04-23] MEDS ORDERED: FAMOTIDINE 20 MG/2 ML INJ IV ONE (15:45)
[2021-04-23] MEDS ORDERED: ACETAMINOPHEN 325 MG TAB PO STA (15:45)
[2021-04-23] MEDS ORDERED: ONDANSETRON 4 MG/2 ML INJ IV ONE (15:45)
[2021-04-23] MEDS ORDERED: NITROGLYCERIN 0.4 MG TAB SUBL SL PRN (15:46)
[2021-04-23] MEDS ORDERED: ASPIRIN 325 MG TAB PO ONE (15:46)
[2021-04-23] MEDS ORDERED: hydrALAZINE 20 MG/1 ML INJ IV ONE (15:49)
--- NOTE | 2021-04-23 15:50 | Emergency Department Report ---
ED General Adult HPI - General Chief complaint: Chest Pain Stated complaint: CHEST PAIN PUI?: No Time Seen by Provider: 04/23/21 08:52 Source: patient, RN notes reviewed, old records reviewed Mode of arrival: Stretcher Limitations: Physical Limitation - History of Present Illness Initial comments: The patient was evaluated in the emergency department for symptoms described in the history of present illness. He/she was evaluated in the context of the global COVID-19 pandemic, which necessitated consideration that the patient might be at risk for infection with the virus that causes COVID-19. Institutional protocols and algorithms that pertain to the evaluation of patients at risk for COVID-19 are in a state of rapid change based on information released by regulatory bodies including the CDC and federal and state organizations. These policies and algorithms were followed during the patient's care in the emergency department. Please note that these policies, procedures and recommendations changed on a rapid basis. Primary CARE doctor: [facility] [place] [facility]: Dr. Pelaez Past medical history: Hypertension, diabetes, end-stage renal disease on hemodialysis, Friday, Friday, Friday; last hemodialysis session was of last week. Also has AICD in situ, type II troponin leak, and right-sided femoral Vas-Cath. Patient recently admitted to [facility] for chest pain work-up. Believes that she had an echocardiogram which was unremarkable. Patient reports she was last dialyzed this past , and feels that she has abdominal cramping, nausea, vomiting, central and left-sided chest wall pain which moves down her left upper extremity. Denies headache, neck pain, dysuria, and hematemesis. She also reports that she is hungry and would like to eat. Reports intermittent shortness of breath which is chronic. Denies leg pain or leg swelling. Denies loss of taste and smell The patient reports that her left-sided chest discomfort is acute on chronic. Does not have exacerbating or relieving factors that she is aware of. She also feels like she needs urgent hemodialysis based off of her complaint of abdominal cramping, nausea and vomiting. -: Gradual, hour(s), days(s) Location: chest Radiation: extremity Severity scale (0 -10): 10 Quality: aching Consistency: intermittent Improves with: rest Worsens with: movement, other (Hemodialysis) - Related Data Home Medications Medication Instructions Recorded Confirmed Last Taken Ergocalciferol (Vitamin D2) 50,000 unit PO DAILY 09/25/20 10/16/20 Unknown [Drisdol] Sevelamer Carbonate [Renvela] 1,600 mg PO TID 09/25/20 10/16/20 Unknown busPIRone [Buspar] 10 mg PO Q8HR 09/25/20 10/16/20 Unknown ALPRAZolam [Xanax TAB] 0.25 mg PO BID PRN 10/16/20 10/16/20 Unknown Acetaminophen [Acetaminophen TAB] 500 mg PO Q6HR 10/16/20 10/16/20 Unknown Folic Acid/Vit B Complex and C 0.8 mg PO QDAY 10/16/20 10/16/20 Unknown [Renal Vitamin Tablet] clonazePAM [KlonoPIN] 0.5 mg PO BID PRN 10/16/20 10/16/20 Unknown Previous Rx's Medication Instructions Recorded Last Taken Type Citalopram [Celexa] 20 mg PO QDAY #30 tab 09/28/20 Unknown Rx Furosemide [Lasix TAB] 80 mg PO QDAY #30 tablet 09/28/20 Unknown Rx carvediloL [Coreg] 25 mg PO BID #60 tablet 09/28/20 Unknown Rx cloNIDine [Catapres] 0.3 mg PO Q8HR #270 tablet 09/28/20 Unknown Rx HYDROcodone/APAP 5-325 [[place] 1 each PO Q6HR PRN #20 tab 10/26/20 Unknown Rx 5-325 mg TAB] Ondansetron [Zofran ODT TAB] 4 mg PO Q8HR #30 tab.rapdis 10/26/20 Unknown Rx Pantoprazole [Protonix TAB] 40 mg PO DAILY #30 tablet 10/26/20 Unknown Rx ISOSORBIDE MONOnitrate [Imdur ER] 60 mg PO QDAY #60 tablet 02/21/21 Unknown Rx hydrALAZINE [Apresoline TAB] 50 mg PO QID #90 tablet 02/21/21 Unknown Rx Allergies Allergy/AdvReac Type Severity Reaction Status Date / Time No Known Allergies Allergy Unverified 09/04/13 07:18 ED Review of Systems ROS: Stated complaint: CHEST PAIN Other details as noted in HPI Constitutional: malaise, weakness. denies: fever Eyes: denies: eye discharge ENT: denies: epistaxis Respiratory: shortness of breath. denies: wheezing Cardiovascular: chest pain Gastrointestinal: abdominal pain, nausea, vomiting. denies: diarrhea Musculoskeletal: myalgia Neurological: weakness, paresthesias Hematological/Lymphatic: denies: easy bleeding ED Past Medical Hx - Past Medical History Previous Medical History?: Yes Hx Hypertension: Yes (ADMITTED WITH HYPERTENSIVE EMERGENCY) Hx Heart Attack/AMI: No Hx Congestive Heart Failure: No Hx Diabetes: Yes Hx Renal Disease: Yes (Dialysis: M-W-F) Hx Asthma: No Hx COPD: No Hx Tuberculosis: Yes Hx HIV: No Additional medical history: Possible atrial fib. Hernia right Inguinal - Surgical History Hx Pacemaker: Yes Hx Internal Defibrillator: Yes Hx Cholecystectomy: Yes Hx Appendectomy: Yes Additional Surgical History: Hysterectomy - Social History Smoking Status: Never Smoker - Medications Home Medications: Home Medications Medication Instructions Recorded Confirmed Last Taken Type Ergocalciferol (Vitamin D2) 50,000 unit PO DAILY 09/25/20 10/16/20 Unknown History [Drisdol] Sevelamer Carbonate [Renvela] 1,600 mg PO TID 09/25/20 10/16/20 Unknown History busPIRone [Buspar] 10 mg PO Q8HR 09/25/20 10/16/20 Unknown History Citalopram [Celexa] 20 mg PO QDAY #30 tab 09/28/20 10/16/20 Unknown Rx Furosemide [Lasix TAB] 80 mg PO QDAY #30 tablet 09/28/20 10/16/20 Unknown Rx carvediloL [Coreg] 25 mg PO BID #60 tablet 09/28/20 10/16/20 Unknown Rx cloNIDine [Catapres] 0.3 mg PO Q8HR #270 tablet 09/28/20 10/16/20 Unknown Rx ALPRAZolam [Xanax TAB] 0.25 mg PO BID PRN 10/16/20 10/16/20 Unknown History Acetaminophen [Acetaminophen TAB] 500 mg PO Q6HR 10/16/20 10/16/20 Unknown History Folic Acid/Vit B Complex and C 0.8 mg PO QDAY 10/16/20 10/16/20 Unknown History [Renal Vitamin Tablet] clonazePAM [KlonoPIN] 0.5 mg PO BID PRN 10/16/20 10/16/20 Unknown History HYDROcodone/APAP 5-325 [[place] 1 each PO Q6HR PRN #20 tab 10/26/20 Unknown Rx 5-325 mg TAB] Ondansetron [Zofran ODT TAB] 4 mg PO Q8HR #30 tab.rapdis 10/26/20 Unknown Rx Pantoprazole [Protonix TAB] 40 mg PO DAILY #30 tablet 10/26/20 Unknown Rx ISOSORBIDE MONOnitrate [Imdur ER] 60 mg PO QDAY #60 tablet 02/21/21 Unknown Rx hydrALAZINE [Apresoline TAB] 50 mg PO QID #90 tablet 02/21/21 Unknown Rx ED Physical Exam - General Limitations: No Limitations General appearance: alert, in no apparent distress, anxious, obese - Head Head exam: Present: atraumatic, normocephalic - Eye Eye exam: Present: normal appearance, EOMI. Absent: nystagmus - ENT ENT exam: Present: normal exam, normal orophraynx, mucous membranes moist, normal external ear exam - Neck Neck exam: Present: normal inspection, full ROM. Absent: tenderness, meningis mus - Respiratory Respiratory exam: Present: normal lung sounds bilaterally, chest wall tenderness. Absent: respiratory distress, wheezes, rales, rhonchi, stridor - Cardiovascular Cardiovascular Exam: Present: regular rate, normal rhythm, normal heart sounds. Absent: bradycardia, tachycardia, irregular rhythm, systolic murmur, diastolic murmur, rubs, gallop - GI/Abdominal GI/Abdominal exam: Present: soft. Absent: distended, tenderness, guarding, rebound, rigid, pulsatile mass - Extremities Exam Extremities exam: Present: normal inspection (Right-sided femoral Vas-Cath noted, without redness, pus or streaking; chaperoned by nurse Smith), full ROM, pedal edema (1+ edema in the bilateral lower extremities), other (2+ pulses noted in the bilateral upper and lower extremities. There is no palpable cord. negative Homans sign. Muscular compartments are soft. The pelvis is stable.). Absent: calf tenderness - Back Exam Back exam: Present: normal inspection. Absent: tenderness, CVA tenderness (R), CVA tenderness (L), paraspinal tenderness, vertebral tenderness - Neurological Exam Neurological exam: Present: alert, other (No facial droop. Tongue midline. Extraocular movements intact bilaterally. Facial sensation intact to light touch in V1, V2, V3 distribution bilaterally. 5 and a 5 strength in 4 extremities. Sensation intact to light touch in 4 extremities.) - Psychiatric Psychiatric exam: Present: anxious - Skin Skin exam: Present: warm, dry, intact, normal color. Absent: rash ED Course Vital Signs 04/23/21 04/23/21 04/23/21 08:49 15:30 16:01 Temperature 97.7 F Pulse Rate 70 87 77 Respiratory 20 15 22 Rate Blood Pressure 235/136 Blood Pressure 210/117 [Right] O2 Sat by Pulse 99 98 98 Oximetry 04/23/21 04/23/21 04/23/21 16:31 16:51 17:01 Temperature Pulse Rate 77 87 82 Respiratory 19 16 Rate Blood Pressure 235/136 230/136 228/127 Blood Pressure [Right] O2 Sat by Pulse 96 96 Oximetry 04/23/21 04/23/21 04/23/21 17:31 18:01 18:31 Temperature Pulse Rate 88 83 87 Respiratory 19 21 15 Rate Blood Pressure 217/111 217/111 204/124 Blood Pressure [Right] O2 Sat by Pulse 97 97 Oximetry - Reevaluation(s) Reevaluation #1: 04/23/21 15:52 Differential diagnosis, including but not limited to: GERD, gastritis, hiatal hernia, pneumonia, acute coronary syndrome, azotemia, uremia, metabolic acidosis, hypertensive urgency, end-stage renal disease requiring hemodialysis, hyperkalemia Assessment and plan: 66-year-old female, who is due for hemodialysis today, with chronic chest pain, chronically elevated troponin, EKG essentially unchanged from prior, with the exception of first-degree AV block, likely type II troponin leak, who is not currently tachycardic, tachypneic or hypoxic, who has had negative CTA of the chest in the past for pulmonary embolism, low probability nuclear medicine study for pulmonary embolism in the past, presenting with hy pertensive urgency, hyperkalemia, azotemia, uremia, metabolic acidosis, likely requires admission for urgent hemodialysis. This patient is a [facility] patient. We have reached out to the [facility] network to arrange appropriate disposition. It is my opinion that given hypertension, metabolic derangement, it would not be medically ideal for the patient to be transported to another facility, especially when this patient can be managed here at this facility. Chest pain is chronic. 04/23/21 16:01 I have discussed the patient's history, physical, laboratory studies, imaging studies, and overall clinical impression with Dr. Domonique Martinez, [facility] coordinating physician. [facility] has provided authorization for this patient to be admitted to this hospital. Nephrology on-call is paged, we are awaiting callback. Hospital physician, Dr. Holt, to admit patient to the medical service. - Consultations Consultation #1: 04/23/21 16:12 Discussed history, physical, laboratory studies and clinical impression with nephrology on-call, Dr. Terry Hector He will place hemodialysis orders. ED Medical Decision Making - Lab Data Result diagrams: 04/23/21 09:19 04/23/21 09:19 Vital Signs 04/23/21 08:49 Temperature 97.7 F Pulse Rate 70 Respiratory 20 Rate Blood Pressure 210/117 [Right] O2 Sat by Pulse 99 Oximetry Lab Results 04/23/21 04/23/21 04/23/21 Range/Units 09:19 09:19 09:19 WBC 3.7 L (4.5-11.0) K/mm3 RBC 3.26 L (3.65-5.03) M/mm3 Hgb 10.0 L (10.1-14.3) gm/dl Hct 29.9 L (30.3-42.9) % MCV 92 (79-97) fl MCH 31 (28-32) pg MCHC 33 (30-34) % RDW 19.3 H (13.2-15.2) % Plt Count 277 (140-440) K/mm3 Lymph % (Auto) 18.0 (13.4-35.0) % [place] % (Auto) 6.5 (0.0-7.3) % Eos % (Auto) 5.5 H (0.0-4.3) % Baso % (Auto) 1.3 (0.0-1.8) % Lymph # (Auto) 0.7 L (1.2-5.4) K/mm3 [place] # (Auto) 0.2 (0.0-0.8) K/mm3 Eos # (Auto) 0.2 (0.0-0.4) K/mm3 Baso # (Auto) 0.0 (0.0-0.1) K/mm3 Seg Neutrophils % 68.7 (40.0-70.0) % Seg Neutrophils # 2.6 (1.8-7.7) K/mm3 PT 13.4 (12.2-14.9) Sec. INR 0.96 (0.87-1.13) APTT 32.2 (24.2-36.6) Sec. Sodium 135 L (137-145) mmol/L Potassium 5.5 H (3.6-5.0) mmol/L Chloride 95.0 L (98-107) mmol/L Carbon Dioxide 15 L (22-30) mmol/L Anion Gap 31 mmol/L BUN 67 H (7-17) mg/dL Creatinine 14.5 H (0.6-1.2) mg/dL Estimated GFR 3 ml/min BUN/Creatinine Ratio 5 % Glucose 90 (65-100) mg/dL Calcium 10.3 H (8.4-10.2) mg/dL Total Bilirubin 0.60 (0.1-1.2) mg/dL AST 22 (5-40) units/L ALT 12 (7-56) units/L Alkaline Phosphatase 93 (35-129) units/L Troponin T 0.087 H (0.00-0.029) ng/mL Total Protein 7.7 (6.3-8.2) g/dL Albumin 4.5 (3.9-5) g/dL Albumin/Globulin Ratio 1.4 % Triglycerides 60 (2-149) mg/dL Cholesterol 182 (50-199) mg/dL LDL Cholesterol Direct 70 (50-130) mg/dL HDL Cholesterol 93 H (40-59) mg/dL Cholesterol/HDL Ratio 1.95 % - EKG Data -: EKG Interpreted by Nv EKG shows normal: sinus rhythm Rate: normal - EKG Data 04/23/21 15:51 EKG today as compared to prior EKG from 02/21/2021 Sinus rhythm, 76 bpm. First-degree AV block, WI interval 243 ms. Incomplete right bundle branch block. Left ventricular hypertrophy. EKG is abnormal, but not a STEMI. QTC prolonged, 464 ms. - Radiology Data Radiology results: pending, report reviewed, image reviewed [facility] [address] [place] [address] XRay Report Signed Patient: RADHA DICK MR# : [id number] : 1955 Acct:[id number] Age/Sex: 66 / F ADM Date: 04/23/21 Loc: ED Attending Dr: Ordering Physician: ADELA MCCRACKEN NP Date of Service: 04/23/21 Procedure(s): XR chest routine 2V Accession Number(s): [id number] cc: ADELA MCCRACKEN NP Fluoro Time In Minutes: XR chest routine 2V INDICATION / CLINICAL INFORMATION: Chest Pain. COMPARISON: 02/19/2021 FINDINGS: SUPPORT DEVICES: Left AICD again noted. HEART /PULMONARY VASCULATURE: Cardiac enlargement without pulmonary vasculature congestion. LUNGS / PLEURA: No significant pulmonary or pleural abnormality. No pneumothorax. ADDITIONAL FINDINGS: No significant additional findings. IMPRESSION: 1. No acute findings. Signer Name: Demian Sánchez MD Signed: 04/23/2021 9:27 AM Workstation Name: [id number] Transcribed By: MARTELL Dictated By: DEMIAN SÁNCHEZ MD Electronically Authenticated By: DEMIAN SÁNCHEZ MD Signed Date/Time: 04/23/21926 DD/ 5 Critical Care Time: Yes Critical care time in (mins) excluding proc time.: 35 Critical care attestation.: If time is entered above; I have spent that time in minutes in the direct care of this critically ill patient, excluding procedure time. ED Disposition Clinical Impression: Troponin level elevated, Chest pain, Hypertensive urgency, malignant, Metabolic acidosis, Hyperkalemia, ESRD needing dialysis, Missed dialysis Disposition: OP ADMIT IP TO THIS HOSP Is pt being admited?: Yes Does the pt Need Aspirin: No Condition: Serious Heart Score - HEART Score History: Slightly suspicious EKG: Non-specific Age: 45-65 Risk factors: > 3 risk factors or hx of atherosclerotic disease Troponin: 1-3x normal limit HEART Score: 5 - EKG Read Time Time EKG Completed: 15:23 EKG Read Time: 15:23 - Critical Actions Critical Actions: 4-6 pts:12-16.6% risk of adverse cardiac event. Should be admitted
[2021-04-23] MEDS ORDERED: SODIUM POLYSTYRENE 15 GM/60 ML ORAL LIQD PO ONE (15:51)
[2021-04-23] MEDS ORDERED: DEXTROSE 50% IN WATER (25GM) 50 ML VIAL IV PRN (15:51)
[2021-04-23] MEDS ORDERED: INSULIN REGULAR, HUMAN 100 UNITS/1 ML IV ONE (15:51)
[2021-04-23] MEDS ORDERED: SODIUM BICARB 8.4% 50 MEQ/50 ML SYRINGE IV ONE (15:51)
[2021-04-23] MEDS ORDERED: ALBUTEROL 2.5 MG/3 ML NEBU IH ONE (15:51)
[2021-04-23] MEDS ORDERED: CALCIUM GLUCONATE 1,000 MG in SODIUM CHLORIDE 0.9% 100 ML IV ONE (16:00)
--- NOTE | 2021-04-23 16:02 | History and Physical Report ---
History of Present Illness Chief complaint: I need dialysis History of present illness: 66 YO Female with ESRD on HD(M,W,F), HTN, DM, Paroxysmal Atrial Fib not on therapeutic anticoagulation, Chronic Stable Angina D/C from [facility] on four days ago after cardiac workup presents to ED for evaluation. Pt reports "I was not feeling good and missed dialysis". Patient states that she had experienced abdominal cramping, nausea, multiple episodes of vomiting, chest discomfort over the past 1 week with persistent symptoms over the same timeframe. Patient knowledges missed dialysis due to the aforementioned sympto ms. Patient last dialyzed on prior to discharge from [facility]. EMS notified and upon arrival the patient was found to be in distress and subsequently transported to [facility] for further care and evaluation of the aforementioned symptoms. The patient was seen and evaluated in the emergency department. All lab and imaging studies reviewed. Patient found to have end- stage renal disease in need of urgent dialysis, hypertensive urgency with blood pressure of 230/136, as well as metabolic acidosis, hyperkalemia complicated by EKG changes. Patient placed in observation status and admitted to medical floor due to increased risk of worsening symptoms. Nephrology team consulted in ED. Patient denies fever, chills, chest pain, palpitations, productive cough, skin rash, recent ill contacts Nephrology team consulted in ED for urgent dialysis. Prior admission on 11/21/2020 reviewed. All medication listed at time of admission has been reconciled. Advanced care planning conducted in ED. Past History Past Medical History: atrial fib, diabetes, ESRD, hypertension, other (See HPI) Past Surgical History: appendectomy, cholecystectomy, hysterectomy, Other (ICD placement, dialysis access) Social history: . denies: smoking, alcohol abuse, prescription drug abuse Family history: diabetes, hypertension Medications and Allergies Allergies Allergy/AdvReac Type Severity Reaction Status Date / Time No Known Allergies Allergy Unverified 09/04/13 07:18 Home Medications Medication Instructions Recorded Confirmed Last Taken Type Ergocalciferol (Vitamin D2) 50,000 unit PO DAILY 09/25/20 10/16/20 Unknown History [Drisdol] Sevelamer Carbonate [Renvela] 1,600 mg PO TID 09/25/20 10/16/20 Unknown History busPIRone [Buspar] 10 mg PO Q8HR 09/25/20 10/16/20 Unknown History Citalopram [Celexa] 20 mg PO QDAY #30 tab 09/28/20 10/16/20 Unknown Rx Furosemide [Lasix TAB] 80 mg PO QDAY #30 tablet 09/28/20 10/16/20 Unknown Rx carvediloL [Coreg] 25 mg PO BID #60 tablet 09/28/20 10/16/20 Unknown Rx cloNIDine [Catapres] 0.3 mg PO Q8HR #270 tablet 09/28/20 10/16/20 Unknown Rx ALPRAZolam [Xanax TAB] 0.25 mg PO BID PRN 10/16/20 10/16/20 Unknown History Acetaminophen [Acetaminophen TAB] 500 mg PO Q6HR 10/16/20 10/16/20 Unknown History Folic Acid/Vit B Complex and C 0.8 mg PO QDAY 10/16/20 10/16/20 Unknown History [Renal Vitamin Tablet] clonazePAM [KlonoPIN] 0.5 mg PO BID PRN 10/16/20 10/16/20 Unknown History HYDROcodone/APAP 5-325 [[place] 1 each PO Q6HR PRN #20 tab 10/26/20 Unknown Rx 5-325 mg TAB] Ondansetron [Zofran ODT TAB] 4 mg PO Q8HR #30 tab.rapdis 10/26/20 Unknown Rx Pantoprazole [Protonix TAB] 40 mg PO DAILY #30 tablet 10/26/20 Unknown Rx ISOSORBIDE MONOnitrate [Imdur ER] 60 mg PO QDAY #60 tablet 02/21/21 Unknown Rx hydrALAZINE [Apresoline TAB] 50 mg PO QID #90 tablet 02/21/21 Unknown Rx Active Meds: Active Medications Dextrose (Dextrose 50% In Water (25gm) 50 Ml Vial) 50 gm IV Q30MIN PRN; Protocol PRN Reason: Hypoglycemia Calcium Gluconate 1,000 mg/ (Sodium Chloride) 110 mls @ 660 mls/hr IV ONCE ONE Stop: 04/23/21 16:09 Nitroglycerin (Nitroglycerin 0.4 Mg Tab Subl) 0.4 mg SL .Q5MIN PRN PRN Reason: Chest Pain Review of Systems Constitutional: weakness, no weight loss, no weight gain, no fever, no chills Ears, nose, mouth and throat: no ear pain, no ear discharge, no decreased hearing, no nasal congestion, no nasal discharge Breasts: no change in shape, no swelling, no mass Cardiovascular: no chest pain, no palpitations, no rapid/irregular heart beat, no edema, no lightheadedness Respiratory: no cough, no cough with sputum, no excessive sputum, no shortness of breath, no dyspnea on exertion Gastrointestinal: no abdominal pain, no nausea, no diarrhea, no constipation, no change in bowel habits, no hematemesis, no coffee ground emesis Genitourinary Female: no pelvic pain, no flank pain, no dysuria, no urinary frequency, no urgency, no stress incontinence Rectal: no pain, no incontinence, no bleeding Musculoskeletal: no neck stiffness, no shooting arm pain, no arm numbness/tingling, no low back pain, no leg numbness/tingling Neurological: no head injury, no transient paralysis, no numbness, no tingling, no seizures, no syncope Psychiatric: no anxiety, no change in sleep habits, no sleep disturbances, no hypersomnia, no suicidal ideation Endocrine: no cold intolerance, no heat intolerance, no excessive thirst, no flushing, no weight change Hematologic/Lymphatic: no easy bruising, no easy bleeding, no lymphadenopathy, no lymphedema Allergic/Immunologic: no wheezing, no persistent infections Exam - Constitutional Vitals: Temp Pulse Resp BP Pulse Ox 97.7 F 70 20 210/117 99 04/23/21 08:49 04/23/21 08:49 04/23/21 08:49 04/23/21 08:49 04/23/21 08:49 General appearance: Present: mild distress - EENT Eyes: Present: PERRL ENT: hearing intact, clear oral mucosa - Neck Neck: Present: supple, normal ROM - Respiratory Respiratory effort: normal Respiratory: bilateral: CTA - Cardiovascular Heart Sounds: Present: S1 & S2. Absent: rub, click - Extremities Extremities: pulses symmetrical, No edema Peripheral Pulses: within normal limits - Abdominal General gastrointestinal: Present: soft, non-tender, non-distended, normal bowel sounds Female genitourinary: Present: normal - Integumentary Integumentary: Present: clear, warm, dry - Musculoskeletal Musculoskeletal: gait normal, strength equal bilaterally - Psychiatric Psychiatric: appropriate mood/affect, intact judgment & insight - Neurologic Neurologic: CNII-XII intact, moves all extremities HEART Score - HEART Score EKG: Non-specific Age: 45-65 Risk factors: > 3 risk factors or hx of atherosclerotic disease Troponin: Troponin T 0.098 ng/mL (0.00-0.029) H 04/23/21 14:55 Troponin: 1-3x normal limit - Critical Actions Critical Actions: 4-6 pts:12-16.6% risk of adverse cardiac event. Should be admitted Results - Labs CBC & Chem 7: 04/23/21 09:19 04/23/21 09:19 Labs: Abnormal lab results 04/23/21 04/23/21 04/23/21 Range/Units 09:19 09:19 14:55 WBC 3.7 L (4.5-11.0) K/mm3 RBC 3.26 L (3.65-5.03) M/mm3 Hgb 10.0 L (10.1-14.3) gm/dl Hct 29.9 L (30.3-42.9) % RDW 19.3 H (13.2-15.2) % Eos % (Auto) 5.5 H (0.0-4.3) % Lymph # (Auto) 0.7 L (1.2-5.4) K/mm3 Sodium 135 L (137-145) mmol/L Potassium 5.5 H (3.6-5.0) mmol/L Chloride 95.0 L (98-107) mmol/L Carbon Dioxide 15 L (22-30) mmol/L BUN 67 H (7-17) mg/dL Creatinine 14.5 H (0.6-1.2) mg/dL Calcium 10.3 H (8.4-10.2) mg/dL Troponin T 0.087 H 0.098 H (0.00-0.029) ng/mL HDL Cholesterol 93 H (40-59) mg/dL Assessment and Plan - Patient Problems (1) ESRD needing dialysis Current Visit: Yes Status: Chronic Plan to address problem: BNP, strict I's/O, monitor urine output every shift, dialysis as per renal team, nephrology team consulted in ED, avoid nephrotoxic agents. (2) Hyperkalemia Current Visit: Yes Status: Acute Plan to address problem: Calcium gluconate, Kayexalate, EKG, repeat EKG, remote telemetry monitoring. (3) Hypertensive urgency, malignant Current Visit: Yes Status: Acute Plan to address problem: Continue medical management, monitor blood pressure every shift, hydralazine ev scott 6 hours as needed for systolic blood pressure greater than or equal to 155. (4) Metabolic acidosis Current Visit: Yes Status: Acute Plan to address problem: BMP, repeat BMP in a.m., IV bicarbonate therapy, supportive care. Urgent dialysis (5) Diabetes mellitus Current Visit: No Status: Chronic Qualifiers: Diabetes mellitus complication status: without complication Plan to address problem: Consistent carbohydrate diet, hypoglycemia protocol, insulin protocol, supportive care. (6) DVT prophylaxis Current Visit: No Status: Acute (7) Advance care planning Current Visit: No Status: Acute Plan to address problem: Disease education conducted, care plan discussed, diagnosis discussed, prognosis discussed, patient knowledges understanding and agreement with care plan. +30 minutes.
[2021-04-23] MEDS ORDERED: ALBUTEROL 2.5 MG/3 ML NEBU IH PRN (16:57)
[2021-04-23] MEDS ORDERED: ONDANSETRON 4 MG/2 ML INJ IV PRN (16:57)
[2021-04-23] MEDS ORDERED: ALPRAZolam 0.25 MG TAB PO PRN (16:58)
[2021-04-23] MEDS ORDERED: clonazePAM 0.5 MG TAB PO PRN (16:58)
[2021-04-23] MEDS ORDERED: SODIUM CHLORIDE 0.9% 100 ML IV PRN (17:43)
[2021-04-23] MEDS ORDERED: hydrALAZINE 25 MG TAB PO SCH (18:00)
[2021-04-23] MEDS ORDERED: ACETAMINOPHEN 500 MG TAB PO SCH (18:00)
[2021-04-23] MEDS ORDERED: diphenhydrAMINE 50 MG/ML VIAL IV ONE (18:47)
--- NOTE | 2021-04-23 19:09 | Consultation ---
History of Present Illness - Reason for Consult Consult date: 04/23/21 end stage renal disease Requesting physician: STACIA ROSENBERG - History of Present Illness 66-year-old lady with a history of diabetes mellitus, hypertension end-stage renal disease on hemodialysis since 2015. Patient states dialysis has been hard on her for the last month or so. She is actually undergoing kidney transplant evaluation and states she is on the list. She dialyzes via a right femoral permacath and does not have an AV access. She states that all attempts at AV access were all unsuccessful. She has been having episodes of elevated blood pressure on dialysis leading to abbreviation of her treatments and her been sent to the emergency room for evaluation. She was just discharged from [facility] where she had cardiac work-up and treatment which she cannot really articulate. She was discharged home last . On Friday she developed vomiting and diarrhea and so she missed her dialysis treatment. She woke up this morning unable to breathe with chest pain in the left side of her chest with pain in her left arm extending to the elbow and also back pain. She admits to cough of 2 days duration productive of phlegm but she is unsure of the color. Also noted to have abdominal cramping. On presenting in the ER her blood pressure was 230/130 mmHg. I was called by ER attending and gave orders for Emergency dialysis. Patient is seen on the dialysis machine she is feeling a bit better as her symptoms have improved but not resolved. 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 She is currently on disability.). denies: smoking, alcohol abuse, prescription drug abuse Family history: CAD (Mother has coronary disease and she has had 4 coronary stents placed), diabetes, hypertension Medications and Allergies Allergies Allergy/AdvReac Type Severity Reaction Status Date / Time No Known Allergies Allergy Unverified 09/04/13 07:18 Home Medications Medication Instructions Recorded Confirmed Last Taken Type Ergocalciferol (Vitamin D2) 50,000 unit PO DAILY 09/25/20 10/16/20 Unknown History [Drisdol] Sevelamer Carbonate [Renvela] 1,600 mg PO TID 09/25/20 10/16/20 Unknown History busPIRone [Buspar] 10 mg PO Q8HR 09/25/20 10/16/20 Unknown History Citalopram [Celexa] 20 mg PO QDAY #30 tab 09/28/20 10/16/20 Unknown Rx Furosemide [Lasix TAB] 80 mg PO QDAY #30 tablet 09/28/20 10/16/20 Unknown Rx carvediloL [Coreg] 25 mg PO BID #60 tablet 09/28/20 10/16/20 Unknown Rx cloNIDine [Catapres] 0.3 mg PO Q8HR #270 tablet 09/28/20 10/16/20 Unknown Rx ALPRAZolam [Xanax TAB] 0.25 mg PO BID PRN 10/16/20 10/16/20 Unknown History Acetaminophen [Acetaminophen TAB] 500 mg PO Q6HR 10/16/20 10/16/20 Unknown History Folic Acid/Vit B Complex and C 0.8 mg PO QDAY 10/16/20 10/16/20 Unknown History [Renal Vitamin Tablet] clonazePAM [KlonoPIN] 0.5 mg PO BID PRN 10/16/20 10/16/20 Unknown History HYDROcodone/APAP 5-325 [[place] 1 each PO Q6HR PRN #20 tab 10/26/20 Unknown Rx 5-325 mg TAB] Ondansetron [Zofran ODT TAB] 4 mg PO Q8HR #30 tab.rapdis 10/26/20 Unknown Rx Pantoprazole [Protonix TAB] 40 mg PO DAILY #30 tablet 10/26/20 Unknown Rx ISOSORBIDE MONOnitrate [Imdur ER] 60 mg PO QDAY #60 tablet 02/21/21 Unknown Rx hydrALAZINE [Apresoline TAB] 50 mg PO QID #90 tablet 02/21/21 Unknown Rx Active Meds: Active Medications Acetaminophen (Acetaminophen 325 Mg Tab) 650 mg PO Q4H PRN PRN Reason: Pain MILD(1-3)/Fever >100.5/SAUCEDO Hydrocodone Bitart/Acetaminophen (Hydrocodone/Acetaminophen 5-325 Mg Tab) 1 each PO Q6HR PRN PRN Reason: PAIN, MODERATE Albuterol (Albuterol 2.5 Mg/3 Ml Nebu) 2.5 mg IH Q4H PRN PRN Reason: Shortness Of Breath Alprazolam (Alprazolam 0.25 Mg Tab) 0.25 mg PO BID PRN PRN Reason: Anxiety Buspirone HCl (Buspirone 5 Mg Tab) 10 mg PO Q8HR [facility] Carvedilol (Carvedilol 25 Mg Tab) 25 mg PO BID [facility] Citalopram Hydrobromide (Citalopram 20 Mg Tab) 20 mg PO QDAY [facility] Clonazepam (Clonazepam 0.5 Mg Tab) 0.5 mg PO BID PRN PRN Reason: Anxiety Clonidine HCl (Clonidine 0.1 Mg Tab) 0.3 mg PO Q8HR [facility] Dextrose (Dextrose 50% In Water (25gm) 50 Ml Vial) 50 gm IV Q30MIN PRN; Protocol PRN Reason: Hypoglycemia Ergocalciferol (Ergocalciferol (Vit D2) 50,000 Unit Cap) 50,000 unit PO DAILY [facility] Furosemide (Furosemide 40 Mg Tab) 80 mg PO QDAY [facility] Hydralazine HCl (Hydralazine 25 Mg Tab) 50 mg PO QID [facility] Sodium Chloride (Nacl 0.9%) 100 mls @ 999 mls/hr IV BRENNA PRN PRN Reason: Hypotension Isosorbide Mononitrate (Isosorbide Mononitrate Er 30 Mg Tab) 60 mg PO QDAY [facility] Miscellaneous Medication (Folic Acid/Vit B Complex And C [Renal Vitamin Tablet]) 0.8 mg PO QDAY [facility] Nitroglycerin (Nitroglycerin 0.4 Mg Tab Subl) 0.4 mg SL .Q5MIN PRN PRN Reason: Chest Pain Ondansetron HCl (Ondansetron 4 Mg/2 Ml Inj) 4 mg IV Q8H PRN PRN Reason: Nausea And Vomiting Ondansetron HCl (Ondansetron 4 Mg Odt Tab) 4 mg PO Q8HR [facility] Pantoprazole Sodium (Pantoprazole 40 Mg Tab) 40 mg PO DAILY [facility] Sevelamer Carbonate (Sevelamer Carbonate 800 Mg Tab) 1,600 mg PO TID [facility] Sodium Chloride (Sodium Chloride 0.9% 10 Ml Flush Syringe) 10 ml IV BID [facility] Sodium Chloride (Sodium Chloride 0.9% 10 Ml Flush Syringe) 10 ml IV PRN PRN PRN Reason: LINE FLUSH Review of Systems All systems: negative (Admits to fever and chills and poor appetite. Admits to sinus drainage. No vision impairment. Cardiovascular respiratory see history of present illness. Admits to vomiting and diarrhea as noted in history of present illness with abdominal cramping. No hematemesis, melena or hematochezia.) Musculoskeletal: low back pain, other (Admit to joint pains in her knees and her back.) Neurological: headaches (Admits to headache and dizziness. No focal weakness or numbness. No syncope or seizures.) Psychiatric: anxiety, no depression Endocrine: cold intolerance (Admits to cold intolerance. No heat intolerance.) Exam - Vital Signs Vital signs: Vital Signs Temp Pulse Resp BP Pulse Ox 97.7 F 70 20 210/117 99 04/23/21 08:49 04/23/21 08:49 04/23/21 08:49 04/23/21 08:49 04/23/21 08:49 - Physical Exam Narrative exam: Middle-aged -Citizen Of [place] female lying in bed in no acute distress HEENT: NCAT, pink oral mucous membrane Neck: Supple, no venous distention CVS: S1S2 RRR with no murmur, rub or gallop Chest: Clear to auscultation but breath sounds diminished in lower zones posteriorly Abdomen: Protuberant, soft, vague tenderness,, no organomegaly, bowel sounds are present Extremities: Mild edema, right femoral permacath Genitourinary deferred Skin warm and dry Neuro: Awake, alert no focal deficits Results - Lab Results 04/23/21 09:19 04/23/21 09:19 Most recent lab results Calcium 10.3 mg/dL (8.4-10.2) H 04/23/21 09:19 Magnesium 2.90 mg/dL (1.7-2.3) H 04/23/21 15:55 Assessment and Plan - Patient Problems (1) Hyperkalemia Current Visit: Yes Status: Acute Plan to address problem: Hyperkalemia secondary to missed dialysis. Follow-up potassium after hemodialysis (2) Hypertensive urgency, malignant Current Visit: Yes Status: Acute Plan to address problem: Severe hypertension probably volume related and possibly also related to medication nonadherence. Follow-up blood pressure following fluid removal and adjust medications if indicated. We will get records from [place] of recent work- up and treatments (3) Metabolic acidosis Current Visit: Yes Status: Acute Plan to address problem: Secondary to missed dialysis. Follow-up bicarb postdialysis today (4) Chest pain Current Visit: Yes Status: Acute Plan to address problem: Patient with multiple cardiac risk factors. Recent cardiac work-up at [place] per the patient. Request records. (5) Type 2 diabetes mellitus with diabetic chronic kidney disease Current Visit: Yes Status: Acute Plan to address problem: Blood sugar management by primary attending (6) Anemia in chronic kidney disease Current Visit: Yes Status: Acute Plan to address problem: Give erythropoietin on dialysis for hemoglobin less than 10 g/dL. Follow-up hemoglobin (7) ESRD needing dialysis Current Visit: Yes Status: Chronic Plan to address problem: Urgent dialysis being done. Will reevaluate need for dialysis again tomorrow.
[2021-04-23] MEDS ORDERED: SEVELAMER CARBONATE 800 MG TAB PO SCH (20:00)
[2021-04-23] MEDS: cloNIDine 0.1 MG TAB PO SCH (20:06)
[2021-04-23 20:38] LABS: Hepatitis B Surface Antigen Non-Reactive (Negative); Hepatitis C Virus Antibody Non-Reactive (NonReactive)
[2021-04-23] MEDS: hydrALAZINE 20 MG/1 ML INJ IV PRN (22:41)
[2021-04-24] MEDS: cloNIDine 0.1 MG TAB PO SCH ×3 (00:01→20:33)
[2021-04-24] MEDS: carvediloL 25 MG TAB PO SCH ×2 (00:05→10:18)
[2021-04-24] MEDS: ONDANSETRON 4 MG ODT TAB PO SCH ×2 (00:05→06:07)
[2021-04-24] MEDS: busPIRone 5 MG TAB PO SCH ×4 (00:05→21:27)
[2021-04-24] MEDS: hydrALAZINE 20 MG/1 ML INJ IV PRN ×3 (06:08→20:06)
[2021-04-24 06:19] LABS: Calcium 9.1 mg/dL (8.4-10.2)
--- NOTE | 2021-04-24 08:46 | Progress Note ---
Assessment and Plan Assessment and plan: -- ESRD needing dialysis Current Visit: Yes Status: Chronic Due to medical noncompliance. Nephrology consulted. HD per schedule monitor urine output every shift, dialysis as per renal team, avoid nephrotoxic agents. Monitor renal function -- Hyperkalemia Current Visit: Yes Status: Acute Calcium gluconate, Kayexalate, EKG, repeat EKG, remote telemetry monitoring. Resolved --Hypertensive urgency, malignant Current Visit: Yes Status: Acute Uncontrolled blood pressure medications Patient's blood pressures did not get controlled since last night Check with family/pharmacy accurate and current medications, I spoke with patient's [place] physician, who kindly gave the current BP meds Adjusted in the medical rec. (4) Metabolic acidosis Current Visit: Yes Status: Acute Plan to address problem: BMP, repeat BMP in a.m., IV bicarbonate therapy, supportive care. Urgent dialysis -- Diabetes mellitus Current Visit: No Status: Chronic Accu-Chek sliding scale coverage ADA diet, insulin as needed -- DVT prophylaxis Current Visit: No Status: Acute Heparin renal dose --Advance care planning/full code Current Visit: No Status: Acute Patient's condition treatment plan, neurology evaluation consultation Importance of adhering to the medication, HD, follow-up visit and diet Per strongly advised to the patient We will closely monitor the patient and adjust the management as needed Plan of care reviewed with the patient and Note; I discussed extensively with [place] physician Dr. India Guo at [phone] gave the most current antihypertensives list and I updated in the med rec. History Interval history: I have seen and examined the patient at the bedside Patient's chart and medications reviewed Patient was admitted with generalized weakness chest pain and uncontrolled blood pressures Patient's blood pressure remains above 200 systolic since last night On multiple antihypertensive medications Patient denies chest pain no palpitation at the time of my evaluation vital signs reviewed Hospitalist Physical - Constitutional Vitals: Temp Pulse Resp BP Pulse Ox 99.2 F 71 20 217/128 97 04/24/21 04:43 04/24/21 06:09 04/24/21 04:43 04/24/21 06:09 04/24/21 04:43 General appearance: Present: mild distress, well-nourished, obese - EENT Eyes: Present: PERRL, EOM intact - Neck Neck: Present: supple, normal ROM - Respiratory Respiratory effort: normal Respiratory: bilateral: diminished, negative: rales, rhonchi, wheezing - Cardiovascular Rhythm: regular Heart Sounds: Present: S1 & S2 - Extremities Extremities: no ischemia, No edema - Abdominal General gastrointestinal: soft, non-tender, non-distended - Integumentary Integumentary: Present: clear, warm - Psychiatric Psychiatric: appropriate mood/affect, cooperative - Neurologic Neurologic: CNII-XII intact, gait normal HEART Score - HEART Score EKG: Non-specific Age: 45-65 Risk factors: > 3 risk factors or hx of atherosclerotic disease Troponin: Troponin T 0.098 ng/mL (0.00-0.029) H 04/23/21 14:55 Troponin: 1-3x normal limit - Critical Actions Critical Actions: 4-6 pts:12-16.6% risk of adverse cardiac event. Should be admitted Results - Labs CBC & Chem 7: 04/23/21 09:19 04/24/21 05:34 Labs: Laboratory Last Values WBC 3.7 K/mm3 (4.5-11.0) L 04/23/21 09:19 RBC 3.26 M/mm3 (3.65-5.03) L 04/23/21 09:19 Hgb 10.0 gm/dl (10.1-14.3) L 04/23/21 09:19 Hct 29.9 % (30.3-42.9) L 04/23/21 09:19 MCV 92 fl (79-97) 04/23/21 09:19 MCH 31 pg (28-32) 04/23/21 09:19 MCHC 33 % (30-34) 04/23/21 09:19 RDW 19.3 % (13.2-15.2) H 04/23/21 09:19 Plt Count 277 K/mm3 (140-440) 04/23/21 09:19 Lymph % (Auto) 18.0 % (13.4-35.0) 04/23/21 09:19 Howell % (Auto) 6.5 % (0.0-7.3) 04/23/21 09:19 Eos % (Auto) 5.5 % (0.0-4.3) H 04/23/21 09:19 Baso % (Auto) 1.3 % (0.0-1.8) 04/23/21 09:19 Lymph # (Auto) 0.7 K/mm3 (1.2-5.4) L 04/23/21 09:19 Howell # (Auto) 0.2 K/mm3 (0.0-0.8) 04/23/21 09:19 Eos # (Auto) 0.2 K/mm3 (0.0-0.4) 04/23/21 09:19 Baso # (Auto) 0.0 K/mm3 (0.0-0.1) 04/23/21 09:19 Seg Neutrophils % 68.7 % (40.0-70.0) 04/23/21 09:19 Seg Neutrophils # 2.6 K/mm3 (1.8-7.7) 04/23/21 09:19 PT 13.4 Sec. (12.2-14.9) 04/23/21 09:19 INR 0.96 (0.87-1.13) 04/23/21 09:19 APTT 32.2 Sec. (24.2-36.6) 04/23/21 09:19 Sodium 135 mmol/L (137-145) L 04/24/21 05:34 Potassium 4.2 mmol/L (3.6-5.0) D 04/24/21 05:34 Chloride 95.3 mmol/L (98-107) L 04/24/21 05:34 Carbon Dioxide 28 mmol/L (22-30) D 04/24/21 05:34 Anion Gap 16 mmol/L 04/24/21 05:34 BUN 28 mg/dL (7-17) H 04/24/21 05:34 Creatinine 8.7 mg/dL (0.6-1.2) H 04/24/21 05:34 Estimated GFR 6 ml/min 04/24/21 05:34 BUN/Creatinine Ratio 3 % 04/24/21 05:34 Glucose 89 mg/dL (65-100) 04/24/21 05:34 Calcium 9.1 mg/dL (8.4-10.2) 04/24/21 05:34 Magnesium 2.90 mg/dL (1.7-2.3) H 04/23/21 15:55 Total Bilirubin 0.60 mg/dL (0.1-1.2) 04/23/21 09:19 AST 22 units/L (5-40) 04/23/21 09:19 ALT 12 units/L (7-56) 04/23/21 09:19 Alkaline Phosphatase 93 units/L (35-129) 04/23/21 09:19 Total Creatine Kinase 78 units/L (30-135) 04/23/21 15:55 Troponin T 0.098 ng/mL (0.00-0.029) H 04/23/21 14:55 Total Protein 7.7 g/dL (6.3-8.2) 04/23/21 09:19 Albumin 4.5 g/dL (3.9-5) 04/23/21 09:19 Albumin/Globulin Ratio 1.4 % 04/23/21 09:19 Triglycerides 60 mg/dL (2-149) 04/23/21 09:19 Cholesterol 182 mg/dL (50-199) 04/23/21 09:19 LDL Cholesterol Direct 70 mg/dL (50-130) 04/23/21 09:19 HDL Cholesterol 93 mg/dL (40-59) H 04/23/21 09:19 Cholesterol/HDL Ratio 1.95 % 04/23/21 09:19 Hepatitis A IgM Ab Non-reactive (NonReactive) 04/23/21 18:58 Hep Bs Antigen Non-reactive (Negative) 04/23/21 18:58 Hep B Core IgM Ab Non-reactive (NonReactive) 04/23/21 18:58 Hepatitis C Antibody Non-reactive (NonReactive) 04/23/21 18:58 Moran/IV: Voiding Method Toilet Active Medications - Current Medications Current Medications: Generic Name Dose Route Start Last Admin Trade Name Freq PRN Reason Stop Dose Admin Acetaminophen 650 mg 04/23/21 16:57 Acetaminophen 325 Mg Tab PO Q4H PRN Pain MILD(1-3)/Fever >100.5/SAUCEDO Hydrocodone Bitart/Acetaminophen 1 each 04/23/21 16:58 Hydrocodone/Acetaminophen 5-325 Mg Tab PO Q6HR PRN PAIN, MODERATE Albuterol 2.5 mg 04/23/21 16:57 Albuterol 2.5 Mg/3 Ml Nebu IH Q4H PRN Shortness Of Breath Alprazolam 0.25 mg 04/23/21 16:58 Alprazolam 0.25 Mg Tab PO BID PRN Anxiety Buspirone HCl 10 mg 04/23/21 22:00 04/24/21 06:04 Buspirone 5 Mg Tab PO 10 mg Q8HR [facility]U Administration Carvedilol 25 mg 04/23/21 22:00 04/24/21 00:05 Carvedilol 25 Mg Tab PO 25 mg BID SUSU Administration Citalopram Hydrobromide 20 mg 04/24/21 10:00 Citalopram 20 Mg Tab PO QDAY [facility] Clonazepam 0.5 mg 04/23/21 16:58 Clonazepam 0.5 Mg Tab PO BID PRN Anxiety Clonidine HCl 0.3 mg 04/23/21 22:00 04/24/21 06:09 Clonidine 0.1 Mg Tab PO 0.3 mg Q8HR SUSU Administration Dextrose 50 gm 04/23/21 15:51 Dextrose 50% In Water (25gm) 50 Ml Vial IV Q30MIN PRN Hypoglycemia Protocol Ergocalciferol 50,000 unit 04/29/21 10:00 Ergocalciferol (Vit D2) 50,000 Unit Cap PO Santacruz@1000 [facility] Furosemide 80 mg 04/24/21 10:00 Furosemide 40 Mg Tab PO QDAY [facility] Hydralazine HCl 50 mg 04/23/21 18:00 04/24/21 00:04 Hydralazine 25 Mg Tab PO 50 mg QID [facility] Administration Hydralazine HCl 20 mg 04/23/21 22:12 04/24/21 06:08 Hydralazine 20 Mg/1 Ml Inj IV 20 mg Q4H PRN Administration hemodialysis Sodium Chloride 100 mls @ 999 mls/hr 04/23/21 17:43 Nacl 0.9% IV BRENNA PRN Hypotension Isosorbide Mononitrate 60 mg 04/24/21 10:00 Isosorbide Mononitrate Er 30 Mg Tab PO QDAY [facility] Multivit/Ca Carb/B Cmplx/FA/Prenat 1 cap 04/24/21 10:00 Folic Acid/Vit B Comp W-C 1 Mg (Renal Caps) PO QDAY [facility] Nitroglycerin 0.4 mg 04/23/21 15:46 Nitroglycerin 0.4 Mg Tab Subl SL .Q5MIN PRN Chest Pain Ondansetron HCl 4 mg 04/23/21 16:57 Ondansetron 4 Mg/2 Ml Inj IV Q8H PRN Nausea And Vomiting Pantoprazole Sodium 40 mg 04/24/21 10:00 Pantoprazole 40 Mg Tab PO DAILY [facility] Sevelamer Carbonate 1,600 mg 04/24/21 08:00 Sevelamer Carbonate 800 Mg Tab PO TIDWM [facility] Sodium Chloride 10 ml 04/23/21 22:00 04/24/21 00:06 Sodium Chloride 0.9% 10 Ml Flush Syringe IV 10 ml BID [facility] Administration Sodium Chloride 10 ml 04/23/21 16:57 Sodium Chloride 0.9% 10 Ml Flush Syringe IV PRN PRN LINE FLUSH
[2021-04-24] MEDS: SEVELAMER CARBONATE 800 MG TAB PO SCH ×3 (08:47→17:12)
[2021-04-24] MEDS ORDERED: hydrALAZINE 25 MG TAB PO SCH (08:54)
[2021-04-24] MEDS ORDERED: NIFEdipine XL 30 MG TAB PO SCH (10:00)
[2021-04-24] MEDS ORDERED: ERGOCALCIFEROL (VIT D2) 50,000 UNIT CAP PO SCH (10:00)
[2021-04-24] MEDS ORDERED: FUROSEMIDE 40 MG TAB PO SCH (10:00)
[2021-04-24] MEDS ORDERED: hydrALAZINE 100 MG TAB PO SCH (10:00)
[2021-04-24] MEDS: FOLIC ACID/VIT B COMP W-C 1 MG (RENAL CAPS) PO SCH (10:17)
[2021-04-24] MEDS: PANTOPRAZOLE 40 MG TAB PO SCH (10:18)
[2021-04-24] MEDS: CITALOPRAM 20 MG TAB PO SCH (10:19)
[2021-04-24] MEDS: VALSARTAN 160MG TAB PO SCH ×2 (10:19→21:27)
[2021-04-24] MEDS ORDERED: diphenhydrAMINE 50 MG/ML VIAL IV NR (10:33)
--- NOTE | 2021-04-24 10:43 | Progress Note ---
Assessment and Plan - Patient Problems (1) Hyperkalemia Current Visit: Yes Status: Acute Plan to address problem: Hyperkalemia secondary to missed dialysis. Potassium has improved after hemodialysis (2) Hypertensive urgency, malignant Current Visit: Yes Status: Acute Plan to address problem: Severe hypertension probably volume related and possibly also related to medication nonadherence. Blood pressure is still uncontrolled. Will dialyze today for fluid removal. Start patient on nifedipine and valsartan. Get records of recent work-up at [facility]. Get arterial duplex ultrasound (3) Metabolic acidosis Current Visit: Yes Status: Acute Plan to address problem: Secondary to missed dialysis. Improved postdialysis (4) Chest pain Current Visit: Yes Status: Acute Plan to address problem: Patient with multiple cardiac risk factors. Recent cardiac work-up at [facility] per the patient. Request records. (5) Type 2 diabetes mellitus with diabetic chronic kidney disease Current Visit: Yes Status: Acute Plan to address problem: Blood sugar management by primary attending (6) Anemia in chronic kidney disease Current Visit: Yes Status: Acute Plan to address problem: Give erythropoietin on dialysis for hemoglobin less than 10 g/dL. Follow-up hemoglobin (7) ESRD needing dialysis Current Visit: Yes Status: Chronic Plan to address problem: Urgent dialysis was done yesterday. We will dialyze again today for fluid removal Subjective Date of service: 04/24/21 Principal diagnosis: End-stage renal disease Interval history: Patient seen lying in bed. Blood pressure still HIGH. She denies any chest pain or shortness of breath. Objective - Exam Narrative Exam: Middle-aged -[place] female lying in bed in no acute distress HEENT: NCAT, pink oral mucous membrane Neck: Supple, no venous distention CVS: S1S2 RRR with no murmur, rub or gallop Chest: Clear to auscultation but breath sounds diminished in lower zones posteriorly Abdomen: Protuberant, soft, vague tenderness,, no organomegaly, bowel sounds are present Extremities: Mild edema, right femoral permacath Genitourinary deferred Skin warm and dry Neuro: Awake, alert no focal deficits - Vital Signs Vital signs: Vital Signs - 12hr 04/23/21 04/23/21 04/23/21 22:41 22:45 23:00 Temperature Pulse Rate 84 80 80 Respiratory Rate Blood Pressure 225/123 201/108 196/110 Blood Pressure [Right] O2 Sat by Pulse Oximetry 04/23/21 04/24/21 04/24/21 23:20 00:01 00:04 Temperature 98.0 F Pulse Rate 79 79 79 Respiratory 18 Rate Blood Pressure 206/107 206/107 206/107 Blood Pressure [Right] O2 Sat by Pulse Oximetry 04/24/21 04/24/21 04/24/21 00:05 04:43 06:08 Temperature 99.2 F Pulse Rate 79 71 77 Respiratory 20 Rate Blood Pressure 206/107 217/128 217/128 Blood Pressure [Right] O2 Sat by Pulse 97 Oximetry 04/24/21 04/24/21 04/24/21 06:09 09:13 10:16 Temperature 99.1 F Pulse Rate 71 71 Respiratory 20 Rate Blood Pressure 217/128 Blood Pressure 178/107 [Right] O2 Sat by Pulse 97 99 Oximetry 04/24/21 04/24/21 10:18 10:19 Temperature Pulse Rate 68 Respiratory Rate Blood Pressure 178/107 178/107 Blood Pressure [Right] O2 Sat by Pulse Oximetry - Lab 04/23/21 09:19 04/24/21 05:34 Most recent lab results Calcium 9.1 mg/dL (8.4-10.2) 04/24/21 05:34 Magnesium 2.90 mg/dL (1.7-2.3) H 04/23/21 15:55 Medications & Allergies - Medications Allergies/Adverse Reactions: Allergies No Known Allergies Allergy (Unverified 09/04/13 07:18) Home Medications: Home Medications Medication Instructions Recorded Confirmed Last Taken Type Ergocalciferol (Vitamin D2) 50,000 unit PO DAILY 09/25/20 04/24/21 04/14/21 History [Drisdol] Sevelamer Carbonate [Renvela] 1,600 mg PO TID 09/25/20 04/24/21 04/23/21 History busPIRone [Buspar] 10 mg PO Q8HR 09/25/20 04/24/21 04/23/21 History Citalopram [Celexa] 20 mg PO QDAY #30 tab 09/28/20 04/24/21 04/23/21 Rx Furosemide [Lasix TAB] 80 mg PO QDAY #30 tablet 09/28/20 04/24/21 04/23/21 Rx carvediloL [Coreg] 25 mg PO BID #60 tablet 09/28/20 04/24/21 04/23/21 Rx cloNIDine [Catapres] 0.3 mg PO Q8HR #270 tablet 09/28/20 04/24/21 04/23/21 Rx ALPRAZolam [Xanax TAB] 0.25 mg PO BID PRN 10/16/20 04/24/21 04/23/21 History Acetaminophen [Acetaminophen TAB] 500 mg PO Q6HR 10/16/20 04/24/21 04/22/21 History Folic Acid/Vit B Complex and C 0.8 mg PO QDAY 10/16/20 04/24/21 04/23/21 History [Renal Vitamin Tablet] clonazePAM [KlonoPIN] 0.5 mg PO BID PRN 10/16/20 04/24/21 04/23/21 History HYDROcodone/APAP 5-325 [[place] 1 each PO Q6HR PRN #20 tab 10/26/20 04/24/21 04/23/21 Rx 5-325 mg TAB] Ondansetron [Zofran ODT TAB] 4 mg PO Q8HR #30 tab.rapdis 10/26/20 04/24/21 04/23/21 Rx Pantoprazole [Protonix TAB] 40 mg PO DAILY #30 tablet 10/26/20 04/24/21 04/23/21 Rx ISOSORBIDE MONOnitrate [Imdur ER] 60 mg PO QDAY #60 tablet 02/21/21 04/24/21 04/23/21 Rx hydrALAZINE [Apresoline TAB] 50 mg PO QID #90 tablet 02/21/21 04/24/21 04/23/21 Rx Active Medications: Generic Name Dose Route Start Last Admin Trade Name Freq PRN Reason Stop Dose Admin Acetaminophen 650 mg 04/23/21 16:57 Acetaminophen 325 Mg Tab PO Q4H PRN Pain MILD(1-3)/Fever >100.5/SAUCEDO Hydrocodone Bitart/Acetaminophen 1 each 04/23/21 16:58 Hydrocodone/Acetaminophen 5-325 Mg Tab PO Q6HR PRN PAIN, MODERATE Albuterol 2.5 mg 04/23/21 16:57 Albuterol 2.5 Mg/3 Ml Nebu IH Q4H PRN Shortness Of Breath Alprazolam 0.25 mg 04/23/21 16:58 Alprazolam 0.25 Mg Tab PO BID PRN Anxiety Buspirone HCl 10 mg 04/23/21 22:00 04/24/21 06:04 Buspirone 5 Mg Tab PO 10 mg Q8HR SUSU Administration Carvedilol 25 mg 04/23/21 22:00 04/24/21 10:18 Carvedilol 25 Mg Tab PO 25 mg BID SUSU Administration Citalopram Hydrobromide 20 mg 04/24/21 10:00 04/24/21 10:19 Citalopram 20 Mg Tab PO 20 mg QDAY SUSU Administration Clonazepam 0.5 mg 04/23/21 16:58 Clonazepam 0.5 Mg Tab PO BID PRN Anxiety Clonidine HCl 0.3 mg 04/23/21 22:00 04/24/21 06:09 Clonidine 0.1 Mg Tab PO 0.3 mg Q8HR SUSU Administration Dextrose 50 gm 04/23/21 15:51 Dextrose 50% In Water (25gm) 50 Ml Vial IV Q30MIN PRN Hypoglycemia Protocol Diphenhydramine HCl 25 mg 04/24/21 10:33 Diphenhydramine 50 Mg/Ml Vial IV 04/24/21 10:34 ONCE ONE Ergocalciferol 50,000 unit 04/29/21 10:00 Ergocalciferol (Vit D2) 50,000 Unit Cap PO Santacruz@1000 SUSU Furosemide 80 mg 04/24/21 10:00 04/24/21 10:18 Furosemide 40 Mg Tab PO 80 mg QDAY SUSU Administration Hydralazine HCl 20 mg 04/23/21 22:12 04/24/21 06:08 Hydralazine 20 Mg/1 Ml Inj IV 20 mg Q4H PRN Administration hemodialysis Hydralazine HCl 100 mg 04/24/21 10:00 04/24/21 10:17 Hydralazine 100 Mg Tab PO 100 mg QID SUSU Administration Sodium Chloride 100 mls @ 999 mls/hr 04/23/21 17:43 Nacl 0.9% IV BRENNA PRN Hypotension Isosorbide Mononitrate 60 mg 04/24/21 10:00 04/24/21 10:18 Isosorbide Mononitrate Er 30 Mg Tab PO 60 mg QDAY SUSU Administration Multivit/Ca Carb/B Cmplx/FA/Prenat 1 cap 06/15/21 10:00 04/24/21 10:17 Folic Acid/Vit B Comp W-C 1 Mg (Renal Caps) PO 1 cap QDAY SUSU Administration Nifedipine 60 mg 04/24/21 22:00 Nifedipine Xl 60 Mg Tab PO BID SUSU Nitroglycerin 0.4 mg 04/23/21 15:46 Nitroglycerin 0.4 Mg Tab Subl SL .Q5MIN PRN Chest Pain Ondansetron HCl 4 mg 04/23/21 16:57 Ondansetron 4 Mg/2 Ml Inj IV Q8H PRN Nausea And Vomiting Pantoprazole Sodium 40 mg 04/24/21 10:00 04/24/21 10:18 Pantoprazole 40 Mg Tab PO 40 mg DAILY SUSU Administration Sevelamer Carbonate 1,600 mg 04/24/21 08:00 04/24/21 08:47 Sevelamer Carbonate 800 Mg Tab PO 1,600 mg TIDWM SUSU Administration Sodium Chloride 10 ml 04/23/21 22:00 04/24/21 10:19 Sodium Chloride 0.9% 10 Ml Flush Syringe IV 10 ml BID SUSU Administration Sodium Chloride 10 ml 04/23/21 16:57 Sodium Chloride 0.9% 10 Ml Flush Syringe IV PRN PRN LINE FLUSH Valsartan 160 mg 04/24/21 10:00 04/24/21 10:19 Valsartan 160mg Tab PO 160 mg BID SUSU Administration
[2021-04-24] MEDS ORDERED: HYDROmorphone 2 MG/1 ML INJ IV NR (13:10)
[2021-04-24] MEDS ORDERED: HYDROmorphone 1 MG/1 ML INJ IV ONE (13:30)
--- NOTE | 2021-04-24 15:26 | Event Note ---
Date: 04/24/21 I called [place] physician at [phone] and spoke with [place] physician Dr. India Guo about patient's condition treatment plan hypertensive urgency with poorly controlled blood pressures. I requested the current antihypertensive medication list, and she was kind enough to give me all her[patient's] BP meds as below Clonidine 0.13 times a day Isosorbide 30 mg daily Hydralazine 50 mg 3 times a day Labetalol 300 mg twice a day Nifedipine 60 mg twice a day Aldactone 50 mg daily And valsartan 160 mg twice a day. And also reported that patient had a negative stress test in December 2020 Patient also had negative heart cath in 2015. She advised to continue current management at [facility]. The above information was discussed with the patient's nurse. I have updated patient's home medication list
[2021-04-24] MEDS: ACETAMINOPHEN 325 MG TAB PO PRN ×2 (15:30→21:29)
[2021-04-24] MEDS: HYDROcodone/ACETAMINOPHEN 5-325 MG TAB PO PRN (17:16)
[2021-04-24] MEDS: NIFEdipine XL 60 MG TAB PO SCH (21:27)
[2021-04-24] MEDS: hydrALAZINE 25 MG TAB PO SCH (21:28)
[2021-04-25] MEDS: HYDROcodone/ACETAMINOPHEN 5-325 MG TAB PO PRN (00:01)
[2021-04-25] MEDS: busPIRone 5 MG TAB PO SCH ×2 (05:38→13:50)
[2021-04-25] MEDS: hydrALAZINE 25 MG TAB PO SCH ×2 (05:39→13:50)
[2021-04-25] MEDS: ACETAMINOPHEN 325 MG TAB PO PRN ×2 (07:56→13:49)
[2021-04-25] MEDS: SEVELAMER CARBONATE 800 MG TAB PO SCH ×2 (07:56→12:05)
[2021-04-25] MEDS: cloNIDine 0.1 MG TAB PO SCH ×2 (07:57→13:49)
[2021-04-25] MEDS ORDERED: SPIRONOLACTONE 50 MG TAB PO SCH (10:00)
--- NOTE | 2021-04-25 10:24 | Progress Note ---
Assessment and Plan - Patient Problems (1) Hyperkalemia Current Visit: Yes Status: Acute Plan to address problem: Hyperkalemia secondary to missed dialysis. Potassium has improved after hemodialysis (2) Hypertensive urgency, malignant Current Visit: Yes Status: Acute Plan to address problem: Severe hypertension probably volume related and possibly also related to medication nonadherence. Blood pressure control has improved. Awaiting records of recent work-up at [place]. (3) Metabolic acidosis Current Visit: Yes Status: Acute Plan to address problem: Secondary to missed dialysis. Improved postdialysis (4) Chest pain Current Visit: Yes Status: Acute Plan to address problem: Patient with multiple cardiac risk factors. Recent cardiac work-up at [place] per the patient. Request records. (5) Type 2 diabetes mellitus with diabetic chronic kidney disease Current Visit: Yes Status: Acute Plan to address problem: Blood sugar management by primary attending (6) Anemia in chronic kidney disease Current Visit: Yes Status: Acute Plan to address problem: Give erythropoietin on dialysis for hemoglobin less than 10 g/dL. Follow-up hemoglobin (7) ESRD needing dialysis Current Visit: Yes Status: Chronic Plan to address problem: Status post hemodialysis on Friday and Friday./ Next hemodialysis in the morning. Subjective Date of service: 04/25/21 Principal diagnosis: End-stage renal disease Interval history: Patient seen lying in bed. Blood pressure is now improving. She is now on her home blood pressure medication regimen. Had a headache last night but it is resolving. She denies any chest pain or shortness of breath. Had cramping on dialysis yesterday and treatment had to be stopped early Objective - Exam Narrative Exam: Middle-aged -Omani female lying in bed in no acute distress HEENT: NCAT, pink oral mucous membrane Neck: Supple, no venous distention CVS: S1S2 RRR with no murmur, rub or gallop Chest: Clear to auscultation but breath sounds diminished in lower zones posteriorly Abdomen: Protuberant, soft, vague tenderness,, no organomegaly, bowel sounds are present Extremities: Mild edema, right femoral permacath Genitourinary deferred Skin warm and dry Neuro: Awake, alert no focal deficits - Vital Signs Vital signs: Vital Signs - 12hr 04/24/21 04/25/21 04/25/21 23:00 00:02 06:18 Temperature 98.6 F 99.3 F Pulse Rate 69 92 H Respiratory 18 20 Rate Blood Pressure 150/96 Blood Pressure 184/104 [Right] O2 Sat by Pulse 2 L 100 99 Oximetry 04/25/21 04/25/21 07:57 09:38 Temperature Pulse Rate 99 H Respiratory Rate Blood Pressure 160/100 Blood Pressure [Right] O2 Sat by Pulse 97 Oximetry - Lab 04/23/21 09:19 04/24/21 05:34 Most recent lab results Calcium 9.1 mg/dL (8.4-10.2) 04/24/21 05:34 Magnesium 2.90 mg/dL (1.7-2.3) H 04/23/21 15:55 Medications & Allergies - Medications Allergies/Adverse Reactions: Allergies No Known Allergies Allergy (Unverified 09/04/13 07:18) Home Medications: Home Medications Medication Instructions Recorded Confirmed Last Taken Type Ergocalciferol (Vitamin D2) 50,000 unit PO DAILY 09/25/20 04/24/21 04/14/21 History [Drisdol] Sevelamer Carbonate [Renvela] 1,600 mg PO TID 09/25/20 04/24/21 04/23/21 History busPIRone [Buspar] 10 mg PO Q8HR 09/25/20 04/24/21 04/23/21 History Citalopram [Celexa] 20 mg PO QDAY #30 tab 09/28/20 04/24/21 04/23/21 Rx Furosemide [Lasix TAB] 80 mg PO QDAY #30 tablet 09/28/20 04/24/21 04/23/21 Rx carvediloL [Coreg] 25 mg PO BID #60 tablet 09/28/20 04/24/21 04/23/21 Rx cloNIDine [Catapres] 0.3 mg PO Q8HR #270 tablet 09/28/20 04/24/21 04/23/21 Rx ALPRAZolam [Xanax TAB] 0.25 mg PO BID PRN 10/16/20 04/24/21 04/23/21 History Acetaminophen [Acetaminophen TAB] 500 mg PO Q6HR 10/16/20 04/24/21 04/22/21 History Folic Acid/Vit B Complex and C 0.8 mg PO QDAY 10/16/20 04/24/21 04/23/21 History [Renal Vitamin Tablet] clonazePAM [KlonoPIN] 0.5 mg PO BID PRN 10/16/20 04/24/21 04/23/21 History HYDROcodone/APAP 5-325 [[place] 1 each PO Q6HR PRN #20 tab 10/26/20 04/24/21 04/23/21 Rx 5-325 mg TAB] Ondansetron [Zofran ODT TAB] 4 mg PO Q8HR #30 tab.rapdis 10/26/20 04/24/21 04/23/21 Rx Pantoprazole [Protonix TAB] 40 mg PO DAILY #30 tablet 10/26/20 04/24/21 04/23/21 Rx ISOSORBIDE MONOnitrate [Imdur ER] 60 mg PO QDAY #60 tablet 02/21/21 04/24/21 04/23/21 Rx hydrALAZINE [Apresoline TAB] 50 mg PO QID #90 tablet 02/21/21 04/24/21 04/23/21 Rx Aldactone 50 mg PO DAILY 04/24/21 04/24/21 04/23/21 History Diovan 160 mg PO BID 04/24/21 04/24/21 04/23/21 History Isosorbide Dinitrate 30 mg PO DAILY 04/24/21 04/24/21 04/23/21 History Procardia 60 mg PO BID 04/24/21 04/24/21 04/23/21 History cloNIDine 0.1 mg PO TID 04/24/21 04/24/21 04/23/21 History cloNIDine 0.1 mg PO TID 04/24/21 04/24/21 04/23/21 History hydrALAZINE 50 mg PO TID 04/24/21 04/24/21 04/23/21 History labetaloL 300 mg PO BID 04/24/21 04/24/21 04/23/21 History Active Medications: Generic Name Dose Route Start Last Admin Trade Name Freq PRN Reason Stop Dose Admin Acetaminophen 650 mg 04/23/21 16:57 04/25/21 07:56 Acetaminophen 325 Mg Tab PO 650 mg Q4H PRN Administration Pain MILD(1-3)/Fever >100.5/SAUCEDO Hydrocodone Bitart/Acetaminophen 1 each 04/23/21 16:58 04/25/21 00:01 Hydrocodone/Acetaminophen 5-325 Mg Tab PO 1 each Q6HR PRN Administration PAIN, MODERATE Albuterol 2.5 mg 04/23/21 16:57 Albuterol 2.5 Mg/3 Ml Nebu IH Q4H PRN Shortness Of Breath Alprazolam 0.25 mg 04/23/21 16:58 04/24/21 20:06 Alprazolam 0.25 Mg Tab PO 0.25 mg BID PRN Administration Anxiety Buspirone HCl 10 mg 04/23/21 22:00 04/25/21 05:38 Buspirone 5 Mg Tab PO 10 mg Q8HR SUSU Administration Citalopram Hydrobromide 20 mg 04/24/21 10:00 04/24/21 10:19 Citalopram 20 Mg Tab PO 20 mg QDAY SUSU Administration Clonazepam 0.5 mg 04/23/21 16:58 04/25/21 00:02 Clonazepam 0.5 Mg Tab PO 0.5 mg BID PRN Administration Anxiety Clonidine HCl 0.1 mg 04/24/21 20:00 04/25/21 07:57 Clonidine 0.1 Mg Tab PO 0.1 mg TID SUSU Administration Dextrose 50 gm 04/23/21 15:51 Dextrose 50% In Water (25gm) 50 Ml Vial IV Q30MIN PRN Hypoglycemia Protocol Ergocalciferol 50,000 unit 04/29/21 10:00 Ergocalciferol (Vit D2) 50,000 Unit Cap PO Santacruz@1000 SUSU Hydralazine HCl 20 mg 04/23/21 22:12 04/24/21 20:06 Hydralazine 20 Mg/1 Ml Inj IV 20 mg Q4H PRN Administration hemodialysis Hydralazine HCl 50 mg 04/24/21 22:00 04/25/21 05:39 Hydralazine 25 Mg Tab PO 50 mg Q8HR SUSU Administration Sodium Chloride 100 mls @ 999 mls/hr 04/23/21 17:43 Nacl 0.9% IV BRENNA PRN Hypotension Isosorbide Mononitrate 30 mg 04/24/21 13:25 Isosorbide Mononitrate Er 30 Mg Tab PO QDAY SUSU Labetalol HCl 100 mg 04/24/21 22:00 04/24/21 21:33 Labetalol 100 Mg Tab PO 100 mg BID SUSU Administration Multivit/Ca Carb/B Cmplx/FA/Prenat 1 cap 04/24/21 10:00 04/24/21 10:17 Folic Acid/Vit B Comp W-C 1 Mg (Renal Caps) PO 1 cap QDAY SUSU Administration Nifedipine 60 mg 04/24/21 22:00 04/24/21 21:27 Nifedipine Xl 60 Mg Tab PO 60 mg BID SUSU Administration Ondansetron HCl 4 mg 04/23/21 16:57 Ondansetron 4 Mg/2 Ml Inj IV Q8H PRN Nausea And Vomiting Pantoprazole Sodium 40 mg 04/24/21 10:00 04/24/21 10:18 Pantoprazole 40 Mg Tab PO 40 mg DAILY SUSU Administration Sevelamer Carbonate 1,600 mg 04/24/21 08:00 04/25/21 07:56 Sevelamer Carbonate 800 Mg Tab PO 1,600 mg TIDWM SUSU Administration Sodium Chloride 10 ml 04/23/21 22:00 04/24/21 21:28 Sodium Chloride 0.9% 10 Ml Flush Syringe IV 10 ml BID SUSU Administration Sodium Chloride 10 ml 04/23/21 16:57 Sodium Chloride 0.9% 10 Ml Flush Syringe IV PRN PRN LINE FLUSH Spironolactone 50 mg 04/25/21 10:00 Spironolactone 50 Mg Tab PO QDAY SUSU Valsartan 160 mg 04/24/21 10:00 04/24/21 21:27 Valsartan 160mg Tab PO 160 mg BID SUSU Administration
[2021-04-25] MEDS: FOLIC ACID/VIT B COMP W-C 1 MG (RENAL CAPS) PO SCH (10:40)
[2021-04-25] MEDS: CITALOPRAM 20 MG TAB PO SCH (10:40)
[2021-04-25] MEDS: PANTOPRAZOLE 40 MG TAB PO SCH (10:41)
[2021-04-25] MEDS: NIFEdipine XL 60 MG TAB PO SCH (10:41)
[2021-04-25] MEDS: VALSARTAN 160MG TAB PO SCH (10:43)
--- NOTE | 2021-04-25 12:46 | Discharge Summary ---
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 Hospitalization Reason for admission: Hyperkalemia/ESRD/hypertensive urgency Condition: Stable Pertinent studies: Chest x-ray no acute abnormalities Procedures: HD per schedule Hospital course: 66-year-old female patient with significant past medical history of end-stage renal disease on hemodialysis MWF hypertension diabetes mellitus paroxysmal atrial fibrillation not on anticoagulation was admitted through emergency room with with not feeling well and needing dialysis, initial work-up is consistent with hypertensive urgency with systolic blood pressures more than 200 and diastolic more than 120 patient was in severe hyperkalemia, nephrology evaluated, patient then underwent stat hemodialysis Patient's blood pressures were difficult to control, I checked with [place] physician Dr. Osborne and obtained a curette current antihypertensives. 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 End-stage renal disease. Hemodialysis. Hyperkalemia. Metabolic acidosis. NSTEMI type II Time spent for discharge: 35 min Core Measure Documentation - Palliative Care Palliative Care/ Comfort Measures: Not Applicable - Core Measures Any of the following diagnoses?: none Exam - Constitutional Vitals: Temp Pulse Resp BP Pulse Ox 99.3 F 81 20 137/81 97 04/25/21 06:18 04/25/21 10:40 04/25/21 06:18 04/25/21 10:40 04/25/21 09:38 General appearance: Present: no acute distress, well-nourished - EENT Eyes: Present: PERRL, EOM intact - Neck Neck: Present: supple, normal ROM - Respiratory Respiratory effort: normal Respiratory: bilateral: diminished, negative: rales, rhonchi, wheezing - Cardiovascular Rhythm: regular Heart Sounds: Present: S1 & S2 - Extremities Extremities: no ischemia, No edema - Abdominal General gastrointestinal: Present: soft, non-tender, non-distended, normal bowel sounds - Integumentary Integumentary: Present: clear, warm - Musculoskeletal Musculoskeletal: strength equal bilaterally, generalized weakness - Psychiatric Psychiatric: appropriate mood/affect, cooperative - Neurologic Neurologic: moves all extremities Plan Activity: advance as tolerated, fall precautions Diet: low salt, renal Additional Instructions: Advised to follow renal/hemodialysis per schedule. Advised to follow primary care physician in 5 to 7 days. If you have worsening symptoms contact MD or go to emergency room. Strongly advised to comply with medications, diet, follow-up visits. Patient has all her home medications, no new prescriptions Follow up with: PRIMARY CARE, [Primary Care Provider] - 3-5 Days
[2021-04-25 13:50] VITALS: BP 137/88
--- NOTE | 2021-04-25 17:36 | Event Note ---
Date: 04/25/21 I called [place] physician at [phone] and discussed with [place] physician patient's condition and discharge planning. I informed her that patient has been discharged this afternoon, answered all her questions
--- NOTE | 2021-04-27 18:33 | Electrocardiograph Report ---
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
--- NOTE | 2021-04-27 19:07 | Electrocardiograph Report ---
[facility] Test Date: 2021-04-24 Test Time: 13:11:24 Pat Name: RADHA DICK Department: Room: A385 1 Gender: F Admin Dir: HERRERA : 1955 Requested By: AN TOVAR Order Number: [id number] Reading MD: Sean Washington Measurements Intervals [place] Rate: 68 P: 39 NE: 207 QRS: 40 QRSD: 166 T: -37 QT: 519 QTc: 552 Interpretive Statements Sinus rhythm Atrial premature complex Probable left atrial enlargement Right bundle branch block Abnrm T, consider ischemia, anterolateral lds Compared to ECG 04/23/2021 15:23:15 Atrial premature complex(es) now present Possible ischemia now present First degree AV block no longer present Electronically Signed On 04-27-2021 19:06:50 EDT by Sean Washington
[2021-04-29] MEDS ORDERED: ERGOCALCIFEROL (VIT D2) 50,000 UNIT CAP PO SCH (10:00)
== END 2021-04-25 16:50 | disposition home or self-care (01) | DRG 280 ==
LOC: ED 08:33 → 3A 16:57 → OBSVTOIN 04-24 11:00
PROVIDERS: ADMIT Internal Medicine; ATTEND Internal Medicine
PROC: 5A1D70Z Performance of Urinary Filtration, Intermittent, Less than 6 Hours Per Day (ICD-10-PCS; principal; 2021-04-23)
PROC: 5A1D70Z Performance of Urinary Filtration, Intermittent, Less than 6 Hours Per Day (ICD-10-PCS; 2021-04-24)
DX: I16.0 Hypertensive urgency (principal); N18.6 End stage renal disease; I21.A1 Myocardial infarction type 2; E87.2 Acidosis; E87.5 Hyperkalemia; I12.0 Hypertensive chronic kidney disease with stage 5 chronic kidney disease or end stage renal disease; D63.1 Anemia in chronic kidney disease; I20.8 Other forms of angina pectoris; E11.22 Type 2 diabetes mellitus with diabetic chronic kidney disease; I48.0 Paroxysmal atrial fibrillation; Z79.899 Other long term (current) drug therapy; Z99.2 Dependence on renal dialysis; Z95.810 Presence of automatic (implantable) cardiac defibrillator; Z90.49 Acquired absence of other specified parts of digestive tract; Z90.710 Acquired absence of both cervix and uterus; Z83.3 Family history of diabetes mellitus; Z82.49 Family history of ischemic heart disease and other diseases of the circulatory system; Z95.828 Presence of other vascular implants and grafts
CPT/HCPCS: 36415; 71046; 80048; 80053; 80061; 80074; 82550; 83735; 84484; 85025; 85610; 85730; 93005; 96365; 96375; G0378; J0360; J0610; J1170; J1200; J2405; Q0162

== ENCOUNTER 2021-05-03 21:12 | Inpatient (IN) | payer MEDICARE ==
--- NOTE | 2021-05-03 21:52 | Emergency Department Report ---
ED Chest Pain HPI - General Chief Complaint: Pain General Stated Complaint: BODYACHE,HTN PUI?: No Time Seen by Provider: 05/03/21 21:35 Source: patient, EMS, RN notes reviewed Mode of arrival: Stretcher Limitations: No Limitations - History of Present Illness Initial Comments: Patient is a 66-year-old female that presents emergency room with complaints of chest pain, shortness of breath, elevated blood pressure, headache, blurry vision, body aches, missed dialysis, diarrhea. Patient states that her diarrhea started yesterday and she was not able to go to dialysis. Patient states she has had frequent diarrhea. Patient states her diarrhea has improved. Patient states this morning she developed chest pain and shortness of breath. Patient states she also this morning developed elevated blood pressure, headache and ector rry vision and body aches. Patient states that her chest pain is a 10 out of 10. Patient states her body aches are an 8 out of 10. Patient dates her chest pain is better with rest and worse with exertion. Patient denies fever and chills. Patient denies blood in her diarrhea. Patient denies vomiting and nausea. Patient states whenever she misses dialysis that she typically becomes short of breath and has elevated blood pressure which causes blurry vision and a headache. Patient denies recent travel. Patient denies recent international travel. Patient denies exposure to the novel coronavirus. Patient denies sick contacts. Patient denies fever and chills. Patient denies cough. Patient denies loss of smell.. Patient denies coming in contact with anybody with symptoms of the nov el coronavirus. MD Complaint: chest pain -: Sudden Onset: during rest Pain Location: left chest Pain Radiation: none Severity: severe Severity scale (0 -10): 10 Quality: sharp Consistency: constant Improves With: rest Worsens With: exertion re: dyspnea. denies: nausea, vomting, diaphoresis, sense of impending doom Other Symptoms: leg swelling. denies: cough, fever, syncope, rash, acid taste in mouth, palpitations, burping Treatments Prior to Arrival: aspirin Aspirin use within the Past 7 Days: (1) Yes - Related Data On Oral Contraceptives: No Home Medications Medication Instructions Recorded Confirmed Last Taken Ergocalciferol (Vitamin D2) 50,000 unit PO DAILY 09/25/20 04/24/21 04/14/21 [Drisdol] Sevelamer Carbonate [Renvela] 1,600 mg PO TID 09/25/20 04/24/21 04/23/21 busPIRone [Buspar] 10 mg PO Q8HR 09/25/20 04/24/21 04/23/21 ALPRAZolam [Xanax TAB] 0.25 mg PO BID PRN 10/16/20 04/24/21 04/23/21 Folic Acid/Vit B Complex and C 0.8 mg PO QDAY 10/16/20 04/24/21 04/23/21 [Renal Vitamin Tablet] clonazePAM [KlonoPIN] 0.5 mg PO BID PRN 10/16/20 04/24/21 04/23/21 Aldactone 50 mg PO DAILY 04/24/21 04/24/21 04/23/21 Diovan 160 mg PO BID 04/24/21 04/24/21 04/23/21 Isosorbide Dinitrate 30 mg PO DAILY 04/24/21 04/24/21 04/23/21 Procardia 60 mg PO BID 04/24/21 04/24/21 04/23/21 cloNIDine 0.1 mg PO TID 04/24/21 04/24/21 04/23/21 hydrALAZINE 50 mg PO TID 04/24/21 04/24/21 04/23/21 labetaloL 300 mg PO BID 04/24/21 04/24/21 04/23/21 Previous Rx's Medication Instructions Recorded Last Taken Type Citalopram [Celexa] 20 mg PO QDAY #30 tab 09/28/20 04/23/21 Rx HYDROcodone/APAP 5-325 [[place] 1 each PO Q6HR PRN #20 tab 10/26/20 04/23/21 Rx 5-325 mg TAB] Ondansetron [Zofran ODT TAB] 4 mg PO Q8HR #30 tab.rapdis 10/26/20 04/23/21 Rx Pantoprazole [Protonix TAB] 40 mg PO DAILY #30 tablet 10/26/20 04/23/21 Rx Allergies Allergy/AdvReac Type Severity Reaction Status Date / Time No Known Allergies Allergy Verified 05/03/21 22:14 Heart Score - HEART Score History: Moderately suspicious EKG: Normal Age: > 65 Risk factors: > 3 risk factors or hx of atherosclerotic disease Troponin: < normal limit HEART Score: 5 - EKG Read Time Time EKG Completed: 21:30 EKG Read Time: 21:32 ED Review of Systems ROS: Stated complaint: BODYACHE,HTN Other details as noted in HPI Constitutional: denies: chills, fever Eyes: as per HPI, vision change. denies: eye pain, eye discharge ENT: denies: ear pain, throat pain Respiratory: see HPI, shortness of breath. denies: cough, wheezing Cardiovascular: as per HPI, chest pain. denies: palpitations Endocrine: no symptoms reported Gastrointestinal: diarrhea. denies: abdominal pain, nausea Genitourinary: denies: urgency, dysuria, discharge Musculoskeletal: denies: back pain, joint swelling, arthralgia Skin: denies: rash, lesions Neurological: as per HPI, headache. denies: weakness, paresthesias Psychiatric: denies: anxiety, depression Hematological/Lymphatic: denies: easy bleeding, easy bruising ED Past Medical Hx - Past Medical History Previous Medical History?: Yes Hx Hypertension: Yes (ADMITTED WITH HYPERTENSIVE EMERGENCY) Hx Heart Attack/AMI: No Hx Congestive Heart Failure: No Hx Diabetes: Yes Hx Deep Vein Thrombosis: No Hx Renal Disease: Yes (Dialysis: M-W-) Hx Seizures: No Hx Asthma: No Hx COPD: No Hx Tuberculosis: Yes Hx Dementia: No Hx HIV: No Additional medical history: Possible atrial fib. Hernia right Inguinal - Surgical History Past Surgical History?: Yes Hx Coronary Stent: No Hx Pacemaker: Yes Hx Internal Defibrillator: Yes Hx Cholecystectomy: Yes Hx Appendectomy: Yes Additional Surgical History: Hysterectomy - Family History Family history: no significant - Social History Smoking Status: Never Smoker Substance Use Type: None - Medications Home Medications: Home Medications Medication Instructions Recorded Confirmed Last Taken Type Ergocalciferol (Vitamin D2) 50,000 unit PO DAILY 09/25/20 04/24/21 04/14/21 History [Drisdol] Sevelamer Carbonate [Renvela] 1,600 mg PO TID 09/25/20 04/24/21 04/23/21 History busPIRone [Buspar] 10 mg PO Q8HR 09/25/20 04/24/21 04/23/21 History Citalopram [Celexa] 20 mg PO QDAY #30 tab 09/28/20 04/24/21 04/23/21 Rx ALPRAZolam [Xanax TAB] 0.25 mg PO BID PRN 10/16/20 04/24/21 04/23/21 History Folic Acid/Vit B Complex and C 0.8 mg PO QDAY 10/16/20 04/24/21 04/23/21 History [Renal Vitamin Tablet] clonazePAM [KlonoPIN] 0.5 mg PO BID PRN 10/16/20 04/24/21 04/23/21 History HYDROcodone/APAP 5-325 [[place] 1 each PO Q6HR PRN #20 tab 10/26/20 04/24/21 04/23/21 Rx 5-325 mg TAB] Ondansetron [Zofran ODT TAB] 4 mg PO Q8HR #30 tab.rapdis 10/26/20 04/24/21 04/23/21 Rx Pantoprazole [Protonix TAB] 40 mg PO DAILY #30 tablet 10/26/20 04/24/21 04/23/21 Rx Aldactone 50 mg PO DAILY 04/24/21 04/24/21 04/23/21 History Diovan 160 mg PO BID 04/24/21 04/24/21 04/23/21 History Isosorbide Dinitrate 30 mg PO DAILY 04/24/21 04/24/21 04/23/21 History Procardia 60 mg PO BID 04/24/21 04/24/21 04/23/21 History cloNIDine 0.1 mg PO TID 04/24/21 04/24/21 04/23/21 History hydrALAZINE 50 mg PO TID 04/24/21 04/24/21 04/23/21 History labetaloL 300 mg PO BID 04/24/21 04/24/21 04/23/21 History ED Physical Exam - General Limitations: No Limitations General appearance: alert, in no apparent distress - Head Head exam: Present: atraumatic, normocephalic - Eye Eye exam: Present: normal appearance, PERRL Pupils: Present: normal accommodation - ENT ENT exam: Present: mucous membranes moist - Neck Neck exam: Present: normal inspection - Respiratory Respiratory exam: Present: normal lung sounds bilaterally. Absent: respiratory distress, wheezes, rales, chest wall tenderness - Cardiovascular Cardiovascular Exam: Present: regular rate, normal rhythm. Absent: systolic murmur, diastolic murmur, rubs, gallop - GI/Abdominal GI/Abdominal exam: Present: soft, normal bowel sounds. Absent: distended, tenderness, guarding - Extremities Exam Extremities exam: Present: normal inspection - Back Exam Back exam: Present: normal inspection - Neurological Exam Neurological exam: Present: alert, oriented X3 - Psychiatric Psychiatric exam: Present: normal affect, normal mood - Skin Skin exam: Present: warm, dry, intact, normal color. Absent: rash ED Course Vital Signs 05/03/21 05/03/21 05/03/21 21:34 21:42 22:00 Temperature 100.7 F H Pulse Rate 81 77 77 Respiratory 21 20 28 H Rate Blood Pressure 196/118 Blood Pressure 191/112 [Right] O2 Sat by Pulse 97 97 93 Oximetry 05/03/21 05/03/21 05/04/21 22:11 23:00 00:00 Temperature Pulse Rate 77 77 78 Respiratory 27 H 24 Rate Blood Pressure 196/118 183/112 175/101 Blood Pressure [Right] O2 Sat by Pulse 95 Oximetry 05/04/21 05/04/21 05/04/21 00:20 00:30 00:38 Temperature Pulse Rate 79 81 75 Respiratory 24 17 Rate Blood Pressure 175/101 175/101 175/101 Blood Pressure [Right] O2 Sat by Pulse 94 97 Oximetry 05/04/21 05/04/21 05/04/21 00:39 00:54 01:00 Temperature 99.5 F Pulse Rate 75 74 Respiratory 21 Rate Blood Pressure 175/101 171/111 Blood Pressure [Right] O2 Sat by Pulse 96 Oximetry - Reevaluation(s) Reevaluation #1: Patient on electronic device monitor. Patient has elevated blood pressure. Patient will be given hydralazine 20 mg IV. Patient's oxygen saturation is low and the patient is placed on oxygen. Patient is currently on 3 L and is 95%. 05/03/21 21:44 Reevaluation #2: Patient's blood pressure continues to be elevated. Patient will be given cl onidine. patient states her pain is better. I discussed all results with patient. I discussed plan of care with patient. Patient agrees with plan of care and admission. Patient to be admitted to the hospitalist service. 05/03/21 23:43 - Consultations Consultation #1: Hospitalist consulted for admission. Hospitalist to admit patient. 05/03/21 23:43 TAMAR score - Tamar Score Age > 65: (0) No Aspirin use within the Past 7 Days: (1) Yes 3 or more CAD Risk Factors: (1) Yes 2 or more Angina events in past 24 hrs: (1) Yes Known CAD with more than 50% Stenosis: (0) No Elevated Cardiac Markers: (0) No ST Deviation Greater than 0.5mm: (0) No TAMAR Score: 3 ED Medical Decision Making - Lab Data Result diagrams: 05/04/21 01:52 05/04/21 01:52 - EKG Data -: EKG Interpreted by Me EKG shows normal: sinus rhythm, axis, intervals, ST-T waves Rate: normal - EKG Data Interpretation: other (Right bundle branch block, prolonged QRS) - Radiology Data Radiology results: report reviewed, image reviewed interpreted by me: Chest x-ray: No pneumonia, no pneumothorax, no foreign body, no osseous findings, cardiomegaly with increased vascularity and pulmonary edema. CHEST 1 VIEW 05/03/2021 9:20 PM INDICATION / CLINICAL INFORMATION: Chest Pain. COMPARISON: None available. FINDINGS: SUPPORT DEVICES: None. HEART / MEDIASTINUM: Cardiomegaly LUNGS / PLEURA: Mild increased pulmonary vascularity No pneumothorax. ADDITIONAL FINDINGS: No significant additional findings. IMPRESSION: 1. Cardiomegaly with increased pulmonary vascularity - Medical Decision Making Patient is a 66-year-old female that presents emergency room with complaints of missed dialysis due to diarrhea and chest pain, shortness of breath, headache and blurry vision. Patient found to have hypertensive emergency and extremely elevated blood pressure. Patient given hydralazine and the patient eventually required clonidine. Patient also required continuous oxygen to support her oxygen saturation. Patient remained on 3 L entire time in ER. Patient had labs done which were essentially markable except for end-stage renal disease, hyper kalemia, anemia, elevated troponin. Patient had a chest x-ray which showed volume overload. I personally reviewed the chest x-ray. Patient EKG which shows no acute findings or ST changes. Patient EKG shows a right bundle branch block. I personally reviewed the EKG. Patient admitted to the hospital service for further evaluation treatment. Critical care time documented due to the multiple reassessments, prolonged time at the bedside, interpretation of diagnostics and labs. - Differential Diagnosis Volume overload, missed dialysis,CP, ACS, SOB, HTN URGENCY, Critical Care Time: Yes Critical care time in (mins) excluding proc time.: 35 Critical care attestation.: If time is entered above; I have spent that time in minutes in the direct care of this critically ill patient, excluding procedure time. Critical Care Time: 35 minutes ED Disposition Clinical Impression: Troponin level elevated, ESRD needing dialysis, Missed dialysis, Hyperkalemia, Hypertensive urgency, malignant Chest pain Qualifiers: Chest pain type: unspecified Qualified Code(s): R07.9 - Chest pain, unspecified Headache Qualifiers: Headache type: unspecified Headache chronicity pattern: acute headache Intractability: not intractable Qualified Code(s): R51.9 - Headache, unspecified Anemia in chronic kidney disease Qualifiers: Chronic kidney disease stage: on chronic dialysis Qualified Code(s): N18.6 - End stage renal disease Pulmonary edema Qualifiers: Chronicity: acute Qualified Code(s): J81.0 - Acute pulmonary edema Volume overload Qualifiers: Hypervolemia type: unspecified Qualified Code(s): E87.70 - Fluid overload, unspecified Respiratory failure Qualifiers: Chronicity: acute Respiratory failure complication: hypoxia Qualified Code(s): J96.01 - Acute respiratory failure with hypoxia Disposition: OP ADMIT IP TO THIS HOSP Is pt being admited?: Yes Does the pt Need Aspirin: No Condition: Critical Time of Disposition: 23:35
[2021-05-03] MEDS ORDERED: ASPIRIN 325 MG TAB PO ONE (21:56)
[2021-05-03] MEDS ORDERED: hydrALAZINE 20 MG/1 ML INJ IV ONE (21:57)
[2021-05-03] MEDS ORDERED: HYDROmorphone 1 MG/1 ML INJ IV ONE (22:19)
[2021-05-03] MEDS ORDERED: ONDANSETRON 4 MG/2 ML INJ IV ONE (22:19)
--- NOTE | 2021-05-03 22:38 | XRay Report ---
CHEST 1 VIEW 05/03/2021 9:20 PM INDICATION / CLINICAL INFORMATION: Chest Pain. COMPARISON: None available. FINDINGS: SUPPORT DEVICES: None. HEART / MEDIASTINUM: Cardiomegaly LUNGS / PLEURA: Mild increased pulmonary vascularity No pneumothorax. ADDITIONAL FINDINGS: No significant additional findings. IMPRESSION: 1. Cardiomegaly with increased pulmonary vascularity Signer Name: Meño Shelton MD Signed: 05/03/2021 10:34 PM Workstation Name: [id number]
[2021-05-03 22:50] LABS: Basophils % (Auto) 0.7 % (0.0-1.8); Eosinophils # (Auto) 0.1 K/mm3 (0.0-0.4); Eosinophils % (Auto) 1.9 % (0.0-4.3); Hematocrit 22.7 % (30.3-42.9); Hemoglobin 7.7 gm/dl (10.1-14.3); Lymphocytes # (Auto) 0.7 K/mm3 (1.2-5.4); Lymphocytes % (Auto) 15.2 % (13.4-35.0); Mean Corpuscular HGB Conc 34 % (30-34); Mean Corpuscular Volume 93 fl (79-97); Monocytes # (Auto) 0.5 K/mm3 (0.0-0.8); Monocytes % (Auto) 10.4 % (0.0-7.3); Platelet Count 224 K/mm3 (140-440); Red Blood Count 2.45 M/mm3 (3.65-5.03)
[2021-05-03 23:15] LABS: Albumin 3.7 g/dL (3.9-5); Calcium 9.3 mg/dL (8.4-10.2)
[2021-05-03] MEDS ORDERED: cloNIDine 0.2 MG TAB PO ONE (23:42)
[2021-05-03] MEDS ORDERED: clonazePAM 0.5 MG TAB PO PRN (23:43)
[2021-05-03] MEDS ORDERED: SODIUM POLYSTYRENE 15 GM/60 ML ORAL LIQD PR ONE (23:44)
[2021-05-03] MEDS ORDERED: NITROGLYCERIN 0.4 MG TAB SUBL SL PRN (23:45)
[2021-05-03] MEDS ORDERED: ALBUTEROL 2.5 MG/3 ML NEBU IH PRN (23:45)
[2021-05-03] MEDS ORDERED: DEXTROSE 50% IN WATER (25GM) 50 ML SYRINGE IV PRN (23:45)
[2021-05-03] MEDS ORDERED: ACETAMINOPHEN 325 MG TAB PO PRN (23:45)
[2021-05-03] MEDS ORDERED: ONDANSETRON 4 MG/2 ML INJ IV PRN (23:45)
--- NOTE | 2021-05-04 | History and Physical Report ---
History of Present Illness Date of examination: 05/03/21 Date of admission: 05/03/2021 Chief complaint: missed HD, CP, elevated BP History of present illness: 66-year-old -[place] female with history of ESRD on HD, and uncontrolled hypertension, who presents [facility] ED with complaint of elevated blood pressure, missed dialysis session, and chest pain. Patient states that she missed Wednesdays (05/02) dialysis session due to frequent diarrhea and not feeling well. Reports that her diarrhea has since improved. However she continues to experience sharp intermittent 10/10 nonradiating chest pain, with associated mild dyspnea on exertion which improves with rest. Endorses blurry vision, headache, dyspnea and elevated BP when she misses HD sessions. Denies fever, chills, hematochezia, melena, nausea, vomiting, noncompliance with meds, abdominal pain, or recent sick contacts Review of medical record shows patient has had multiple admissions over the past 2 months with similar complaints of chest pain and missed dialysis session. More recently patient was admitted to [facility] approximately 2 weeks ago for cardiac work-up, and reports negative findings. I have placed case management consult due to multiple admissions within the past 2 months. Past History Past Medical History: diabetes, hypertension, other (?? A. fib, TB, herina rt inguinal ) Past Surgical History: appendectomy, cholecystectomy, hysterectomy, Other (left renal AML embolization, ICD placement, AV fistula) Social history: , lives with family, full code. denies: smoking, alcohol abuse, prescription drug abuse, IV drug use Family history: no significant family history Medications and Allergies Allergies Allergy/AdvReac Type Severity Reaction Status Date / Time No Known Allergies Allergy Verified 05/03/21 22:14 Home Medications Medication Instructions Recorded Confirmed Last Taken Type Ergocalciferol (Vitamin D2) 50,000 unit PO DAILY 09/25/20 04/24/21 04/14/21 History [Drisdol] Sevelamer Carbonate [Renvela] 1,600 mg PO TID 09/25/20 04/24/21 04/23/21 History busPIRone [Buspar] 10 mg PO Q8HR 09/25/20 04/24/21 04/23/21 History Citalopram [Celexa] 20 mg PO QDAY #30 tab 09/28/20 04/24/21 04/23/21 Rx ALPRAZolam [Xanax TAB] 0.25 mg PO BID PRN 10/16/20 04/24/21 04/23/21 History Folic Acid/Vit B Complex and C 0.8 mg PO QDAY 10/16/20 04/24/21 04/23/21 History [Renal Vitamin Tablet] clonazePAM [KlonoPIN] 0.5 mg PO BID PRN 10/16/20 04/24/21 04/23/21 History HYDROcodone/APAP 5-325 [[place] 1 each PO Q6HR PRN #20 tab 10/26/20 04/24/21 04/23/21 Rx 5-325 mg TAB] Ondansetron [Zofran ODT TAB] 4 mg PO Q8HR #30 tab.rapdis 10/26/20 04/24/21 04/23/21 Rx Pantoprazole [Protonix TAB] 40 mg PO DAILY #30 tablet 10/26/20 04/24/21 04/23/21 Rx Aldactone 50 mg PO DAILY 04/24/21 04/24/21 04/23/21 History Diovan 160 mg PO BID 04/24/21 04/24/21 04/23/21 History Isosorbide Dinitrate 30 mg PO DAILY 04/24/21 04/24/21 04/23/21 History Procardia 60 mg PO BID 04/24/21 04/24/21 04/23/21 History cloNIDine 0.1 mg PO TID 04/24/21 04/24/21 04/23/21 History hydrALAZINE 50 mg PO TID 04/24/21 04/24/21 04/23/21 History labetaloL 300 mg PO BID 04/24/21 04/24/21 04/23/21 History Review of Systems All systems: negative (As noted in HPI) Exam - Physical Exam Narrative exam: Physical exam General appearance: Present: No acute distress, alert and oriented 3, - [place] adult female - EENT Eyes: Present: PERRL, EOM intact ENT: hearing intact, normal dentition - Neck Neck: Present: supple, normal ROM - Respiratory Respiratory effort: Non-labored Respiratory: Clear throughout - Cardiovascular Heart rate: 88 (bpm) Rhythm: Sinus Heart Sounds: Present: S1 & S2. Absent: rub, click - Extremities Extremities: no ischemia, pulses intact, - Peripheral Assessment Peripheral Pulses: within normal limits - Abdominal General gastrointestinal: soft, non-tender, normal bowel sounds - Integumentary Integumentary: Present: warm, dry - Musculoskeletal Musculoskeletal: Able to move all extremities -Neurological Neurological: CN II-XII intact - Psychiatric Psychiatric: cooperative - Constitutional Vitals: Temp Pulse Resp BP Pulse Ox 100.7 F H 77 20 196/118 97 05/03/21 21:42 05/03/21 22:11 05/03/21 21:42 05/03/21 22:11 05/03/21 21:42 HEART Score - HEART Score EKG: Normal Age: > 65 Risk factors: > 3 risk factors or hx of atherosclerotic disease Troponin: WBC 4.8 K/mm3 (4.5-11.0) 05/03/21 22:37 RBC 2.45 M/mm3 (3.65-5.03) L 05/03/21 22:37 Hgb 7.7 gm/dl (10.1-14.3) L 05/03/21 22:37 Hct 22.7 % (30.3-42.9) L 05/03/21 22:37 MCV 93 fl (79-97) 05/03/21 22:37 MCH 32 pg (28-32) 05/03/21 22:37 MCHC 34 % (30-34) 05/03/21 22:37 RDW 17.0 % (13.2-15.2) H 05/03/21 22:37 Plt Count 224 K/mm3 (140-440) 05/03/21 22:37 Lymph % (Auto) 15.2 % (13.4-35.0) 05/03/21 22:37 [place] % (Auto) 10.4 % (0.0-7.3) H 05/03/21 22:37 Eos % (Auto) 1.9 % (0.0-4.3) 05/03/21 22:37 Baso % (Auto) 0.7 % (0.0-1.8) 05/03/21 22:37 Lymph # (Auto) 0.7 K/mm3 (1.2-5.4) L 05/03/21 22:37 [place] # (Auto) 0.5 K/mm3 (0.0-0.8) 05/03/21 22:37 Eos # (Auto) 0.1 K/mm3 (0.0-0.4) 05/03/21 22:37 Baso # (Auto) 0.0 K/mm3 (0.0-0.1) 05/03/21 22:37 Seg Neutrophils % 71.8 % (40.0-70.0) H 05/03/21 22:37 Seg Neutrophils # 3.4 K/mm3 (1.8-7.7) 05/03/21 22:37 Sodium 135 mmol/L (137-145) L 05/03/21 22:37 Potassium 5.5 mmol/L (3.6-5.0) H 05/03/21 22:37 Chloride 94.4 mmol/L (98-107) L 05/03/21 22:37 Carbon Dioxide 30 mmol/L (22-30) 05/03/21 22:37 Anion Gap 16 mmol/L 05/03/21 22:37 BUN 30 mg/dL (7-17) H 05/03/21 22:37 Creatinine 8.8 mg/dL (0.6-1.2) H 05/03/21 22:37 Estimated GFR 5 ml/min 05/03/21 22:37 BUN/Creatinine Ratio 3 % 05/03/21 22:37 Glucose 88 mg/dL (65-100) 05/03/21 22:37 Calcium 9.3 mg/dL (8.4-10.2) 05/03/21 22:37 Total Bilirubin 0.50 mg/dL (0.1-1.2) 05/03/21 22:37 AST 35 units/L (5-40) 05/03/21 22:37 ALT 29 units/L (7-56) 05/03/21 22:37 Alkaline Phosphatase 95 units/L (35-129) 05/03/21 22:37 Troponin T 0.088 ng/mL (0.00-0.029) H 05/03/21 22:37 Total Protein 6.6 g/dL (6.3-8.2) 05/03/21 22:37 Albumin 3.7 g/dL (3.9-5) L 05/03/21 22:37 Albumin/Globulin Ratio 1.3 % 05/03/21 22:37 Troponin: < normal limit Results - Labs CBC & Chem 7: 05/04/21 01:52 05/03/21 22:37 Labs: Laboratory Last Values WBC 4.8 K/mm3 (4.5-11.0) 05/03/21 22:37 RBC 2.45 M/mm3 (3.65-5.03) L 05/03/21 22:37 Hgb 7.7 gm/dl (10.1-14.3) L 05/03/21 22:37 Hct 22.7 % (30.3-42.9) L 05/03/21 22:37 MCV 93 fl (79-97) 05/03/21 22:37 MCH 32 pg (28-32) 05/03/21 22:37 MCHC 34 % (30-34) 05/03/21 22:37 RDW 17.0 % (13.2-15.2) H 05/03/21 22:37 Plt Count 224 K/mm3 (140-440) 05/03/21 22:37 Lymph % (Auto) 15.2 % (13.4-35.0) 05/03/21 22:37 [place] % (Auto) 10.4 % (0.0-7.3) H 05/03/21 22:37 Eos % (Auto) 1.9 % (0.0-4.3) 05/03/21 22:37 Baso % (Auto) 0.7 % (0.0-1.8) 05/03/21 22:37 Lymph # (Auto) 0.7 K/mm3 (1.2-5.4) L 05/03/21 22:37 [place] # (Auto) 0.5 K/mm3 (0.0-0.8) 05/03/21 22:37 Eos # (Auto) 0.1 K/mm3 (0.0-0.4) 05/03/21 22:37 Baso # (Auto) 0.0 K/mm3 (0.0-0.1) 05/03/21 22:37 Seg Neutrophils % 71.8 % (40.0-70.0) H 05/03/21 22:37 Seg Neutrophils # 3.4 K/mm3 (1.8-7.7) 05/03/21 22:37 Sodium 135 mmol/L (137-145) L 05/03/21 22:37 Potassium 5.5 mmol/L (3.6-5.0) H 05/03/21 22:37 Chloride 94.4 mmol/L (98-107) L 05/03/21 22:37 Carbon Dioxide 30 mmol/L (22-30) 05/03/21 22:37 Anion Gap 16 mmol/L 05/03/21 22:37 BUN 30 mg/dL (7-17) H 05/03/21 22:37 Creatinine 8.8 mg/dL (0.6-1.2) H 05/03/21 22:37 Estimated GFR 5 ml/min 05/03/21 22:37 BUN/Creatinine Ratio 3 % 05/03/21 22:37 Glucose 88 mg/dL (65-100) 05/03/21 22:37 Calcium 9.3 mg/dL (8.4-10.2) 05/03/21 22:37 Total Bilirubin 0.50 mg/dL (0.1-1.2) 05/03/21 22:37 AST 35 units/L (5-40) 05/03/21 22:37 ALT 29 units/L (7-56) 05/03/21 22:37 Alkaline Phosphatase 95 units/L (35-129) 05/03/21 22:37 Troponin T 0.088 ng/mL (0.00-0.029) H 05/03/21 22:37 Total Protein 6.6 g/dL (6.3-8.2) 05/03/21 22:37 Albumin 3.7 g/dL (3.9-5) L 05/03/21 22:37 Albumin/Globulin Ratio 1.3 % 05/03/21 22:37 - Imaging and Cardiology Chest x-ray: report reviewed (IMPRESSION: 1. Cardiomegaly with increased pulmonary vascularity ), image reviewed Assessment and Plan Assessment and plan: ESRD -requiring HD -HD M/W/F -Missed Wednesdays (05/02)HD session due to not feeling well (diarrhea) -Last dialyzed on Friday (04/30) -Nephrology consulted for HD management Acute atypical chest pain -EKG negative for acute ischemic abnormalities -CXR negative -Troponin now 0.088 (0.112 on 04/24/21), will repeat x1 -Denies firing of AICD -Admitted to [facility] earlier this month for cardiac work-up, reports negative findings -We will defer additional cardiac work-up per cardiology recommendations -Cardiology consulted NSTEMI type II -Troponin elevated at 0.088 -We will continue to trend -Likely due to cardiorenal syndrome -On continuous remote telemetry monitoring -Resume Norvasc, Coreg, Imdur, low-dose aspirin Hypertensive urgency -Likely due to volume overload related to missed HD session -Resume home meds -Monitor BP -IV antihypertensive as needed Hyperkalemia -on admission 5.5, likely related to missed HD session -Received Kayexalate -Continue to monitor electrolytes Acute on chronic anemia -Related to renal failure -No S/S of active bleeding -Continue to monitor hemoglobin -Transfuse as needed for Hgb < 7.0 DM -POC BG monitoring -SSI coverage prn Advance Directives: No VTE prophylaxis?: Chemical, Mechanical Plan of care discussed with patient/family: Yes
[2021-05-04] MEDS: carvediloL 25 MG TAB PO SCH ×3 (00:38→14:10)
[2021-05-04 01:35] LABS: Chol/HDL Ratio 2.33 %
[2021-05-04 02:03] LABS: Eosinophils # (Auto) 0.1 K/mm3 (0.0-0.4); Eosinophils % (Auto) 2.5 % (0.0-4.3); Hematocrit 23.8 % (30.3-42.9); Hemoglobin 7.9 gm/dl (10.1-14.3); Lymphocytes # (Auto) 0.9 K/mm3 (1.2-5.4); Lymphocytes % (Auto) 17.2 % (13.4-35.0); Mean Corpuscular HGB Conc 33 % (30-34); Mean Corpuscular Volume 94 fl (79-97); Monocytes # (Auto) 0.7 K/mm3 (0.0-0.8); Monocytes % (Auto) 13.4 % (0.0-7.3); Platelet Count 227 K/mm3 (140-440); Red Blood Count 2.54 M/mm3 (3.65-5.03); Red Cell Distribution Width 17.4 % (13.2-15.2)
[2021-05-04 02:58] LABS: Calcium 9.3 mg/dL (8.4-10.2)
[2021-05-04] MEDS: oxyCODONE /ACETAMINOPHEN 5-325MG TAB PO PRN ×4 (03:12→21:36)
[2021-05-04] MEDS: hydrALAZINE 20 MG/1 ML INJ IV PRN ×3 (04:28→18:30)
[2021-05-04] MEDS: busPIRone 10 MG TAB PO SCH ×3 (05:39→21:36)
[2021-05-04 05:50] LABS: Calcium 9.2 mg/dL (8.4-10.2)
[2021-05-04] MEDS ORDERED: NON-FORMULARY EACH (Hydralazine 100 MG) PO SCH (08:00)
--- NOTE | 2021-05-04 08:04 | Consultation ---
History of Present Illness - Reason for Consult end stage renal disease - History of Present Illness 66-year-old -[place] female with a past medical history significant for end-stage renal disease in the setting of hypertension, who typically sees Dr. 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 Patient typically is on a Friday outpatient hemodialysis schedule, dialyzing at [facility], but unfortunately did not make her last treatment session on Friday secondary to complaints of diarrhea. She presents at this time with complaints of shortness of breath and abdominal discomfort. Labs indicating evidence of hyperkalemia. Nephrology consult at this time for further chronic dialysis needs. She dialyzes via a right femoral permacath. Apparently she has had multiple attempts at fistulas in the past which unfortunately have clotted. She is apparently on the transplant wait list. She is currently on 2 L of oxygen and saturating well. We will place orders today for hemodialysis. Past History Past Medical History: diabetes, hypertension, other (?? A. fib, TB, herina rt inguinal ) Past Surgical History: appendectomy, cholecystectomy, hysterectomy, Other (left renal AML embolization, ICD placement, AV fistula) Social history: , lives with family, full code. denies: smoking, alcohol abuse, prescription drug abuse, IV drug use Family history: no significant family history Medications and Allergies Allergies Allergy/AdvReac Type Severity Reaction Status Date / Time No Known Allergies Allergy Verified 05/03/21 22:14 Home Medications Medication Instructions Recorded Confirmed Last Taken Type Ergocalciferol (Vitamin D2) 50,000 unit PO DAILY 09/25/20 04/24/21 04/14/21 History [Drisdol] Sevelamer Carbonate [Renvela] 1,600 mg PO TID 09/25/20 04/24/21 04/23/21 History busPIRone [Buspar] 10 mg PO Q8HR 09/25/20 04/24/21 04/23/21 History Citalopram [Celexa] 20 mg PO QDAY #30 tab 09/28/20 04/24/21 04/23/21 Rx ALPRAZolam [Xanax TAB] 0.25 mg PO BID PRN 10/16/20 04/24/21 04/23/21 History Folic Acid/Vit B Complex and C 0.8 mg PO QDAY 10/16/20 04/24/21 04/23/21 History [Renal Vitamin Tablet] clonazePAM [KlonoPIN] 0.5 mg PO BID PRN 10/16/20 04/24/21 04/23/21 History HYDROcodone/APAP 5-325 [[place] 1 each PO Q6HR PRN #20 tab 10/26/20 04/24/21 04/23/21 Rx 5-325 mg TAB] Ondansetron [Zofran ODT TAB] 4 mg PO Q8HR #30 tab.rapdis 10/26/20 04/24/21 04/23/21 Rx Pantoprazole [Protonix TAB] 40 mg PO DAILY #30 tablet 10/26/20 04/24/21 04/23/21 Rx Aldactone 50 mg PO DAILY 04/24/21 04/24/21 04/23/21 History Diovan 160 mg PO BID 04/24/21 04/24/21 04/23/21 History Isosorbide Dinitrate 30 mg PO DAILY 04/24/21 04/24/21 04/23/21 History Procardia 60 mg PO BID 04/24/21 04/24/21 04/23/21 History cloNIDine 0.1 mg PO TID 04/24/21 04/24/21 04/23/21 History hydrALAZINE 50 mg PO TID 04/24/21 04/24/21 04/23/21 History labetaloL 300 mg PO BID 04/24/21 04/24/21 04/23/21 History Active Meds: Active Medications Acetaminophen (Acetaminophen 325 Mg Tab) 650 mg PO Q4H PRN PRN Reason: Pain MILD(1-3)/Fever >100.5/SAUCEDO Albuterol (Albuterol 2.5 Mg/3 Ml Nebu) 2.5 mg IH Q3HRT PRN PRN Reason: Shortness Of Breath Amlodipine Besylate (Amlodipine 10 Mg Tab) 10 mg PO QDAY SSUU Aspirin (Aspirin 81 Mg Tab Chew) 81 mg PO QDAY SUSU Buspirone HCl (Buspirone 10 Mg Tab) 10 mg PO Q8HR SUSU Last Admin: 05/04/21 05:39 Dose: Not Given Documented by: Carvedilol (Carvedilol 25 Mg Tab) 25 mg PO BID [facility] Last Admin: 05/04/21 00:38 Dose: 25 mg Documented by: Clonazepam (Clonazepam 0.5 Mg Tab) 0.5 mg PO BID PRN PRN Reason: Anxiety Dextrose (Dextrose 50% In Water (25gm) 50 Ml Syringe) 50 ml IV Q30MIN PRN; Protocol PRN Reason: Hypoglycemia Docusate Sodium (Docusate Sodium 100 Mg Cap) 100 mg PO BID [facility] Heparin Sodium (Porcine) (Heparin 5,000 Unit/1 Ml Vial) 5,000 unit SUB-Q BID [facility] Hydralazine HCl (Hydralazine 20 Mg/1 Ml Inj) 10 mg IV Q6HR PRN PRN Reason: Blood Pressure Last Admin: 05/04/21 04:28 Dose: 10 mg Documented by: Hydralazine HCl (Hydralazine 100 Mg Tab) 100 mg PO TID [facility] Insulin Human Lispro (Insulin Lispro 100 Unit/Ml) 0 unit SUB-Q ACHS [facility]; Protocol Isosorbide Mononitrate (Isosorbide Mononitrate Er 60 Mg Tab) 60 mg PO QDAY [facility] Multivit/Ca Carb/B Cmplx/FA/Prenat (Folic Acid/Vit B Comp W-C 1 Mg (Renal Caps)) 1 cap PO QDAY [facility] Nitroglycerin (Nitroglycerin 0.4 Mg Tab Subl) 0.4 mg SL Q5M PRN PRN Reason: Chest Pain Ondansetron HCl (Ondansetron 4 Mg/2 Ml Inj) 4 mg IV Q6H PRN PRN Reason: Nausea And Vomiting Oxycodone/Acetaminophen (Oxycodone /Acetaminophen 5-325mg Tab) 1 tab PO Q6H PRN PRN Reason: Pain, Moderate (4-6) Last Admin: 05/04/21 03:12 Dose: 1 tab Documented by: Sevelamer Carbonate (Sevelamer Carbonate 800 Mg Tab) 1,600 mg PO TIDWM [facility] Sodium Chloride (Sodium Chloride 0.9% 10 Ml Flush Syringe) 10 ml IV BID [facility] Sodium Chloride (Sodium Chloride 0.9% 10 Ml Flush Syringe) 10 ml IV PRN PRN PRN Reason: LINE FLUSH Review of Systems All systems: negative Constitutional: fatigue, weakness Exam - Vital Signs Vital signs: Vital Signs Pulse Resp Pulse Ox 81 21 97 06/24/21 21:34 05/03/21 21:34 05/03/21 21:34 - General Appearance General appearance: well-developed, appears stated age EENT: ATNC Neck: Present: neck supple Respiratory: Decreased Breath Sounds Heart: regular Gastrointestinal: Present: normal Integumentary: no rash Neurologic: no focal deficit Musculoskeletal: Present: deferred Psychiatric: cooperative Results - Lab Results 05/04/21 01:52 05/04/21 04:50 Most recent lab results Calcium 9.2 mg/dL (8.4-10.2) 05/04/21 04:50 Assessment and Plan - Patient Problems (1) End stage renal disease Current Visit: Yes Status: Chronic Plan to address problem: We will place orders for hemodialysis today. Will maintain on inpatient Friday hemodialysis schedule. We will also evaluate for extra treatment tomorrow in order to further optimize volume status. (2) Hypertensive chronic kidney disease with stage 5 chronic kidney disease or end stage renal disease Current Visit: Yes Status: Chronic Plan to address problem: Anticipate that with adequate volume removal and volume optimization that blood pressure control should start to improve. Continue on her oral antihypertensive regimens and we will titrate as appropriate. (3) Hyperkalemia Current Visit: Yes Status: Chronic Plan to address problem: Will treat with hemodialysis. Please make sure that patient is on a low potassium renal diet. (4) Anemia in chronic kidney disease (CKD) Current Visit: Yes Status: Chronic Qualifiers: Chronic kidney disease stage: on chronic dialysis Qualified Code(s): N18.6 - End stage renal disease; D63.1 - Anemia in chronic kidney disease; Z99.2 - Dependence on renal dialysis Plan to address problem: We will titrate SHAWNA therapy with hemodialysis as appropriate. (5) Secondary hyperparathyroidism (of renal origin) Current Visit: Yes Status: Chronic Plan to address problem: Continue outpatient phosphate binder regimen. (6) Type 2 diabetes mellitus with diabetic chronic kidney disease Current Visit: No Status: Chronic Plan to address problem: Diabetes management per primary attending.
[2021-05-04] MEDS: hydrALAZINE 100 MG TAB PO SCH ×4 (08:29→21:37)
[2021-05-04] MEDS ORDERED: SODIUM CHLORIDE 0.9% 100 ML IV PRN (08:30)
[2021-05-04] MEDS ORDERED: EPOETIN ALFA-EPBX 10,000 UNIT/1 ML VIAL SUB-Q PRN (08:30)
[2021-05-04] MEDS: SEVELAMER CARBONATE 800 MG TAB PO SCH ×3 (08:31→18:32)
[2021-05-04] MEDS: INSULIN LISPRO 100 UNIT/ML SUB-Q SCH ×4 (08:32→23:00)
--- NOTE | 2021-05-04 08:49 | Progress Note ---
Assessment and Plan Assessment and plan: ESRD -requiring HD -HD M/W/F -Missed Wednesdays (05/02)HD session due to not feeling well (diarrhea) -Last dialyzed on Friday (04/30) -Nephrology consulted for HD management Acute atypical chest pain -EKG negative for acute ischemic abnormalities -CXR negative -Troponin now 0.088 (0.112 on 04/24/21), will repeat x1 -Denies firing of AICD -Admitted to [facility] earlier this month for cardiac work-up, reports negative findings -We will defer additional cardiac work-up per cardiology recommendations -Cardiology consulted NSTEMI type II -Troponin elevated at 0.088 -We will continue to trend -Likely due to cardiorenal syndrome -On continuous remote telemetry monitoring -Resume Norvasc, Coreg, Imdur, low-dose aspirin Hypertensive urgency -Likely due to volume overload related to missed HD session -Resume home meds -Monitor BP -IV antihypertensive as needed Hyperkalemia -on admission 5.5, likely related to missed HD session -Received Kayexalate -Continue to monitor electrolytes Acute on chronic anemia -Related to renal failure -No S/S of active bleeding -Continue to monitor hemoglobin -Transfuse as needed for Hgb < 7.0 DM -POC BG monitoring -SSI coverage prn History Interval history: No new issues overnight. Hospitalist Physical - Constitutional Vitals: Temp Pulse Resp BP Pulse Ox 99.0 F 68 20 186/102 97 05/04/21 07:41 05/04/21 07:41 05/04/21 08:21 05/04/21 07:41 05/04/21 07:41 General appearance: Present: no acute distress, well-nourished - EENT Eyes: Present: PERRL, EOM intact ENT: hearing intact, clear oral mucosa, dentition normal - Neck Neck: Present: supple, normal ROM - Respiratory Respiratory effort: normal Respiratory: bilateral: CTA - Cardiovascular Rhythm: regular Heart Sounds: Present: S1 & S2. Absent: gallop, rub - Extremities Extremities: no ischemia, No edema, Full ROM - Abdominal General gastrointestinal: soft, non-tender, non-distended, normal bowel sounds - Integumentary Integumentary: Present: clear, warm, dry - Neurologic Neurologic: CNII-XII intact, moves all extremities HEART Score - HEART Score EKG: Normal Age: > 65 Risk factors: > 3 risk factors or hx of atherosclerotic disease Troponin: Troponin T 0.084 ng/mL (0.00-0.029) H 05/04/21 01:52 Troponin: < normal limit Results - Labs CBC & Chem 7: 05/04/21 01:52 05/04/21 04:50 Labs: Laboratory Last Values WBC 5.0 K/mm3 (4.5-11.0) 05/04/21 01:52 RBC 2.54 M/mm3 (3.65-5.03) L 05/04/21 01:52 Hgb 7.9 gm/dl (10.1-14.3) L 05/04/21 01:52 Hct 23.8 % (30.3-42.9) L 05/04/21 01:52 MCV 94 fl (79-97) 05/04/21 01:52 MCH 31 pg (28-32) 05/04/21 01:52 MCHC 33 % (30-34) 05/04/21 01:52 RDW 17.4 % (13.2-15.2) H 05/04/21 01:52 Plt Count 227 K/mm3 (140-440) 05/04/21 01:52 Lymph % (Auto) 17.2 % (13.4-35.0) 05/04/21 01:52 Floyd % (Auto) 13.4 % (0.0-7.3) H 05/04/21 01:52 Eos % (Auto) 2.5 % (0.0-4.3) 05/04/21 01:52 Baso % (Auto) 1.0 % (0.0-1.8) 05/04/21 01:52 Lymph # (Auto) 0.9 K/mm3 (1.2-5.4) L 05/04/21 01:52 Floyd # (Auto) 0.7 K/mm3 (0.0-0.8) 05/04/21 01:52 Eos # (Auto) 0.1 K/mm3 (0.0-0.4) 05/04/21 01:52 Baso # (Auto) 0.0 K/mm3 (0.0-0.1) 05/04/21 01:52 Seg Neutrophils % 65.9 % (40.0-70.0) 05/04/21 01:52 Seg Neutrophils # 3.3 K/mm3 (1.8-7.7) 05/04/21 01:52 Sodium 139 mmol/L (137-145) 05/04/21 04:50 Potassium 5.9 mmol/L (3.6-5.0) H 05/04/21 04:50 Chloride 97.1 mmol/L (98-107) L 05/04/21 04:50 Carbon Dioxide 30 mmol/L (22-30) 05/04/21 04:50 Anion Gap 18 mmol/L 05/04/21 04:50 BUN 33 mg/dL (7-17) H 05/04/21 04:50 Creatinine 9.4 mg/dL (0.6-1.2) H 05/04/21 04:50 Estimated GFR 5 ml/min 05/04/21 04:50 BUN/Creatinine Ratio 4 % 05/04/21 04:50 Glucose 89 mg/dL (65-100) 05/04/21 04:50 Calcium 9.2 mg/dL (8.4-10.2) 05/04/21 04:50 Total Bilirubin 0.50 mg/dL (0.1-1.2) 05/03/21 22:37 AST 35 units/L (5-40) 05/03/21 22:37 ALT 29 units/L (7-56) 05/03/21 22:37 Alkaline Phosphatase 95 units/L (35-129) 05/03/21 22:37 Troponin T 0.084 ng/mL (0.00-0.029) H 05/04/21 01:52 Total Protein 6.6 g/dL (6.3-8.2) 05/03/21 22:37 Albumin 3.7 g/dL (3.9-5) L 05/03/21 22:37 Albumin/Globulin Ratio 1.3 % 05/03/21 22:37 Triglycerides 50 mg/dL (2-149) 05/03/21 22:37 Cholesterol 145 mg/dL (50-199) 05/03/21 22:37 LDL Cholesterol Direct 75 mg/dL (50-130) 05/03/21 22:37 HDL Cholesterol 62 mg/dL (40-59) H 05/03/21 22:37 Cholesterol/HDL Ratio 2.33 % 05/03/21 22:37 Moran/IV: Voiding Method Toilet Active Medications - Current Medications Current Medications: Generic Name Dose Route Start Last Admin Trade Name Freq PRN Reason Stop Dose Admin Acetaminophen 650 mg 05/03/21 23:45 Acetaminophen 325 Mg Tab PO Q4H PRN Pain MILD(1-3)/Fever >100.5/SAUCEDO Albuterol 2.5 mg 05/03/21 23:45 Albuterol 2.5 Mg/3 Ml Nebu IH Q3HRT PRN Shortness Of Breath Amlodipine Besylate 10 mg 05/04/21 10:00 Amlodipine 10 Mg Tab PO QDAY [facility] Aspirin 81 mg 05/04/21 10:00 Aspirin 81 Mg Tab Chew PO QDAY [facility] Buspirone HCl 10 mg 05/04/21 06:00 05/04/21 05:39 Buspirone 10 Mg Tab PO Not Given Q8HR [facility] Carvedilol 25 mg 05/03/21 23:45 05/04/21 00:38 Carvedilol 25 Mg Tab PO 25 mg BID SUSU Administration Clonazepam 0.5 mg 05/03/21 23:43 Clonazepam 0.5 Mg Tab PO BID PRN Anxiety Dextrose 50 ml 05/03/21 23:45 Dextrose 50% In Water (25gm) 50 Ml Syringe IV Q30MIN PRN Hypoglycemia Protocol Diphenhydramine HCl 25 mg 05/04/21 08:06 Diphenhydramine 50 Mg/Ml Vial IV BRENNA PRN Itching Docusate Sodium 100 mg 05/04/21 10:00 Docusate Sodium 100 Mg Cap PO BID [facility] Heparin Sodium (Porcine) 5,000 unit 05/04/21 10:00 Heparin 5,000 Unit/1 Ml Vial SUB-Q BID [facility] Hydralazine HCl 10 mg 05/03/21 23:49 05/04/21 04:28 Hydralazine 20 Mg/1 Ml Inj IV 10 mg Q6HR PRN Administration Blood Pressure Hydralazine HCl 100 mg 05/04/21 08:00 Hydralazine 100 Mg Tab PO TID [facility] Sodium Chloride 100 mls @ 999 mls/hr 05/04/21 08:30 Nacl 0.9% IV BRENNA PRN Hypotension Insulin Human Lispro 0 unit 05/04/21 07:30 Insulin Lispro 100 Unit/Ml SUB-Q ACHS [facility] Protocol Isosorbide Mononitrate 60 mg 05/04/21 10:00 Isosorbide Mononitrate Er 60 Mg Tab PO QDAY [facility] Multivit/Ca Carb/B Cmplx/FA/Prenat 1 cap 05/04/21 10:00 Folic Acid/Vit B Comp W-C 1 Mg (Renal Caps) PO QDAY [facility] Nitroglycerin 0.4 mg 05/03/21 23:45 Nitroglycerin 0.4 Mg Tab Subl SL Q5M PRN Chest Pain Ondansetron HCl 4 mg 05/03/21 23:45 Ondansetron 4 Mg/2 Ml Inj IV Q6H PRN Nausea And Vomiting Oxycodone/Acetaminophen 1 tab 05/03/21 23:45 05/04/21 08:21 Oxycodone /Acetaminophen 5-325mg Tab PO 1 tab Q6H PRN Administration Pain, Moderate (4-6) Sevelamer Carbonate 1,600 mg 05/04/21 08:00 Sevelamer Carbonate 800 Mg Tab PO TIDWM [facility] Sodium Chloride 10 ml 05/04/21 10:00 Sodium Chloride 0.9% 10 Ml Flush Syringe IV BID [facility]US[facility] Sodium Chloride 10 ml 05/03/21 23:45 Sodium Chloride 0.9% 10 Ml Flush Syringe IV PRN PRN LINE FLUSH
--- NOTE | 2021-05-04 09:31 | Consultation ---
History of Present Illness Consult date: 05/04/21 Requesting physician: ELSY REYNOLDS Consult reason: chest pain, elevated troponin History of present illness: Pt is a 66-year-old AA female with a hx of ESRD on HD, HOCM s/p septal ablation 2015, ICD in situ, and uncontrolled HTN, who presented with complaints of chest pain. Pt states pain started 2-3 days prior to admission. Localized to left side of chest. Pt describes pain as a throbbing sensation. Worse with movement. Pt also reports epigastric pressure and generalized GI distress. She reports missing dialysis x 2 sessions due to diarrhea. Pt denies any additional cardiac complaints. Trop mildly elevated but flat. ECG reveals no acute ischemic changes. CXR reveals cardiomegaly and pulmonary vascular congestion. Pt is followed by [facility]. Echo 02/20/2021 - EF 50-55%, severe LVH, mild diastolic dysfunction, mild TR. Lexiscan stress MPI 12/19/2020 - no evidence of significant ischemia. LHC 09/2016 - prox LAD 20% stenosis, otherwise only mild luminal irregularities noted. Past History Past Medical History: diabetes, dialysis, ESRD, hypertension, seizures, other (hypertrophic CMP) Past Surgical History: appendectomy, cholecystectomy, hysterectomy, Other (ICD placement). denies: CABG, PTCA Social history: , lives with family. denies: smoking, alcohol abuse Family history: no significant family history Medications and Allergies Allergies Allergy/AdvReac Type Severity Reaction Status Date / Time No Known Allergies Allergy Verified 05/03/21 22:14 Home Medications Medication Instructions Recorded Confirmed Last Taken Type Ergocalciferol (Vitamin D2) 50,000 unit PO DAILY 09/25/20 04/24/21 04/14/21 His tory [Drisdol] Sevelamer Carbonate [Renvela] 1,600 mg PO TID 09/25/20 04/24/21 04/23/21 History busPIRone [Buspar] 10 mg PO Q8HR 09/25/20 04/24/21 04/23/21 History Citalopram [Celexa] 20 mg PO QDAY #30 tab 09/28/20 04/24/21 04/23/21 Rx ALPRAZolam [Xanax TAB] 0.25 mg PO BID PRN 10/16/20 04/24/21 04/23/21 History Folic Acid/Vit B Complex and C 0.8 mg PO QDAY 10/16/20 04/24/21 04/23/21 History [Renal Vitamin Tablet] clonazePAM [KlonoPIN] 0.5 mg PO BID PRN 10/16/20 04/24/21 04/23/21 History HYDROcodone/APAP 5-325 [[place] 1 each PO Q6HR PRN #20 tab 10/26/20 04/24/21 04/23/21 Rx 5-325 mg TAB] Ondansetron [Zofran ODT TAB] 4 mg PO Q8HR #30 tab.rapdis 10/26/20 04/24/21 04/23/21 Rx Pantoprazole [Protonix TAB] 40 mg PO DAILY #30 tablet 10/26/20 04/24/21 04/23/21 Rx Aldactone 50 mg PO DAILY 04/24/21 04/24/21 04/23/21 History Diovan 160 mg PO BID 04/24/21 04/24/21 04/23/21 History Isosorbide Dinitrate 30 mg PO DAILY 04/24/21 04/24/21 04/23/21 History Procardia 60 mg PO BID 04/24/21 04/24/21 04/23/21 History cloNIDine 0.1 mg PO TID 04/24/21 04/24/21 04/23/21 History hydrALAZINE 50 mg PO TID 04/24/21 04/24/21 04/23/21 History labetaloL 300 mg PO BID 04/24/21 04/24/21 04/23/21 History Active Meds: Active Medications Acetaminophen (Acetaminophen 325 Mg Tab) 650 mg PO Q4H PRN PRN Reason: Pain MILD(1-3)/Fever >100.5/SAUCEDO Albuterol (Albuterol 2.5 Mg/3 Ml Nebu) 2.5 mg IH Q3HRT PRN PRN Reason: Shortness Of Breath Amlodipine Besylate (Amlodipine 10 Mg Tab) 10 mg PO QDAY SUSU Aspirin (Aspirin 81 Mg Tab Chew) 81 mg PO QDAY SUSU Buspirone HCl (Buspirone 10 Mg Tab) 10 mg PO Q8HR SUSU Last Admin: 05/04/21 05:39 Dose: Not Given Documented by: Carvedilol (Carvedilol 25 Mg Tab) 25 mg PO BID [facility] Last Admin: 05/04/21 00:38 Dose: 25 mg Documented by: Clonazepam (Clonazepam 0.5 Mg Tab) 0.5 mg PO BID PRN PRN Reason: Anxiety Dextrose (Dextrose 50% In Water (25gm) 50 Ml Syringe) 50 ml IV Q30MIN PRN; Protocol PRN Reason: Hypoglycemia Diphenhydramine HCl (Diphenhydramine 50 Mg/Ml Vial) 25 mg IV BRENNA PRN PRN Reason: Itching Docusate Sodium (Docusate Sodium 100 Mg Cap) 100 mg PO BID [facility] Heparin Sodium (Porcine) (Heparin 5,000 Unit/1 Ml Vial) 5,000 unit SUB-Q BID SUSU Hydralazine HCl (Hydralazine 20 Mg/1 Ml Inj) 10 mg IV Q6HR PRN PRN Reason: Blood Pressure Last Admin: 05/04/21 04:28 Dose: 10 mg Documented by: Hydralazine HCl (Hydralazine 100 Mg Tab) 100 mg PO TID [facility] Sodium Chloride (Nacl 0.9%) 100 mls @ 999 mls/hr IV BRENNA PRN PRN Reason: Hypotension Insulin Human Lispro (Insulin Lispro 100 Unit/Ml) 0 unit SUB-Q ACHS [facility]; Protocol Isosorbide Mononitrate (Isosorbide Mononitrate Er 60 Mg Tab) 60 mg PO QDAY [facility] Multivit/Ca Carb/B Cmplx/FA/Prenat (Folic Acid/Vit B Comp W-C 1 Mg (Renal Caps)) 1 cap PO QDAY [facility] Nitroglycerin (Nitroglycerin 0.4 Mg Tab Subl) 0.4 mg SL Q5M PRN PRN Reason: Chest Pain Ondansetron HCl (Ondansetron 4 Mg/2 Ml Inj) 4 mg IV Q6H PRN PRN Reason: Nausea And Vomiting Oxycodone/Acetaminophen (Oxycodone /Acetaminophen 5-325mg Tab) 1 tab PO Q6H PRN PRN Reason: Pain, Moderate (4-6) Last Admin: 05/04/21 08:21 Dose: 1 tab Documented by: Sevelamer Carbonate (Sevelamer Carbonate 800 Mg Tab) 1,600 mg PO TIDWM [facility] Sodium Chloride (Sodium Chloride 0.9% 10 Ml Flush Syringe) 10 ml IV BID SUSU Sodium Chloride (Sodium Chloride 0.9% 10 Ml Flush Syringe) 10 ml IV PRN PRN PRN Reason: LINE FLUSH Review of Systems Constitutional: no fever, no chills Ears, nose, mouth and throat: no nasal congestion, no sore throat Cardiovascular: chest pain, high blood pressure, no orthopnea, no palpitations, no edema, no syncope, no lightheadedness, no shortness of breath, no dyspnea on exertion, no paroxysmal nocturnal dyspnea, no claudication Respiratory: no cough, no shortness of breath, no dyspnea on exertion Gastrointestinal: abdominal pain, diarrhea, no nausea, no vomiting, no constipation Genitourinary Female: no pelvic pain, no flank pain, no dysuria Musculoskeletal: no neck stiffness, no neck pain Integumentary: no rash, no wounds Neurological: no head injury, no paralysis, no weakness, no parathesias, no numbness, no tingling, no seizures, no syncope, no vertigo, no headaches Endocrine: no cold intolerance, no heat intolerance Hematologic/Lymphatic: no easy bruising, no easy bleeding Allergic/Immunologic: no anaphylaxis Physical Examination Last Vital Signs Temp 98.8 F 05/04/21 13:15 Pulse 68 05/04/21 13:15 Resp 20 05/04/21 14:05 BP 199/113 05/04/21 13:15 Pulse Ox 97 05/04/21 07:41 General appearance: no acute distress HEENT: Positive: EOMI, Normocephaly, Mucus Membranes Moist Neck: Positive: neck supple, trachea midline Cardiac: Positive: Reg Rate and Rhythm, S1/S2 Lungs: Positive: Rales (bibasilar) Neuro: Positive: Grossly Intact Abdomen: Positive: Soft, Tender Skin: Negative: Rash Musculoskeletal: No Pain Extremities: Present: lower extr. pulses, warm. Absent: edema Results 05/04/21 01:52 05/04/21 04:50 Cardiac Enzymes 05/03/21 Range/Units 22:37 AST 35 (5-40) units/L Lipids 05/03/21 Range/Units 22:37 Triglycerides 50 (2-149) mg/dL Cholesterol 145 (50-199) mg/dL HDL Cholesterol 62 H (40-59) mg/dL Cholesterol/HDL Ratio 2.33 % CBC 05/03/21 05/04/21 Range/Units 22:37 01:52 WBC 4.8 5.0 (4.5-11.0) K/mm3 RBC 2.45 L 2.54 L (3.65-5.03) M/mm3 Hgb 7.7 L 7.9 L (10.1-14.3) gm/dl Hct 22.7 L 23.8 L (30.3-42.9) % Plt Count 224 227 (140-440) K/mm3 Lymph # (Auto) 0.7 L 0.9 L (1.2-5.4) K/mm3 [place] # (Auto) 0.5 0.7 (0.0-0.8) K/mm3 Eos # (Auto) 0.1 0.1 (0.0-0.4) K/mm3 Baso # (Auto) 0.0 0.0 (0.0-0.1) K/mm3 Comprehensive Metabolic Panel 05/03/21 05/04/21 05/04/21 Range/Units 22:37 01:52 04:50 Sodium 135 L 135 L 139 (137-145) mmol/L Potassium 5.5 H 5.5 H 5.9 H (3.6-5.0) mmol/L Chloride 94.4 L 93.9 L 97.1 L (98-107) mmol/L Carbon Dioxide 30 29 30 (22-30) mmol/L BUN 30 H 31 H 33 H (7-17) mg/dL Creatinine 8.8 H 9.1 H 9.4 H (0.6-1.2) mg/dL Glucose 88 89 89 (65-100) mg/dL Calcium 9.3 9.3 9.2 (8.4-10.2) mg/dL AST 35 (5-40) units/L ALT 29 (7-56) units/L Alkaline Phosphatase 95 (35-129) units/L Total Protein 6.6 (6.3-8.2) g/dL Albumin 3.7 L (3.9-5) g/dL - Imaging and Cardiology Echo: report reviewed (02/20/2021 - EF 50-55%, severe LVH, mild diastolic dysfunction, mild TR) Cardiac cath: report reviewed (09/2016 - prox LAD 20% stenosis, otherwise only mild luminal irregularilities noted) EKG: report reviewed, image reviewed - EKG Interpretation EKG: no acute changes EKG interpretations - EKG Sinus rhythms and dysrhythmias: sinus rhythm AV and intraventricular conduction: right bundle branch block Assessment and Plan Mild troponin elevation noted in the setting of ESRD/volume overload and accelerated HTN. Pt has chronically elevated troponins in the setting of ESRD. Currently flat and lower range than previous admissions. No plans for inpatient ischemic eval at this time. Will optimize antihypertensive regimen. Volume optimization and electrolyte correction via HD. Pt seen in conjunction with Dr. Annita Antoine, who agrees with the assessment and plan of care. - Patient Problems (1) ESRD needing dialysis Current Visit: Yes Status: Acute (2) Angiomyolipoma of left kidney Current Visit: Yes Status: Chronic Plan to address problem: L renal subcapsular hemorrhage secondary to L renal angiomyolipoma s/p embolization 07/2020 (3) Hypertensive urgency Current Visit: Yes Status: Acute (4) Elevated troponin Current Visit: Yes Status: Acute (5) Anemia in chronic kidney disease Current Visit: Yes Status: Chronic Qualifiers: Chronic kidney disease stage: on chronic dialysis Qualified Code(s): N18.6 - End stage renal disease; D63.1 - Anemia in chronic kidney disease; Z99.2 - Dependence on renal dialysis (6) H/O hypertrophic cardiomyopathy Current Visit: Yes Status: Chronic Plan to address problem: S/p septal ablation 2005 (7) Implantable cardioverter-defibrillator (ICD) in situ Current Visit: Yes Status: Chronic (8) DM2 (diabetes mellitus, type 2) Current Visit: Yes Status: Chronic (9) Seizure disorder Current Visit: Yes Status: Chronic (10) Depression Current Visit: Yes Status: Chronic (11) Medical non-compliance Current Visit: Yes Status: Chronic
[2021-05-04] MEDS ORDERED: ERGOCALCIFEROL (VIT D2) 50,000 UNIT CAP PO SCH (10:00)
[2021-05-04] MEDS ORDERED: [UNRECOGNIZED DRUG - OTHER] PO SCH (10:00)
[2021-05-04] MEDS ORDERED: LABETALOL 300 MG PO SCH (10:00)
[2021-05-04] MEDS ORDERED: FOLIC ACID PO SCH (10:00)
[2021-05-04] MEDS ORDERED: VIT B COMPLEX AND C PO SCH (10:00)
[2021-05-04] MEDS: amLODIPine 10 MG TAB PO SCH ×2 (10:32→14:10)
[2021-05-04] MEDS: ASPIRIN 81 MG TAB CHEW PO SCH ×2 (10:33→14:08)
[2021-05-04] MEDS: DOCUSATE SODIUM 100 MG CAP PO SCH ×3 (10:33→21:36)
[2021-05-04] MEDS: FOLIC ACID/VIT B COMP W-C 1 MG (RENAL CAPS) PO SCH ×2 (10:34→14:10)
[2021-05-04] MEDS: HEPARIN 5,000 UNIT/1 ML VIAL SUB-Q SCH ×2 (10:34→21:37)
[2021-05-04] MEDS: diphenhydrAMINE 50 MG/ML VIAL IV PRN (11:05)
--- NOTE | 2021-05-04 18:09 | Electrocardiograph Report ---
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
--- NOTE | 2021-05-04 18:14 | Electrocardiograph Report ---
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
[2021-05-04] MEDS: VALSARTAN 160MG TAB PO SCH (21:35)
[2021-05-05] MEDS: hydrALAZINE 20 MG/1 ML INJ IV PRN (04:55)
[2021-05-05] MEDS: busPIRone 10 MG TAB PO SCH ×2 (05:00→14:40)
[2021-05-05] MEDS: hydrALAZINE 100 MG TAB PO SCH (08:17)
[2021-05-05] MEDS: INSULIN LISPRO 100 UNIT/ML SUB-Q SCH ×3 (08:18→16:41)
[2021-05-05] MEDS: VALSARTAN 160MG TAB PO SCH ×2 (08:18→09:07)
[2021-05-05] MEDS: SEVELAMER CARBONATE 800 MG TAB PO SCH ×3 (08:18→17:06)
--- NOTE | 2021-05-05 08:28 | Discharge Summary ---
Providers - Providers Date of Admission: 05/04/21 16:47 Date of discharge: 05/05/21 Attending physician: MICHAEL ELIZABETH 05/03/21 23:43 Consult to Physician [CONS] Routine Comment: Consulting Provider: LUCRETIA MIKE Physician Instructions: Reason For Exam: esrd requiring HD; HD mgmt 05/03/21 23:45 Consult to Case Management [CONS] Routine Services Needed at Discharge: Other Notified:: field case manager Comment:: multiple re-admission within the past 2 months Consult to Physician [CONS] Routine Comment: Consulting Provider: JADYN VALENCIA Physician Instructions: Reason For Exam: est pt c/o CP , elevated trop 05/04/21 03:45 Consult to Dietitian/Nutrition [CONS] Routine Physician Instructions: Reason For Exam: Reason for Consult: Pt needs oral supplement Hospitalization Reason for admission: cp Condition: Critical Hospital course: Pt is a 66-year-old AA female with a hx of ESRD on HD, HOCM s/p septal ablation 2015, ICD in situ, and uncontrolled HTN, who presented with complaints of chest pain. Pt states pain started 2-3 days prior to admission. Localized to left side of chest. Pt described pain as a throbbing sensation exacerbated with movement. Pt also reported epigastric pressure and generalized GI distress. She reports missing dialysis x 2 sessions due to diarrhea. Pt denies any additional cardiac complaints. Trop mildly elevated but flat. ECG revealed no acute ischemic changes. CXR revealed cardiomegaly and pulmonary vascular congestion. Pt is followed by [facility]. Cardiology was consulted and noted mild troponin elevation likely related to ESRD and accelerated hypertension. Patient has chronically elevated troponins in the setting of ESRD. Currently troponins are flat and lower range than previous admissions. Cardiology does not recommend any ischemic evaluation at this time. Patient will have CT scan of the abdomen pelvis to further delineate abdominal pain. If CT scan is negative and blood pressure stabilizes, patient will be discharged home today. Dedicated discharge time 35 minutes. Disposition: - TO HOME OR SELFCARE Final Discharge Diagnosis (Prints w/discharge instructions): ESRD needing dialysis, accelerated hypertension, elevated troponin, anemia of chronic disease, history of hypertrophic cardiomyopathy, implantable ICD in situ, diabetes mellitus type 2 Core Measure Documentation - Palliative Care Palliative Care/ Comfort Measures: Not Applicable - Core Measures Any of the following diagnoses?: none Exam - Constitutional Vitals: Temp Pulse Resp BP Pulse Ox 98.6 F 86 16 211/119 95 05/05/21 08:00 05/05/21 08:20 05/05/21 08:00 05/05/21 08:20 05/05/21 08:00 General appearance: Present: no acute distress, well-nourished - EENT Eyes: Present: PERRL ENT: hearing intact, clear oral mucosa - Neck Neck: Present: supple, normal ROM - Respiratory Respiratory effort: normal Respiratory: bilateral: CTA - Cardiovascular Heart Sounds: Present: S1 & S2. Absent: rub, click - Extremities Extremities: pulses symmetrical, No edema Peripheral Pulses: within normal limits - Abdominal General gastrointestinal: Present: soft, non-tender, non-distended, normal bowel sounds Female genitourinary: Present: normal - Integumentary Integumentary: Present: clear, warm, dry - Musculoskeletal Musculoskeletal: gait normal, strength equal bilaterally - Psychiatric Psychiatric: appropriate mood/affect, intact judgment & insight - Neurologic Neurologic: CNII-XII intact, moves all extremities Plan Activity: advance as tolerated Weight Bearing Status: Weight Bear as Tolerated Diet: renal Follow up with: LINDSAY HARRY [Other] - 7 Days Prescriptions: Aldactone 50 mg PO DAILY #30 busPIRone [Buspar] 10 mg PO Q8HR #30 Citalopram [Celexa] 20 mg PO QDAY #30 tab cloNIDine 0.1 mg PO TID #90 [place] 160 mg PO BID #60 Valsartan [Diovan] 160 mg PO BID #60 tablet Ergocalciferol (Vitamin D2) [Drisdol] 50,000 unit PO DAILY #30 cap hydrALAZINE 50 mg PO TID #90 ISOSORBIDE MONOnitrate [Imdur ER] 60 mg PO QDAY #30 tablet clonazePAM [KlonoPIN] 0.5 mg PO BID PRN #30 PRN Reason: Anxiety labetaloL 300 mg PO BID #60 HYDROcodone/APAP 5-325 [[place] 5-325 mg TAB] 1 each PO Q6HR PRN #20 tab PRN Reason: Pain Procardia 60 mg PO BID #60 Pantoprazole [Protonix TAB] 40 mg PO DAILY #30 tablet Folic Acid/Vit B Complex and C [Renal Vitamin Tablet] 0.8 mg PO QDAY #30 Sevelamer Carbonate [Renvela] 1,600 mg PO TID #90 ALPRAZolam [Xanax TAB] 0.25 mg PO BID PRN #60 PRN Reason: Anxiety
[2021-05-05] MEDS: ASPIRIN 81 MG TAB CHEW PO SCH (09:07)
[2021-05-05] MEDS: DOCUSATE SODIUM 100 MG CAP PO SCH (09:07)
[2021-05-05] MEDS: HEPARIN 5,000 UNIT/1 ML VIAL SUB-Q SCH (09:07)
[2021-05-05] MEDS: FOLIC ACID/VIT B COMP W-C 1 MG (RENAL CAPS) PO SCH (09:07)
--- NOTE | 2021-05-05 09:54 | Cat Scan Report ---
CT ABDOMEN AND PELVIS WITHOUT CONTRAST INDICATION: Patient complains of abdominal pain. TECHNIQUE: Axial CT images were obtained through the abdomen and pelvis without IV contrast. All CT scans at [facility] location are performed using CT dose reduction for ALARA by means of automated exposure control. COMPARISON: None available. FINDINGS: LOWER CHEST: Marked cardiomegaly, moderate 2.2 cm pericardial effusion and tiny right pleural effusio n. LIVER: No significant abnormality. GALLBLADDER: No significant abnormality. BILE DUCTS: No significant abnormality. PANCREAS: No significant abnormality. SPLEEN: No significant abnormality. ADRENALS: No significant abnormality. RIGHT KIDNEY and URETER: Moderate atrophy with hyperdense 2.5 cm cyst upper pole right kidney again n oted LEFT KIDNEY and URETER: Moderate atrophy with 3 cm cm fat-containing angiomyolipoma arising from lowe r pole right kidney STOMACH and SMALL BOWEL: No significant abnormality. COLON: Moderate amount of stool characteristic for constipation. APPENDIX: No significant abnormality. PERITONEUM: No free fluid. No free air. No fluid collection. LYMPH NODES: No significant adenopathy. AORTA and ARTERIES: No significant abnormality. IVC and VEINS: Embolization coils left renal vein again noted. URINARY BLADDER: Absent. REPRODUCTIVE ORGANS: No significant abnormality. ADDITIONAL FINDINGS: Right femoral venous line tip mid right atrium. SKELETAL SYSTEM: Moderate degenerative changes of lower lumbar spine IMPRESSION: 1. Moderate cardiomegaly, moderate pericardial and tiny right pleural effusion 2. Moderate constipation. Signer Name: Arie Terry MD Signed: 05/05/2021 9:49 AM Workstation Name: [id number]
[2021-05-05] MEDS ORDERED: VALSARTAN 160MG TAB PO SCH (10:00)
[2021-05-05] MEDS ORDERED: PROCARDIA 60 MG PO SCH (10:00)
[2021-05-05] MEDS ORDERED: amLODIPine 10 MG TAB PO SCH (10:00)
[2021-05-05] MEDS ORDERED: NIFEdipine XL 60 MG TAB PO SCH (10:00)
[2021-05-05] MEDS ORDERED: CITALOPRAM 20 MG TAB PO SCH (10:00)
[2021-05-05] MEDS ORDERED: PANTOPRAZOLE 40 MG TAB PO SCH (10:00)
[2021-05-05] MEDS ORDERED: DIOVAN 160 MG PO SCH (10:00)
[2021-05-05] MEDS ORDERED: ISOSORBIDE DINITRATE 30 MG PO SCH (10:00)
[2021-05-05] MEDS: SODIUM BICARB 8.4% 50 MEQ/50 ML SYRINGE IV ONE ×2 (10:17→10:30)
[2021-05-05] MEDS: DEXTROSE 50% IN WATER (25GM) 50 ML SYRINGE IV ONE ×2 (10:17→10:31)
[2021-05-05] MEDS: INSULIN REGULAR, HUMAN 100 UNITS/1 ML IV ONE ×2 (10:17→10:34)
[2021-05-05] MEDS ORDERED: SODIUM CHLORIDE 0.9% 100 ML IV PRN ×2 (10:25→11:34)
[2021-05-05] MEDS: diphenhydrAMINE 50 MG/ML VIAL IV PRN (11:03)
[2021-05-05] MEDS: ALBUTEROL 2.5 MG/3 ML NEBU IH SCH ×2 (11:15→17:11)
--- NOTE | 2021-05-05 11:18 | Progress Note ---
Assessment and Plan - Patient Problems (1) Hypertensive urgency Current Visit: Yes Status: Acute Plan to address problem: Blood pressure still not controlled but improving. 3.5 L ultrafiltration on dialysis again today and then follow-up blood pressure. Adjust medications if needed. Hopefully she can be discharged after dialysis today blood pressure stable (2) Pulmonary edema Current Visit: Yes Status: Acute Qualifiers: Chronicity: acute Qualified Code(s): J81.0 - Acute pulmonary edema Plan to address problem: Improving but still on oxygen via nasal cannula. 3.5 L ultrafiltration on brenna lysis today. (3) Hypertensive chronic kidney disease with stage 5 chronic kidney disease or end stage renal disease Current Visit: Yes Status: Chronic Plan to address problem: Follow-up blood pressure on current medications after fluid removal on dialysis (4) Medical non-compliance Current Visit: Yes Status: Chronic (5) Hyperkalemia Current Visit: No Status: Acute Plan to address problem: Potassium was not checked today. It was 5.9 yesterday. Dialyze on a 2K bath today (6) Type 2 diabetes mellitus with diabetic chronic kidney disease Current Visit: No Status: Chronic Plan to address problem: Blood sugar management by primary attending. Subjective Date of service: 05/05/21 Principal diagnosis: End-stage renal disease with hyperkalemia and severe hypertension Interval history: Patient seen on dialysis. No complaints. Shortness of breath improving. Still on oxygen via nasal cannula Objective - Exam Narrative Exam: Middle-aged -[place] female lying in bed in no acute distress HEENT: NCAT, pink oral mucous membrane Neck: Supple, no venous distention CVS: S1S2 RRR with no murmur, rub or gallop Chest: Clear to auscultation Abdomen: Protuberant, soft, nontender, no organomegaly, bowel sounds are present Extremities: No edema Neuro: Awake, alert no focal deficits - Vital Signs Vital signs: Vital Signs - 12hr 05/04/21 05/05/21 05/05/21 23:32 04:48 08:00 Temperature 98.0 F 98.0 F 98.6 F Pulse Rate 64 79 86 Respiratory 18 18 16 Rate Blood Pressure 173/91 195/104 211/119 Blood Pressure [Right] O2 Sat by Pulse 97 100 95 Oximetry 05/05/21 05/05/21 05/05/21 08:18 08:19 08:20 Temperature Pulse Rate 86 86 86 Respiratory Rate Blood Pressure 211/119 211/199 211/119 Blood Pressure [Right] O2 Sat by Pulse Oximetry 05/05/21 05/05/21 08:26 09:11 Temperature Pulse Rate 86 78 Respiratory Rate Blood Pressure 211/119 Blood Pressure 179/91 [Right] O2 Sat by Pulse Oximetry - Lab 05/04/21 01:52 05/04/21 04:50 Most recent lab results Calcium 9.2 mg/dL (8.4-10.2) 05/04/21 04:50 Medications & Allergies - Medications Allergies/Adverse Reactions: Allergies No Known Allergies Allergy (Verified 05/03/21 22:14) Home Medications: Home Medications Medication Instructions Recorded Confirmed Last Taken Type Ondansetron [Zofran ODT TAB] 4 mg PO Q8HR #30 tab.rapdis 10/26/20 04/24/21 04/23/21 Rx ALPRAZolam [Xanax TAB] 0.25 mg PO BID PRN #60 05/05/21 Unknown Rx Aldactone 50 mg PO DAILY #30 05/05/21 Unknown Rx Aspirin [Aspirin BABY CHEW TAB] 81 mg PO QDAY tab.chew 05/05/21 Unknown Rx Citalopram [Celexa] 20 mg PO QDAY #30 tab 05/05/21 Unknown Rx Diovan 160 mg PO BID #60 05/05/21 Unknown Rx Ergocalciferol (Vitamin D2) 50,000 unit PO DAILY #30 cap 05/05/21 Unknown Rx [Drisdol] Folic Acid/Vit B Comp W-C [Renal 1 cap PO QDAY capsule 05/05/21 Unknown Rx Caps] Folic Acid/Vit B Complex and C 0.8 mg PO QDAY #30 05/05/21 Unknown Rx [Renal Vitamin Tablet] HYDROcodone/APAP 5-325 [[place] 1 each PO Q6HR PRN #20 tab 05/05/21 Unknown Rx 5-325 mg TAB] ISOSORBIDE MONOnitrate [Imdur ER] 60 mg PO QDAY #30 tablet 05/05/21 Unknown Rx Lispro Insulin [HumaLOG] 0 unit SUB-Q ACHS units 05/05/21 Unknown Rx Pantoprazole [Protonix TAB] 40 mg PO DAILY #30 tablet 05/05/21 Unknown Rx Procardia 60 mg PO BID #60 05/05/21 Unknown Rx Sevelamer Carbonate [Renvela] 1,600 mg PO TID #90 05/05/21 Unknown Rx Valsartan [Diovan] 160 mg PO BID #60 tablet 05/05/21 Unknown Rx busPIRone [Buspar] 10 mg PO Q8HR #30 05/05/21 Unknown Rx cloNIDine 0.1 mg PO TID #90 05/05/21 Unknown Rx clonazePAM [KlonoPIN] 0.5 mg PO BID PRN #30 05/05/21 Unknown Rx hydrALAZINE 50 mg PO TID #90 05/05/21 Unknown Rx labetaloL 300 mg PO BID #60 05/05/21 Unknown Rx Active Medications: Generic Name Dose Route Start Last Admin Trade Name Freq PRN Reason Stop Dose Admin Acetaminophen 650 mg 05/03/21 23:45 Acetaminophen 325 Mg Tab PO Q4H PRN Pain MILD(1-3)/Fever >100.5/SAUCEDO Albuterol 2.5 mg 05/03/21 23:45 Albuterol 2.5 Mg/3 Ml Nebu IH Q3HRT PRN Shortness Of Breath Albuterol 5 mg 05/05/21 10:15 Albuterol 2.5 Mg/3 Ml Nebu IH Q6HRT SUSU Aspirin 81 mg 05/04/21 10:00 05/05/21 09:07 Aspirin 81 Mg Tab Chew PO 81 mg QDAY SUSU Administration Buspirone HCl 10 mg 05/04/21 06:00 05/05/21 05:00 Buspirone 10 Mg Tab PO 10 mg Q8HR SUSU Administration Citalopram Hydrobromide 20 mg 05/05/21 10:00 05/05/21 09:06 Citalopram 20 Mg Tab PO 20 mg QDAY SUSU Administration Clonazepam 0.5 mg 05/03/21 23:43 Clonazepam 0.5 Mg Tab PO BID PRN Anxiety Clonidine HCl 0.1 mg 05/05/21 14:00 Clonidine 0.1 Mg Tab PO Q8HR SUSU Dextrose 50 ml 05/03/21 23:45 Dextrose 50% In Water (25gm) 50 Ml Syringe IV Q30MIN PRN Hypoglycemia Protocol Diphenhydramine HCl 25 mg 05/04/21 08:06 05/05/21 11:03 Diphenhydramine 50 Mg/Ml Vial IV 25 mg BRENNA PRN Administration Itching Docusate Sodium 100 mg 05/04/21 10:00 05/05/21 09:07 Docusate Sodium 100 Mg Cap PO 100 mg BID SUSU Administration Heparin Sodium (Porcine) 5,000 unit 05/04/21 10:00 05/05/21 09:07 Heparin 5,000 Unit/1 Ml Vial SUB-Q 5,000 unit BID SUSU Administration Hydralazine HCl 10 mg 05/03/21 23:49 05/05/21 04:55 Hydralazine 20 Mg/1 Ml Inj IV 10 mg Q6HR PRN Administration Blood Pressure Hydralazine HCl 50 mg 05/05/21 14:00 Hydralazine 25 Mg Tab PO Q8HR SUSU Sodium Chloride 100 mls @ 999 mls/hr 05/04/21 08:30 Nacl 0.9% IV BRENNA PRN Hypotension Sodium Chloride 100 mls @ 999 mls/hr 05/05/21 10:25 Nacl 0.9% IV BRENNA PRN Hypotension Insulin Human Lispro 0 unit 05/04/21 07:30 05/05/21 08:18 Insulin Lispro 100 Unit/Ml SUB-Q Not Given ACHS [facility] Protocol Isosorbide Mononitrate 30 mg 05/05/21 10:00 05/05/21 09:12 Isosorbide Mononitrate Er 30 Mg Tab PO Not Given DAILY [facility] Multivit/Ca Carb/B Cmplx/FA/Prenat 1 cap 05/04/21 10:00 05/05/21 09:07 Folic Acid/Vit B Comp W-C 1 Mg (Renal Caps) PO 1 cap QDAY [facility] Administration Nifedipine 60 mg 05/05/21 10:00 05/05/21 09:06 Nifedipine Xl 60 Mg Tab PO 60 mg BID [facility] Administration Nitroglycerin 0.4 mg 05/03/21 23:45 Nitroglycerin 0.4 Mg Tab Subl SL Q5M PRN Chest Pain Ondansetron HCl 4 mg 05/03/21 23:45 Ondansetron 4 Mg/2 Ml Inj IV Q6H PRN Nausea And Vomiting Oxycodone/Acetaminophen 1 tab 05/03/21 23:45 05/04/21 21:36 Oxycodone /Acetaminophen 5-325mg Tab PO 1 tab Q6H PRN Administration Pain, Moderate (4-6) Pantoprazole Sodium 40 mg 05/05/21 10:00 05/05/21 09:06 Pantoprazole 40 Mg Tab PO 40 mg DAILY SUSU Administration Sevelamer Carbonate 1,600 mg 05/04/21 08:00 05/05/21 08:18 Sevelamer Carbonate 800 Mg Tab PO 1,600 mg TIDWM SUSU Administration Sodium Chloride 10 ml 05/04/21 10:00 05/05/21 09:08 Sodium Chloride 0.9% 10 Ml Flush Syringe IV 10 ml BID SUSU Administration Sodium Chloride 10 ml 05/03/21 23:45 Sodium Chloride 0.9% 10 Ml Flush Syringe IV PRN PRN LINE FLUSH Valsartan 160 mg 05/04/21 22:00 05/05/21 09:07 Valsartan 160mg Tab PO Not Given BID SUSU
[2021-05-05] MEDS ORDERED: cloNIDine 0.1 MG TAB PO SCH (14:00)
[2021-05-05] MEDS ORDERED: hydrALAZINE 25 MG TAB PO SCH (14:00)
[2021-05-05] MEDS ORDERED: NON-FORMULARY EACH (Clonidine 0.1 MG) PO SCH (14:00)
[2021-05-05 15:00] LABS: Calcium 8.1 mg/dL (8.4-10.2)
[2021-05-05] MEDS: oxyCODONE /ACETAMINOPHEN 5-325MG TAB PO PRN (16:17)
[2021-05-05 16:44] VITALS: BP 120/65
[2021-05-05] MEDS ORDERED: POTASSIUM CHLORIDE ER 20 MEQ TAB PO ONE (17:00)
--- NOTE | 2021-05-09 14:21 | Electrocardiograph Report ---
[facility] Test Date: 2021-05-05 Test Time: 13:58:12 Pat Name: RADHA DICK Department: Room: A468 1 Gender: F [employer] Coordinator: MIRIAN : 1955 Requested By: TEMI HERNANDEZ Order Number: [id number] Reading MD: Deepika Kim Measurements Intervals Alvin Rate: 72 P: 35 AK: 196 QRS: 58 QRSD: 177 T: 8 QT: 519 QTc: 570 Interpretive Statements Sinus rhythm Probable left atrial enlargement Right bundle branch block Compared to ECG 05/04/2021 07:42:08 No significant changes Electronically Signed On 05-09-2021 14:21:07 EDT by Deepika Kim
== END 2021-05-05 17:42 | disposition home or self-care (01) | DRG 280 ==
LOC: ED 21:12 → 4A 23:43 → OBSVTOIN 05-04 16:47
PROVIDERS: ADMIT Internal Medicine Geriatric Medicine; ATTEND Hospitalist
PROC: 5A1D70Z Performance of Urinary Filtration, Intermittent, Less than 6 Hours Per Day (ICD-10-PCS; principal; 2021-05-04)
PROC: 5A1D70Z Performance of Urinary Filtration, Intermittent, Less than 6 Hours Per Day (ICD-10-PCS; 2021-05-05)
DX: I16.0 Hypertensive urgency (principal); N18.6 End stage renal disease; I21.A1 Myocardial infarction type 2; J81.0 Acute pulmonary edema; J96.01 Acute respiratory failure with hypoxia; N25.81 Secondary hyperparathyroidism of renal origin; I12.0 Hypertensive chronic kidney disease with stage 5 chronic kidney disease or end stage renal disease; E11.22 Type 2 diabetes mellitus with diabetic chronic kidney disease; D17.71 Benign lipomatous neoplasm of kidney; D63.1 Anemia in chronic kidney disease; G40.909 Epilepsy, unspecified, not intractable, without status epilepticus; F32.9 Major depressive disorder, single episode, unspecified; E87.5 Hyperkalemia; Z99.2 Dependence on renal dialysis; Z95.810 Presence of automatic (implantable) cardiac defibrillator; Z90.49 Acquired absence of other specified parts of digestive tract; Z90.710 Acquired absence of both cervix and uterus; Z79.899 Other long term (current) drug therapy; Z91.14 Patient's other noncompliance with medication regimen; Z86.11 Personal history of tuberculosis
CPT/HCPCS: 36415; 71045; 74176; 80048; 80053; 80061; 82962; 84484; 85025; 93005; G0378; J0360; J0885; J1170; J1200; J1644; J1815; J2405

== ENCOUNTER 2021-05-22 06:18 | Observation (INO) | payer MEDICARE ==
--- NOTE | 2021-05-22 07:20 | Emergency Department Report ---
ED General Adult HPI - General Chief complaint: Medical Clearance Stated complaint: my chest hurts and i have anxiety PUI?: No Time Seen by Provider: 05/22/21 07:15 Source: patient, EMS ( EMS documentation not available at time of chart dictation ), RN notes reviewed, old records reviewed Mode of arrival: Stretcher Limitations: No Limitations - History of Present Illness Initial comments: This patient is a 66-year-old female. Past medical history includes end-stage renal disease on hemodialysis, HOCM status post ablation 2015, ICD in situ, and uncontrolled hypertension. This patient was recently admitted to this hospital last month with a complaint of chest pain. She was evaluated by cardiology, who did not recommend further ischemic evaluation. Specifically, this patient had an echocardiogram which showed an EF of 50 to 55%, February 2021, a nuclear stress test, December,, which was negative for significant ischemia, and had a left heart catheterization performed in September 2016, which showed a proximal LAD 20% stenosis, with otherwise only mild luminal irregularities were noted. Cardiology recommended that patient is chronically elevated troponin is likely a type II troponin leak, likely secondary to underlying chronic kidney disease, volume overload, and accelerated hypertension. This patient was thus discharged April 2021. She also reports that she had a CT scan of her abdomen pelvis at this facility without contrast, CT scan showed moderate cardiomegaly, moderate pericardial effusion, and tiny right pleural effusion, and moderate constipation. The patient states that she was recently admitted to [facility] within the past week to week and a half. She reports that she had a CT scan of her chest which was negative for acute findings. [facility] records are reviewed, the patient was admitted from May 16 through May 19, 2021. She was admitted for hypertensive urgency, and volume overload. She was presumptively diagnosed with flash pulmonary edema, and hypertensive urgency. CT scan of the chest was performed on 05/18/2021, which demonstrated no large pulmonary embolism, small to moderate pericardial effusion, cardiomegaly, interstitial pulmonary edema, small right-sided pleural effusion, known and unchanged right upper lobe pulmonary nodule, and mesenteric and retroperitoneal edema, as well as anasarca, third spacing. She was discharged on Norvasc, acetaminophen, aspirin, atorvastatin, spironolactone, valsartan. Of note, this patient also has a history of intubation secondary to polysubstance overdose. Today, this patient, presents to the ER with a complaint of central chest wall pain and anxiety. This pain is present since yesterday. The pain is constant. It increases with palpation. It decreases with rest. The patient denies headache, neck pain, abdominal pain, vomiting, new/different shortness of breath, homicidality, suicidality, dysuria. She feels like this is similar to her prior events. -: Gradual, hour(s), days(s) Location: chest Radiation: non-radiation Quality: aching Consistency: constant Improves with: rest Worsens with: other (Palpation) - Related Data Previous Rx's Medication Instructions Recorded Last Taken Type Ondansetron [Zofran ODT TAB] 4 mg PO Q8HR #30 tab.rapdis 10/26/20 04/23/21 Rx ALPRAZolam [Xanax TAB] 0.25 mg PO BID PRN #60 05/05/21 Unknown Rx Aldactone 50 mg PO DAILY #30 05/05/21 Unknown Rx Aspirin [Aspirin BABY CHEW TAB] 81 mg PO QDAY tab.chew 05/05/21 Unknown Rx Citalopram [Celexa] 20 mg PO QDAY #30 tab 05/05/21 Unknown Rx Diovan 160 mg PO BID #60 05/05/21 Unknown Rx Ergocalciferol (Vitamin D2) 50,000 unit PO DAILY #30 cap 05/05/21 Unknown Rx [Drisdol] Folic Acid/Vit B Comp W-C [Renal 1 cap PO QDAY capsule 05/05/21 Unknown Rx Caps] Folic Acid/Vit B Complex and C 0.8 mg PO QDAY #30 05/05/21 Unknown Rx [Renal Vitamin Tablet] HYDROcodone/APAP 5-325 [Abiquiu 1 each PO Q6HR PRN #20 tab 05/05/21 Unknown Rx 5-325 mg TAB] ISOSORBIDE MONOnitrate [Imdur ER] 60 mg PO QDAY #30 tablet 05/05/21 Unknown Rx Lispro Insulin [HumaLOG] 0 unit SUB-Q ACHS units 05/05/21 Unknown Rx Pantoprazole [Protonix TAB] 40 mg PO DAILY #30 tablet 05/05/21 Unknown Rx Procardia 60 mg PO BID #60 05/05/21 Unknown Rx Sevelamer Carbonate [Renvela] 1,600 mg PO TID #90 05/05/21 Unknown Rx Valsartan [Diovan] 160 mg PO BID #60 tablet 05/05/21 Unknown Rx busPIRone [Buspar] 10 mg PO Q8HR #30 05/05/21 Unknown Rx cloNIDine 0.1 mg PO TID #90 05/05/21 Unknown Rx clonazePAM [KlonoPIN] 0.5 mg PO BID PRN #30 05/05/21 Unknown Rx hydrALAZINE 50 mg PO TID #90 05/05/21 Unknown Rx labetaloL 300 mg PO BID #60 05/05/21 Unknown Rx Allergies Allergy/AdvReac Type Severity Reaction Status Date / Time No Known Allergies Allergy Verified 05/03/21 22:14 ED Review of Systems ROS: Stated complaint: HYPERTENSION/ANXIETY Other details as noted in HPI Constitutional: denies: fever Eyes: denies: eye discharge ENT: denies: epistaxis Respiratory: shortness of breath (Chronic shortness of breath) Cardiovascular: chest pain Gastrointestinal: denies: abdominal pain, nausea, vomiting Musculoskeletal: denies: back pain Psychiatric: anxiety. denies: homicidal thoughts, suicidal thoughts ED Past Medical Hx - Past Medical History Hx Hypertension: Yes (ADMITTED WITH HYPERTENSIVE EMERGENCY) Hx Heart Attack/AMI: No Hx Congestive Heart Failure: No Hx Diabetes: Yes Hx Deep Vein Thrombosis: No Hx Renal Disease: Yes (Dialysis: -W-) Hx Seizures: No Hx Asthma: No Hx COPD: No Hx Tuberculosis: Yes Hx Dementia: No Hx HIV: No Additional medical history: Possible atrial fib. Hernia right Inguinal - Surgical History Hx Coronary Stent: No Hx Pacemaker: Yes Hx Internal Defibrillator: Yes Hx Cholecystectomy: Yes Hx Appendectomy: Yes Additional Surgical History: Hysterectomy - Social History Smoking Status: Never Smoker Substance Use Type: None - Medications Home Medications: Home Medications Medication Instructions Recorded Confirmed Last Taken Type Ondansetron [Zofran ODT TAB] 4 mg PO Q8HR #30 tab.rapdis 10/26/20 04/24/21 04/23/21 Rx ALPRAZolam [Xanax TAB] 0.25 mg PO BID PRN #60 05/05/21 Unknown Rx Aldactone 50 mg PO DAILY #30 05/05/21 Unknown Rx Aspirin [Aspirin BABY CHEW TAB] 81 mg PO QDAY tab.chew 05/05/21 Unknown Rx Citalopram [Celexa] 20 mg PO QDAY #30 tab 05/05/21 Unknown Rx Diovan 160 mg PO BID #60 05/05/21 Unknown Rx Ergocalciferol (Vitamin D2) 50,000 unit PO DAILY #30 cap 05/05/21 Unknown Rx [Drisdol] Folic Acid/Vit B Comp W-C [Renal 1 cap PO QDAY capsule 05/05/21 Unknown Rx Caps] Folic Acid/Vit B Complex and C 0.8 mg PO QDAY #30 05/05/21 Unknown Rx [Renal Vitamin Tablet] HYDROcodone/APAP 5-325 [Abiquiu 1 each PO Q6HR PRN #20 tab 05/05/21 Unknown Rx 5-325 mg TAB] ISOSORBIDE MONOnitrate [Imdur ER] 60 mg PO QDAY #30 tablet 05/05/21 Unknown Rx Lispro Insulin [HumaLOG] 0 unit SUB-Q ACHS units 05/05/21 Unknown Rx Pantoprazole [Protonix TAB] 40 mg PO DAILY #30 tablet 05/05/21 Unknown Rx Procardia 60 mg PO BID #60 05/05/21 Unknown Rx Sevelamer Carbonate [Renvela] 1,600 mg PO TID #90 05/05/21 Unknown Rx Valsartan [Diovan] 160 mg PO BID #60 tablet 05/05/21 Unknown Rx busPIRone [Buspar] 10 mg PO Q8HR #30 05/05/21 Unknown Rx cloNIDine 0.1 mg PO TID #90 05/05/21 Unknown Rx clonazePAM [KlonoPIN] 0.5 mg PO BID PRN #30 05/05/21 Unknown Rx hydrALAZINE 50 mg PO TID #90 05/05/21 Unknown Rx labetaloL 300 mg PO BID #60 05/05/21 Unknown Rx ED Physical Exam - General Limitations: No Limitations General appearance: alert, in no apparent distress - Head Head exam: Present: atraumatic, normocephalic - Eye Eye exam: Present: normal appearance, EOMI. Absent: nystagmus - ENT ENT exam: Present: normal exam, normal orophraynx, mucous membranes moist, normal external ear exam - Neck Neck exam: Present: normal inspection, full ROM. Absent: tenderness, meningismus - Respiratory Respiratory exam: Present: normal lung sounds bilaterally, chest wall tenderness. Absent: respiratory distress, wheezes, rales, rhonchi, stridor - Cardiovascular Cardiovascular Exam: Present: regular rate, normal rhythm, normal heart sounds. Absent: bradycardia, tachycardia, irregular rhythm, systolic murmur, diastolic murmur, rubs, gallop - GI/Abdominal GI/Abdominal exam: Present: soft. Absent: distended, tenderness, guarding, rebound, rigid, pulsatile mass - Extremities Exam Extremities exam: Present: normal inspection (There is a right proximal side Va s-Cath noted, without redness, pus or streaking), full ROM, other (2+ pulses noted in the bilateral upper and lower extremities. There is no palpable cord. negative Homans sign. Muscular compartments are soft. The pelvis is stable.). Absent: calf tenderness - Back Exam Back exam: Present: normal inspection. Absent: tenderness, CVA tenderness (R), CVA tenderness (L), paraspinal tenderness, vertebral tenderness - Neurological Exam Neurological exam: Present: alert, oriented X3, other (No facial droop. Tongue midline. Extraocular movements intact bilaterally. Facial sensation intact to light touch in V1, V2, V3 distribution bilaterally. 5 and a 5 strength in 4 extremities. Sensation intact to light touch in 4 extremities.). Absent: motor sensory deficit - Psychiatric Psychiatric exam: Present: anxious - Skin Skin exam: Present: warm, dry, intact, normal color. Absent: rash ED Course Vital Signs 05/22/21 05/22/21 05/22/21 08:20 08:30 08:46 Temperature Pulse Rate 81 77 Respiratory 10 L 20 Rate Blood Pressure O2 Sat by Pulse 100 98 95 Oximetry 05/22/21 05/22/21 05/22/21 09:00 09:16 09:30 Temperature Pulse Rate 82 76 90 Respiratory 14 24 13 Rate Blood Pressure 252/149 O2 Sat by Pulse 100 100 97 Oximetry 05/22/21 05/22/21 05/22/21 09:46 10:00 10:16 Temperature Pulse Rate 79 83 83 Respiratory 16 21 16 Rate Blood Pressure 252/149 223/128 223/128 O2 Sat by Pulse 95 100 97 Oximetry 05/22/21 05/22/21 05/22/21 10:30 10:46 11:00 Temperature Pulse Rate 124 H 81 83 Respiratory 24 19 13 Rate Blood Pressure 223/128 223/128 235/148 O2 Sat by Pulse 96 97 97 Oximetry 05/22/21 05/22/21 05/22/21 11:05 11:30 12:00 Temperature 98.7 F Pulse Rate 81 77 Respiratory 16 13 Rate Blood Pressure 235/148 216/128 O2 Sat by Pulse 100 99 Oximetry 05/22/21 05/22/21 05/22/21 12:30 12:53 13:00 Temperature Pulse Rate 82 90 82 Respiratory 23 12 Rate Blood Pressure 216/128 216/128 235/140 O2 Sat by Pulse 98 Oximetry 05/22/21 05/22/21 13:56 14:12 Temperature Pulse Rate 85 82 Respiratory 17 Rate Blood Pressure 235/140 219/118 O2 Sat by Pulse Oximetry - Reevaluation(s) Reevaluation #1: 05/22/21 11:17 Differential diagnosis, including not limited to: GERD, gastritis, hiatal hernia, pneumonia, coronary artery disease, hypertensive urgency, end-stage renal disease, anxiety, electrolyte derangement Assessment and plan: 66-year-old female, who is afebrile with reassuring vital signs, with exception of marked hypertension which is chronic for her, with equal pulses in the upper and lower extremities, no pulsatile abdominal mass, with a complaint of chronic chest pain, acute on chronic, and anxiety. Hypertension is appreciated, this is a chronic finding for this patient. Patient was recently seen by cardiology, who recommended no additional ischemic evaluation. Patient also recently had a CT scan of her chest, within the past week, which was negative for acute findings. Patient is markedly hypertensive, we will start her on labetalol for her elevated blood pressure, and treat her symptoms supportively and symptomatic ally. She is not significantly hypoxic at this time, and she is not tachycardic, and she was recently ruled out for pulmonary embolism. Therefore, I think a pulmonary embolism is unlikely, however, given her recent admission hospitalization, a D-dimer sent. We will check appropriate laboratory studies, EKG x2, troponin x2, D-dimer, and reassess. If we are able to control the patient's symptoms and hypertension, would consider her suitable for discharge with outpatient follow-up. Her card iac risk factor profile is reviewed and appreciated, but she has been seen by cardiology at this facility, as well as at [facility]. Both times, repeat cardiac risk ratification was not recommended. 05/22/21 11:34 Laboratory studies demonstrate hyperkalemia, azotemia, uremia, metabolic acidosis, presumed anemia of chronic disease. Troponin chronically elevated. Patient was medicated empirically with a hyperkalemia cocktail. Labetalol is ordered for hypertension. Aspirin is ordered. Patient meets criteria for admission hospitalization secondary to decompensated renal disease, requiring urgent/emergent hemodialysis. Nuclear medicine study ordered. Defer to inpatient team to follow this up. Discussed patient's history, physical, laboratory studies, and clinical impression with nephrology on-call, Dr. Carmina Norris He agrees with the plan of care, and he will arrange for hemodialysis. Hospital physician is paged to arrange admission. Reevaluation #2: 05/22/21 11:59 Dr Tom Macedo to admit to [facility] 05/22/21 16:04 Nuclear medicine study is low probability for pulmonary embolism. - EJ/Peripheral Line Neck L Time Out Performed: Yes Indications: multiple IV sites needed Skin Cleansed in Sterile Fashion: Yes Size: 20 Dressing Placed: Tegaderm Patient Tolerated Procedure: well Neck R Time Out Performed: Yes Indications: multiple IV sites needed Skin Cleansed in Sterile Fashion: Yes Size: 20 Dressing Placed: Tegaderm Patient Tolerated Procedure: well ED Medical Decision Making - Lab Data Result diagrams: 05/22/21 10:35 05/22/21 10:35 Vital Signs 05/22/21 05/22/21 05/22/21 08:20 08:30 08:46 Temperature Pulse Rate 81 77 Respiratory 10 L 20 Rate Blood Pressure O2 Sat by Pulse 100 98 95 Oximetry 05/22/21 05/22/21 05/22/21 09:00 09:16 09:30 Temperature Pulse Rate 82 76 90 Respiratory 14 24 13 Rate Blood Pressure 252/149 O2 Sat by Pulse 100 100 97 Oximetry 05/22/21 05/22/21 05/22/21 09:46 10:00 10:16 Temperature Pulse Rate 79 83 83 Respiratory 16 21 16 Rate Blood Pressure 252/149 223/128 223/128 O2 Sat by Pulse 95 100 97 Oximetry 05/22/21 05/22/21 05/22/21 10:30 10:46 11:00 Temperature Pulse Rate 124 H 81 83 Respiratory 24 19 13 Rate Blood Pressure 223/128 223/128 235/148 O2 Sat by Pulse 96 97 97 Oximetry 05/22/21 11:05 Temperature 98.7 F Pulse Rate Respiratory Rate Blood Pressure O2 Sat by Pulse Oximetry Lab Results 05/22/21 05/22/21 05/22/21 Range/Units 10:35 10:35 10:35 WBC 5.6 (4.5-11.0) K/mm3 RBC 2.71 L (3.65-5.03) M/mm3 Hgb 8.2 L (10.1-14.3) gm/dl Hct 25.1 L (30.3-42.9) % MCV 93 (79-97) fl MCH 30 (28-32) pg MCHC 33 (30-34) % RDW 17.0 H (13.2-15.2) % Plt Count 376 (140-440) K/mm3 PT 14.5 (12.2-14.9) Sec. INR 1.08 (0.87-1.13) D-Dimer 1152.32 H (0-234) ng/mlDDU Sodium 139 (137-145) mmol/L Chloride 97.6 L (98-107) mmol/L Carbon Dioxide 25 (22-30) mmol/L Anion Gap 23 mmol/L BUN 52 H (7-17) mg/dL Glucose 98 (65-100) mg/dL Calcium 10.8 H (8.4-10.2) mg/dL Magnesium 2.40 H (1.7-2.3) mg/dL Total Bilirubin 0.50 (0.1-1.2) mg/dL AST 24 (5-40) units/L ALT 13 (7-56) units/L Alkaline Phosphatase 127 (35-129) units/L Total Creatine Kinase 56 (30-135) units/L Troponin T 0.088 H (0.00-0.029) ng/mL Total Protein 7.3 (6.3-8.2) g/dL Albumin 4.3 (3.9-5) g/dL Albumin/Globulin Ratio 1.4 % Acetaminophen (10.0-30.0) ug/mL 05/22/21 05/22/21 Range/Units 10:35 10:35 WBC (4.5-11.0) K/mm3 RBC (3.65-5.03) M/mm3 Hgb (10.1-14.3) gm/dl Hct (30.3-42.9) % MCV (79-97) fl MCH (28-32) pg MCHC (30-34) % RDW (13.2-15.2) % Plt Count (140-440) K/mm3 PT (12.2-14.9) Sec. INR (0.87-1.13) D-Dimer (0-234) ng/mlDDU Sodium (137-145) mmol/L Chloride (98-107) mmol/L Carbon Dioxide (22-30) mmol/L Anion Gap mmol/L BUN (7-17) mg/dL Glucose (65-100) mg/dL Calcium (8.4-10.2) mg/dL Magnesium (1.7-2.3) mg/dL Total Bilirubin (0.1-1.2) mg/dL AST (5-40) units/L ALT (7-56) units/L Alkaline Phosphatase (35-129) units/L Total Creatine Kinase (30-135) units/L Troponin T 0.087 H (0.00-0.029) ng/mL Total Protein (6.3-8.2) g/dL Albumin (3.9-5) g/dL Albumin/Globulin Ratio % Acetaminophen 5.0 L (10.0-30.0) ug/mL - EKG Data 05/22/21 11:16 EKG is interpreted at 09: 05 Sinus rhythm, rate 79 bpm. Normal axis, QTC 569 ms. Left ventricular hypertrophy. Right bundle branch block noted. Motion artifact. Abnormal EKG. In the STEMI. Unchanged from prior EKG from 05/04/2021 - Radiology Data Radiology results: report reviewed, image reviewed [facility] [address] [place] [address] XRay Report Signed Patient: RADHA DICK MR# : [id number] : 1955 Acct:[id number] Age/Sex: 66 / F ADM Date: 05/22/21 Loc: ED Att ending Dr: Ordering Physician: STACIA ROSENBERG MD Date of Service: 05/22/21 Procedure(s): XR chest 1V ap Accession Number(s): [id number] cc: STACIA ROSENBERG MD Fluoro Time In Minutes: CHEST 1 VIEW INDICATION: acute cp. COMPARISON: 05/03/2021 FINDINGS: SUPPORT DEVICES: Stable satisfactory device positioning. HEART: Stable cardiomegaly. LUNGS/PLEURA: No acute air space or interstitial disease. ADDITIONAL FINDINGS: None. IMPRESSION: 1. No acute findings. Signer Name: Hipolito Barajas MD Signed: 05/22/2021 7:57 AM Workstation Name: [id number] Transcribed By: MARLIN Dictated By: Hipolito Barajas MD Electronically Authenticated By: Hipolito Barajas MD Signed Date/Time: 05/22/21756 DD/ 6 Critical Care Time: Yes Critical care time in (mins) excluding proc time.: 45 Critical care attestation.: If time is entered above; I have spent that time in minutes in the direct care of this critically ill patient, excluding procedure time. ED Disposition Clinical Impression: History of implantable cardioverter-defibrillator (ICD) placement, ESRD needing dialysis, Missed dialysis, Hypertensive urgency, malignant, Acute chest pain, Hyperkalemia, Metabolic acidosis, Anemia Disposition: OP ADMIT IP TO THIS HOSP Is pt being admited?: Yes Does the pt Need Aspirin: No Condition: Serious Heart Score - HEART Score History: Slightly suspicious EKG: Non-specific Age: 45-65 Risk factors: > 3 risk factors or hx of atherosclerotic disease Troponin: 1-3x normal limit HEART Score: 5 - EKG Read Time Time EKG Completed: 09:05 EKG Read Time: 09:05 - Critical Actions Critical Actions: 4-6 pts:12-16.6% risk of adverse cardiac event. Should be admitted
--- NOTE | 2021-05-22 08:02 | XRay Report ---
CHEST 1 VIEW INDICATION: acute cp. COMPARISON: 05/03/2021 FINDINGS: SUPPORT DEVICES: Stable satisfactory device positioning. HEART: Stable cardiomegaly. LUNGS/PLEURA: No acute air space or interstitial disease. ADDITIONAL FINDINGS: None. IMPRESSION: 1. No acute findings. Signer Name: Hipolito Barajas MD Signed: 05/22/2021 7:57 AM Workstation Name: [id number]
[2021-05-22] MEDS ORDERED: FAMOTIDINE 20 MG TAB PO ONE (08:26)
[2021-05-22] MEDS ORDERED: ALPRAZolam 0.25 MG TAB PO ONE ×2 (08:26→11:00)
[2021-05-22] MEDS ORDERED: SUCRALFATE 1 GM/10 ML ORAL LIQD PO ONE (08:26)
[2021-05-22] MEDS ORDERED: ACETAMINOPHEN 500 MG TAB PO ONE (08:26)
[2021-05-22 10:50] LABS: Hematocrit 25.1 % (30.3-42.9); Hemoglobin 8.2 gm/dl (10.1-14.3); Mean Corpuscular HGB Conc 33 % (30-34); Mean Corpuscular Volume 93 fl (79-97); Platelet Count 376 K/mm3 (140-440); Red Blood Count 2.71 M/mm3 (3.65-5.03)
--- NOTE | 2021-05-22 10:59 | Electrocardiograph Report ---
[facility] Test Date: 2021-05-22 Test Time: 09:05:16 Pat Name: RADHA DICK Department: Room: Gender: F Loan Secretary: LEWIS : 1955 Requested By: STACIA ROSENBERG Order Number: [id number] Reading MD: Sean Washington Measurements Intervals [place] Rate: 79 P: 46 [place]: 201 QRS: 57 QRSD: 175 T: 47 QT: 497 QTc: 569 Interpretive Statements Sinus rhythm Probable left atrial enlargement Right bundle branch block Compared to ECG 05/05/2021 13:58:12 No significant changes Electronically Signed On 05-22-2021 10:58:48 EDT by Sean Washington
[2021-05-22 11:03] LABS: INR 1.08 (0.87-1.13)
[2021-05-22 11:14] LABS: Albumin 4.3 g/dL (3.9-5); Calcium 10.8 mg/dL (8.4-10.2)
[2021-05-22] MEDS ORDERED: ASPIRIN 81 MG TAB CHEW PO ONE (11:29)
[2021-05-22] MEDS ORDERED: INSULIN REGULAR, HUMAN 100 UNITS/1 ML IV ONE (11:33)
[2021-05-22] MEDS ORDERED: SODIUM POLYSTYRENE 15 GM/60 ML ORAL LIQD PO ONE (11:33)
[2021-05-22] MEDS ORDERED: DEXTROSE 50% IN WATER (25GM) 50 ML SYRINGE IV ONE (11:33)
[2021-05-22] MEDS ORDERED: ALBUTEROL 2.5 MG/3 ML NEBU IH ONE ×3 (11:33→14:13)
[2021-05-22] MEDS ORDERED: SODIUM BICARB 8.4% 50 MEQ/50 ML SYRINGE IV ONE (11:33)
[2021-05-22] MEDS ORDERED: CALCIUM GLUCONATE 2,000 MG in SODIUM CHLORIDE 0.9% 100 ML IV ONE (12:00)
[2021-05-22 12:19] LABS: Chol/HDL Ratio 1.89 %
[2021-05-22] MEDS ORDERED: ALPRAZolam 0.25 MG TAB PO NR (13:00)
--- NOTE | 2021-05-22 13:57 | Nuclear Medicine Report ---
NUCLEAR MEDICINE PERFUSION LUNG SCAN INDICATION / CLINICAL INFORMATION: Chest pain, shortness of breath, hypertension, elevated d-dimer. TECHNIQUE: 5.3 mCi of Tc-99m MAA were given by IV. COMPARISON: Chest radiograph dated 05/22/2021. FINDINGS: PERFUSION: No significant perfusion defects. ADDITIONAL FINDINGS: None. IMPRESSION: 1. Low probability for pulmonary embolism. Signer Name: Kris Llanes MD Signed: 05/22/2021 1:52 PM Workstation Name: [id number]
[2021-05-22] MEDS ORDERED: LORazepam 2 MG/ML VIAL IV ONE (14:41)
--- NOTE | 2021-05-22 15:42 | Consultation ---
History of Present Illness - Reason for Consult Consult date: 05/22/21 end stage renal disease - History of Present Illness This is a 66 year old female who was brought from home via EMS for management of chest pain and anxiety. No family at bedside. Patient was recently discharged from here after being treated for similar complaints. Patient has received Ativan for Anxiety and is now sedated. On evaluation, patient's potassium was noted to be 6.1 and systolic blood pressure elevated in the 200's. Patient has ESRD and is on hemodialysis at [facility] on ,, schedule under Dr. Edmond. Dialysis was order was placed at 12:09 p.m today. Patient also has history of uncontrolled Hypertension, Diabetes Mellitus and Anemia. We are being consulted for management of this patient's ESRD. Past History Past Medical History: diabetes, hypertension Past Surgical History: Other (Right thigh Perm-catheter) Medications and Allergies Allergies Allergy/AdvReac Type Severity Reaction Status Date / Time No Known Allergies Allergy Verified 05/03/21 22:14 Home Medications Medication Instructions Recorded Confirmed Last Taken Type Ondansetron [Zofran ODT TAB] 4 mg PO Q8HR #30 tab.rapdis 10/26/20 04/24/21 04/23/21 Rx ALPRAZolam [Xanax TAB] 0.25 mg PO BID PRN #60 05/05/21 Unknown Rx Aldactone 50 mg PO DAILY #30 05/05/21 Unknown Rx Aspirin [Aspirin BABY CHEW TAB] 81 mg PO QDAY tab.chew 05/05/21 Unknown Rx Citalopram [Celexa] 20 mg PO QDAY #30 tab 05/05/21 Unknown Rx Diovan 160 mg PO BID #60 05/05/21 Unknown Rx Ergocalciferol (Vitamin D2) 50,000 unit PO DAILY #30 cap 05/05/21 Unknown Rx [Drisdol] Folic Acid/Vit B Comp W-C [Renal 1 cap PO QDAY capsule 05/05/21 Unknown Rx Caps] Folic Acid/Vit B Complex and C 0.8 mg PO QDAY #30 05/05/21 Unknown Rx [Renal Vitamin Tablet] HYDROcodone/APAP 5-325 [[place] 1 each PO Q6HR PRN #20 tab 05/05/21 Unknown Rx 5-325 mg TAB] ISOSORBIDE MONOnitrate [Imdur ER] 60 mg PO QDAY #30 tablet 05/05/21 Unknown Rx Lispro Insulin [HumaLOG] 0 unit SUB-Q ACHS units 05/05/21 Unknown Rx Pantoprazole [Protonix TAB] 40 mg PO DAILY #30 tablet 05/05/21 Unknown Rx Procardia 60 mg PO BID #60 05/05/21 Unknown Rx Sevelamer Carbonate [Renvela] 1,600 mg PO TID #90 05/05/21 Unknown Rx Valsartan [Diovan] 160 mg PO BID #60 tablet 05/05/21 Unknown Rx busPIRone [Buspar] 10 mg PO Q8HR #30 05/05/21 Unknown Rx cloNIDine 0.1 mg PO TID #90 05/05/21 Unknown Rx clonazePAM [KlonoPIN] 0.5 mg PO BID PRN #30 05/05/21 Unknown Rx hydrALAZINE 50 mg PO TID #90 05/05/21 Unknown Rx labetaloL 300 mg PO BID #60 05/05/21 Unknown Rx Active Meds: Active Medications Alprazolam (Alprazolam 0.25 Mg Tab) 0.25 mg PO ONCE NR Stop: 05/22/21 18:00 Dextrose (Dextrose 50% In Water (25gm) 50 Ml Syringe) 50 ml IV Q30MIN PRN; Protocol PRN Reason: Hypoglycemia Review of Systems ROS unobtainable: due to mental status Exam - Vital Signs Vital signs: Vital Signs Pulse Ox 100 05/22/21 08:20 - General Appearance General appearance: other (Patient is sedated) EENT: ATNC Neck: Present: trachea midline Respiratory: Decreased Breath Sounds Heart: S1S2 Gastrointestinal: Present: normoactive bowel sounds Integumentary: warm and dry Neurologic: other (Sedated) Musculoskeletal: Present: other (Mild edema. Has right thigh perm-catheter) Results - Lab Results 05/22/21 10:35 05/22/21 10:35 Most recent lab results Calcium 10.8 mg/dL (8.4-10.2) H 05/22/21 10:35 Magnesium 2.40 mg/dL (1.7-2.3) H 05/22/21 10:35 Assessment and Plan Assessment: End Stage Renal Disease on HD Hypertension Hyperkalemia Anemia Anxious Plan: Hemodialysis was ordered at 12:09 p.m today for UF and clearance and for Hyp erkalemia Patient is on hemodialysis at [facility], T,T,S schedule, outpatient job superintendent is Dr. Edmond Hyperkalemia-HD today as ordered. Received anti-potassium coctail. Low potassium diet. Fluid restriction of 1 liter per day Obtain daily weights Monitor I/O's daily Assess dialysis needs daily Dialysis nurse and dialysis director request for patient to give consent for dialysis treatment: Patient cannot verbally consent to receiving hemodialysis at present moment as she is currently sedated with Ativan, however, patient is chronically on hemodialysis as she is an ESRD patient and hence should be dialyzed as ordered as this is considered continuum of care and there are no documentation in the chart to reflect otherwise. Patient is on T,T,S schedule outpatiently and is due for hemodialysis today as ordered.
[2021-05-22] MEDS: DEXTROSE 50% IN WATER (25GM) 50 ML SYRINGE IV PRN ×2 (16:23→16:39)
[2021-05-22 16:53] LABS: Hepatitis B Surface Antigen Non-Reactive (Negative); Hepatitis C Virus Antibody Non-Reactive (NonReactive)
[2021-05-22] MEDS ORDERED: HYDROcodone/ACETAMINOPHEN 5-325 MG TAB PO PRN (20:27)
[2021-05-22] MEDS ORDERED: clonazePAM 0.5 MG TAB PO PRN (20:27)
[2021-05-22] MEDS ORDERED: hydrALAZINE 20 MG/1 ML INJ IV PRN (20:27)
[2021-05-22] MEDS ORDERED: HYDROmorphone 1 MG/1 ML INJ IV PRN (20:35)
[2021-05-22] MEDS ORDERED: METOCLOPRAMIDE 10 MG/2 ML INJ IV PRN (20:35)
[2021-05-22] MEDS ORDERED: ONDANSETRON 4 MG/2 ML INJ IV PRN (20:35)
[2021-05-22] MEDS ORDERED: cloNIDine 0.2 MG TAB PO PRN (20:38)
--- NOTE | 2021-05-22 20:43 | History and Physical Report ---
History of Present Illness Date of examination: 05/22/21 Date of admission: 05/22/21 11:59 Chief complaint: Chest pain since a.m. History of present illness: 65-year-old female with history of hypertension, end-stage renal disease and severe anxiety comes in for chest tightness and being anxious. Also shortness of breath. Patient is end-stage renal disease on hemodialysis. No fever or chills. No vomiting. Patient had extensive work-up in the past. Patient has echo in February 2021 with ejection fraction of 50 to 55% and negative Lexiscan in December 2020. Left heart catheter in 2015 which showed a proximal LAD of 20% stenosis. Patient is on hemodialysis 3 times a week. - Past Medical History --Hypertension: Yes (ADMITTED WITH HYPERTENSIVE EMERGENCY) --Diabetes: Yes --Renal Disease: Yes (Dialysis: -W-) --Additional medical history: Possible atrial fib. Hernia right Inguinal - Surgical History --Coronary Stent: No --Pacemaker: Yes --Internal Defibrillator: Yes --Cholecystectomy: Yes --Appendectomy: Yes Additional Surgical History: Hysterectomy - Social History Smoking Status: Never Smoker Substance Use Type: None Review of Systems ROS: Stated complaint: HYPERTENSION/ANXIETY Other details as noted in HPI Constitutional: denies: fever Eyes: denies: eye discharge ENT: denies: epistaxis Respiratory: shortness of breath (Chronic shortness of breath) Cardiovascular: chest pain Gastrointestinal: denies: abdominal pain, nausea, vomiting Musculoskeletal: denies: back pain Psychiatric: anxiety. denies: homicidal thoughts, suicidal thoughts Past History Past Medical History: diabetes, hypertension Past Surgical History: Other (Right thigh Perm-catheter) Medications and Allergies Allergies Allergy/AdvReac Type Severity Reaction Status Date / Time No Known Allergies Allergy Verified 05/03/21 22:14 Home Medications Medication Instructions Recorded Confirmed Last Taken Type Ondansetron [Zofran ODT TAB] 4 mg PO Q8HR #30 tab.rapdis 10/26/20 04/24/21 04/23/21 Rx ALPRAZolam [Xanax TAB] 0.25 mg PO BID PRN #60 05/05/21 Unknown Rx Aldactone 50 mg PO DAILY #30 05/05/21 Unknown Rx Aspirin [Aspirin BABY CHEW TAB] 81 mg PO QDAY tab.chew 05/05/21 Unknown Rx Citalopram [Celexa] 20 mg PO QDAY #30 tab 05/05/21 Unknown Rx Diovan 160 mg PO BID #60 05/05/21 Unknown Rx Ergocalciferol (Vitamin D2) 50,000 unit PO DAILY #30 cap 05/05/21 Unknown Rx [Drisdol] Folic Acid/Vit B Comp W-C [Renal 1 cap PO QDAY capsule 05/05/21 Unknown Rx Caps] Folic Acid/Vit B Complex and C 0.8 mg PO QDAY #30 05/05/21 Unknown Rx [Renal Vitamin Tablet] HYDROcodone/APAP 5-325 [[place] 1 each PO Q6HR PRN #20 tab 05/05/21 Unknown Rx 5-325 mg TAB] ISOSORBIDE MONOnitrate [Imdur ER] 60 mg PO QDAY #30 tablet 05/05/21 Unknown Rx Lispro Insulin [HumaLOG] 0 unit SUB-Q ACHS units 05/05/21 Unknown Rx Pantoprazole [Protonix TAB] 40 mg PO DAILY #30 tablet 05/05/21 Unknown Rx Procardia 60 mg PO BID #60 05/05/21 Unknown Rx Sevelamer Carbonate [Renvela] 1,600 mg PO TID #90 05/05/21 Unknown Rx Valsartan [Diovan] 160 mg PO BID #60 tablet 05/05/21 Unknown Rx busPIRone [Buspar] 10 mg PO Q8HR #30 05/05/21 Unknown Rx cloNIDine 0.1 mg PO TID #90 05/05/21 Unknown Rx clonazePAM [KlonoPIN] 0.5 mg PO BID PRN #30 05/05/21 Unknown Rx hydrALAZINE 50 mg PO TID #90 05/05/21 Unknown Rx labetaloL 300 mg PO BID #60 05/05/21 Unknown Rx Active Meds: Active Medications Dextrose (Dextrose 50% In Water (25gm) 50 Ml Syringe) 50 ml IV Q30MIN PRN; Protocol PRN Reason: Hypoglycemia Last Admin: 05/22/21 16:39 Dose: 50 ml Documented by: Exam - Constitutional Vitals: Temp Pulse Resp BP Pulse Ox 97.9 F 81 18 215/118 100 05/22/21 18:40 05/22/21 20:15 05/22/21 18:40 05/22/21 20:15 05/22/21 18:40 General appearance: Present: mild distress, well-nourished - EENT Eyes: Present: PERRL ENT: hearing intact, clear oral mucosa - Neck Neck: Present: supple, normal ROM - Respiratory Respiratory effort: normal Respiratory: bilateral: CTA - Cardiovascular Heart rate: 88 Rhythm: regular Heart Sounds: Present: S1 & S2. Absent: rub, click - Extremities Extremities: pulses symmetrical, No edema Peripheral Pulses: within normal limits - Abdominal General gastrointestinal: Present: soft, non-tender, non-distended, normal bowel sounds Female genitourinary: Present: normal - Integumentary Integumentary: Present: clear, warm, dry - Musculoskeletal Musculoskeletal: gait normal, strength equal bilaterally - Psychiatric Psychiatric: appropriate mood/affect, intact judgment & insight - Neurologic Neurologic: CNII-XII intact, moves all extremities - Allied Health Allied health notes reviewed: nursing, case management HEART Score - HEART Score History: Moderately suspicious EKG: Non-specific Age: 45-65 Risk factors: > 3 risk factors or hx of atherosclerotic disease Troponin: Troponin T 0.087 ng/mL (0.00-0.029) H 05/22/21 10:35 Troponin T 0.088 ng/mL (0.00-0.029) H 05/22/21 10:35 Troponin: 1-3x normal limit HEART Score: 6 - Critical Actions Critical Actions: 4-6 pts:12-16.6% risk of adverse cardiac event. Should be admitted Results - Labs CBC & Chem 7: 05/23/21 04:23 05/23/21 04:23 Labs: Laboratory Last Values WBC 5.6 K/mm3 (4.5-11.0) 05/22/21 10:35 RBC 2.71 M/mm3 (3.65-5.03) L 05/22/21 10:35 Hgb 8.2 gm/dl (10.1-14.3) L 05/22/21 10:35 Hct 25.1 % (30.3-42.9) L 05/22/21 10:35 MCV 93 fl (79-97) 05/22/21 10:35 MCH 30 pg (28-32) 05/22/21 10:35 MCHC 33 % (30-34) 05/22/21 10:35 RDW 17.0 % (13.2-15.2) H 05/22/21 10:35 Plt Count 376 K/mm3 (140-440) 05/22/21 10:35 PT 14.5 Sec. (12.2-14.9) 05/22/21 10:35 INR 1.08 (0.87-1.13) 05/22/21 10:35 D-Dimer 1152.32 ng/mlDDU (0-234) H 05/22/21 10:35 Sodium 139 mmol/L (137-145) 05/22/21 10:35 Potassium 6.1 mmol/L (3.6-5.0) H* 05/22/21 10:35 Chloride 97.6 mmol/L (98-107) L 05/22/21 10:35 Carbon Dioxide 25 mmol/L (22-30) 05/22/21 10:35 Anion Gap 23 mmol/L 05/22/21 10:35 BUN 52 mg/dL (7-17) H 05/22/21 10:35 Creatinine 10.0 mg/dL (0.6-1.2) H 05/22/21 10:35 Estimated GFR 5 ml/min 05/22/21 10:35 BUN/Creatinine Ratio 5 % 05/22/21 10:35 Glucose 98 mg/dL (65-100) 05/22/21 10:35 POC Glucose 140 mg/dL (70-105) H 05/22/21 18:20 Calcium 10.8 mg/dL (8.4-10.2) H 05/22/21 10:35 Magnesium 2.40 mg/dL (1.7-2.3) H 05/22/21 10:35 Total Bilirubin 0.50 mg/dL (0.1-1.2) 05/22/21 10:35 AST 24 units/L (5-40) 05/22/21 10:35 ALT 13 units/L (7-56) 05/22/21 10:35 Alkaline Phosphatase 127 units/L (35-129) 05/22/21 10:35 Total Creatine Kinase 56 units/L (30-135) 05/22/21 10:35 Troponin T 0.087 ng/mL (0.00-0.029) H 05/22/21 10:35 Troponin T 0.088 ng/mL (0.00-0.029) H 05/22/21 10:35 Total Protein 7.3 g/dL (6.3-8.2) 05/22/21 10:35 Albumin 4.3 g/dL (3.9-5) 05/22/21 10:35 Albumin/Globulin Ratio 1.4 % 05/22/21 10:35 Triglycerides 45 mg/dL (2-149) 05/22/21 10:35 Cholesterol 138 mg/dL (50-199) 05/22/21 10:35 LDL Cholesterol Direct 51 mg/dL (50-130) 05/22/21 10:35 HDL Cholesterol 73 mg/dL (40-59) H 05/22/21 10:35 Cholesterol/HDL Ratio 1.89 % 05/22/21 10:35 Salicylates < 0.3 mg/dL (2.8-20.0) L 05/22/21 10:35 Acetaminophen 5.0 ug/mL (10.0-30.0) L 05/22/21 10:35 Plasma/Serum Alcohol < 0.01 % (0-0.07) 05/22/21 10:35 Hepatitis A IgM Ab Non-reactive (NonReactive) 05/22/21 10:35 Hep Bs Antigen Non-reactive (Negative) 05/22/21 10:35 Hep B Core IgM Ab Non-reactive (NonReactive) 05/22/21 10:35 Hepatitis C Antibody Non-reactive (NonReactive) 05/22/21 10:35 Short CBC 05/22/21 05/23/21 Range/Units 10:35 04:23 WBC 5.6 3.9 L (4.5-11.0) K/mm3 Hgb 8.2 L 7.4 L (10.1-14.3) gm/dl Hct 25.1 L 22.2 L (30.3-42.9) % Plt Count 376 388 (140-440) K/mm3 BMP 05/22/21 05/23/21 10:35 04:23 Sodium 139 141 Potassium 6.1 H* 3.7 D Chloride 97.6 L 99.4 Carbon Dioxide 25 28 BUN 52 H 21 H Creatinine 10.0 H 5.3 H Glucose 98 100 Calcium 10.8 H 9.1 D Cardiac Enzymes 07/13/21 07/13/21 Range/Units 10:35 10:35 Total Creatine Kinase 56 (30-135) units/L Troponin T 0.088 H 0.087 H (0.00-0.029) ng/mL Liver Function 05/22/21 05/23/21 Range/Units 10:35 04:23 Total Bilirubin 0.50 0.50 (0.1-1.2) mg/dL AST 24 26 (5-40) units/L ALT 13 18 (7-56) units/L Alkaline Phosphatase 127 171 H (35-129) units/L Albumin 4.3 3.6 L (3.9-5) g/dL - Imaging and Cardiology Chest x-ray: report reviewed Imaging and Cardiology: Chest x-ray No acute findings EKG sinus rhythm Right bundle branch block Heart rate of 79 Assessment and Plan Advance Directives: Yes (Full code) VTE prophylaxis?: Chemical Plan of care discussed with patient/family: Yes - Patient Problems (1) Hypertensive emergency Current Visit: Yes Status: Acute Plan to address problem: Patient started on her home antihypertensives including valsartan. IV hydralazine 10 mg every 3 as needed for blood pressure more than 160/100. Noncompliance Patient counseled about compliance (2) Chest pain Current Visit: Yes Status: Acute Plan to address problem: Patient had a recent Lexiscan in February 2021 including echocardiogram Lexiscan was not ordered Patient has severe anxiety Check CPK and CK-MB Patient always has elevated troponin (3) Hyperkalemia Current Visit: Yes Status: Acute Plan to address problem: Treated in the emergency room with Kayexalate IV calcium gluconate and sodium bicarbonate (4) ESRD on hemodialysis Current Visit: Yes Status: Chronic Plan to address problem: Patient to get dialysis Nephrology consulted (5) Generalized anxiety disorder Current Visit: Yes Status: Acute Plan to address problem: Patient on clonazepam (6) DVT prophylaxis Current Visit: Yes Status: Acute Plan to address problem: On heparin and GI prophylaxis
[2021-05-22] MEDS ORDERED: ALDACTONE 50 MG PO SCH (20:45)
[2021-05-22] MEDS ORDERED: LABETALOL 300 MG PO SCH (22:00)
[2021-05-22] MEDS ORDERED: PROCARDIA 60 MG PO SCH (22:00)
[2021-05-22] MEDS ORDERED: DIOVAN 160 MG PO SCH (22:00)
[2021-05-23] MEDS: INSULIN LISPRO 100 UNIT/ML SUB-Q SCH ×2 (00:02→07:30)
[2021-05-23] MEDS: cloNIDine 0.1 MG TAB PO SCH ×2 (00:09→05:21)
[2021-05-23] MEDS: HEPARIN 5,000 UNIT/1 ML VIAL SUB-Q SCH ×2 (00:10→10:00)
[2021-05-23] MEDS: VALSARTAN 160MG TAB PO SCH ×2 (00:10→09:57)
[2021-05-23] MEDS: NIFEdipine XL 60 MG TAB PO SCH ×2 (00:11→09:57)
[2021-05-23] MEDS: ACETAMINOPHEN 325 MG TAB PO PRN ×2 (03:40→13:23)
[2021-05-23 05:44] LABS: Eosinophils # (Auto) 0.1 K/mm3 (0.0-0.4); Eosinophils % (Auto) 2.6 % (0.0-4.3); Hematocrit 22.2 % (30.3-42.9); Hemoglobin 7.4 gm/dl (10.1-14.3); Lymphocytes # (Auto) 0.5 K/mm3 (1.2-5.4); Lymphocytes % (Auto) 13.7 % (13.4-35.0); Mean Corpuscular HGB Conc 33 % (30-34); Mean Corpuscular Volume 93 fl (79-97); Monocytes # (Auto) 0.4 K/mm3 (0.0-0.8); Monocytes % (Auto) 9.1 % (0.0-7.3); Platelet Count 388 K/mm3 (140-440); Red Blood Count 2.39 M/mm3 (3.65-5.03); Red Cell Distribution Width 17.1 % (13.2-15.2)
[2021-05-23 06:06] LABS: Albumin 3.6 g/dL (3.9-5); Calcium 9.1 mg/dL (8.4-10.2)
[2021-05-23 07:53] VITALS: BP 167/94
[2021-05-23] MEDS ORDERED: NON-FORMULARY EACH (Hydralazine 50 MG) PO SCH (08:00)
[2021-05-23] MEDS ORDERED: SEVELAMER CARBONATE 800 MG TAB PO SCH (08:00)
[2021-05-23] MEDS ORDERED: hydrALAZINE 25 MG TAB PO SCH (08:00)
[2021-05-23] MEDS ORDERED: NON-FORMULARY EACH (Clonidine 0.1 MG) PO SCH (08:00)
[2021-05-23] MEDS ORDERED: CITALOPRAM 20 MG TAB PO SCH (10:00)
[2021-05-23] MEDS ORDERED: FOLIC ACID/VIT B COMP W-C 1 MG (RENAL CAPS) PO SCH (10:00)
[2021-05-23] MEDS ORDERED: PANTOPRAZOLE 40 MG TAB PO SCH (10:00)
[2021-05-23] MEDS ORDERED: SPIRONOLACTONE 50 MG TAB PO SCH (10:00)
[2021-05-23] MEDS ORDERED: ASPIRIN 81 MG TAB CHEW PO SCH (10:00)
--- NOTE | 2021-05-23 10:11 | Discharge Summary ---
Providers - Providers Date of Admission: 05/22/21 11:59 Date of discharge: 05/23/21 Attending physician: SUDEEP LORENZO MD 05/22/21 11:27 Consult to Physician [CONS] Urgent Comment: Consulting Provider: MARY WEBB Physician Instructions: Reason For Exam: esrd hyperkalemia Primary care physician: MANAGER TRANSPORTATION Hospitalization Reason for admission: shortness of breath Condition: Fair Hospital course: History of present illness: 65-year-old female with history of hypertension, end-stage renal disease and severe anxiety comes in for chest tightness and being anxious. Also shortness of breath. Patient is end-stage renal disease on hemodialysis. No fever or chills. No vomiting. Patient had extensive work-up in the past. Patient has echo in February 2021 with ejection fraction of 50 to 55% and negative Lexiscan in December 2020. Left heart catheterization in 2015 which showed a proximal LAD of 20% stenosis. Patient is on hemodialysis 3 times a week. Hospital Course: Patient was admitted initially for chest pain believed to be due to hypertensive emergency worsened by her underlying anxiety. She was noncompliant with her home anti-HTN regimen and her anti anxiety medications written by her primary care physician. She has had cardiac work up in the past included a ECHO in february 2021 with an EF of 50-55% and negative stress test in Dec 2020. She was also noted to be hyperkalemic and was subsequently given Kayexalate IV, calcium gl uconate, and sodium bicarbonate in the emergency department. She is a hemodialysis patient (M/W/F) and was subsequently dialyzed on Friday evening. She has an outpatient appointment for dialysis session today but will be attending tomorrow. She will be discharged with refilled of her home anti-HTN and anti-anxiety medication as well as a recommendation to follow up with her OP bisque grader and primary care physician. Disposition: DC-01 TO HOME OR SELFCARE Final Discharge Diagnosis (Prints w/discharge instructions): Hypertensive emergency Time spent for discharge: 35 - Discharge Diagnoses (1) Hypertensive emergency Status: Resolved Core Measure Documentation - Palliative Care Palliative Care/ Comfort Measures: Not Applicable - Core Measures Any of the following diagnoses?: none Exam - Constitutional Vitals: Temp Pulse Resp BP Pulse Ox 97.9 F 76 18 167/94 100 05/23/21 07:28 05/23/21 07:28 05/23/21 07:28 05/23/21 07:28 05/23/21 07:28 General appearance: Present: no acute distress - EENT Eyes: Present: PERRL, EOM intact ENT: hearing intact - Neck Neck: Present: supple, normal ROM - Respiratory Respiratory effort: normal - Cardiovascular Rhythm: regular Heart Sounds: Present: S1 & S2 - Extremities Extremities: no ischemia, No edema Peripheral Pulses: within normal limits - Abdominal General gastrointestinal: Present: soft, non-tender - Integumentary Integumentary: Present: clear, warm, dry - Musculoskeletal Musculoskeletal: strength equal bilaterally Plan Activity: no restrictions Weight Bearing Status: Full Weight Bearing Diet: low cholesterol, renal Plan of Treatment: Alesha Magaña. You were admitted for chest pain. We suspect you have had this pain due to your elevated blood pressure. You had a recent stress test in February 2021 which was normal so we do not believe this was due to your heart. Additional data from your labs and EKG confirmed this. You also had elevated potassium. We consulted a kidney specialist who started dialysis on 05/22. You improved with our interventions. We discussed follow up with your outpatient kidney doctor and the need for continuation of dialysis per your dialysis schedule (at the discretion of your kidney doctor) and you agreed to the plan. Follow up with: PRIMARY CARE, [Primary Care Provider] - 3-5 Days Prescriptions: Aldactone 50 mg PO DAILY #30 busPIRone [Buspar] 10 mg PO Q8HR #30 tab Citalopram [Celexa] 20 mg PO QDAY #30 tab cloNIDine 0.1 mg PO TID #90 hydrALAZINE 50 mg PO TID #90 Procardia 60 mg PO BID #60
--- NOTE | 2021-05-23 14:35 | Progress Note ---
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 Pelaez She is also confirmed today to be on nocturnal schedule of M,W,F per clinical coordinator there She was advised to return there tonight to resume nocturnal dialysis Ok to discharge home from nephrology standpoint Subjective Date of service: 05/23/21 Principal diagnosis: Chest Pain Interval history: Patient seen sitting up in bed using cell phone. Patient is awake and alert today. States her is coming to pick her up today. States feeling better today. Objective - Vital Signs Vital signs: Vital Signs - 12hr 05/23/21 05/23/21 05/23/21 03:28 05:21 07:28 Temperature 98.6 F 97.9 F Pulse Rate 72 76 Respiratory 16 18 Rate Blood Pressure 197/109 197/109 167/94 O2 Sat by Pulse 98 100 Oximetry 05/23/21 05/23/21 08:00 10:00 Temperature Pulse Rate 76 Respiratory 18 Rate Blood Pressure O2 Sat by Pulse 100 Oximetry - General Appearance General appearance: other (No acute distress) EENT: ATNC, PERRL, hearing intact, vision intact Neck: no JVD, supple Respiratory: Present: Decreased Breath Sounds Cardiology: S1S2 Gastrointestinal: normoactive bowel sounds Integumentary: warm and dry Neurologic: other (Awake and alert. ) Musculoskeletal: other (No edema. Has right femoral perm-catheter intact) Psychiatric: cooperative - Lab 05/23/21 04:23 05/23/21 04:23 Most recent lab results Calcium 9.1 mg/dL (8.4-10.2) D 05/23/21 04:23 Phosphorus 2.90 mg/dL (2.5-4.5) 05/23/21 04:23 Magnesium 2.40 mg/dL (1.7-2.3) H 05/22/21 10:35 Medications & Allergies - Medications Allergies/Adverse Reactions: Allergies No Known Allergies Allergy (Verified 05/03/21 22:14) Home Medications: Home Medications Medication Instructions Recorded Confirmed Last Taken Type ALPRAZolam [Xanax TAB] 0.25 mg PO BID PRN #60 05/05/21 Unknown Rx Aspirin [Aspirin BABY CHEW TAB] 81 mg PO QDAY tab.chew 05/05/21 Unknown Rx Ergocalciferol (Vitamin D2) 50,000 unit PO DAILY #30 cap 05/05/21 Unknown Rx [Drisdol] Folic Acid/Vit B Complex and C 0.8 mg PO QDAY #30 05/05/21 Unknown Rx [Renal Vitamin Tablet] Lispro Insulin [HumaLOG] 0 unit SUB-Q ACHS units 05/05/21 Unknown Rx Sevelamer Carbonate [Renvela] 1,600 mg PO TID #90 05/05/21 Unknown Rx Valsartan [Diovan] 160 mg PO BID #60 tablet 05/05/21 Unknown Rx labetaloL 300 mg PO BID #60 05/05/21 Unknown Rx Aldactone 50 mg PO DAILY #30 05/23/21 Unknown Rx Citalopram [Celexa] 20 mg PO QDAY #30 tab 05/23/21 Unknown Rx Ondansetron [Zofran ODT TAB] 4 mg PO Q8HR PRN 7 Days #21 tab 05/23/21 04/24/21 04/23/21 Rx Procardia 60 mg PO BID #60 05/23/21 Unknown Rx Sevelamer Carbonate [Renvela] 1,600 mg PO TID tablet 05/23/21 Unknown Rx Spironolactone [Aldactone] 50 mg PO QDAY tablet 05/23/21 Unknown Rx Valsartan [Diovan] 160 mg PO BID tablet 05/23/21 Unknown Rx busPIRone [Buspar] 10 mg PO Q8HR #30 tab 05/23/21 Unknown Rx cloNIDine 0.1 mg PO TID #90 05/23/21 Unknown Rx hydrALAZINE 50 mg PO TID #90 05/23/21 Unknown Rx Active Medications: Generic Name Dose Route Start Last Admin Trade Name Freq PRN Reason Stop Dose Admin Acetaminophen 650 mg 05/22/21 20:35 05/23/21 13:23 Acetaminophen 325 Mg Tab PO 650 mg Q4H PRN Administration Pain MILD(1-3)/Fever >100.5/SAUCEDO Hydrocodone Bitart/Acetaminophen 1 each 05/22/21 20:27 Hydrocodone/Acetaminophen 5-325 Mg Tab PO Q6HR PRN PAIN Aspirin 81 mg 07/14/21 10:00 05/23/21 09:56 Aspirin 81 Mg Tab Chew PO 81 mg QDAY SUSU Administration Citalopram Hydrobromide 20 mg 05/23/21 10:00 05/23/21 09:57 Citalopram 20 Mg Tab PO 20 mg QDAY SUSU Administration Clonazepam 0.5 mg 05/22/21 20:27 Clonazepam 0.5 Mg Tab PO BID PRN Anxiety Clonidine HCl 0.2 mg 05/22/21 20:38 05/22/21 22:01 Clonidine 0.2 Mg Tab PO 0.2 mg Q1HR PRN Administration for SBP >170 and above Clonidine HCl 0.1 mg 05/22/21 22:00 05/23/21 05:21 Clonidine 0.1 Mg Tab PO 0.1 mg Q8HR SUSU Administration Dextrose 50 ml 05/22/21 11:33 05/22/21 16:39 Dextrose 50% In Water (25gm) 50 Ml Syringe IV 50 ml Q30MIN PRN Administration Hypoglycemia Protocol Heparin Sodium (Porcine) 5,000 unit 05/22/21 22:00 05/23/21 10:00 Heparin 5,000 Unit/1 Ml Vial SUB-Q 5,000 unit Q12HR SUSU Administration Hydralazine HCl 10 mg 05/22/21 20:27 05/22/21 20:47 Hydralazine 20 Mg/1 Ml Inj IV 10 mg Q3H PRN Administration Blood Pressure Hydralazine HCl 50 mg 05/23/21 08:00 05/23/21 09:57 Hydralazine 25 Mg Tab PO 50 mg TID SUSU Administration Hydromorphone HCl 0.5 mg 05/22/21 20:35 05/22/21 20:52 Hydromorphone 1 Mg/1 Ml Inj IV 0.5 mg Q3H PRN Administration Pain , Severe (7-10) Insulin Human Lispro 0 unit 05/22/21 22:00 05/23/21 07:30 Insulin Lispro 100 Unit/Ml SUB-Q Not Given ACHS [facility] Protocol Isosorbide Mononitrate 60 mg 05/22/21 21:00 05/23/21 09:57 Isosorbide Mononitrate Er 60 Mg Tab PO 60 mg QDAY SUSU Administration Labetalol HCl 300 mg 05/22/21 22:00 05/23/21 09:56 Labetalol 100 Mg Tab PO 300 mg BID SUSU Administration Metoclopramide HCl 10 mg 05/22/21 20:35 Metoclopramide 10 Mg/2 Ml Inj IV Q6H PRN Nausea And Vomiting Multivit/Ca Carb/B Cmplx/FA/Prenat 1 cap 05/23/21 10:00 05/23/21 09:56 Folic Acid/Vit B Comp W-C 1 Mg (Renal Caps) PO 1 cap QDAY SUSU Administration Nifedipine 60 mg 05/22/21 22:00 05/23/21 09:57 Nifedipine Xl 60 Mg Tab PO 60 mg BID SUSU Administration Ondansetron HCl 4 mg 05/22/21 20:35 Ondansetron 4 Mg/2 Ml Inj IV Q3H PRN Nausea And Vomiting Pantoprazole Sodium 40 mg 05/23/21 10:00 05/23/21 09:56 Pantoprazole 40 Mg Tab PO 40 mg DAILY SUSU Administration Sevelamer Carbonate 1,600 mg 05/23/21 08:00 05/23/21 09:57 Sevelamer Carbonate 800 Mg Tab PO 1,600 mg TID SUSU Administration Sodium Chloride 10 ml 05/22/21 22:00 05/23/21 10:01 Sodium Chloride 0.9% 10 Ml Flush Syringe IV 10 ml BID SUSU Administration Sodium Chloride 10 ml 05/22/21 20:35 Sodium Chloride 0.9% 10 Ml Flush Syringe IV PRN PRN LINE FLUSH Spironolactone 50 mg 05/23/21 10:00 05/23/21 09:57 Spironolactone 50 Mg Tab PO 50 mg QDAY SUSU Administration Valsartan 160 mg 05/22/21 22:00 05/23/21 09:57 Valsartan 160mg Tab PO 160 mg BID SUSU Administration
== END 2021-05-23 17:00 | disposition home or self-care (01) ==
LOC: ED 06:18 → 4A 11:59
PROVIDERS: ADMIT Internal Medicine; ATTEND Internal Medicine
DX: I16.0 Hypertensive urgency (principal); I12.0 Hypertensive chronic kidney disease with stage 5 chronic kidney disease or end stage renal disease; N18.6 End stage renal disease; E11.22 Type 2 diabetes mellitus with diabetic chronic kidney disease; D63.1 Anemia in chronic kidney disease; E87.5 Hyperkalemia; F41.9 Anxiety disorder, unspecified; R07.89 Other chest pain; E87.2 Acidosis; Z90.49 Acquired absence of other specified parts of digestive tract; Z90.710 Acquired absence of both cervix and uterus; Z99.2 Dependence on renal dialysis; Z79.82 Long term (current) use of aspirin; Z86.11 Personal history of tuberculosis; Z79.899 Other long term (current) drug therapy; Z98.890 Other specified postprocedural states; Z79.4 Long term (current) use of insulin
CPT/HCPCS: 36415; 71045; 78580; 80053; 80061; 80074; 82550; 82962; 83036; 83735; 84100; 84484; 85025; 85027; 85379; 85610; 93005; 96365; 96372; 96375; 96376; 99291; A9540; G0257; G0378; J0360; J0610; J1170; J1644; J2060; 80048; 80320; G0480; J1815